=== PATIENT | female | born 1945 | race Caucasian/White ===

== ENCOUNTER 2022-09-16 15:57 | Inpatient (IN) ==
[2022-09-16] MEDS ORDERED: SODIUM CHLORIDE 0.9% 1000ML 1,000 ML IV SCH (16:30)
[2022-09-16 16:35] LABS: Basophils # (auto) 0.01 K/uL (0-0.2); Basophils % (auto) 0.1 %; Hematocrit (blood only) 37.8 % (37.0-47.0); Hemoglobin 12.6 g/dl (12.0-16.0); Immature Granulocytes # (auto) 0.04 K/uL (0.01-0.20); Immature Granulocytes % (auto) 0.4 %; Lymphocytes # (auto) 0.45 K/uL (1.2-3.4); Lymphocytes % (auto) 4.9 %; Mean Corpuscular Hemoglobin 30.1 pg (25.0-34.0); Mean Corpuscular Hgb Conc 33.3 g/dL (32.0-36.0); Mean Corpuscular Volume 90.4 fL (80.0-100.0); Mean Platelet Volume 11.1 fL (9.4-12.4); Monocytes # (auto) 0.45 K/uL (0.11-0.59); Monocytes % (auto) 4.9 %; Neutrophils # (auto) 8.17 K/uL (1.40-6.50); Neutrophils % (auto) 89.7 %; Platelet Count 241 K/uL (130-400); RDW Coefficient of Variation 13.1 % (11.5-14.5); RDW Standard Deviation 43.4 fL (36.4-46.3); Red Blood Count 4.18 M/uL (4.20-5.40); White Blood Count 9.12 K/ul (4.8-10.8)
[2022-09-16 16:50] LABS: Appearance Urine Clear (Clear); Bacteria Urine Automated Negative (Negative); Bilirubin Urine Negative (Negative); Blood Urine Negative (Negative); Color Urine Yellow; Epithelial Cell Urine Auto >30 /lpf (0-5); Glucose Urine UA Negative (Negative); Ketones Urine Negative (Negative); Leukocyte Esterase Urine 2+ (Negative); Nitrite Urine Negative (Negative); Protein Urine Negative (Negative); RBC Urine Automated 0-4 /hpf (0-4); Specific Gravity Urine 1.011 (1.000-1.030); Urobilinogen Urine Negative (Negative)
[2022-09-16 17:01] LABS: Troponin I High Sensitivity 306.2 pg/ml (0-14)
[2022-09-16 17:02] LABS: Albumin Level 3.9 gm/dl (3.4-5.0); Anion Gap 13 (3-11); Bilirubin,Total 0.7 mg/dl (0.2-1.0); Carbon Dioxide 22 mmol/L (21-32); Chloride 100 mmol/L (98-107); Magnesium 1.8 mg/dl (1.7-2.4); Potassium 3.9 mmol/L (3.5-5.1); Sodium 135 mmol/L (136-145)
[2022-09-16 17:08] LABS: Alanine Aminotransferase 20 U/L (7-52); Albumin Globulin Ratio 0.8 (0.9-2); Alkaline Phosphatase 56 U/L (34-104); Aspartate Aminotransferase 47 U/L (13-39); Blood Urea Nitrogen 18 mg/dl (6-23); C Reactive Protein < 0.50 mg/dl (0-0.5); Creatine Kinase 200 U/L (26-192); Creatinine Clr Calc Pharmacy 72.3 ml/min; Est GFR (African American) 101.2 ml/min; Est GFR (Non-African American) 87.3 ml/min; Globulin 4.6 gm/dl (2.5-4.0); Glucose 145 mg/dl (70-99(Fasting)); Total Protein 8.5 gm/dl (6.0-8.3)
[2022-09-16 17:15] LABS: Lyme Ab IgG w/WB Rflx Negative (Negative); Lyme Ab IgM w/WB Rflx Negative (Negative)
--- NOTE | 2022-09-16 17:28 | XRay Report ---
XR chest 1V portable HISTORY: 77 years-old Female weakness acute weakness COMPARISON: None TECHNIQUE: AP view of the chest FINDINGS: Cardiomediastinal and hilar silhouettes are within normal limits. No pneumothorax, pleural effusion, airspace consolidation or pulmonary edema. Chronic appearing right proximal humeral fracture. IMPRESSION: No acute process. ACT 112: Negative or not required by law. The above report was generated using voice recognition software. It may contain grammatical, syntax o r spelling errors. Electronically signed by: Steve Garcia M.D. 09/16/2022 5:25 PM
--- NOTE | 2022-09-16 17:34 | Emergency Department Note ---
Impression & Plan Generalized weakness, Dermatomyositis, Elevated troponin, Elevated creatine kinase ED Provider Note INFORMANT: Patient and family ED PROVIDER(S): Khanh Tejeda MD CHIEF COMPLAINT: Weakness PLAN: Disposition: Admitted Condition: Good Outpatient prescription management: none Referral: None MEDICAL DECISION MAKING: Patient presented because of progressive weakness. She has been undergoing work-up for dermatomyositis as an outpatient. A work-up was initiated here. She had nonfocal findings on examination. She had a tachycardia on ECG without ST elevation or depression. Patient had a negative CBC. Chemistry panel was unremarkable. ESR and total CK were mildly elevated. The patient had an elevated troponin. She has not had any chest pain. Difficult to say if this is related to the dermatomyositis. There is not a prior for comparison. Chest x- ray was unremarkable. Patient is allergic to aspirin. In light of the findings further management in the hospital will be necessary. Patient was hydrated. I discussed inpatient treatment with the patient and family and they were in agreement. Consultation was made with Dr. Jeremiah Dallas of the [facility] service. Patient was evaluated in the ER for further management. Discussed with manager shop After review of the information above and other included data, I feel the patient requires admission. Triage Nursing notes reviewed and agree them. Vital Signs: reviewed and remarkable for hypertension Prior /Outside records reviewed: none Differential diagnosis: Exacerbation of rheumatologic disease, infection, dehydration, metabolic abnormality, hypo/hyperglycemia, electrolyte disturbance, anemia, hypoxia, cardiac sources, intracerebral event, toxicologic, neurologic, as well as other pathologies. Diagnostics, as interpreted by me: ECG: Twelve-lead ECG reveals sinus tachycardia at 111 bpm. Left anterior fascicular block. Poor R wave progression. Low voltage QRS. Cardiac Monitoring: Cardiac monitoring ordered by me: The patient was placed on continuous cardiac monitoring and observed. It revealed a normal sinus rhythm at 91 beats per minute without ectopy or evidence of dysrhythmia. Medical decision rules: none Imaging studies: Chest x-ray. Findings: A chest x-ray was performed and revealed no pneumothorax, effusion, infiltrate, pulmonary edema, free air under the diaphragm, or wide mediastinum. Impression: No acute disease. HPI: The patient is a 77year old female who presents to the Emergency Room with complaints of weakness. This started over a year ago and is progressing to the point where the patient is having difficulty getting around. She was not able to get herself up yesterday. The patient also notes the following associated symptoms, generalized rash. The patient has been given fluids and steroids unsuccessfully for relieving factors. Current pain is rated as 7/10. Patient has proximal muscle pain and the thighs and upper arms. Patient's been followed by [facility] rheumatology and has been treated with steroids in the past. She was formally diagnosed with dermatomyositis. Family was concerned as she has reached a point where she is so weak that she cannot perform her daily activities and has not been eating well. She did have a brief choking episode but has had dysphagia issues progressing as well. Pt denies LOC, headache, fevers, chills, diaphoresis, visual changes, neck pain, chest pain, breathing difficulties, nausea, vomiting, abdominal pain, back pain, melena, hematochezia, urinary symptoms, numbness, weakness, lymphadenopathy, rash, or other complaints. PAST MEDICAL HISTORY:Dermatomyositis, hypertension, see below PAST SURGICAL HISTORY: See Below, SOCIAL HISTORY: See Below, retired HOME MEDICATIONS: See Below ALLERGIES: See Below VITALS: See Below PHYSICAL EXAMINATION: GENERAL: Awake, alert, tired-appearing, in no distress HENT: Normocephalic, atraumatic. Oropharynx unremarkable. EYES: Normal conjunctiva. Sclera non-icteric. NECK: Inspection normal. Non-tender. Supple. No nuchal rigidity. FROM. No masses. RESPIRATORY: Clear to auscultation. No wheezes. No rales. Normal respiratory effort. CARDIAC: Borderline tachycardic rate. Normal rhythm. No murmurs. No rubs. Extremities warm and well perfused. Pulses equal. No JVD. GI: Soft, non-distended. No tenderness to palpation. No rebound or guarding. No masses. RECTAL: Deferred. MUSCULOSKELETAL: Atraumatic. Chest examination reveals no tenderness. The back is symmetrical on inspection without obvious abnormality. There is no CVA tenderness to palpation. No joint edema. LOWER EXTREMITIES: Calves are equal size bilaterally and non-tender. No edema. No discoloration. NEURO: Normal sensorium. No sensory or motor deficits noted. SKIN: Patient has a diffuse erythematous dry appearing rash on the trunk and upper extremities. Also involves the face. No sloughing. No petechia, purpura, vesicles, or jaundice noted. Past Med/Surg History Medical History (Updated 09/16/22 @ 18:58 by Philipp Whyte PA-C) Chronic steroid use Dermatomyositis Hypertension Osteoporosis Surgical History History of bilateral cataract extraction History of colonoscopy History of dilatation and curettage History of tonsillectomy History of tooth extraction Family History Other No family history of adverse response to anesthesia Social History Smoking Status: Never smoker Second Hand Exposure: No; Do You Dip or Chew Tobacco: No; Hx Alcohol Use: No Hx Substance Use: No Preferred Language: Com[place] Communication Ability: Effective Water Plant Operator Required: No Beliefs That Will Affect Care: None Current Living Situation: Alone Feels Safe at Home: Yes Assistive Devices: Glasses Allergies Allergies Allergy/AdvReac Type Severity Reaction Status Date / Time shrimp Allergy Intermediate Hives Verified 09/16/22 16:25 aspirin Allergy Mild itching Verified 09/16/22 16:25 Home Meds Home Medications Medication Instructions Recorded Confirmed amlodipine 5 mg tablet 5 mg PO QAM 09/11/22 09/16/22 biotin 1,000 mcg chewable tablet 1,000 mcg PO QAM 09/11/22 09/16/22 cholecalciferol (vitamin D3) 25 25 mcg PO QAM 09/11/22 09/16/22 mcg (1,000 unit) tablet (Vitamin D3) folic acid 1 mg tablet 1 mg PO QAM 09/11/22 09/16/22 losartan 100 mg tablet 100 mg PO QAM 09/11/22 09/16/22 methotrexate sodium 25 mg/mL 20 mg IM WK 09/11/22 09/16/22 injection solution prednisone 5 mg tablet 5 mg PO QAM 09/11/22 09/16/22 zinc acetate 50 mg (zinc) capsule 50 mg PO QAM 09/11/22 09/16/22 Results & Data (ED) Vital Signs Vital Signs - 24 hr 09/16/22 16:00 09/16/22 16:12 09/16/22 16:09 Temperature 36.8 C Temperature Source Temporal Artery Scan Pulse Rate 109 H 108 H Pulse Rate [Left Apical] 105 H Respiratory Rate 20 18 Respiratory Effort / Characteristics Non-Labored Spontaneous Respiratory Depth Normal Blood Pressure 156/79 H Blood Pressure [Left Arm] 151/104 H Blood Pressure Mean 104 Blood Pressure Mean [Left Arm] 119 Pulse Oximetry 95 96 Oxygen Delivery Method Room Air Room Air Sepsis Recent Fever Within 48 Hours No Sepsis New/Unexplained Change in Mental Status No Sepsis Action Taken by Nursing No Action Required 09/16/22 17:00 09/16/22 17:30 09/16/22 18:00 Temperature Temperature Source Pulse Rate 96 H 89 95 H Pulse Rate [Left Apical] Respiratory Rate 14 12 14 Respiratory Effort / Characteristics Respiratory Depth Blood Pressure 138/85 156/105 H Blood Pressure [Left Arm] Blood Pressure Mean 102 122 Blood Pressure Mean [Left Arm] Pulse Oximetry 96 97 98 Oxygen Delivery Method Room Air Room Air Room Air Sepsis Recent Fever Within 48 Hours Sepsis New/Unexplained Change in Mental Status Sepsis Action Taken by Nursing Laboratory Data 09/16/22 16:09 09/16/22 16:09 Lab Results 09/16/22 09/16/22 09/16/22 Range/Units 16:09 16:09 16:09 WBC 9.12 (4.8-10.8) K/ul RBC 4.18 L (4.20-5.40) M/uL Hgb 12.6 (12.0-16.0) g/dl Hct 37.8 (37.0-47.0) % MCV 90.4 (80.0-100.0) fL MCH 30.1 (25.0-34.0) pg MCHC 33.3 (32.0-36.0) g/dL RDW Std Deviation 43.4 (36.4-46.3) fL RDW Coeff of [place] 13.1 (11.5-14.5) % Plt Count 241 (130-400) K/uL MPV 11.1 (9.4-12.4) fL Immature Gran % (Auto) 0.4 % Neut % (Auto) 89.7 % Lymph % (Auto) 4.9 % [place] % (Auto) 4.9 % Eos % (Auto) 0.0 % Baso % (Auto) 0.1 % Neut # (Auto) 8.17 H (1.40-6.50) K/uL Lymph # (Auto) 0.45 L (1.2-3.4) K/uL [place] # (Auto) 0.45 (0.11-0.59) K/uL Eos # (Auto) 0.00 (0-0.50) K/uL Baso # (Auto) 0.01 (0-0.2) K/uL Immature Gran # (Auto) 0.04 (0.01-0.20) K/uL ESR (0-30) mm/hr Sodium 135 L (136-145) mmol/L Potassium 3.9 (3.5-5.1) mmol/L Chloride 100 (98-107) mmol/L Carbon Dioxide 22 (21-32) mmol/L Anion Gap 13 H (3-11) BUN 18 (6-23) mg/dl Creatinine 0.60 (0.6-1.2) mg/dl Est Cr Clr Drug Dosing 72.3 ml/min Est GFR ( Amer) 101.2 ml/min Est GFR (Non-Af Amer) 87.3 ml/min BUN/Creatinine Ratio 30.0 H (10-20) Glucose 145 H (70-99(Fasting)) mg/dl Calcium 10.0 (8.6-10.3) mg/dl Magnesium 1.8 (1.7-2.4) mg/dl Total Bilirubin 0.7 (0.2-1.0) mg/dl AST 47 H (13-39) U/L ALT 20 (7-52) U/L Alkaline Phosphatase 56 (34-104) U/L Total Creatine Kinase 200 H (26-192) U/L Troponin I High Sens 306.2 H* (0-14) pg/ml C-Reactive Protein < 0.50 (0-0.5) mg/dl Total Protein 8.5 H (6.0-8.3) gm/dl Albumin 3.9 (3.4-5.0) gm/dl Globulin 4.6 H (2.5-4.0) gm/dl Albumin/Globulin Ratio 0.8 L (0.9-2) TSH 0.689 (0.300-4.500) uIu/ml Urine Color Urine Appearance (Clear) Urine pH (4.5-7.5) Ur Specific [place] (1.000-1.030) Urine Protein (Negative) Urine Glucose (UA) (Negative) Urine Ketones (Negative) Urine Blood (Negative) Urine Nitrite (Negative) Urine Bilirubin (Negative) Urine Urobilinogen (Negative) Ur Leukocyte Esterase (Negative) Urine WBC (Auto) (0-5) /hpf Urine RBC (Auto) (0-4) /hpf U Hyaline Cast (Auto) (0-5) /lpf U Epithel Cells (Auto) (0-5) /lpf Urine Bacteria (Auto) (Negative) Lyme Disease IgG Ab (Negative) Lyme Disease IgM Ab (Negative) SARS-CoV-2, RNA, NAAT (NEGATIVE) 09/16/22 09/16/22 09/16/22 Range/Units 16:09 16:09 16:25 WBC (4.8-10.8) K/ul RBC (4.20-5.40) M/uL Hgb (12.0-16.0) g/dl Hct (37.0-47.0) % MCV (80.0-100.0) fL MCH (25.0-34.0) pg MCHC (32.0-36.0) g/dL RDW Std Deviation (36.4-46.3) fL RDW Coeff of [place] (11.5-14.5) % Plt Count (130-400) K/uL MPV (9.4-12.4) fL Immature Gran % (Auto) % Neut % (Auto) % Lymph % (Auto) % [place] % (Auto) % Eos % (Auto) % Baso % (Auto) % Neut # (Auto) (1.40-6.50) K/uL Lymph # (Auto) (1.2-3.4) K/uL [place] # (Auto) (0.11-0.59) K/uL Eos # (Auto) (0-0.50) K/uL Baso # (Auto) (0-0.2) K/uL Immature Gran # (Auto) (0.01-0.20) K/uL ESR 79 H (0-30) mm/hr Sodium (136-145) mmol/L Potassium (3.5-5.1) mmol/L Chloride (98-107) mmol/L Carbon Dioxide (21-32) mmol/L Anion Gap (3-11) BUN (6-23) mg/dl Creatinine (0.6-1.2) mg/dl Est Cr Clr Drug Dosing ml/min Est GFR ( Amer) ml/min Est GFR (Non-Af Amer) ml/min BUN/Creatinine Ratio (10-20) Glucose (70-99(Fasting)) mg/dl Calcium (8.6-10.3) mg/dl Magnesium (1.7-2.4) mg/dl Total Bilirubin (0.2-1.0) mg/dl AST (13-39) U/L ALT (7-52) U/L Alkaline Phosphatase (34-104) U/L Total Creatine Kinase (26-192) U/L Troponin I High Sens (0-14) pg/ml C-Reactive Protein (0-0.5) mg/dl Total Protein (6.0-8.3) gm/dl Albumin (3.4-5.0) gm/dl Globulin (2.5-4.0) gm/dl Albumin/Globulin Ratio (0.9-2) TSH (0.300-4.500) uIu/ml Urine Color Urine Appearance (Clear) Urine pH (4.5-7.5) Ur Specific [place] (1.000-1.030) Urine Protein (Negative) Urine Glucose (UA) (Negative) Urine Ketones (Negative) Urine Blood (Negative) Urine Nitrite (Negative) Urine Bilirubin (Negative) Urine Urobilinogen (Negative) Ur Leukocyte Esterase (Negative) Urine WBC (Auto) (0-5) /hpf Urine RBC (Auto) (0-4) /hpf U Hyaline Cast (Auto) (0-5) /lpf U Epithel Cells (Auto) (0-5) /lpf Urine Bacteria (Auto) (Negative) Lyme Disease IgG Ab Negative (Negative) Lyme Disease IgM Ab Negative (Negative) SARS-CoV-2, RNA, NAAT NEGATIVE (NEGATIVE) 09/16/22 Range/Units 16:30 WBC (4.8-10.8) K/ul RBC (4.20-5.40) M/uL Hgb (12.0-16.0) g/dl Hct (37.0-47.0) % MCV (80.0-100.0) fL MCH (25.0-34.0) pg MCHC (32.0-36.0) g/dL RDW Std Deviation (36.4-46.3) fL RDW Coeff of [place] (11.5-14.5) % Plt Count (130-400) K/uL MPV (9.4-12.4) fL Immature Gran % (Auto) % Neut % (Auto) % Lymph % (Auto) % [place] % (Auto) % Eos % (Auto) % Baso % (Auto) % Neut # (Auto) (1.40-6.50) K/uL Lymph # (Auto) (1.2-3.4) K/uL [place] # (Auto) (0.11-0.59) K/uL Eos # (Auto) (0-0.50) K/uL Baso # (Auto) (0-0.2) K/uL Immature Gran # (Auto) (0.01-0.20) K/uL ESR (0-30) mm/hr Sodium (136-145) mmol/L Potassium (3.5-5.1) mmol/L Chloride (98-107) mmol/L Carbon Dioxide (21-32) mmol/L Anion Gap (3-11) BUN (6-23) mg/dl Creatinine (0.6-1.2) mg/dl Est Cr Clr Drug Dosing ml/min Est GFR ( Amer) ml/min Est GFR (Non-Af Amer) ml/min BUN/Creatinine Ratio (10-20) Glucose (70-99(Fasting)) mg/dl Calcium (8.6-10.3) mg/dl Magnesium (1.7-2.4) mg/dl Total Bilirubin (0.2-1.0) mg/dl AST (13-39) U/L ALT (7-52) U/L Alkaline Phosphatase (34-104) U/L Total Creatine Kinase (26-192) U/L Troponin I High Sens (0-14) pg/ml C-Reactive Protein (0-0.5) mg/dl Total Protein (6.0-8.3) gm/dl Albumin (3.4-5.0) gm/dl Globulin (2.5-4.0) gm/dl Albumin/Globulin Ratio (0.9-2) TSH (0.300-4.500) uIu/ml Urine Color Yellow Urine Appearance Clear (Clear) Urine pH 6.0 (4.5-7.5) Ur Specific [place] 1.011 (1.000-1.030) Urine Protein Negative (Negative) Urine Glucose (UA) Negative (Negative) Urine Ketones Negative (Negative) Urine Blood Negative (Negative) Urine Nitrite Negative (Negative) Urine Bilirubin Negative (Negative) Urine Urobilinogen Negative (Negative) Ur Leukocyte Esterase 2+ H (Negative) Urine WBC (Auto) 5-10 H (0-5) /hpf Urine RBC (Auto) 0-4 (0-4) /hpf U Hyaline Cast (Auto) 1-5 (0-5) /lpf U Epithel Cells (Auto) >30 H (0-5) /lpf Urine Bacteria (Auto) Negative (Negative) Lyme Disease IgG Ab (Negative) Lyme Disease IgM Ab (Negative) SARS-CoV-2, RNA, NAAT (NEGATIVE) Administered Medications Sodium Chloride (Nss 1000ml) 1,000 mls @ 125 mls/hr IV .Q8H NAMAN Stop: 09/17/22 00:29 Last Admin: 09/16/22 16:34 Dose: 125 mls/hr Documented By: MALLORY Discontinued Medications Famotidine (Famotidine 20mg/5ml Iv Push) 20 mg IV ONE STA Stop: 09/16/22 18:45 Last Admin: 09/16/22 18:50 Dose: 20 mg Documented By: MALLORY Methylprednisolone 1,000 mg/ (Dextrose) 266 mls @ 266 mls/hr IV NOW STA Stop: 09/16/22 20:30 Last Infusion: 09/16/22 22:16 Dose: 0 mls/hr Documented By: Admin: 09/16/22 20:03 Dose: 266 mls/hr Documented By: MALLORY Ioversol (Optiray 320 100ml) 81 ml IV ONCE ONE Stop: 09/16/22 21:50 Last Admin: 09/16/22 21:49 Dose: 81 ml Documented By: GUILLAUME Methylprednisolone (Methylprednisolone 125 Mg/2 Ml Vial) 60 mg IV NOW STA Stop: 09/16/22 19:23 Last Admin: 09/16/22 19:36 Dose: Not Given Documented By: ASHLY Imaging Data Radiologist's Impression: Chest X-Ray 09/16/22 16:21 XR chest 1V portable HISTORY: 77 years-old Female weakness acute weakness COMPARISON: None TECHNIQUE: AP view of the chest FINDINGS: Cardiomediastinal and hilar silhouettes are within normal limits. No pneumothorax, pleural effusion, airspace consolidation or pulmonary edema. Chronic appearing right proximal humeral fracture. IMPRESSION: No acute process. ACT 112: Negative or not required by law. The above report was generated using voice recognition software. It may contain grammatical, syntax or spelling errors. Electronically signed by: Steve Garcia M.D. 09/16/2022 5:25 PM Discharge Plan Visit Data Chief Complaint: Illness Stated Complaint: ISSUES WITH DISPHASIA,MOBILITY ISSUES ED Provider: Khanh Tejeda Discharge Problem: Generalized weakness, Dermatomyositis, Elevated troponin, Elevated creatine kinase Patient Disposition: Admitted As Inpatient Discharge Instructions Interventions: ED Discharge Assessment Last Done: 09/16/22 20:46
--- NOTE | 2022-09-16 17:59 | History & Physical Report ---
Date of Service September 16, 2022 Assessment & Plan (1) Generalized weakness: Plan: -Admit to med/tele on continuous pulse oximetry -Currently stable -Has had an acute exacerbation of generalized weakness with proximal extremity weakness and increased difficultly swallowing -Follows with Dr. Del Cid of [facility] who tried outpatient dexamethasone and prednisone without relief, recommended admission for further treatment and assessment -Rheumatology consult placed, will touch base with them on admission for steroid therapy moving forward -No sign of acute infection on workup, continue to monitor for fevers and/or hypoxia -She has had continued generalized weakness without response to increased steroid therapy, recently elevated CA 125 without adequate visualizatio of her ovaries on pelvic US last week. Will obtain CT of the abd/pelvis w/IV con for further evaluation of possible malignancy -BL SCD's and Sub-Q lovenox for DVT PPX at this time -AM CBC, CMP, Mag -Aspiration precautions, regular diet with pureed consistency until she is evaluated by speech (2) Elevated troponin: Plan: -Initial high sen trop elevated at 306 with 2 hour repeat of 399 -The patient is without chest discomfort or SOB and without acute ST segment or T-wave changes -Unsure if this could be related to her dermatomyositis, will speak with rheum -For now will continue to trend her trop q6h and monitor on tele -Will hold aspirin and heparin for now as she is allergic to aspirin and asymptomatic -TTE tomorrow for further evaluation (3) Dermatomyositis: Plan: -Rheumatology consult placed -Will touch base with them for steroid therapy moving forward (4) Elevated creatine kinase: Plan: -Initially at 200 -Likely related to her chronic inflammatory disease -Renal function is stable, S/P 1L NSS in the ED -Will continue with 1L LR overnight for further hydration (5) Hypertension: Plan: -Stable (6) Aspiration of food: Plan: -No sign of aspiration pneumonia of CXR today, currently stable on RA -Speech therapy consult placed -Aspiration precautions ordered -Pureed diet for now Plan The patient was discussed with Dr. Dallas at the time of the admission History of Present Illness Chief Complaint: Generalized weakness Primary Care Provider: Alfredo Mesa DO Skye is a 77 year old female with a PMH significant for Dermatomyositis (Currently on Methotrexate and daily prednisone) follows with Dr. Del Cid of [facility] and HTN who presented to the [facility] ED on 09/16/22 with a chief complaint of progressive generalized weakness over the past 48-72 hours. In the ED vitals were stable, labs were significant for an ESR of 79, AG of 13 with bicarb WNL, AST of 47, CK of 200 with initial high sen trop of 306, clean UA, lyme IgG, IgM, and Covid negative. Prior to admission the patient was given 1L NSS. At the time of the exam the patient was lying in bed in no acute distress with her daughter and son sitting bedside, history was obtained from all. They state that the patient has been having progressive issues with difficulty swallowing and poor oral intake since her diagnosis last year. Her daughter states that the patient has had an approximately 20 lb weight loss over the past year. Her last IVIG infusion was last Friday into Friday and was without complication. Over the past 48-72 hours the patient has had an acute exacerbation in generalized weakness, especially with proximal extremity weakness and increased difficulty swallowing. She has had a few episodes of chocking/possible aspiration over this time. They were working with Dr. Del Cid to try and treat her outpatient and avoid admission, she completed 8 mg IV dexamethasone yesterday AM and PM yesterday and 60 mg PO prednisone this am without improvement in her symptoms. Dr. Del Cid recommended admission for continued treatment to prevent progression to respiratory compromise. Her family state that she had initial scans of the neck, chest, and abdomen to monitor for malignancy on diagnosis last year. She is scheduled to see [facility] next week for colonoscopy and has an appointment with [facility] this for further evaluation for possible ENT malignancy. They mentioned that the patient recently had an elevated CA 125 level and wasn't sure if she could be seen by Dr. Lopez of [facility] while admitted. The patient denies recent fever, chills, chest pain, SOB, cough, abd pain, nausea, vomiting, dysuria, hematuria, melena, LE swelling and recent trauma. She lives at home, alone and has not required the use of a walker or can for ambulation up to this point. She is a full code and her daughter is her POA. Please refer to Dr. Dallas's attestation for any changes to the treatment plan Allergies Allergy/AdvReac Type Severity Reaction Status Date / Time shrimp Allergy Intermediate Hives Verified 09/16/22 16:25 aspirin Allergy Mild itching Verified 09/16/22 16:25 Home Medications Medication Instructions Recorded Confirmed Type amlodipine 5 mg tablet 5 mg PO QAM 09/11/22 09/16/22 History biotin 1,000 mcg chewable tablet 1,000 mcg PO QAM 09/11/22 09/16/22 History cholecalciferol (vitamin D3) 25 25 mcg PO QAM 09/11/22 09/16/22 History mcg (1,000 unit) tablet (Vitamin D3) folic acid 1 mg tablet 1 mg PO QAM 09/11/22 09/16/22 History losartan 100 mg tablet 100 mg PO QAM 09/11/22 09/16/22 History methotrexate sodium 25 mg/mL 20 mg IM WK 09/11/22 09/16/22 History injection solution prednisone 5 mg tablet 5 mg PO QAM 09/11/22 09/16/22 History zinc acetate 50 mg (zinc) capsule 50 mg PO QAM 09/11/22 09/16/22 History tacrolimus 0.1 % topical ointment See Rx Instructions .Route .COMPLEX 09/16/22 09/16/22 History triamcinolone acetonide See Rx Instructions .Route .COMPLEX 09/16/22 09/16/22 History Past Med/Surg History Medical History (Updated 09/16/22 @ 18:58 by Philipp Whyte PA-C) Chronic steroid use Dermatomyositis Hypertension Osteoporosis Surgical History History of bilateral cataract extraction History of colonoscopy History of dilatation and curettage History of tonsillectomy History of tooth extraction Family History Other No family history of adverse response to anesthesia Social History Smoking Status: Never smoker Second Hand Exposure: No; Do You Dip or Chew Tobacco: No; Hx Alcohol Use: No Hx Substance Use: No Preferred Language: Tajik Communication Ability: Effective Dry Mill Operator Required: Voice Beliefs That Will Affect Care: None Current Living Situation: Alone Other Information That Helps Us Care for You: No Feels Safe at Home: Yes Safety Concerns: Feels Safe At This Time Assistive Devices: Glasses Physical Exam Physical Exam: Physical Exam: General: In no acute distress, stated age, chronically ill-appearing but non- toxic HEENT: Normocephalic, atraumatic, no scleral icterus, pupils around round, symmetrical, and reactive to light, moist mucus membranes, trachea midline, no thyromegaly Chest/Pulm: No respiratory distress, symmetrical chest expansion, clear breath sounds throughout Cardiac: RRR, no murmurs noted Abdomen: Negative for ascites and bruising, normoactive bowel sounds, soft, non-tender to palpation throughout Musculoskeletal: Symmetrical and without signs of acute trauma, upper and lower extremities with symmetric but decreased ROM due to weakness, Extremities: Radial, dorsalis pedis, and posterior tibial pulses are intact and symmetrical, no edema noted in the BL LE's Skin: Chronic erythema of the face at baseline per family Neuro: Alert and oriented to person, place, month, year, and president, no focal defects, CN II-XII tested and intact, finger to nose test negative, no tremors noted Psych: No acute distress, calm and cooperative during the exam Results & Data Results & Data Vital Signs (Past 12 Hours) Vital Signs Temp Pulse Pulse Resp BP BP Pulse Ox 09/16/22 17:30 89 12 97 09/16/22 17:00 96 H 14 138/85 96 09/16/22 16:09 105 H 18 151/104 H 96 09/16/22 16:12 108 H 09/16/22 16:00 36.8 C 109 H 20 156/79 H 95 O2 Del Method 09/16/22 17:30 Room Air 09/16/22 17:00 Room Air 09/16/22 16:09 Room Air 09/16/22 16:12 09/16/22 16:00 Room Air Laboratory Results Abnormal lab results 09/16/22 09/16/22 09/16/22 Range/Units 16:09 16:09 16:09 RBC 4.18 L (4.20-5.40) M/uL Neut # (Auto) 8.17 H (1.40-6.50) K/uL Lymph # (Auto) 0.45 L (1.2-3.4) K/uL ESR 79 H (0-30) mm/hr Sodium 135 L (136-145) mmol/L Anion Gap 13 H (3-11) BUN/Creatinine Ratio 30.0 H (10-20) Glucose 145 H (70-99(Fasting)) mg/dl AST 47 H (13-39) U/L Total Creatine Kinase 200 H (26-192) U/L Troponin I High Sens 306.2 H* (0-14) pg/ml Total Protein 8.5 H (6.0-8.3) gm/dl Globulin 4.6 H (2.5-4.0) gm/dl Albumin/Globulin Ratio 0.8 L (0.9-2) Ur Leukocyte Esterase (Negative) Urine WBC (Auto) (0-5) /hpf U Epithel Cells (Auto) (0-5) /lpf 09/16/22 09/16/22 Range/Units 16:30 18:10 RBC (4.20-5.40) M/uL Neut # (Auto) (1.40-6.50) K/uL Lymph # (Auto) (1.2-3.4) K/uL ESR (0-30) mm/hr Sodium (136-145) mmol/L Anion Gap (3-11) BUN/Creatinine Ratio (10-20) Glucose (70-99(Fasting)) mg/dl AST (13-39) U/L Total Creatine Kinase (26-192) U/L Troponin I High Sens 399.0 H* D (0-14) pg/ml Total Protein (6.0-8.3) gm/dl Globulin (2.5-4.0) gm/dl Albumin/Globulin Ratio (0.9-2) Ur Leukocyte Esterase 2+ H (Negative) Urine WBC (Auto) 5-10 H (0-5) /hpf U Epithel Cells (Auto) >30 H (0-5) /lpf Diagnostic Findings Chest X-Ray 09/16/22 16:21 XR chest 1V portable HISTORY: 77 years-old Female weakness acute weakness COMPARISON: None TECHNIQUE: AP view of the chest FINDINGS: Cardiomediastinal and hilar silhouettes are within normal limits. No pneumothorax, pleural effusion, airspace consolidation or pulmonary edema. Chronic appearing right proximal humeral fracture. IMPRESSION: No acute process. ACT 112: Negative or not required by law. The above report was generated using voice recognition software. It may contain grammatical, syntax or spelling errors. Electronically signed by: Steve Garcia M.D. 09/16/2022 5:25 PM ECG Additional Comments: Sinus tachycardia Low voltage QRS Left anterior fascicular block Possible Anterolateral infarct , age undetermined Abnormal ECG No previous ECGs available Code Status & VTE Plan Code Status Full code VTE Prophylaxis Plan VTE Prophylaxis will be ordered: Yes Supervising Physician Co-Signing Physician Notes I personally saw and examined the patient. I verified all avila points and agree with Philipp Whyte PA-C with the following exceptions and/or additions: 77 year old female with dermatomyositis and concern for sudden progression in symptoms with worsening rash and bilateral proximal weakness. Some atypical features with her getting worse at the end of the day. Increasing dysphagia and dysphonia. No difficulty in breathing. O/E HS RRR, no murmurs, Chest CTAB, Abdo SNT, b/l proximal muscle weakness 4/5 b/l equal, A&Ox3, extensive erythematous rash on face and b/l arms A/P Dermatomyositis - discussed with rheumatology and recommended Solu-medrol 1g TID IV. CT C/A/P recommended by rheumatology to assess for malignancy again. Also recommended peripheral smear and myeloma workup. SLLT Bilateral proximal muscle weakness - due to normal CRP and symptoms worse at the end of the day myasthenia gravis panel sent (notably no ocular symptoms making this less likely though) Elevated troponin - she is not having symptoms of ACS - although she may not be noticing anything due to her other complaints. Unclear what is causing this currently as not thought to be associated with dermatomyositis per her surveillance operator. trend overnight and TTE in AM ?cardiomyopathy. PG Care Time/CCT Total # of Minutes Spent Total Time Spent with Patient: Total time spent is greater than 50% in coordination of care (as documented) at patient's floor/unit and/or counseling patient: Coding [place] [address] INT INP/OBS CARE 3/75MIN Patient Type Established Medical Decision Making High Complexity Diagnoses Generalized weakness R53.1 Elevated troponin R77.8 Dermatomyositis M33.90 Elevated creatine kinase R74.8 Hypertension I10 Aspiration of food T17.928A
[2022-09-16] MEDS ORDERED: FAMOTIDINE 20 MG in SYRINGE 3 ML IV STA (18:37)
[2022-09-16] MEDS ORDERED: FAMOTIDINE 20MG/5ML IV PUSH IV STA (18:44)
[2022-09-16] MEDS ORDERED: methylPREDNISolone 125 MG/2 ML VIAL IV STA (19:22)
[2022-09-16] MEDS ORDERED: methylPREDNISolone 1,000 MG in DEXTROSE 5% 250 ML IV STA (19:31)
[2022-09-16] MEDS ORDERED: OPTIRAY 320 100ml IV ONE (21:49)
[2022-09-16] MEDS ORDERED: LACTATED RINGER'S 1,000 ML IV SCH (22:07)
--- NOTE | 2022-09-16 22:15 | CT Scan Report ---
Exam(s): CT CHEST With Contrast IV Amt: 79ML OPTIRAY EXAM: CT Chest With Intravenous Contrast CLINICAL HISTORY: Reason for exam: weakness/weight loss, monitor for malignancy. TECHNIQUE: Axial computed tomography images of the chest with intravenous contrast. CTDI is 23.15 mGy and DLP is 1763.01 mGy-cm. Automated exposure control was utilized for the study. A dose lowering technique was utilized adhering to the principles of ALARA. CONTRAST: Patient received 79ML OPTIRAY of IV contrast COMPARISON: None FINDINGS: Lungs: Mild dependent atelectasis bilaterally. No focal consolidation. Pleural space: Unremarkable. No pneumothorax. No significant effusion. Heart: Unremarkable. No cardiomegaly. No significant pericardial effusion. No significant coronary artery calcifications. Mediastinum: Small hiatal hernia. 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 Degenerative changes of the spine. Chronic-appearing superior endplate depression of the T12 vertebral body. No acute fracture. No dislocation. Soft tissues: Nonspecific mild subcutaneous fat stranding in the partially visualized proximal left upper arm. Vasculature: Unremarkable. No thoracic aortic aneurysm. Lymph nodes: Unremarkable. No enlarged lymph nodes. IMPRESSION: Nonspecific mild subcutaneous fat stranding in the partially visualized proximal left upper arm. No other acute abnormality identified. Electronically signed by: Eduin Lugo M.D. 09/16/22 22:14 PM
--- NOTE | 2022-09-16 22:26 | CT Scan Report ---
Exam(s): CT ABDOMEN + PELVIS With Contrast IV Amt: 79 ML OPTIRAY 320 EXAM: CT Abdomen and Pelvis With Intravenous Contrast CLINICAL HISTORY: Reason for exam: gen weakness, weight loss, monitor for malignancy. TECHNIQUE: Axial computed tomography images of the abdomen and pelvis with intravenous contrast. CTDI is 23.15 mGy and DLP is 1763.15 mGy-cm. Automated exposure control was utilized for the study. A dose lowering technique was utilized adhering to the principles of ALARA. CONTRAST: Patient received 79 ML OPTIRAY 320 of IV contrast COMPARISON: No relevant prior studies available. FINDINGS: Lung bases: Unremarkable. No mass. No consolidation. ABDOMEN: Liver: Unremarkable. No mass. Gallbladder and bile ducts: Unremarkable. No calcified stones. No ductal dilation. Pancreas: Unremarkable. No mass. No ductal dilation. Spleen: Unremarkable. No splenomegaly. Adrenals: Unremarkable. No mass. Kidneys and ureters: Unremarkable. No solid mass. No hydronephrosis. Stomach and bowel: Unremarkable. No obstruction. No mucosal thickening. PELVIS: Appendix: No findings to suggest acute appendicitis. Bladder: Distended urinary bladder. Reproductive: Unremarkable as visualized. ABDOMEN and PELVIS: Intraperitoneal space: Unremarkable. No free air. No significant fluid collection. Bones/joints: T12 vertebral body compression fracture likely chronic in nature. No dislocation. Soft tissues: Unremarkable. Vasculature: Unremarkable. No abdominal aortic aneurysm. Lymph nodes: Unremarkable. No enlarged lymph nodes. IMPRESSION: No acute findings in the abdomen or pelvis. Electronically signed by: Jamar Antonio MD 09/16/22 22:24 PM
[2022-09-17] MEDS: methylPREDNISolone 1,000 MG in DEXTROSE 5% 250 ML IV SCH (08:28)
[2022-09-17] MEDS: TRIAMCINOLONE ACET 0.1% CR 15 GM TUBE EXT SCH ×2 (08:29→20:10)
[2022-09-17] MEDS: FAMOTIDINE 20 MG in SYRINGE 3 ML IV SCH (08:29)
[2022-09-17] MEDS: LOSARTAN POTASSIUM 50 MG TAB PO SCH (08:29)
[2022-09-17] MEDS: FOLIC ACID 1 MG TAB PO SCH (08:29)
[2022-09-17] MEDS: ENOXAPARIN INJ 40 MG/0.4 ML SYR SQ SCH (08:29)
[2022-09-17] MEDS: amLODIPine BESYLATE 5 MG TAB PO SCH (08:30)
[2022-09-17] MEDS: TACROLIMUS EXT SCH ×2 (08:30→20:09)
--- NOTE | 2022-09-17 08:43 | Electrocardiogram Report ---
Test Reason : Blood Pressure : / mmHG Vent. Rate : 111 BPM Atrial Rate : 111 BPM P-R Int : 142 ms QRS Dur : 078 ms QT Int : 330 ms P-R-T Axes : 057 -52 049 degrees QTc Int : 448 ms Sinus tachycardia Low voltage QRS Left anterior fascicular block Poor R wave progression, consider anterior PR vs. lead placement vs. LVH Abnormal ECG No previous ECGs available Confirmed by Freddy Cheema ([id number]) on 09/17/2022 8:42:49 AM Referred By: REFERRED SELF Confirmed By:Freddy Cheema
[2022-09-17 08:57] LABS: Albumin Globulin Ratio 0.8 (0.9-2); Albumin Level 3.5 gm/dl (3.4-5.0); BUN Creatinine Ratio 30.8 (10-20); Bilirubin,Total 0.8 mg/dl (0.2-1.0); Calcium 9.1 mg/dl (8.6-10.3); Est GFR (African American) 106.1 ml/min; Est GFR (Non-African American) 91.5 ml/min; Globulin 4.6 gm/dl (2.5-4.0); Hematocrit (blood only) 35.7 % (37.0-47.0); Hemoglobin 11.9 g/dl (12.0-16.0); Immature Granulocytes # (auto) 0.02 K/uL (0.01-0.20); Immature Granulocytes % (auto) 0.4 %; Lymphocytes # (auto) 0.33 K/uL (1.2-3.4); Lymphocytes % (auto) 6.1 %; Magnesium 1.8 mg/dl (1.7-2.4); Mean Corpuscular Hemoglobin 29.6 pg (25.0-34.0); Mean Corpuscular Hgb Conc 33.3 g/dL (32.0-36.0); Mean Corpuscular Volume 88.8 fL (80.0-100.0); Mean Platelet Volume 11.2 fL (9.4-12.4); Monocytes # (auto) 0.26 K/uL (0.11-0.59); Monocytes % (auto) 4.8 %; Neutrophils # (auto) 4.83 K/uL (1.40-6.50); Neutrophils % (auto) 88.7 %; Platelet Count 200 K/uL (130-400); Potassium 3.8 mmol/L (3.5-5.1); RDW Coefficient of Variation 13.2 % (11.5-14.5); RDW Standard Deviation 42.9 fL (36.4-46.3); Red Blood Count 4.02 M/uL (4.20-5.40); Total Protein 8.1 gm/dl (6.0-8.3); White Blood Count 5.44 K/ul (4.8-10.8)
[2022-09-17] MEDS ORDERED: methylPREDNISolone 1,000 MG in DEXTROSE 5% 250 ML IV SCH (09:00)
[2022-09-17] MEDS ORDERED: TRIAMCINOLONE ACET 0.1% CR 15 GM TUBE EXT SCH (09:00)
[2022-09-17] MEDS ORDERED: methylPREDNISolone 125 MG/2 ML VIAL IV SCH (09:00)
[2022-09-17] MEDS ORDERED: NON-FORMULARY MEDICATION (Biotin 1,000 mcg Tablet,Chewable) PO SCH (09:00)
--- NOTE | 2022-09-17 12:02 | XCELERA ---
[id number].pdf
--- NOTE | 2022-09-17 17:22 | Rheumatology Consultation ---
Rheumatology Consultation DOS September 17, [address] Dallas Attending Physician Dr Mas Reason for Consultation dermatomyositis Assessment & Plan (1) Dermatomyositis: she has worsening symptoms despite IVIG, MTX adn low dose prednisone. has significant proximal weakness on exam, ongoing rash of dermatomyositis. autoimmune labs pending and may take several weeks to return. always concerning when patients worsen on treatment and makes malignancy a concern but so far work up is normal. awaiting futher labs and testing. needs swallow eval and eval by ENT. may need to change to rituxan or xeljanz. myasthenia labs ordered for possible overlap which is uncommon but given her worsening muscle complaints in the evening makes sense. (2) Generalized weakness: same as above (3) Elevated creatine kinase: same as above (4) Elevated troponin: same as above Plan 1. finish 3 days of IV solumedrol 1 gram 2. start oral pred 60mg daily the day after last dose of solumedrol 3. continue MTX and IVIG for now but may need to change pending course 4. await further evaluations - needs swallow eval if not ordered 5. thank you for the consult and involving me in this patient's care 6. I will arrnage outpatient rheum appointment next week History of Present Illness Reason for Consultation: dermatomyositis Requesting Physician: Dr Dallas Attending Physician: Ryan Mas DO History of Present Illness Skye is well known to me with a diagnosis of dermatomyositis on MTX, IVIG and low dose prednisone. I was contacted by her son in law on Friday because of increasing muscle weakness, nasal voice and 1 episode of dysphagia friday night. she was eating a tuna fish salad and choked and when she tried drinking milk it came back out her nose. Skye reports that this has not occured since then. she was brought to [facility] yesterday evening with worsening symptoms. she had received IV dexamethasone from her son in law on friday and did not seem to help. we had discussed oral pred at 60mg but concerns of her dysphagia limited that. she reports that the nasal voice has been ongoing for many months now and was to see ENT shortly for an eval of that. she did have labs with her PCP recently and a CA 1215 was elevated but a transvaginal ultrasound looked fine. she reports that the last few weeks she is weaker and hard to get around but seems to be betetr in the morning than evenings. she states one time she fell back in bed and could not get up without the help of her son (who happened to be there.) she is not using a walker or cane. she is weak in the arms and legs. she feels like the rash has gotten better on the chest but now moved to the arms and hands more. she has lost around 10 lbs in the last few months as well. her son in law reported it is around 20 lbs to me on friday. she has been on IVIG since and actually just received a dose last week. she has not missed her MTX dosing as reported by her son in law. she denies any fevers, chills, nausea, inflammatory joint issues. sometimes has a cough but no SOB. no N,V,D. she had a CT chest abd/pelvis yesterday with no signs of cancer. overall looked good. 2d echo today looked good. labs showed esr of 75. multiple autoimmune labs are pending. her CK yesterday was mikldly elevated at 200, trop was elevated at 300 but no concerning cardiac issues. she reports she has eaten some today and no choking or dysphagia. she is getting IV solumedrol 1 gram x 3 days. Allergies Allergy/AdvReac Type Severity Reaction Status Date / Time shrimp Allergy Intermediate Hives Verified 09/16/22 16:25 aspirin Allergy Mild itching Verified 09/16/22 16:25 Home Medications Medication Instructions Recorded Confirmed Type amlodipine 5 mg tablet 5 mg PO [facility] 09/11/22 09/16/22 History biotin 1,000 mcg chewable tablet 1,000 mcg PO QA 09/11/22 09/16/22 History cholecalciferol (vitamin D3) 25 25 mcg PO QAM 09/11/22 09/16/22 History mcg (1,000 unit) tablet (Vitamin D3) folic acid 1 mg tablet 1 mg PO QA 09/11/22 09/16/22 History losartan 100 mg tablet 100 mg PO QA 09/11/22 09/16/22 History methotrexate sodium 25 mg/mL 20 mg IM WK 09/11/22 09/16/22 History injection solution prednisone 5 mg tablet 5 mg PO QA 09/11/22 09/16/22 History zinc acetate 50 mg (zinc) capsule 50 mg PO [facility] 09/11/22 09/16/22 History tacrolimus 0.1 % topical ointment See Rx Instructions .Route .COMPLEX 09/16/22 09/16/22 History triamcinolone acetonide See Rx Instructions .Route .COMPLEX 09/16/22 09/16/22 History Patient History Medical History (Updated 09/16/22 @ 18:58 by Philipp Whyte PA-C) Chronic steroid use Dermatomyositis Hypertension Osteoporosis Surgical History History of bilateral cataract extraction History of colonoscopy History of dilatation and curettage History of tonsillectomy History of tooth extraction Family History Other No family history of adverse response to anesthesia Social History Smoking Status: Never smoker Second Hand Exposure: No; Do You Dip or Chew Tobacco: No; Hx Alcohol Use: No Hx Substance Use: No Preferred Language: Samoan Communication Ability: Effective Clean Rice Grader And Reel Tender Required: Voice Beliefs That Will Affect Care: None Current Living Situation: Alone Other Information That Helps Us Care for You: No Feels Safe at Home: Yes Safety Concerns: Feels Safe At This Time Assistive Devices: None Review of Systems Constitutional: weight loss Eyes: normal Ear, Nose, Mouth, Throat: see hpi Respiratory: see hpi Cardiovascular: Additional Comments: see hpi Gastrointestinal: none Musculoskeletal: weakness Integumentary: rash Physical Exam Constitutional: seen in hopsital room, NAD, nasal voice noted Eyes: no erythema, PERRL, EOMI ENMT: moist mucosa, no ulcers Respiratory: CTA b/l Cardiovascular: reg, + S1 and S2, no murmurs Gastrointestinal (Abdomen): soft NT ND + BS Musculoskeletal: proximal muscle weakness - 4-/5 for biceps and deltoids, hip flxors 3+/5 no synovitis of the hands no knee effusions Skin: erythema noted to face, forearms and hands, shawl sign noted, erythema to scalp as well Results & Data Vital Signs (Past 12 Hours) Vital Signs Temp Pulse Pulse Resp BP Pulse Ox O2 Del Method 09/17/22 16:17 79 09/17/22 16:00 36.6 C 91 H 18 150/85 H 91 Room Air 09/17/22 10:35 36.5 C 83 20 132/78 97 Room Air 09/17/22 08:00 84 09/17/22 08:01 36.4 C L 84 18 163/97 H 96 Room Air Laboratory Results reviewed Diagnostic Findings reviewed
[2022-09-18 06:33] LABS: Hematocrit (blood only) 34.6 % (37.0-47.0); Hemoglobin 11.3 g/dl (12.0-16.0); Immature Granulocytes # (auto) 0.05 K/uL (0.01-0.20); Immature Granulocytes % (auto) 0.9 %; Lymphocytes # (auto) 0.25 K/uL (1.2-3.4); Lymphocytes % (auto) 4.6 %; Mean Corpuscular Hemoglobin 29.5 pg (25.0-34.0); Mean Corpuscular Hgb Conc 32.7 g/dL (32.0-36.0); Mean Corpuscular Volume 90.3 fL (80.0-100.0); Mean Platelet Volume 11.3 fL (9.4-12.4); Monocytes # (auto) 0.49 K/uL (0.11-0.59); Monocytes % (auto) 8.9 %; Neutrophils # (auto) 4.69 K/uL (1.40-6.50); Neutrophils % (auto) 85.6 %; Platelet Count 199 K/uL (130-400); RDW Coefficient of Variation 13.2 % (11.5-14.5); RDW Standard Deviation 43.2 fL (36.4-46.3); Red Blood Count 3.83 M/uL (4.20-5.40); White Blood Count 5.48 K/ul (4.8-10.8)
[2022-09-18 07:20] LABS: Albumin Level 3.3 gm/dl (3.4-5.0); Bilirubin,Total 0.7 mg/dl (0.2-1.0); Calcium 8.9 mg/dl (8.6-10.3); Magnesium 1.8 mg/dl (1.7-2.4); Potassium 3.6 mmol/L (3.5-5.1)
[2022-09-18 07:26] LABS: Albumin Globulin Ratio 0.8 (0.9-2); BUN Creatinine Ratio 34.5 (10-20); Creatinine Clr Calc Pharmacy 72.8 ml/min; Est GFR (African American) 104.1 ml/min; Est GFR (Non-African American) 89.8 ml/min; Globulin 4.2 gm/dl (2.5-4.0); Total Protein 7.5 gm/dl (6.0-8.3)
[2022-09-18] MEDS: TRIAMCINOLONE ACET 0.1% CR 15 GM TUBE EXT SCH ×2 (09:24→22:14)
[2022-09-18] MEDS: TACROLIMUS EXT SCH ×2 (09:24→22:12)
[2022-09-18] MEDS: FOLIC ACID 1 MG TAB PO SCH (09:25)
[2022-09-18] MEDS: amLODIPine BESYLATE 5 MG TAB PO SCH (09:25)
[2022-09-18] MEDS: LOSARTAN POTASSIUM 50 MG TAB PO SCH (09:25)
[2022-09-18] MEDS: ENOXAPARIN INJ 40 MG/0.4 ML SYR SQ SCH (09:25)
[2022-09-18] MEDS: FAMOTIDINE 20 MG in SYRINGE 3 ML IV SCH (09:31)
[2022-09-18] MEDS: methylPREDNISolone 1,000 MG in DEXTROSE 5% 250 ML IV SCH (09:31)
--- NOTE | 2022-09-18 10:46 | Hospitalist Progress Note ---
Date of Service September 17, 2022 Assessment & Plan (1) Generalized weakness: Plan: -Admit to med/tele on continuous pulse oximetry -Currently stable -Has had an acute exacerbation of generalized weakness with proximal extremity weakness and increased difficultly swallowing -Follows with Dr. Del Cid of [facility] who tried outpatient dexamethasone and prednisone without relief, recommended admission for further treatment and assessment -Rheumatology consult placed, will touch base with them on admission for steroid therapy moving forward -No sign of acute infection on workup, continue to monitor for fevers and/or hypoxia -She has had continued generalized weakness without response to increased steroid therapy, recently elevated CA 125 without adequate visualizatio of her ovaries on pelvic US last week. Will obtain CT of the abd/pelvis w/IV con for further evaluation of possible malignancy -BL SCD's and Sub-Q lovenox for DVT PPX at this time -AM CBC, CMP, Mag -Aspiration precautions, regular diet with pureed consistency until she is evaluated by speech (2) Elevated troponin: Plan: -Initial high sen trop elevated at 306 with 2 hour repeat of 399 -The patient is without chest discomfort or SOB and without acute ST segment or T-wave changes -Unsure if this could be related to her dermatomyositis, will speak with rheum -For now will continue to trend her trop q6h and monitor on tele -Will hold aspirin and heparin for now as she is allergic to aspirin and asymptomatic -TTE tomorrow for further evaluation (3) Dermatomyositis: Plan: -Rheumatology consult placed -Will touch base with them for steroid therapy moving forward (4) Elevated creatine kinase: Plan: -Initially at 200 -Likely related to her chronic inflammatory disease -Renal function is stable, S/P 1L NSS in the ED -Will continue with 1L LR overnight for further hydration (5) Hypertension: Plan: -Stable (6) Aspiration of food: Plan: -No sign of aspiration pneumonia of CXR today, currently stable on RA -Speech therapy consult placed -Aspiration precautions ordered -Pureed diet for now Plan The patient was discussed with Dr. Dallas at the time of the admission Admission and Anticipated Discharge Date Admission Date: September 16, 2022 Subjective Admits to feeling better minimally but is up and walking nicely without assistive device and only contact-guard Physical Exam Constitutional: well nourished and + well hydrated Results & Data Results & Data Vital Signs (Past 12 Hours) Vital Signs Temp Pulse Pulse Resp BP Pulse Ox O2 Del Method 09/18/22 08:00 36.6 C 91 H 18 166/88 H 96 Room Air 09/18/22 04:00 36.5 C 78 18 138/87 97 Room Air 09/17/22 23:00 36.6 C 80 18 143/84 H 97 Room Air 09/17/22 23:01 74 PG Care Time/CCT Total # of Minutes Spent Total Time Spent with Patient: Total time spent is greater than 50% in coordination of care (as documented) at patient's floor/unit and/or counseling patient: Coding Level of Care Code 89533 SUB INP/OBS CARE 2/35MIN Diagnoses Generalized weakness R53.1 Elevated troponin R77.8 Dermatomyositis M33.90 Elevated creatine kinase R74.8 Hypertension I10 Aspiration of food T17.928A Time Spent (min) 42
[2022-09-18] MEDS: D5W AND 1/2NSS + 20MEQ KCL 20 MEQ/1,000 ML BAG IV SCH (18:42)
[2022-09-18] MEDS: NYSTATIN SUSP 500,000 U/5 ML UDC PO SCH ×3 (18:42→22:56)
[2022-09-19] MEDS: D5W AND 1/2NSS + 20MEQ KCL 20 MEQ/1,000 ML BAG IV SCH ×2 (05:52→17:09)
--- NOTE | 2022-09-19 07:38 | Hospitalist Progress Note ---
Date of Service September 19, 2022 Assessment & Plan (1) Oropharyngeal dysphagia: (2) Dermatomyositis: (3) Elevated creatine kinase: (4) Hypertension: Plan Skye Montiel is a 77 year-old female with a past medical history of dermatomyositis who follows with [facility] (Dr. Eller). Her initial symptoms began in July 2021 and she has undergone standard treatment of methotrexate, steroids, as well as three rounds of IVIG without significant improvement of s ymptoms. Over the past several weeks she has had increasing fatigue and generalized muscle weakness. Most recently she has also developed issues with swallowing/choking on food. Since being admitted she has failed a FEES swallow study due to severe dysphagia and will require PEG placement. Dermatomyositis- Rapidly Progressing -Symptoms have worsened significantly over last few weeks including generalized weakness w/ proximal extremity weakness and difficultly swallowing -No sign of acute infection, afebrile and no hypoxia. Suspicion -Rheumatology consulted -Follows with [facility] and trialed outpatient dexamethasone + prednisone w/o relief so recommended admission -Spoke with Dr. Eller today via telephone, states he will discuss case further with rheumatology colleagues -Has completed 2 days of IV Solumedrol, will continue Solumedrol 40mg IV daily for now -General Surgery (Dr. Sparks) consulted for skin/muscle biopsy. Tentatively scheduled for 09/20 -She has had continued generalized weakness without response to increased steroid therapy, recently elevated CA 125. CT of the abd/pelvis w/IV con without acute abnormalities. -Still concern of possible malignancy, had outpatient ENT referral pending. -Repeat CA 125 ordered per rheum, results pending Severe Dysphagia -No sign of aspiration pneumonia on CXR, currently stable on RA -Speech therapy consulted -Patient failed FEES study yesterday -GI consulted, plan to proceed with PEG tube placement. Tentatively 09/[address] Carter -Aspiration precautions -NPO Hypertension -Holding PO meds (Losartan, Amlodipine) given severe dysphagia -BP increased to peak of 170s systolic this afternoon -Will tolerate elevated BPs while awaiting PEG placement as concern of aspiration risk is greater -1x dose of IV hydralazine ordered -If BP elevates significantly higher or patient becomes symptomatic, will reevaluate Elevated Troponin- resolved -Initial high sen trop elevated at 306 with 2 hour repeat of 399, trended down -The patient is without chest discomfort or SOB and without acute ST segment or T-wave changes -Continue telemetry monitoring Elevated Creatine Kinase -Initially at 200 -Likely related to her chronic inflammatory disease -Renal function is stable Oral Thrush -Nystatin started yesterday -Given NPO status, will hold for now Diet: NPO VTE Prophylaxis: BL SCDs, Sub-Q Lovenox Dispo: Med/Surg Tele Code Status: Full Code Admission and Anticipated Discharge Date Admission Date: September 18, 2022 Supervising Physician Co-Signing Physician Notes Resident Physician Supervision Note: I independently interviewed and examined the patient and verified the avila history and physical, reviewed labs and image studies and agree with resident findings and care plan. while NPO - add enalapril q6hrs since holding home antihypertensive due to severe dysphagia Dinah Montiel is a 77 year-old female with a past medical history of dermatomyositis who follows with [facility] (Dr. Eller). Her initial symptoms began in July 2021 and she has undergone standard treatment of methotrexate, steroids, as well as three rounds of IVIG without significant improvement of symptoms. Over the past several weeks she has had increasing fatigue and generalized muscle weakness. Most recently she has also developed issues with swallowing/choking on food. Since being admitted she has failed a FEES swallow study due to severe dysphagia and will require PEG placement. 09/19: Patient has seen and examined at bedside. She states that she is feeling okay today, no significant changes or overnight events. Denies chest pain, shortness of breath, abdominal pain, changes in bowel or bladder habits. Review of Systems Review of Systems: As per above Physical Exam Constitutional: average body habitus; no acute distress Eyes: Anicteric sclera ENMT: External ears and nose normal. Thrush on tongue. Neck: Fullness at anterior neck/throat. No tenderness or lymphadenopathy Respiratory: normal respiratory effort, lungs clear to auscultation Cardiovascular: Rate/Rhythm: regular rate and regular rhythm Extremities: no edema Gastrointestinal (Abdomen): Inspection/Auscultation: abdomen not distended Percussion/Palpation: abdomen soft; abdomen nontender Skin: Extensive erythematous rash of face and bilateral upper extremities. No bleeding or drainage. Neurologic: moves all extremities and awake Psychiatric: A+Ox3, euthymic affect Results & Data Results & Data Vital Signs (Past 12 Hours) Vital Signs Temp Pulse Pulse Resp BP Pulse Ox O2 Del Method 09/19/22 03:14 36.5 C 89 16 150/89 H 97 Room Air 09/18/22 23:46 36.4 C L 87 18 160/93 H 98 Room Air 09/18/22 23:36 75 09/18/22 19:48 36.4 C L 71 18 166/100 H 98 Room Air Resident Activity Tracking Resident Involvement: Resident Care Provided Care Provided: Adult Hospital Medicine
[2022-09-19] MEDS: ENOXAPARIN INJ 40 MG/0.4 ML SYR SQ SCH (08:38)
[2022-09-19] MEDS: FOLIC ACID 1 MG TAB PO SCH (08:38)
[2022-09-19] MEDS: amLODIPine BESYLATE 5 MG TAB PO SCH (08:38)
[2022-09-19] MEDS: LOSARTAN POTASSIUM 50 MG TAB PO SCH (08:38)
[2022-09-19] MEDS: TACROLIMUS EXT SCH ×2 (08:38→20:38)
[2022-09-19] MEDS: TRIAMCINOLONE ACET 0.1% CR 15 GM TUBE EXT SCH ×2 (08:39→20:38)
--- NOTE | 2022-09-19 08:57 | Gastrointestinal Consultation ---
Supervising physician's note I have discussed case with Valery Riley NP, reviewed records and met with patient. For full details see note from Valery Riley She is a pleasant 77 year old female with CTD who can no longer swallow enough to maintain nutrition. We are asked to place PEG tube. I have discussed procedure and risks for PEG placement with her and she agrees. Because it has b een so long since I have placed a PEG tube I have asked Dr. Carter to do this and he has agreed. Mrs. Montiel agrees as well. I have spent 15 minutes reviewing records, discussing with Valery Riley, meeting with patient and entering records into EMR. Date of Consultation September 19, 2022 Assessment & Plan (1) Oropharyngeal dysphagia: Severe oropharyngeal dysphagia with aspiration: Patient has past medical history to include dermatomyositis. She has had progressive dysphagia over the last year. Unfortunately now aspirating even with her own secretions. PEG tube for feeding has been recommended. Patient is agreeable. Procedure and risks explained to patient which include but not limited to medication reaction, bleeding, perforation, aspiration, and missed lesions. Verbalizes understanding and is agreeable to proceed. Case reviewed with Dr. Tamez. Please refer to supervising physician addendum for further recommendations. I have spent 30 minutes of discrete time performing the activities of this visit which include but are not limited to review of the medical record, obtaining a history, physical exam, and entering information in the electronic record. (2) Aspiration of food: History of Present Illness Attending Physician: Isabella Estevez MD History of Present Illness The patient is a 77-year-old female with past medical history to include Dermatomyositis (Currently on Methotrexate and daily prednisone) follows with Dr. Del Cid of [facility]ology and HTN who presented to the [facility] ER 09/16/2022 with complaint of progressive generalized weakness over the past 48 to 72 hours prior to admission. She was subsequently admitted due to generalized weakness, elevated troponin. The GI service was consulted for PEG placement due to aspiration of food, dysphagia, abnormal swallowing study demonstrating severe oropharyngeal dysphagia without functional swallowing ability. The patient is awake alert and oriented sitting at bedside reading. She reports that beginning approximately 1 year ago, she started noticing some minor difficulties with dysphagia but denies any specific choking episodes or coughing with eating. She notes at the beginning of this year, she noted more severe difficulty with swallowing. She did have 1 choking episode noted by her daughter and some voice changes. Denies any other GI complaints. She does verbalize understanding of the need for PEG tube placement for feeding. She reports she is a "foodie" and that all this this will be difficult for her, she knows this is the safest route. Denies any specific abdominal pain, bowel habit difficulty, melena or hematochezia. She is a lifetime non-smoker. Rare alcohol intake. Denies recreational drug use including marijuana. 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 She is with 2 adult children. Her daughter is an audience coordinator locally, Dr. Cyndie Montiel. Allergies Allergy/AdvReac Type Severity Reaction Status Date / Time shrimp Allergy Intermediate Hives Verified 09/16/22 16:25 aspirin Allergy Mild itching Verified 09/16/22 16:25 Home Medications Medication Instructions Recorded Confirmed Type amlodipine 5 mg tablet 5 mg PO QAM 09/11/22 09/16/22 History biotin 1,000 mcg chewable tablet 1,000 mcg PO QAM 09/11/22 09/16/22 History cholecalciferol (vitamin D3) 25 25 mcg PO QAM 09/11/22 09/16/22 History mcg (1,000 unit) tablet (Vitamin D3) folic acid 1 mg tablet 1 mg PO QAM 09/11/22 09/16/22 History losartan 100 mg tablet 100 mg PO QAM 09/11/22 09/16/22 History methotrexate sodium 25 mg/mL 20 mg IM WK 09/11/22 09/16/22 History injection solution prednisone 5 mg tablet 5 mg PO QAM 09/11/22 09/16/22 History zinc acetate 50 mg (zinc) capsule 50 mg PO QAM 09/11/22 09/16/22 History tacrolimus 0.1 % topical ointment See Rx Instructions .Route .COMPLEX 09/16/22 09/16/22 History triamcinolone acetonide See Rx Instructions .Route .COMPLEX 09/16/22 09/16/22 History Patient History Medical History (Updated 09/19/22 @ 09:16 by DILCIA Do) Chronic steroid use Dermatomyositis Hypertension Osteoporosis Surgical History History of bilateral cataract extraction History of colonoscopy History of dilatation and curettage History of tonsillectomy History of tooth extraction Family History Other No family history of adverse response to anesthesia Social History Smoking Status: Never smoker Second Hand Exposure: No; Do You Dip or Chew Tobacco: No; Hx Alcohol Use: No Hx Substance Use: No Preferred Language: Hong Konger Communication Ability: Effective Benefits Specialist Recruiter Required: Voice Beliefs That Will Affect Care: None Current Living Situation: Alone Other Information That Helps Us Care for You: No Feels Safe at Home: Yes Safety Concerns: Feels Safe At This Time Assistive Devices: None Review of Systems Review of Systems: All systems reviewed & are unremarkable except as noted in Subjective Physical Exam Respiratory: normal respiratory effort; no respiratory distress and no labored breathing Gastrointestinal (Abdomen): normal bowel sounds, soft, nontender, no hepatosplenomegaly Results & Data Vital Signs (Past 12 Hours) Vital Signs Temp Pulse Pulse Resp BP Pulse Ox O2 Del Method 09/19/22 07:55 36.3 C L 81 20 154/95 H 98 Room Air 09/19/22 03:14 36.5 C 89 16 150/89 H 97 Room Air 09/18/22 23:46 36.4 C L 87 18 160/93 H 98 Room Air 09/18/22 23:36 75 Laboratory Results Laboratory Results - last 24 hr 09/19/22 09/19/22 07:30 07:30 WBC 5.74 RBC 3.95 L Hgb 11.7 L Hct 35.0 L MCV 88.6 MCH 29.6 MCHC 33.4 RDW Std Deviation 42.9 RDW Coeff of [place] 13.2 Plt Count 188 MPV 11.2 Immature Gran % (Auto) 0.5 Neut % (Auto) 85.6 Lymph % (Auto) 5.9 [place] % (Auto) 8.0 Eos % (Auto) 0.0 Baso % (Auto) 0.0 Neut # (Auto) 4.91 Lymph # (Auto) 0.34 L [place] # (Auto) 0.46 Eos # (Auto) 0.00 Baso # (Auto) 0.00 Immature Gran # (Auto) 0.03 Sodium Pending Potassium Pending Chloride Pending Carbon Dioxide Pending Anion Gap Pending BUN Pending Creatinine Pending Est Cr Clr Drug Dosing Pending Est GFR ( Amer) Pending Est GFR (Non-Af Amer) Pending BUN/Creatinine Ratio Pending Glucose Pending Calcium Pending Magnesium Pending Total Bilirubin Pending AST Pending ALT Pending Alkaline Phosphatase Pending Total Protein Pending Albumin Pending Globulin Pending Albumin/Globulin Ratio Pending Diagnostic Findings 09/18/2022: Speech therapy evaluation notes are reviewed with findings of severe oropharyngeal dysphagia leading patient without functional swallowing ability. Patient is aspirating her own secretions so continuing frequent mouth care is important. Recommendation is PEG tube placement.
[2022-09-19 09:01] LABS: Hemoglobin 11.7 g/dl (12.0-16.0); Immature Granulocytes # (auto) 0.03 K/uL (0.01-0.20); Immature Granulocytes % (auto) 0.5 %; Lymphocytes # (auto) 0.34 K/uL (1.2-3.4); Lymphocytes % (auto) 5.9 %; Mean Corpuscular Hemoglobin 29.6 pg (25.0-34.0); Mean Corpuscular Hgb Conc 33.4 g/dL (32.0-36.0); Mean Corpuscular Volume 88.6 fL (80.0-100.0); Mean Platelet Volume 11.2 fL (9.4-12.4); Monocytes # (auto) 0.46 K/uL (0.11-0.59); Neutrophils # (auto) 4.91 K/uL (1.40-6.50); Neutrophils % (auto) 85.6 %; Platelet Count 188 K/uL (130-400); RDW Coefficient of Variation 13.2 % (11.5-14.5); RDW Standard Deviation 42.9 fL (36.4-46.3); Red Blood Count 3.95 M/uL (4.20-5.40); White Blood Count 5.74 K/ul (4.8-10.8)
[2022-09-19 09:26] LABS: Albumin Globulin Ratio 0.8 (0.9-2); Albumin Level 3.3 gm/dl (3.4-5.0); BUN Creatinine Ratio 34.1 (10-20); Bilirubin,Total 0.7 mg/dl (0.2-1.0); Calcium 8.8 mg/dl (8.6-10.3); Est GFR (African American) 112.1 ml/min; Est GFR (Non-African American) 96.7 ml/min; Globulin 4.1 gm/dl (2.5-4.0); Magnesium 1.9 mg/dl (1.7-2.4); Potassium 3.7 mmol/L (3.5-5.1); Total Protein 7.4 gm/dl (6.0-8.3)
[2022-09-19] MEDS: NYSTATIN SUSP 500,000 U/5 ML UDC PO SCH ×4 (10:32→20:39)
[2022-09-19] MEDS: FAMOTIDINE 20 MG in SYRINGE 3 ML IV SCH (10:32)
[2022-09-19] MEDS: methylPREDNISolone 40 MG in SYRINGE 0 ML IV SCH (10:32)
[2022-09-19] MEDS ORDERED: hydrALAZINE HCL 20 MG/ML VIAL IV STA (17:52)
--- NOTE | 2022-09-19 18:58 | Surgery Consultation ---
Date of Consultation September 19, 2022 Assessment & Plan (1) Dermatomyositis: 77-year-old woman with progressive dermatomyositis, muscle weakness of the proximal muscles. I discussion with Dr. Del Cid concerning the diagnosis. We will plan for left forearm skin biopsy/punch biopsy and left deltoid muscle biopsy in the operating room tomorrow. I discussed with Dr. Carter, who was planning for PEG tube tomorrow in the endoscopy suite. We will plan for joint procedure in the operating room. History of Present Illness Reason for Consultation: Muscle biopsy and skin biopsy for myositis Requesting Physician: Aroldo Del Cid MD Attending Physician: Isabella Estevez MD History of Present Illness 77-year-old woman with worsening dermatomyositis. Requires skin biopsy and muscle biopsy for further diagnostic purposes. Proximal muscle weakness, mostly shoulders and thighs. Allergies Allergy/AdvReac Type Severity Reaction Status Date / Time shrimp Allergy Intermediate Hives Verified 09/16/22 16:25 aspirin Allergy Mild itching Verified 09/16/22 16:25 Home Medications Medication Instructions Recorded Confirmed Type amlodipine 5 mg tablet 5 mg PO QAM 09/11/22 09/16/22 History biotin 1,000 mcg chewable tablet 1,000 mcg PO QAM 09/11/22 09/16/22 History cholecalciferol (vitamin D3) 25 25 mcg PO QAM 09/11/22 09/16/22 History mcg (1,000 unit) tablet (Vitamin D3) folic acid 1 mg tablet 1 mg PO QAM 09/11/22 09/16/22 History losartan 100 mg tablet 100 mg PO QAM 09/11/22 09/16/22 History methotrexate sodium 25 mg/mL 20 mg IM WK 09/11/22 09/16/22 History injection solution prednisone 5 mg tablet 5 mg PO QAM 09/11/22 09/16/22 History zinc acetate 50 mg (zinc) capsule 50 mg PO QAM 09/11/22 09/16/22 History tacrolimus 0.1 % topical ointment See Rx Instructions .Route .COMPLEX 09/16/22 09/16/22 History triamcinolone acetonide See Rx Instructions .Route .COMPLEX 09/16/22 09/16/22 History Patient History Medical History Chronic steroid use Dermatomyositis Hypertension Osteoporosis Surgical History History of bilateral cataract extraction History of colonoscopy History of dilatation and curettage History of tonsillectomy History of tooth extraction Family History Other No family history of adverse response to anesthesia Social History Smoking Status: Never smoker Second Hand Exposure: No; Do You Dip or Chew Tobacco: No; Hx Alcohol Use: No Hx Substance Use: No Preferred Language: Irish Communication Ability: Effective Composition Board Press Operator Required: Voice Beliefs That Will Affect Care: None Current Living Situation: Alone Other Information That Helps Us Care for You: No Feels Safe at Home: Yes Safety Concerns: Feels Safe At This Time Assistive Devices: None Review of Systems Review of Systems: All systems reviewed & are unremarkable except as noted in HPI & below Physical Exam Constitutional: WD/WN, vitals as above Eyes: PERRL, conjunctivae normal, anicteric sclerae Neck: trachea midline, no thyromegaly Respiratory: normal respiratory effort; no respiratory distress and no labored breathing Cardiovascular: Rate/Rhythm: regular rate and regular rhythm Skin: no rashes, warm and dry Psychiatric: A+Ox3, euthymic affect Results & Data Vital Signs (Past 12 Hours) Vital Signs Temp Pulse Pulse Resp BP Pulse Ox O2 Del Method 09/19/22 16:00 75 09/19/22 15:40 85 20 170/87 H 09/19/22 15:10 36.6 C 76 20 184/114 H 96 Room Air 09/19/22 08:00 72 09/19/22 11:14 36.7 C 69 20 150/92 H 97 Room Air 09/19/22 07:55 36.3 C L 81 20 154/95 H 98 Room Air
[2022-09-20] MEDS: ENALAPRILAT 0.625 MG in SYRINGE 9.5 ML IV SCH ×4 (00:24→21:32)
[2022-09-20] MEDS: D5W AND 1/2NSS + 20MEQ KCL 20 MEQ/1,000 ML BAG IV SCH ×2 (06:04→21:32)
--- NOTE | 2022-09-20 07:12 | Hospitalist Progress Note ---
Date of Service September 20, 2022 Assessment & Plan (1) Oropharyngeal dysphagia: (2) Dermatomyositis: (3) Elevated creatine kinase: (4) Hypertension: Plan Skye Montiel is a 77 year-old female with a past medical history of dermatomyositis who follows with [facility] (Dr. Eller). Her initial symptoms began in July 2021 and she has undergone standard treatment of methotrexate, steroids, as well as three rounds of IVIG without significant improvement of symptoms. Over the past several weeks she has had increasing fatigue and generalized muscle weakness. Most recently she has also developed issues with swallowing/choking on food. Willie family also reports that she has lost between 10-20 pounds recently and has been eating less. Since being admitted she has failed a FEES swallow study due to severe dysphagia and will require PEG placement. Dermatomyositis- Rapidly Progressing -Symptoms have worsened significantly over last few weeks including generalized weakness w/ proximal extremity weakness and difficultly swallowing -No sign of acute infection, afebrile and no hypoxia. Suspicion -Rheumatology consulted -Follows with [facility] and trialed outpatient dexamethasone + prednisone w/o relief so recommended admission -Spoke with Dr. Eller today via telephone, states he will discuss case further with rheumatology colleagues -Continue Solumedrol 40mg IV daily -General Surgery (Dr. Sparks) consulted for skin/muscle biopsy -Punch biopsy and (deltoid) muscle biopsy completed today 09/20/22, tissue sent to pathology -She has had continued generalized weakness without response to increased steroid therapy, recently elevated CA 125. CT of the abd/pelvis w/IV con without acute abnormalities. -Still concern of possible malignancy, had outpatient ENT referral pending. -Repeat CA 125 ordered per rheum, results pending Severe Dysphagia -No sign of aspiration pneumonia on CXR, currently stable on RA -Speech therapy consulted -Patient failed FEES study -GI consulted, plan to proceed with PEG tube placement -EGD with PEG placement completed today 09/20/22. -Discussed with molding fitter- planning to start feeds via PEG tomorrow -Will continue IV fluids for now -Aspiration precautions -NPO Hypertension -Holding PO meds (Losartan, Amlodipine) given severe dysphagia -IV Enalaprilat for now Elevated Troponin- resolved -Initial high sen trop elevated at 306 with 2 hour repeat of 399, trended down -The patient is without chest discomfort or SOB and without acute ST segment or T-wave changes -Continue telemetry monitoring Elevated Creatine Kinase -Initially at 200 -Likely related to her chronic inflammatory disease -Renal function is stable Oral Thrush -Nystatin started yesterday -Given NPO status, will hold for now Diet: NPO VTE Prophylaxis: BL SCDs, Sub-Q Lovenox Dispo: Med/Surg Tele Code Status: Full Code Admission and Anticipated Discharge Date Admission Date: September 18, 2022 Supervising Physician Co-Signing Physician Notes Resident Physician Supervision Note: I independently interviewed and examined the patient and verified the avila history and physical, reviewed labs and image studies and agree with resident findings and care plan. iDnah Montiel is a 77 year-old female with a past medical history of dermatomyositis who follows with [facility] (Dr. Eller). Her initial symptoms began in July 2021 and she has undergone standard treatment of methotrexate, steroids, as well as three rounds of IVIG without significant improvement of symptoms. Over the past several weeks she has had increasing fatigue and generalized muscle weakness. Most recently she has also developed issues with swallowing/choking on food. Willie family also reports that she has lost between 10-20 pounds recently and has been eating less. Since being admitted she has failed a FEES swallow study due to severe dysphagia and will require PEG placement. 09/20: Patient seen and examined at bedside. No overnight events. Patient states that she is feeling well, a bit anxious about her upcoming procedures today. She describes that she feels "better" when up and moving, but notes weakness at her thighs and upper arms which makes certain tasks very difficult (ex. putting plates on a shelf above her head). Denies shortness of breath, chest pain, or abdominal pain. Review of Systems Review of Systems: As per above Physical Exam Constitutional: average body habitus; no acute distress Eyes: Anicteric sclerae ENMT: External ears and nose normal. Moist mucous membranes, +thrush on tongue Neck: Fullness of anterior neck. No tenderness or lymphadenopathy Respiratory: normal respiratory effort, lungs clear to auscultation Cardiovascular: Rate/Rhythm: regular rate and regular rhythm Extremities: no edema Gastrointestinal (Abdomen): Inspection/Auscultation: abdomen not distended Percussion/Palpation: abdomen soft; abdomen nontender Musculoskeletal: Proximal upper and lower extremity slight weakness 4/5 strength, remaining strength of upper and lower extremities 5/5 Skin: Diffuse, erythematous, flat, rough rash of face and upper extremities Neurologic: moves all extremities and awake Psychiatric: A+Ox3, euthymic affect Results & Data Results & Data Vital Signs (Past 12 Hours) Vital Signs Temp Pulse Pulse Resp BP BP Pulse Ox 09/20/22 06:01 76 160/84 H 09/20/22 03:25 36.3 C L 72 16 133/77 97 09/19/22 22:44 36.3 C L 81 18 143/85 H 97 09/19/22 21:59 65 09/19/22 21:14 09/19/22 20:08 36.4 C L 76 16 168/96 H 96 O2 Del Method 09/20/22 06:01 09/20/22 03:25 Room Air 09/19/22 22:44 Room Air 09/19/22 21:59 09/19/22 21:14 Room Air 09/19/22 20:08 Room Air Resident Activity Tracking Resident Involvement: Resident Care Provided Care Provided: Adult Hospital Medicine
[2022-09-20] MEDS: methylPREDNISolone 40 MG in SYRINGE 0 ML IV SCH (08:07)
[2022-09-20] MEDS: FAMOTIDINE 20 MG in SYRINGE 3 ML IV SCH (08:08)
--- NOTE | 2022-09-20 09:11 | Gastroenterology Progress Note ---
Case discussed with Valery Riley NP and Dr. Carter. Patient to have PEG placed today by Dr. Carter. No intervention from my standpoint I just discussed case and did not see patient today Patsy Tamez Jr, MD, [facility] [place] Date of Service September 20, 2022 Assessment & Plan (1) Oropharyngeal dysphagia: Plan: Dysphagia: Plan for today is insertion of PEG feeding tube by Dr. Carter. All questions were answered. We will plan to follow-up with patient in the GI cl inic at discharge. Case reviewed with Dr. Tamez. Please refer to supervising physician addendum for further recommendations. I have spent 20 minutes of discrete time performing the activities of this visit which include but are not limited to review of the medical record, obtaining a history, physical exam, and entering information in the electronic record. (2) Aspiration of food: Admission and Anticipated Discharge Date Admission Date: September 18, 2022 Subjective The patient is awake alert and oriented this morning lying in position and comfort in her bed. She has no voiced GI complaints this morning. She does note that she feels quite hungry. She has some anxiety related to upcoming procedure which we discussed at length today. Review of Systems Review of Systems: All systems reviewed & are unremarkable except as noted in Subjective Physical Exam Gastrointestinal (Abdomen): normal bowel sounds, soft, nontender, no hepatosplenomegaly Results & Data Vital Signs (Past 12 Hours) Vital Signs Temp Pulse Pulse Resp BP BP Pulse Ox 09/20/22 08:22 36.7 C 73 20 131/86 96 09/20/22 07:37 66 09/20/22 06:01 76 160/84 H 09/20/22 03:25 36.3 C L 72 16 133/77 97 09/19/22 22:44 36.3 C L 81 18 143/85 H 97 09/19/22 21:59 65 09/19/22 21:14 O2 Del Method 09/20/22 08:22 Room Air 09/20/22 07:37 09/20/22 06:01 09/20/22 03:25 Room Air 09/19/22 22:44 Room Air 09/19/22 21:59 09/19/22 21:14 Room Air Laboratory Results Laboratory Results - last 24 hr 09/19/22 09/19/22 07:30 14:00 Sodium 137 Potassium 3.7 Chloride 105 Carbon Dioxide 24 Anion Gap 8 BUN 15 Creatinine 0.44 L Est Cr Clr Drug Dosing 91.0 Est GFR ( Amer) 112.1 Est GFR (Non-Af Amer) 96.7 BUN/Creatinine Ratio 34.1 H Glucose 153 H Calcium 8.8 Magnesium 1.9 Total Bilirubin 0.7 AST 58 H ALT 47 Alkaline Phosphatase 38 Total Protein 7.4 Albumin 3.3 L Globulin 4.1 H Albumin/Globulin Ratio 0.8 L CA 125 Antigen Pending
--- NOTE | 2022-09-20 09:17 | History & Physical Bridge Note ---
Date of Service September 20, 2022 History & Physical Bridge Note I have examined the patient, reviewed the History & Physical and in the interval since the performance of the History & Physical I have noted the following changes of clinical significance: no changes noted. Patient is a 77 year old woman with progressive dermatomyositis, muscle weakness of the proximal muscles requiring peg tube. I saw the patient this morning. All questions about the peg tube procedure answered. outside of issues swallowing, rest of GI ros unremarkable. no sob/ chest pain. will plan for EGD with peg placement today. Supervising Physician Co-Signing Physician Notes Agree with ROOSEVELT Wadsworth as above Abd: Soft, NT, ND, +BS Will proceed with PEG tube placement due to oropharyngeal dysphagia secondary to Dermatomyositis.
[2022-09-20 09:21] LABS: Basophils # (auto) 0.01 K/uL (0-0.2); Basophils % (auto) 0.1 %; Eosinophils # (auto) 0.02 K/uL (0-0.50); Eosinophils % (auto) 0.3 %; Hematocrit (blood only) 37.6 % (37.0-47.0); Hemoglobin 12.6 g/dl (12.0-16.0); Immature Granulocytes # (auto) 0.04 K/uL (0.01-0.20); Immature Granulocytes % (auto) 0.6 %; Lymphocytes # (auto) 0.85 K/uL (1.2-3.4); Mean Corpuscular Hgb Conc 33.5 g/dL (32.0-36.0); Mean Corpuscular Volume 89.5 fL (80.0-100.0); Monocytes # (auto) 0.53 K/uL (0.11-0.59); Monocytes % (auto) 7.5 %; Neutrophils # (auto) 5.66 K/uL (1.40-6.50); Neutrophils % (auto) 79.5 %; Platelet Count 185 K/uL (130-400); RDW Coefficient of Variation 13.3 % (11.5-14.5); RDW Standard Deviation 43.8 fL (36.4-46.3); White Blood Count 7.11 K/ul (4.8-10.8)
[2022-09-20] MEDS ORDERED: LIDOCAINE 2% 2 ML VIAL/AMP(20MG/ML) INFIL ONE (09:27)
[2022-09-20] MEDS ORDERED: fentaNYL citrate PF 100 MCG/2 ML VIAL ONE (09:27)
[2022-09-20] MEDS ORDERED: ONDANSETRON INJ 2 MG/ML 2 ML VIAL ONE (09:27)
[2022-09-20] MEDS ORDERED: PROPOFOL IV EMULSION 10 MG/ML 20 ML VIAL IV ONE (09:27)
[2022-09-20 09:41] LABS: BUN Creatinine Ratio 33.3 (10-20); Est GFR (African American) 111.2 ml/min; Potassium 3.8 mmol/L (3.5-5.1)
[2022-09-20] MEDS ORDERED: LIDOCAINE 1% LOCAL 20 ML VIAL ONE (10:02)
[2022-09-20] MEDS ORDERED: ceFAZolin 2000MG 2,000 MG/15 ML SYR IV ONE (10:27)
--- NOTE | 2022-09-20 10:29 | Anesthesiology Consultation ---
Date of Service September 20, 2022 Assessment & Plan Chart Review Chart Review: Acceptable Risk for Surgery and Patient NOT seen in Pre Admission Testing Consults Requested none ASA ASA4 Proposed Anesthesia Anesthesia Type: General Risk / Benefits Reviewed With: PT / POA / Parent / Guardian, Accepts Plan and Informed Consent Obtained History Surgery Operation Date: 09/20/22 08:15 Proposed Procedures p Muscle Skin Biopsy - Troy Sparks MD s Feed Tube Insertion - Dillon Juan JoseVtio Case, DO Height/Weight Height: 5 ft 4 in Weight: 60.3 kg Allergies Allergy/AdvReac Type Severity Reaction Status Date / Time shrimp Allergy Intermediate Hives Verified 09/16/22 16:25 aspirin Allergy Mild itching Verified 09/16/22 16:25 Medications Home Medications Medication Instructions Recorded Confirmed Last Taken amlodipine 5 mg tablet 5 mg PO QAM 09/11/22 09/16/22 Unknown biotin 1,000 mcg chewable tablet 1,000 mcg PO QAM 09/11/22 09/16/22 Unknown cholecalciferol (vitamin D3) 25 25 mcg PO QAM 09/11/22 09/16/22 Unknown mcg (1,000 unit) tablet (Vitamin D3) folic acid 1 mg tablet 1 mg PO QAM 09/11/22 09/16/22 Unknown losartan 100 mg tablet 100 mg PO QAM 09/11/22 09/16/22 Unknown methotrexate sodium 25 mg/mL 20 mg IM WK 09/11/22 09/16/22 Unknown injection solution prednisone 5 mg tablet 5 mg PO QAM 09/11/22 09/16/22 Unknown zinc acetate 50 mg (zinc) capsule 50 mg PO QAM 09/11/22 09/16/22 Unknown tacrolimus 0.1 % topical ointment See Rx Instructions .Route .COMPLEX 09/16/22 09/16/22 Unknown triamcinolone acetonide See Rx Instructions .Route .COMPLEX 09/16/22 09/16/22 Unknown Active Medications Generic Name Dose Route Start Last Admin Trade Name Freq PRN Reason Stop Dose Admin Amlodipine Besylate 5 mg 09/17/22 09:00 09/19/22 08:38 Amlodipine Besylate 5 Mg Tab PO 10/17/22 08:59 [facility] Enoxaparin Sodium 40 mg 09/17/22 09:00 09/19/22 08:38 Enoxaparin Inj 40 Mg/0.4 Ml Syr SQ 10/17/22 08:59 Not Given Q24H NAMAN Folic Acid 1 mg 09/17/22 09:00 09/19/22 08:38 Folic Acid 1 Mg Tab PO 10/17/22 08:59 Not Given QAM NAMAN Famotidine 20 mg/ Syringe 5 mls @ 2.5 mls/min 09/17/22 09:00 09/20/22 08:08 IV 10/17/22 08:59 2.5 mls/min DAILY NAMAN Administration Potassium Chloride/Dextrose/Sod Cl 20 meq in 1,000 mls @ 80 mls/hr 09/18/22 18:00 09/20/22 06:04 D5w And 1/2nss + 20meq Kcl IV 10/18/22 17:59 80 mls/hr .[id number] NAMAN Administration Protocol Methylprednisolone 40 mg/ 0.64 mls @ 1.5 mls/min 09/19/22 09:00 09/20/22 08:07 Syringe IV 10/19/22 08:59 1.5 mls/min DAILY NAMAN Administration Enalaprilat 0.625 mg/ Syringe 10 mls @ 2 mls/min 09/20/22 00:00 09/20/22 06:03 IV 10/20/22 00:00 2 mls/min Q6 NAMAN Administration Losartan Potassium 100 mg 09/17/22 09:00 09/19/22 08:38 Losartan Potassium 50 Mg Tab PO 10/17/22 08:59 Not Given QAM NAMAN Tacrolimus Oint~Non- 1 each 09/17/22 09:00 09/19/22 20:38 Formulary Patient's EXT 10/17/22 08:59 1 appln Own Med BID NAMAN Administration Nystatin 5 ml 09/18/22 17:00 09/19/22 20:39 Nystatin Susp 500,000 U/5 Ml Udc PO 09/28/22 16:59 5 ml QID NAMAN Administration Triamcinolone Acetonide 1 appln 09/17/22 09:00 09/19/22 20:38 Triamcinolone Acet 0.1% Cr 15 Gm Tube EXT 10/17/22 08:59 1 appln BID NAMAN Administration NPO Date Last Intake of Fluids: 09/19/22 Time Last Intake of Fluids: 19:00 Date Last Intake of Solids: 09/17/22 Time Last Intake of Solids: 12:00 Past Medical History Medical History Chronic steroid use Dermatomyositis Hypertension Osteoporosis dysphagia/aspiration muscle weakness Exercise / Class Metabolic Activity III < 4 Walking/Shop/Light housework Past Family History Family History Other No family history of adverse response to anesthesia Past Surgical History Surgical History History of bilateral cataract extraction History of colonoscopy History of dilatation and curettage History of tonsillectomy History of tooth extraction Past Anesthesia History No Hx of Anesthesia Complications and No Family Hx of Anesthesia Complications History of PONV No Hx of PONV and No Hx of Motion Sickness Social History Smoking Status: Never smoker Do You Dip or Chew Tobacco: No Hx Alcohol Use: No Hx Substance Use: No substance use type: does not use Physical Exam Vital Signs Last Vital Signs Temp 36.7 C 09/20/22 09:40 Pulse 94 H 09/20/22 09:40 Resp 20 09/20/22 09:40 BP 173/91 H 09/20/22 09:40 Pulse Ox 97 09/20/22 09:40 O2 Del Method Room Air 09/20/22 09:40 Constitutional no acute distress ENMT Mouth: + small oral opening Thyromental Distance: < 3.5 Finger Breadths Mallampati Class: III Neck trachea midline; + abnormal visual inspection (short , receding chin) and neck extension not limited Respiratory normal respiratory effort Auscultation: lungs clear to auscultation bilaterally Cardiovascular Rate/Rhythm: regular rate and regular rhythm Heart Sounds: no murmur Vessels: no carotid bruit Musculoskeletal Spine: normal cervical ROM and no pain with cervical ROM Extremities: full ROM of extremities Neurologic moves all extremities Motor/Sensory: no sensory deficit Psychiatric Orientation: alert and oriented x 3 Testing Laboratory Results 09/20/22 09:01 09/20/22 09:01 Urine Color Yellow 09/16/22 16:30 Urine Appearance Clear (Clear) 09/16/22 16:30 Urine pH 6.0 (4.5-7.5) 09/16/22 16:30 Ur Specific Interior 1.011 (1.000-1.030) 09/16/22 16:30 Urine Protein Negative (Negative) 09/16/22 16:30 Urine Glucose (UA) Negative (Negative) 09/16/22 16:30 Urine Ketones Negative (Negative) 09/16/22 16:30 Urine Nitrite Negative (Negative) 09/16/22 16:30 Ur Leukocyte Esterase 2+ (Negative) H 09/16/22 16:30 Urine WBC (Auto) 5-10 /hpf (0-5) H 09/16/22 16:30 Urine RBC (Auto) 0-4 /hpf (0-4) 09/16/22 16:30 U Hyaline Cast (Auto) 1-5 /lpf (0-5) 09/16/22 16:30 U Epithel Cells (Auto) >30 /lpf (0-5) H 09/16/22 16:30 Urine Bacteria (Auto) Negative (Negative) 09/16/22 16:30 Electrocardiogram Date: 09/16/22 Findings: + ST @ (@ 111;lowvoltage QRS;LAFB) Chest X-Ray Date: 09/16/22 Findings: + NAD Echocardiogram Date: 09/17/22 EF: 60% LV Function: normal RWMA: + none Other Findings: + diastolic dysfunction (Grade 1) Valvular Disease: + MR (mild MR) RV sys [id number] Torr
--- NOTE | 2022-09-20 10:32 | History & Physical Bridge Note ---
Date of Service September 20, 2022 History & Physical Bridge Note I have examined the patient, reviewed the History & Physical and in the interval since the performance of the History & Physical I have noted the following changes of clinical significance: no changes noted
--- NOTE | 2022-09-20 10:33 | Surgery Progress Note ---
Date of Service September 20, 2022 Assessment & Plan (1) Dermatomyositis: Plan I discussed the risks and benefits of left forearm skin biopsy and left deltoid muscle biopsy. All questions were answered. She is agreeable to proceed. Consent has been obtained. Admission and Anticipated Discharge Date Admission Date: September 18, 2022 Subjective No changes today. Physical Exam Constitutional: WD/WN, vitals as above Eyes: PERRL, conjunctivae normal, anicteric sclerae Neck: trachea midline, no thyromegaly Skin: no rashes, warm and dry Psychiatric: A+Ox3, euthymic affect Results & Data Vital Signs (Past 12 Hours) Vital Signs Temp Pulse Pulse Resp BP BP Pulse Ox 09/20/22 09:40 36.7 C 94 H 20 173/91 H 97 09/20/22 08:22 36.7 C 73 20 131/86 96 09/20/22 07:37 66 09/20/22 06:01 76 160/84 H 09/20/22 03:25 36.3 C L 72 16 133/77 97 09/19/22 22:44 36.3 C L 81 18 143/85 H 97 O2 Del Method 09/20/22 09:40 Room Air 09/20/22 08:22 Room Air 09/20/22 07:37 09/20/22 06:01 09/20/22 03:25 Room Air 09/19/22 22:44 Room Air
[2022-09-20] MEDS ORDERED: ROCURONIUM BROMIDE 10 MG/ML 5 ML VIAL IV ONE (11:23)
[2022-09-20] MEDS ORDERED: ePHEDrine sulfate 50 MG/ML SYR ONE (11:23)
[2022-09-20] MEDS ORDERED: DEXAMETHASONE SOD INJ 4 MG/ML VIAL ONE (11:27)
--- NOTE | 2022-09-20 11:44 | Post Operative Brief Note ---
Immediate Post Op Note v1 Date of Surgery September 20, 2022 Pre & Post Diagnosis Operation Date: 09/20/22 08:15 Pre-Op Diagnosis: Dermatomyositis Post-Op Diagnosis: Dermatomyositis I identified the patient and participated in the time-out.: Yes Procedure Operation Date: 09/20/22 08:15 Actual Procedures p Muscle and Skin Biopsy, Left Upper Arm.(Left) - Troy Sparks MD s Feed Tube Insertion - Dillon Carter, DO Surgeon Troy Sparks MD Field Service Representative None Estimated Blood Loss 2 Findings Consistent with Post-Op Diagnosis
[2022-09-20] MEDS ORDERED: PROMETHAZINE HCL 12.5 MG in SODIUM CHLORIDE 0.9% 50 ML IV PRN (11:47)
[2022-09-20] MEDS ORDERED: fentaNYL citrate PF 100 MCG/2 ML VIAL IV PRN (11:47)
[2022-09-20] MEDS ORDERED: ATROPINE SULFATE 0.1 MG/ML 10ML SYR IV PRN (11:47)
[2022-09-20] MEDS ORDERED: ONDANSETRON INJ 2 MG/ML 2 ML VIAL IV PRN (11:47)
[2022-09-20] MEDS ORDERED: FLUMAZENIL 0.1 MG/1 ML 10 ML VIAL IV PRN (11:47)
[2022-09-20] MEDS ORDERED: LABETALOL HCL IV 5 MG/ML 20ML IV PRN (11:47)
[2022-09-20] MEDS ORDERED: ePHEDrine sulfate 50 MG/ML AMP IV PRN (11:47)
[2022-09-20] MEDS ORDERED: NALOXONE HCL 0.4 MG/1 ML VIAL/CARP IV PRN (11:47)
--- NOTE | 2022-09-20 11:47 | Operative Report ---
Post Operative Report Pre & Post Diagnosis Operation Date: 09/20/22 08:15 Pre-Op Diagnosis: Dermatomyositis Post-Op Diagnosis: Dermatomyositis I identified the patient and participated in the time-out.: Yes Procedure Operation Date: 09/20/22 08:15 Actual Procedures p Muscle and Skin Biopsy, Left Upper Arm.(Left) - Troy Sparks MD s Feed Tube Insertion - Dillon Carter, Surgeon Troy Sparks MD Gatehouse Attendant None Estimated Blood Loss 2 Findings Consistent with Post-Op Diagnosis Specimens Skin biopsyleft shoulder Left deltoid muscle biopsy Drains None Anesthesia Type General Complications No immediate complications Description of Procedure Patient was taken to the operating room, placed supine on the operating table. A timeout was performed, SCD boots were placed. After adequate anesthesia and analgesia was obtained, the left upper arm was prepped and draped in the normal sterile fashion. An elliptical incision was made overlying the deltoid muscle. The ellipse of skin was excised and sent off field for the skin biopsy. The level of the deltoid fascia was obtained, and the fascia was opened. A generous piece of the deltoid muscle was excised and sent off field fresh for specimen. Hemostasis was excellent. The wound was closed in layers with 3-0 Vicryl and the skin was closed with 4-0 Monocryl. On completion of the closure, the lab called and stated they needed more tissue. The wound was reopened and an additional piece of the deltoid muscle was excised and sent off fresh for specimen. Again hemostasis was checked and was excellent. Again the wound was closed in layers with 3-0 Vicryl and the skin was closed with 4-0 Monocryl. Dermabond was applied. She tolerated the procedure without complication. The operation was then turned over to Dr. Day to place a PEG tube, the details of which are dictated in a separate operative note. I attest to the content of the Intraoperative Record and any orders documented therein. Any exceptions are noted below.
[2022-09-20] MEDS: ENOXAPARIN INJ 40 MG/0.4 ML SYR SQ SCH (11:51)
[2022-09-20] MEDS ORDERED: SUGAMMADEX SODIUM 200 MG/2 ML VIAL IV ONE (12:23)
--- NOTE | 2022-09-20 12:50 | GI REPORT ---
Patient Name: Skye Montiel Procedure Date: 09/20/2022 12:00 PM Date of : 1945 Admit Type: Inpatient Age: 77 Gender: Female Attending MD: Dillon Carter DO, Procedure: Upper GI endoscopy Providers: Dillon Carter DO Referring MD: Referred Self Indications: Oropharyngeal phase dysphagia, Dermatomyositis Medicines: General Anesthesia Complications: No immediate complications. Estimated Blood Loss: Estimated blood loss: none. Procedure: Pre-Anesthesia Assessment: - Prior to the procedure, a History and Physical was performed, and patient medications and allergies were reviewed. The patient's tolerance of previous anesthesia was also reviewed. The risks and benefits of the procedure and the sedation options and risks were discussed with the patient. All questions were answered, and informed consent was obtained. Prior Anticoagulants: The patient has taken no anticoagulant or antiplatelet agents. ASA Grade Assessment: IV - A patient with severe systemic disease that is a constant threat to life. After reviewing the risks and benefits, the patient was deemed in satisfactory condition to undergo the procedure. After obtaining informed consent, the endoscope was passed under direct vision. Throughout the procedure, the patient's blood pressure, pulse, and oxygen saturations were monitored continuously. The Endoscope was introduced through the mouth, and advanced to the second part of duodenum. The upper GI endoscopy was accomplished without difficulty. The patient tolerated the procedure well. Findings: The esophagus was normal. The entire examined stomach was normal. Placement of an externally removable PEG with no T-fasteners was successfully completed. The external bumper was at the 2.0 cm marking on the tube. The examined duodenum was normal. Impression: - Normal esophagus. - Normal stomach. - Normal examined duodenum. - An externally removable PEG placement was successfully completed. - No specimens collected. Recommendation: - Return patient to hospital [facility] for ongoing care. - Please follow the post-PEG recommendations including: Nutrition consult for formula and volume and start using PEG today. - Continue present medications. Dillon Carter DO 09/20/2022 12:50:36 PM This report has been signed electronically. Note Initiated On: 09/20/2022 12:00 PM Number of Addenda: 0 I attest to the content of the Intraoperative Record and orders documented therein, exceptions below {[id number]}
--- NOTE | 2022-09-20 13:04 | Anesthesiology Progress Note ---
Date of Service September 20, 2022 Anesthesia Post Procedure Vital Signs Vital Signs: Temp Pulse Pulse Pulse Resp BP BP 09/20/22 13:00 36.3 C L 87 16 151/96 H 09/20/22 12:50 85 18 158/95 H 09/20/22 12:41 36 C L 86 16 153/95 H 09/20/22 09:40 36.7 C 94 H 20 173/91 H 09/20/22 08:22 36.7 C 73 20 131/86 09/20/22 07:37 66 09/20/22 06:01 76 160/84 H 09/20/22 03:25 36.3 C L 72 16 133/77 09/19/22 22:44 36.3 C L 81 18 143/85 H 09/19/22 21:59 65 09/19/22 21:14 09/19/22 20:08 36.4 C L 76 16 168/96 H 09/19/22 16:00 75 09/19/22 15:40 85 20 170/87 H 09/19/22 15:10 36.6 C 76 20 184/114 H Pulse Ox O2 Del Method O2 Flow Rate 09/20/22 13:00 98 Room Air 09/20/22 12:50 98 Room Air 09/20/22 12:41 99 Oxymask 6 09/20/22 09:40 97 Room Air 09/20/22 08:22 96 Room Air 09/20/22 07:37 09/20/22 06:01 09/20/22 03:25 97 Room Air 09/19/22 22:44 97 Room Air 09/19/22 21:59 09/19/22 21:14 Room Air 09/19/22 20:08 96 Room Air 09/19/22 16:00 09/19/22 15:40 09/19/22 15:10 96 Room Air Transfer of Care Handoff Completed per policy Notes Mental Status: alert / awake / arousable Patient Amnestic to Procedure: Yes Nausea / Vomiting: adequately controlled Pain: adequately controlled Airway Patency, RR, SpO2: stable & adequate BP & HR: stable & adequate Hydration State: stable & adequate Anesthetic Complications: no major complications apparent
[2022-09-20] MEDS: NYSTATIN SUSP 500,000 U/5 ML UDC PO SCH ×4 (13:58→21:56)
[2022-09-20] MEDS: TACROLIMUS EXT SCH ×2 (13:58→21:31)
[2022-09-20] MEDS: TRIAMCINOLONE ACET 0.1% CR 15 GM TUBE EXT SCH ×2 (13:59→21:32)
[2022-09-20] MEDS: LOSARTAN POTASSIUM 50 MG TAB PO SCH (14:13)
[2022-09-20] MEDS: FOLIC ACID 1 MG TAB PO SCH (14:13)
[2022-09-20] MEDS: amLODIPine BESYLATE 5 MG TAB PO SCH (14:13)
[2022-09-20] MEDS ORDERED: oxyCODONE HCL IR 5 MG TAB (IMMEDIATE RELEASE) PO PRN (16:32)
[2022-09-20] MEDS ORDERED: ACETAMINOPHEN 500 MG TAB PO PRN (16:38)
[2022-09-20] MEDS: TUBE FEEDING WATER FLUSH PEG SCH ×2 (17:30→21:32)
[2022-09-21] MEDS: TUBE FEEDING WATER FLUSH PEG SCH ×6 (00:45→20:45)
[2022-09-21] MEDS: ENALAPRILAT 0.625 MG in SYRINGE 9.5 ML IV SCH ×4 (00:45→18:00)
[2022-09-21] MEDS: MoRPHine SULFATE 2 MG/ML CARP IV PRN ×2 (05:37→10:25)
--- NOTE | 2022-09-21 06:58 | Hospitalist Progress Note ---
Date of Service September 21, 2022 Assessment & Plan (1) Oropharyngeal dysphagia: (2) Dermatomyositis: (3) Elevated creatine kinase: (4) Hypertension: Plan Skye Montiel is a 77 year-old female with a past medical history of dermatomyositis who follows with [facility] (Dr. Eller). Her initial symptoms began in July 2021 and she has undergone standard treatment of methotrexate, steroids, as well as three rounds of IVIG without significant improvement of symptoms. Over the past several weeks she has had increasing fatigue and generalized muscle weakness. Most recently she has also developed issues with swallowing/choking on food. Willie family also reports that she has lost between 10-20 pounds recently and has been eating less. Dermatomyositis- Rapidly Progressing -Symptoms have worsened significantly over last few weeks including generalized weakness w/ proximal extremity weakness and difficultly swallowing -Follows with [facility] and trialed outpatient dexamethasone + prednisone w/o relief so recommended admission -Outpatient elevated CA 125 -No sign of acute infection, afebrile and no hypoxia. Suspicion -CT abd/pelvis with IV dye neg -Work up so far- -Punch biopsy and (deltoid) muscle biopsy done 09/20/22, tissue sent to pathology by surgery -MRI Brain neg. -TSH normal -Rheumatology following -Solumedrol 40mg IV daily -Due for methotrexate on friday. To discuss with rheumatology on friday about continuing/other med options -Had outpatient colonoscopy scheduled for next week, if patient stays admitted could consider coordinating inpatient study -Pending Results: -Skin, muscle biopsy -CA 125 -Myositis, Myasthenia gravis panels -Free [place] Lambda Light Chain -outpatient ENT referral pending. Severe Dysphagia -No sign of aspiration pneumonia on CXR, currently stable on RA -Speech therapy consulted -Patient failed FEES study -GI consulted, plan to proceed with PEG tube placement -PEG placed 09/20/22. -Started tube feeds today -Will continue IV fluids for now -Aspiration precautions -NPO Hypertension -Restarted home meds (Losartan, Amlodipine) via PEG given severe dysphagia Elevated Troponin- resolved -Initial high sen trop elevated at 306 with 2 hour repeat of 399, trended down -The patient is without chest discomfort or SOB and without acute ST segment or T-wave changes -Continue telemetry monitoring Elevated Creatine Kinase -Initially at 200. recheck normalized -Likely related to her chronic inflammatory disease -Renal function is stable Oral Thrush -Will do Nystatin swish and spit. Diet: NPO VTE Prophylaxis: BL SCDs, Sub-Q Lovenox Dispo: Med/Surg Tele Code Status: Full Code Admission and Anticipated Discharge Date Admission Date: September 18, 2022 Supervising Physician Co-Signing Physician Notes Resident Physician Supervision Note: I independently interviewed and examined the patient and verified the avila history and physical, reviewed labs and image studies and agree with resident findings and care plan. Dinah Montiel is a 77 year-old female with a past medical history of dermatomyositis who follows with [facility] (Dr. Eller). Her initial symptoms began in July 2021 and she has undergone standard treatment of methotrexate, steroids, as well as three rounds of IVIG without significant improvement of symptoms. Over the past several weeks she has had increasing fatigue and generalized muscle weakness. Most recently she has also developed issues with swallowing/choking on food. Willie family also reports that she has lost between 10-20 pounds recently and has been eating less. Since being admitted she has failed a FEES swallow study due to severe dysphagia and will require PEG placement. 09/21: Patient seen and examined at bedside. No acute events overnight, patient sleepy this morning from morphine. Notes more pain on her arm from the biopsy today, especially with movement. Denies chest pain or shortness of breath. Review of Systems Review of Systems: As per above Physical Exam Constitutional: average body habitus; no acute distress Eyes: Anicteric sclerae. ENMT: External ears and nose normal. Moist mucous membranes. Respiratory: normal respiratory effort, lungs clear to auscultation Cardiovascular: Rate/Rhythm: regular rate and regular rhythm Extremities: no edema Gastrointestinal (Abdomen): PEG tube in place. Abdomen soft, nondistended. Skin: Flat, erythematous rash of face and upper extremities. Neurologic: moves all extremities and awake Psychiatric: A+Ox3, euthymic affect Results & Data Results & Data Vital Signs (Past 12 Hours) Vital Signs Temp Pulse Pulse Resp BP Pulse Ox O2 Del Method 09/21/22 02:47 36.4 C L 81 16 143/82 H 97 Room Air 09/20/22 22:03 81 09/20/22 22:58 36.6 C 69 16 117/73 96 Room Air 09/20/22 23:11 Room Air 09/20/22 19:09 36.3 C L 76 16 145/81 H 97 Room Air Resident Activity Tracking Resident Involvement: Resident Care Provided Care Provided: Adult Hospital Medicine
[2022-09-21 08:23] LABS: Eosinophils # (auto) 0.04 K/uL (0-0.50); Eosinophils % (auto) 0.6 %; Hematocrit (blood only) 36.8 % (37.0-47.0); Hemoglobin 12.2 g/dl (12.0-16.0); Immature Granulocytes # (auto) 0.04 K/uL (0.01-0.20); Immature Granulocytes % (auto) 0.6 %; Lymphocytes # (auto) 0.76 K/uL (1.2-3.4); Lymphocytes % (auto) 11.4 %; Mean Corpuscular Hgb Conc 33.2 g/dL (32.0-36.0); Mean Corpuscular Volume 90.6 fL (80.0-100.0); Mean Platelet Volume 11.2 fL (9.4-12.4); Monocytes # (auto) 0.59 K/uL (0.11-0.59); Monocytes % (auto) 8.8 %; Neutrophils # (auto) 5.26 K/uL (1.40-6.50); Neutrophils % (auto) 78.6 %; Platelet Count 172 K/uL (130-400); RDW Coefficient of Variation 13.2 % (11.5-14.5); RDW Standard Deviation 43.6 fL (36.4-46.3); Red Blood Count 4.06 M/uL (4.20-5.40); White Blood Count 6.69 K/ul (4.8-10.8)
[2022-09-21 08:31] LABS: BUN Creatinine Ratio 27.9 (10-20); Calcium 8.7 mg/dl (8.6-10.3); Creatinine Clr Calc Pharmacy 93.1 ml/min; Est GFR (African American) 112.9 ml/min; Est GFR (Non-African American) 97.4 ml/min; Potassium 4.1 mmol/L (3.5-5.1)
[2022-09-21] MEDS ORDERED: FIBERSOURCE HN 1.2 CAL 1000 ML BAG GT SCH (09:00)
[2022-09-21] MEDS: TACROLIMUS EXT SCH ×2 (09:00→20:44)
[2022-09-21] MEDS: FOLIC ACID 1 MG TAB PO SCH (10:00)
--- NOTE | 2022-09-21 10:01 | Gastroenterology Progress Note ---
Date of Service September 21, 2022 Assessment & Plan (1) Oropharyngeal dysphagia: Plan: No problems post PEG. Nothing further to add for now. Will sign off. Please call if we can be of further assistance. Admission and Anticipated Discharge Date Admission Date: September 18, 2022 Subjective Feeling well post PEG except for pain in her arm. Was on schedule for outpatient colonoscopy on Friday but we cancelled it. Physical Exam Physical Exam: She looks well Results & Data Vital Signs (Past 12 Hours) Vital Signs Temp Pulse Pulse Resp BP Pulse Ox O2 Del Method 09/21/22 07:42 36.4 C L 73 18 129/79 97 Room Air 09/21/22 07:22 67 09/21/22 02:47 36.4 C L 81 16 143/82 H 97 Room Air 09/20/22 22:03 81 09/20/22 22:58 36.6 C 69 16 117/73 96 Room Air 09/20/22 23:11 Room Air
[2022-09-21] MEDS: FAMOTIDINE 20 MG in SYRINGE 3 ML IV SCH (10:13)
[2022-09-21] MEDS: methylPREDNISolone 40 MG in SYRINGE 0 ML IV SCH (10:13)
[2022-09-21] MEDS: ENOXAPARIN INJ 40 MG/0.4 ML SYR SQ SCH (10:14)
[2022-09-21] MEDS: TRIAMCINOLONE ACET 0.1% CR 15 GM TUBE EXT SCH ×2 (10:15→20:44)
[2022-09-21] MEDS: NYSTATIN SUSP 500,000 U/5 ML UDC PO SCH ×3 (10:15→17:55)
[2022-09-21] MEDS: MULTI VIT W/MINERALS LIQUID 15 ML UDP PEG SCH (10:15)
[2022-09-21] MEDS: D5W AND 1/2NSS + 20MEQ KCL 20 MEQ/1,000 ML BAG IV SCH (10:15)
[2022-09-21] MEDS ORDERED: GADOBUTROL 10ML VIAL IV ONE (11:09)
--- NOTE | 2022-09-21 11:50 | Magnetic Resonance Report ---
MR brain wo/w con HISTORY: 77 years-old Female severe muscle weakness acute weakness COMPARISON: None TECHNIQUE: Multiplanar multisequence MRI of the brain was obtained both with and without the use of I V contrast FINDINGS: Midline structures are unremarkable. Degenerative changes of the cervical spine. No restricted diffus ion to suggest acute or subacute infarct. No acute intracranial hemorrhage, midline shift, abnormal e xtra-axial collection, hydrocephalus or intracranial mass. Involutional changes. Mild scattered T2/FL AIR hyperintense foci throughout the white matter. Cerebral venous sinuses and major arterial flow voids appear patent. Skull, orbits and soft tissues a re unremarkable. Prior bilateral lens repair. Mastoid air cells and paranasal sinuses are clear. No a bnormal enhancement. IMPRESSION: 1. No acute intracranial abnormality. No acute or subacute infarct. 2. No abnormal enhancement. 3. Involutional changes with mild chronic microvascular ischemic disease. ACT 112: Negative or not required by law. The above report was generated using voice recognition software. It may contain grammatical, syntax o r spelling errors. Electronically signed by: Steve Garcia M.D. 09/21/2022 11:48 AM
[2022-09-21] MEDS: amLODIPine BESYLATE 5 MG TAB PO SCH (13:59)
[2022-09-21] MEDS: LOSARTAN POTASSIUM 50 MG TAB PO SCH (13:59)
[2022-09-21] MEDS: NYSTATIN SUSP 500,000 U/5 ML UDC BUCCAL SCH (20:45)
[2022-09-22] MEDS: D5W AND 1/2NSS + 20MEQ KCL 20 MEQ/1,000 ML BAG IV SCH ×2 (01:06→13:40)
[2022-09-22] MEDS: TUBE FEEDING WATER FLUSH PEG SCH ×6 (01:12→20:27)
[2022-09-22 07:07] LABS: Eosinophils # (auto) 0.09 K/uL (0-0.50); Eosinophils % (auto) 1.6 %; Hemoglobin 12.2 g/dl (12.0-16.0); Immature Granulocytes # (auto) 0.02 K/uL (0.01-0.20); Immature Granulocytes % (auto) 0.4 %; Lymphocytes # (auto) 0.74 K/uL (1.2-3.4); Lymphocytes % (auto) 13.1 %; Mean Corpuscular Hemoglobin 29.5 pg (25.0-34.0); Mean Corpuscular Volume 89.6 fL (80.0-100.0); Mean Platelet Volume 11.8 fL (9.4-12.4); Monocytes # (auto) 0.68 K/uL (0.11-0.59); Neutrophils # (auto) 4.14 K/uL (1.40-6.50); Neutrophils % (auto) 72.9 %; Platelet Count 152 K/uL (130-400); RDW Coefficient of Variation 13.1 % (11.5-14.5); RDW Standard Deviation 43.2 fL (36.4-46.3); Red Blood Count 4.13 M/uL (4.20-5.40); White Blood Count 5.67 K/ul (4.8-10.8)
--- NOTE | 2022-09-22 07:07 | Hospitalist Progress Note ---
Date of Service September 22, 2022 Assessment & Plan (1) Oropharyngeal dysphagia: (2) Dermatomyositis: (3) Elevated creatine kinase: (4) Hypertension: Plan Skye Montiel is a 77 year-old female with a past medical history of dermatomyositis who follows with [facility] (Dr. Eller). Her initial symptoms began in July 2021 and she has undergone standard treatment of methotrexate, steroids, as well as three rounds of IVIG without significant improvement of symptoms. Over the past several weeks she has had increasing fatigue and generalized muscle weakness. Most recently she has also developed issues with swallowing/choking on food. Willie family also reports that she has lost between 10-20 pounds recently and has been eating less. Dermatomyositis- Rapidly Progressing -Symptoms have worsened significantly over last few weeks including generalized weakness w/ proximal extremity weakness and difficultly swallowing -Follows with [facility] and trialed outpatient dexamethasone + prednisone w/o relief so recommended admission -Outpatient elevated CA 125 -No sign of acute infection, afebrile and no hypoxia. -CT abd/pelvis with IV contrast neg -Work up so far- -Punch biopsy and (deltoid) muscle biopsy done 09/20/22, tissue sent to pathology by surgery -MRI Brain neg. -TSH normal -Lyme neg -Rheumatology following -Solumedrol 40mg IV daily -Due for methotrexate on friday. To discuss with rheumatology on friday about continuing/other med options -Had outpatient colonoscopy scheduled for next week, if patient stays admitted could consider coordinating inpatient study -Pending Results: -Skin, muscle biopsy -CA 125 -Myositis, Myasthenia gravis panels -Free [place] Lambda Light Chain -Immunofixation -outpatient ENT referral pending. Severe Dysphagia -No sign of aspiration pneumonia on CXR, currently stable on RA -Speech therapy consulted -Patient failed FEES study -GI consulted, -PEG placed 09/20/22. -Started tube feeds 09/21 -Will continue IV fluids - to d/c on 09/23 -Aspiration precautions -NPO Hypertension -Restarted home meds (Losartan, Amlodipine) via PEG given severe dysphagia Elevated Troponin- resolved -Initial high sen trop elevated at 306 with 2 hour repeat of 399, trended down -The patient is without chest discomfort or SOB and without acute ST segment or T-wave changes -Elevation likely from systemic MSk process. -Continue telemetry monitoring Elevated Creatine Kinase -Initially at 200. recheck normalized -Likely related to her chronic inflammatory disease -Renal function is stable Oral Thrush -Will do Nystatin swish and spit. Diet: NPO VTE Prophylaxis: BL SCDs, Sub-Q Lovenox Dispo: Med/Surg Tele Code Status: Full Code Admission and Anticipated Discharge Date Admission Date: September 18, 2022 Supervising Physician Co-Signing Physician Notes Resident Physician Supervision Note: I independently interviewed and examined the patient and verified the avila history and physical, reviewed labs and image studies and agree with resident findings and care plan. Dinah Montiel is a 77 year-old female with a past medical history of dermatomyositis who follows with [facility] (Dr. Eller). Her initial symptoms began in July 2021 and she has undergone standard treatment of methotrexate, steroids, as well as three rounds of IVIG without significant improvement of symptoms. Over the past several weeks she has had increasing fatigue and generalized muscle weakness. Most recently she has also developed issues with swallowing/choking on food. Willie family also reports that she has lost between 10-20 pounds recently and has been eating less. Since being admitted she has failed a FEES swallow study due to severe dysphagia and required PEG placement. 09/22: Patient seen and examined at bedside. No acute events overnight. Has been tolerating increased PEG feeds. Notes continued pain at left arm. Denies shortness of breath or chest pain. Has been able to ambulate to the bathroom with assistance. Denies abdominal pain or bloating. Feels that her rash is looking better on her arms and face. Review of Systems Review of Systems: As per above Physical Exam Constitutional: average body habitus; no acute distress Eyes: Anicteric sclerae Respiratory: normal respiratory effort, lungs clear to auscultation Cardiovascular: Rate/Rhythm: regular rate and regular rhythm Extremities: no edema Gastrointestinal (Abdomen): Inspection/Auscultation: abdomen not distended Percussion/Palpation: abdomen soft; abdomen nontender Musculoskeletal: weakness 4/5 in the proximal muscles of upper and lower extremity Skin: Erythematous rash of upper extremities, chest, and face. Neurologic: moves all extremities and awake Psychiatric: A+Ox3, euthymic affect Results & Data Results & Data Vital Signs (Past 12 Hours) Vital Signs Temp Pulse Pulse Resp BP Pulse Ox O2 Del Method 09/22/22 03:45 36.5 C 72 18 150/90 H 98 Room Air 09/21/22 22:00 65 09/21/22 23:40 36.5 C 72 18 132/82 97 Room Air 09/21/22 22:24 Room Air 09/21/22 19:25 36.8 C 79 18 142/87 H 96 Room Air Resident Activity Tracking Resident Involvement: Resident Care Provided Care Provided: Adult Hospital Medicine
[2022-09-22 07:34] LABS: BUN Creatinine Ratio 30.8 (10-20); Calcium 8.7 mg/dl (8.6-10.3); Creatinine Clr Calc Pharmacy 102.7 ml/min; Est GFR (African American) 116.6 ml/min; Est GFR (Non-African American) 100.6 ml/min
[2022-09-22] MEDS: LOSARTAN POTASSIUM 50 MG TAB PEG SCH (08:59)
[2022-09-22] MEDS: FAMOTIDINE 20 MG in SYRINGE 3 ML IV SCH (08:59)
[2022-09-22] MEDS: methylPREDNISolone 40 MG in SYRINGE 0 ML IV SCH (08:59)
[2022-09-22] MEDS: ENOXAPARIN INJ 40 MG/0.4 ML SYR SQ SCH (09:00)
[2022-09-22] MEDS: FOLIC ACID 1 MG TAB PO SCH (09:00)
[2022-09-22] MEDS: amLODIPine BESYLATE 5 MG TAB PEG SCH (09:00)
[2022-09-22] MEDS: TACROLIMUS EXT SCH ×2 (09:02→20:26)
[2022-09-22] MEDS: MULTI VIT W/MINERALS LIQUID 15 ML UDP PEG SCH (09:02)
[2022-09-22] MEDS: NYSTATIN SUSP 500,000 U/5 ML UDC BUCCAL SCH ×4 (09:03→20:27)
[2022-09-22] MEDS: TRIAMCINOLONE ACET 0.1% CR 15 GM TUBE EXT SCH ×2 (09:03→20:26)
[2022-09-22 17:42] LABS: Cytosolic 5 Nucleotidas E 1A 18 Units; EJ Ab <11 SI (<11); HMGCR Ab <2 CU (<20); JO-1 Antibody <11 SI (<11); MDA5 Ab <11 SI (<11); MI-2 Alpha Ab <11 SI (<11); MI-2 Beta Ab <11 SI (<11); NXP-2 Ab (MJ Ab) <11 SI (<11); OJ Ab <11 SI (<11); PL-12 Ab <11 SI (<11); PL-7 Ab <11 SI (<11); SRP Ab <11 SI (<11); TIF1 Gamma Ab >100 SI (<11)
[2022-09-23] MEDS: TUBE FEEDING WATER FLUSH PEG SCH ×6 (01:04→21:00)
[2022-09-23] MEDS: D5W AND 1/2NSS + 20MEQ KCL 20 MEQ/1,000 ML BAG IV SCH ×3 (01:04→23:49)
[2022-09-23 05:56] LABS: Eosinophils # (auto) 0.15 K/uL (0-0.50); Eosinophils % (auto) 2.3 %; Hematocrit (blood only) 37.1 % (37.0-47.0); Hemoglobin 12.3 g/dl (12.0-16.0); Immature Granulocytes # (auto) 0.06 K/uL (0.01-0.20); Immature Granulocytes % (auto) 0.9 %; Lymphocytes # (auto) 0.75 K/uL (1.2-3.4); Lymphocytes % (auto) 11.7 %; Mean Corpuscular Hemoglobin 30.2 pg (25.0-34.0); Mean Corpuscular Hgb Conc 33.2 g/dL (32.0-36.0); Mean Corpuscular Volume 91.2 fL (80.0-100.0); Mean Platelet Volume 11.5 fL (9.4-12.4); Monocytes # (auto) 0.83 K/uL (0.11-0.59); Monocytes % (auto) 12.9 %; Neutrophils # (auto) 4.63 K/uL (1.40-6.50); Neutrophils % (auto) 72.2 %; Platelet Count 141 K/uL (130-400); RDW Coefficient of Variation 13.1 % (11.5-14.5); RDW Standard Deviation 43.6 fL (36.4-46.3); Red Blood Count 4.07 M/uL (4.20-5.40); White Blood Count 6.42 K/ul (4.8-10.8)
[2022-09-23 06:06] LABS: BUN Creatinine Ratio 33.3 (10-20); Calcium 8.8 mg/dl (8.6-10.3); Creatinine Clr Calc Pharmacy 102.7 ml/min; Est GFR (African American) 116.6 ml/min; Est GFR (Non-African American) 100.6 ml/min; Potassium 3.9 mmol/L (3.5-5.1)
--- NOTE | 2022-09-23 07:37 | Hospitalist Progress Note ---
Date of Service September 23, 2022 Assessment & Plan (1) Oropharyngeal dysphagia: Plan: Skye Montiel is a 77 year-old female with a past medical history of dermatomyositis who follows with [facility] (Dr. Eller). Her initial symptoms began in July 2021 and she has undergone standard treatment of methotrexate, steroids, as well as three rounds of IVIG without significant improvement of symptoms. Over the past several weeks she has had increasing fatigue and generalized muscle weakness. Most recently she has also developed issues with swallowing/choking on food. Willie family also reports that she has lost between 10-20 pounds recently and has been eating less. Dermatomyositis- Rapidly Progressing -Symptoms have worsened significantly over last few weeks including generalized weakness w/ proximal extremity weakness and difficultly swallowing -Follows with [facility] and trialed outpatient dexamethasone + prednisone w/o relief so recommended admission -Outpatient elevated CA 125 -No sign of acute infection, afebrile and no hypoxia. Suspicion -CT abd/pelvis with IV contrast neg -Work up so far- -Punch biopsy and (deltoid) muscle biopsy done 09/20/22, tissue sent to pathology by surgery -MRI Brain neg. -TSH normal -Rheumatology following -Solumedrol 40mg IV daily stopped, switch to prednisone PO 60mg daily -started PJP prophylaxis atovaquone 1500mg daily -Discussed with Dr. Eller will switch outpatient methotrexate to rituxan, no dose given 09/23 -Had outpatient colonoscopy scheduled for next week, if patient stays admitted could consider coordinating inpatient study -Pending Results: -Skin, muscle biopsy -CA 125 -Myositis, Myasthenia gravis panels -Free [place] Lambda Light Chain -outpatient ENT referral pending. Severe Dysphagia -No sign of aspiration pneumonia on CXR, currently stable on RA -Speech therapy consulted -Patient failed FEES study -GI consulted, plan to proceed with PEG tube placement -PEG placed 09/20/22. -Started tube feeds 09/21 -Will continue IV fluids for now -Aspiration precautions -NPO Hypertension -Restarted home meds (Losartan, Amlodipine) via PEG given severe dysphagia Elevated Troponin- resolved -Initial high sen trop elevated at 306 with 2 hour repeat of 399, trended down -The patient is without chest discomfort or SOB and without acute ST segment or T-wave changes -Continue telemetry monitoring Elevated Creatine Kinase -Initially at 200. recheck normalized -Likely related to her chronic inflammatory disease -Renal function is stable Oral Thrush -Will do Nystatin swish and spit. Diet: NPO VTE Prophylaxis: BL SCDs, Sub-Q Lovenox Dispo: Med/Surg Tele Code Status: Full Code (2) Dermatomyositis: (3) Elevated creatine kinase: (4) Hypertension: Admission and Anticipated Discharge Date Admission Date: September 18, 2022 Supervising Physician Co-Signing Physician Notes I personally examined the patient and verified all avila points of history and exam, discussed case, and agree with decision making with Dr Vaughan. No new complaints. Discussed with case managementwaiting for referral process for rehab to come through. Discussed backup plans with patient and case rehab is denied. Vitals noted, in general she is awake and alert pleasant no distress. HEENT normocephalic atraumatic mucous membranes moist. Asked her to get up from the chairshe needs both arms, gets up slowly has a wide-based shuffling gait looks mildly unsteady, although technically she is able to get up walk a few feet turn around and sit back down unassisted, she definitely does not look stable doing it. Dermatomyositisunfortunately has deteriorated to needing PEG tube. Fortunately doing well with said PEG tube. Weakness/deconditioningfor rehab, hopefully insurance will approve, at the bedside she really performs far worse than her PT/OT notes implied. Otherwise as above Subjective Patient seen at bedside, calm comfortable cooperative. Tolerating G tube well. Still has oral thrush, on nystatin swish and spit. Denies pain. Patient understands rheumatology is following, currently awaiting placement for rehab. Discussed case with Rheumatology Dr. Eller, switch methylprednisolone to PO prednisone, start PJP prophylaxis atovaquone, will switch outpatient methotrexate to rituxan. Physical Exam Constitutional: well developed, cooperative and comfortable Eyes: PERRL, conjunctivae normal, anicteric sclerae ENMT: thrush present Respiratory: normal respiratory effort, lungs clear to auscultation Cardiovascular: Rate/Rhythm: regular rate and regular rhythm Gastrointestinal (Abdomen): G tube present with some dried discharge around site Skin: no rashes, warm and dry Results & Data Results & Data Vital Signs (Past 12 Hours) Vital Signs Temp Pulse Pulse Resp BP Pulse Ox O2 Del Method 09/23/22 04:00 36.7 C 82 18 147/90 H 98 Room Air 09/22/22 23:00 36.9 C 74 18 147/91 H 97 Room Air 09/22/22 22:00 73 09/22/22 22:54 Room Air Resident Activity Tracking Resident Involvement: Resident Care Provided Care Provided: Adult Hospital Medicine
[2022-09-23] MEDS: amLODIPine BESYLATE 5 MG TAB PEG SCH (08:47)
[2022-09-23] MEDS: methylPREDNISolone 40 MG in SYRINGE 0 ML IV SCH (08:48)
[2022-09-23] MEDS: ENOXAPARIN INJ 40 MG/0.4 ML SYR SQ SCH (08:48)
[2022-09-23] MEDS: LOSARTAN POTASSIUM 50 MG TAB PEG SCH (08:48)
[2022-09-23] MEDS: MULTI VIT W/MINERALS LIQUID 15 ML UDP PEG SCH (08:49)
[2022-09-23] MEDS: FOLIC ACID 1 MG TAB PO SCH (08:50)
[2022-09-23] MEDS: NYSTATIN SUSP 500,000 U/5 ML UDC BUCCAL SCH ×4 (08:51→20:12)
[2022-09-23] MEDS: FAMOTIDINE 20 MG in SYRINGE 3 ML IV SCH (08:57)
[2022-09-23] MEDS: TRIAMCINOLONE ACET 0.1% CR 15 GM TUBE EXT SCH ×2 (08:57→20:13)
--- NOTE | 2022-09-23 09:09 | Gastroenterology Progress Note ---
Supervising physician's note Case and plan of care reviewed with Valery Riley NP. Doing well. No further recommendations. Will sign off. Please reconsult if needed Patsy Tamez Jr, MD, [facility] Date of Service September 23, 2022 Assessment & Plan (1) Oropharyngeal dysphagia: Plan: Dysphagia and food aspiration: Patient remains n.p.o. Tolerating PEG tube feedings well. No specific complaints related to the PEG tube. Discussed PEG tube care with nursing who confirms they will provide care today. Patient reports she will be going to [facility] at discharge. She will need outpatient follow-up with the GI department once discharged from [facility]. Case reviewed with Dr. Tamez. Please refer to supervising physician addendum for further recommendations. I have spent 15 minutes of discrete time performing the activities of this visit which include but are not limited to review of the medical record, obtaining a history, physical exam, and entering information in the electronic record. (2) Aspiration of food: Admission and Anticipated Discharge Date Admission Date: September 18, 2022 Subjective Patient awake alert and oriented this morning lying in position of comfort on her bed. Reports that she has had only minimal discomfort at her PEG tube insertion site. Otherwise denies any voiced GI complaints including nausea, vomiting, abdominal pain. She has not had a bowel movement yesterday or today so far. She reports that she will be up to goal related to her feeding tube infusion at 230 this afternoon. Review of Systems Review of Systems: All systems reviewed & are unremarkable except as noted in Subjective Physical Exam Gastrointestinal (Abdomen): normal bowel sounds, soft, nontender, no hepatosplenomegaly PEG tube insertion site with dried red drainage noted, no skin irritation or purulent drainage noted Results & Data Vital Signs (Past 12 Hours) Vital Signs Temp Pulse Pulse Resp BP BP Pulse Ox 09/23/22 08:40 36.3 C L 81 18 137/80 137/80 96 09/23/22 07:55 75 09/23/22 04:00 36.7 C 82 18 147/90 H 98 09/22/22 23:00 36.9 C 74 18 147/91 H 97 09/22/22 22:00 73 09/22/22 22:54 O2 Del Method 09/23/22 08:40 Room Air 09/23/22 07:55 09/23/22 04:00 Room Air 09/22/22 23:00 Room Air 06/04/23 22:00 09/22/22 22:54 Room Air Laboratory Results Laboratory Results - last 24 hr 09/16/22 09/19/22 09/23/22 20:35 14:00 05:29 WBC 6.42 RBC 4.07 L Hgb 12.3 Hct 37.1 MCV 91.2 MCH 30.2 MCHC 33.2 RDW Std Deviation 43.6 RDW Coeff of [place] 13.1 Plt Count 141 MPV 11.5 Immature Gran % (Auto) 0.9 Neut % (Auto) 72.2 Lymph % (Auto) 11.7 [place] % (Auto) 12.9 Eos % (Auto) 2.3 Baso % (Auto) 0.0 Neut # (Auto) 4.63 Lymph # (Auto) 0.75 L [place] # (Auto) 0.83 H Eos # (Auto) 0.15 Baso # (Auto) 0.00 Immature Gran # (Auto) 0.06 Sodium Potassium Chloride Carbon Dioxide Anion Gap BUN Creatinine Est Cr Clr Drug Dosing Est GFR ( Amer) Est GFR (Non-Af Amer) BUN/Creatinine Ratio Glucose Calcium 7-JN-3-Methylglutar CoA <2 CA 125 Antigen 77 H Anti-[place]-1 Ab (IB) <11 EJ Antibody <11 OJ Antibody <11 Mi-2-Alpha Ab <11 Mi-2-Beta Ab <11 NXP-2 Ab <11 PL-7 Antibody <11 PL-12 Antibody <11 SRP Ab <11 MDA5 Ab <11 Myositis TIF1-gamma Ab >100 H Anti-cN-1A Antibody 18 H 09/23/22 05:29 WBC RBC Hgb Hct MCV MCH MCHC RDW Std Deviation RDW Coeff of [place] Plt Count MPV Immature Gran % (Auto) Neut % (Auto) Lymph % (Auto) [place] % (Auto) Eos % (Auto) Baso % (Auto) Neut # (Auto) Lymph # (Auto) [place] # (Auto) Eos # (Auto) Baso # (Auto) Immature Gran # (Auto) Sodium 138 Potassium 3.9 Chloride 105 Carbon Dioxide 27 Anion Gap 6 BUN 13 Creatinine 0.39 L Est Cr Clr Drug Dosing 102.7 Est GFR ( Amer) 116.6 Est GFR (Non-Af Amer) 100.6 BUN/Creatinine Ratio 33.3 H Glucose 146 H Calcium 8.8 9-IV-8-Methylglutar CoA CA 125 Antigen Anti-[place]-1 Ab (IB) EJ Antibody OJ Antibody Mi-2-Alpha Ab Mi-2-Beta Ab NXP-[address]-12 Antibody SRP Ab MDA5 Ab Myositis TIF1-gamma Ab Anti-cN-1A Antibody
[2022-09-23] MEDS: TACROLIMUS EXT SCH ×2 (13:59→20:12)
--- NOTE | 2022-09-23 17:14 | Billing Data ---
Date of Service September 23, 2022 Coding Level of Care Code 74809 SUB INP/OBS CARE
[2022-09-24] MEDS: TUBE FEEDING WATER FLUSH PEG SCH ×6 (01:00→21:01)
--- NOTE | 2022-09-24 07:26 | Hospitalist Progress Note ---
Date of Service September 24, 2022 Assessment & Plan (1) Oropharyngeal dysphagia: Plan: Skye Montiel is a 77 year-old female with a past medical history of dermatomyositis who follows with [facility] (Dr. Eller). Her initial symptoms began in July 2021 and she has undergone standard treatment of methotrexate, steroids, as well as three rounds of IVIG without significant improvement of symptoms. Over the past several weeks she has had increasing fatigue and generalized muscle weakness. Most recently she has also developed issues with swallowing/choking on food. Willie family also reports that she has lost between 10-20 pounds recently and has been eating less. Dermatomyositis- Rapidly Progressing -Symptoms have worsened significantly over last few weeks including generalized weakness w/ proximal extremity weakness and difficultly swallowing -Follows with [facility] and trialed outpatient dexamethasone + prednisone w/o relief so recommended admission -Outpatient elevated CA 125 -No sign of acute infection, afebrile and no hypoxia -CT abd/pelvis with IV contrast neg -Work up so far- -Punch biopsy and (deltoid) muscle biopsy done 09/20/22, tissue sent to pathology by surgery -MRI Brain neg. -TSH normal -Rheumatology following -Solumedrol 40mg IV daily stopped, switch to prednisone PO 60mg daily -started PJP prophylaxis atovaquone 1500mg daily -Discussed with Dr. Eller will switch outpatient methotrexate to rituxan, no dose given 09/23 -Had outpatient colonoscopy scheduled for next week, if patient stays admitted could consider coordinating inpatient study -Pending Results: -Skin, muscle biopsy -CA 125 -Myositis, Myasthenia gravis panels -Free [place] [employer] -outpatient ENT referral pending. Severe Dysphagia -No sign of aspiration pneumonia on CXR, currently stable on RA -Speech therapy consulted -Patient failed FEES study -GI consulted, plan to proceed with PEG tube placement -PEG placed 09/20/22. -Started tube feeds 09/21 -Will continue IV fluids for now -Aspiration precautions -NPO Hypertension -Restarted home meds (Losartan, Amlodipine) via PEG given severe dysphagia Elevated Troponin- resolved -high sen trop max 399, trended down -The patient is without chest discomfort or SOB and without acute ST segment or T-wave changes -Continue telemetry monitoring Elevated Creatine Kinase -Initially at 200. recheck normalized -Likely related to her chronic inflammatory disease -Renal function is stable Oral Thrush -Will do Nystatin swish and spit. Diet: NPO VTE Prophylaxis: BL SCDs, Sub-Q Lovenox Dispo: Med/Surg Tele Code Status: Full Code Case Management: Given ongoing weakness, looking into inpt rehab at [facility], [facility], etc. (2) Dermatomyositis: (3) Elevated creatine kinase: (4) Hypertension: Admission and Anticipated Discharge Date Admission Date: September 18, 2022 Supervising Physician Co-Signing Physician Notes I personally examined the patient and verified all avila points of history and exam, discussed case, and agree with decision making with Dr Vaughan. No new complaints. Still waiting on insurance approval. Vitals noted, in general she is awake and alert pleasant no distress. HEENT normocephalic atraumatic mucous membranes moist. Breathing unlabored no accessory muscle use good effort. CBC, BMP noted. Dermatomyositisunfortunately has deteriorated to needing PEG tube. Fortunately doing well with tube feeds Weakness/deconditioningfor rehab, hopefully insurance will approve, at the bedside she really performs far worse than her PT/OT notes implied. Still awaiting decision Otherwise as above Subjective Patient seen at bedside, calm comfortable cooperative. She states she is feeling a little stir crazy, would appreciate a walk through the halls. She states prior to this hospitalization she was not in the hospital for 4 years. Understands case management is still working to help her find placement. Physical Exam Constitutional: well developed, cooperative and comfortable Eyes: PERRL, conjunctivae normal, anicteric sclerae ENMT: thrush present Respiratory: normal respiratory effort, lungs clear to auscultation Cardiovascular: Rate/Rhythm: regular rate and regular rhythm Gastrointestinal (Abdomen): G tube present Skin: no rashes, warm and dry Results & Data Results & Data Vital Signs (Past 12 Hours) Vital Signs Temp Pulse Pulse Resp BP Pulse Ox O2 Del Method 09/24/22 04:13 36.4 C L 74 20 137/85 97 Room Air 09/23/22 23:48 36.5 C 73 18 144/89 H 97 Room Air 09/23/22 22:01 76 09/23/22 19:42 36.7 C 81 20 146/80 H 98 Room Air Resident Activity Tracking Resident Involvement: Resident Care Provided Care Provided: Adult Hospital Medicine
[2022-09-24 07:33] LABS: Eosinophils # (auto) 0.16 K/uL (0-0.50); Eosinophils % (auto) 2.2 %; Hematocrit (blood only) 36.6 % (37.0-47.0); Hemoglobin 12.2 g/dl (12.0-16.0); Immature Granulocytes # (auto) 0.05 K/uL (0.01-0.20); Immature Granulocytes % (auto) 0.7 %; Lymphocytes # (auto) 0.91 K/uL (1.2-3.4); Lymphocytes % (auto) 12.3 %; Mean Corpuscular Hgb Conc 33.3 g/dL (32.0-36.0); Mean Corpuscular Volume 90.1 fL (80.0-100.0); Mean Platelet Volume 11.4 fL (9.4-12.4); Monocytes # (auto) 1.19 K/uL (0.11-0.59); Monocytes % (auto) 16.1 %; Neutrophils # (auto) 5.06 K/uL (1.40-6.50); Neutrophils % (auto) 68.7 %; Platelet Count 163 K/uL (130-400); RDW Coefficient of Variation 13.2 % (11.5-14.5); RDW Standard Deviation 43.1 fL (36.4-46.3); Red Blood Count 4.06 M/uL (4.20-5.40); White Blood Count 7.37 K/ul (4.8-10.8)
[2022-09-24 07:49] LABS: BUN Creatinine Ratio 35.9 (10-20); Calcium 8.8 mg/dl (8.6-10.3); Creatinine Clr Calc Pharmacy 102.7 ml/min; Est GFR (African American) 116.6 ml/min; Est GFR (Non-African American) 100.6 ml/min; Potassium 4.3 mmol/L (3.5-5.1)
[2022-09-24] MEDS: ATOVAQUONE 750 MG/5 ML UDC PO SCH (09:02)
[2022-09-24] MEDS: amLODIPine BESYLATE 5 MG TAB PEG SCH (09:02)
[2022-09-24] MEDS: MULTI VIT W/MINERALS LIQUID 15 ML UDP PEG SCH (09:02)
[2022-09-24] MEDS: LOSARTAN POTASSIUM 50 MG TAB PEG SCH (09:02)
[2022-09-24] MEDS: ENOXAPARIN INJ 40 MG/0.4 ML SYR SQ SCH (09:03)
[2022-09-24] MEDS: predniSONE 20 MG TAB PO SCH (09:03)
[2022-09-24] MEDS: NYSTATIN SUSP 500,000 U/5 ML UDC BUCCAL SCH ×4 (09:03→19:42)
[2022-09-24] MEDS: FOLIC ACID 1 MG TAB PO SCH (09:04)
[2022-09-24] MEDS: FAMOTIDINE 20 MG in SYRINGE 3 ML IV SCH (09:09)
[2022-09-24] MEDS: TACROLIMUS EXT SCH ×2 (09:11→19:42)
[2022-09-24] MEDS: TRIAMCINOLONE ACET 0.1% CR 15 GM TUBE EXT SCH ×2 (09:11→19:42)
[2022-09-24] MEDS: D5W AND 1/2NSS + 20MEQ KCL 20 MEQ/1,000 ML BAG IV SCH (12:17)
--- NOTE | 2022-09-24 18:49 | Billing Data ---
Date of Service September 24, 2022 Coding Level of Care Code 37823 SUB INP/OBS CARE
--- NOTE | 2022-09-24 19:53 | Billing Data ---
Date of Service September 24, 2022 Coding Level of Care Code 56716 SUB INP/OBS CARE
[2022-09-25] MEDS: D5W AND 1/2NSS + 20MEQ KCL 20 MEQ/1,000 ML BAG IV SCH (00:22)
[2022-09-25] MEDS: TUBE FEEDING WATER FLUSH PEG SCH ×6 (01:00→20:17)
[2022-09-25 07:33] LABS: BUN Creatinine Ratio 35.1 (10-20); Calcium 8.9 mg/dl (8.6-10.3); Creatinine Clr Calc Pharmacy 108.2 ml/min; Est GFR (African American) 118.6 ml/min; Est GFR (Non-African American) 102.4 ml/min
[2022-09-25] MEDS: ATOVAQUONE 750 MG/5 ML UDC PO SCH (07:56)
[2022-09-25] MEDS: NYSTATIN SUSP 500,000 U/5 ML UDC BUCCAL SCH ×4 (07:56→20:16)
[2022-09-25] MEDS: MULTI VIT W/MINERALS LIQUID 15 ML UDP PEG SCH (07:56)
[2022-09-25] MEDS: ENOXAPARIN INJ 40 MG/0.4 ML SYR SQ SCH (07:56)
[2022-09-25] MEDS: LOSARTAN POTASSIUM 50 MG TAB PEG SCH (07:56)
[2022-09-25] MEDS: FOLIC ACID 1 MG TAB PO SCH (07:57)
[2022-09-25] MEDS: predniSONE 20 MG TAB PO SCH (07:57)
[2022-09-25] MEDS: amLODIPine BESYLATE 5 MG TAB PEG SCH (07:57)
[2022-09-25] MEDS: TRIAMCINOLONE ACET 0.1% CR 15 GM TUBE EXT SCH ×2 (07:58→20:16)
[2022-09-25] MEDS: TACROLIMUS EXT SCH ×2 (07:59→20:16)
[2022-09-25] MEDS: FAMOTIDINE 20 MG in SYRINGE 3 ML IV SCH (08:07)
--- NOTE | 2022-09-25 09:27 | Hospitalist Progress Note ---
Date of Service September 25, 2022 Assessment & Plan (1) Oropharyngeal dysphagia: Plan: Skye Montiel is a 77 year-old female with a past medical history of dermatomyositis who follows with [facility] (Dr. Eller). Her initial symptoms began in July 2021 and she has undergone standard treatment of methotrexate, steroids, as well as three rounds of IVIG without significant improvement of symptoms. Over the past several weeks she has had increasing fatigue and generalized muscle weakness. Most recently she has also developed issues with swallowing/choking on food. Willie family also reports that she has lost between 10-20 pounds recently and has been eating less. Dermatomyositis- Rapidly Progressing -Symptoms have worsened significantly over last few weeks including generalized weakness w/ proximal extremity weakness and difficultly swallowing -Follows with [facility] and trialed outpatient dexamethasone + prednisone w/o relief so recommended admission -Outpatient elevated CA 125 -No sign of acute infection, afebrile and no hypoxia -CT abd/pelvis with IV contrast neg -Work up so far- -Punch biopsy and (deltoid) muscle biopsy done 09/20/22, tissue sent to pathology by surgery -MRI Brain neg. -TSH normal -Rheumatology following -Solumedrol 40mg IV daily stopped, switch to prednisone PO 60mg daily -started PJP prophylaxis atovaquone 1500mg daily -Discussed with Dr. Eller will switch outpatient methotrexate to rituxan, no dose given 09/23 -Had outpatient colonoscopy scheduled for next week, if patient stays admitted could consider coordinating inpatient study -Pending Results: -Skin, muscle biopsy -CA 125 -Myositis, Myasthenia gravis panels -Free [place] [employer]ambda [employer] -outpatient ENT referral pending. Severe Dysphagia -No sign of aspiration pneumonia on CXR, currently stable on RA -Speech therapy consulted -Patient failed FEES study -GI consulted, plan to proceed with PEG tube placement -PEG placed 09/20/22. -Started tube feeds 09/21 -stopped IVF, encourage patient to rely on G tube for food and hydration -Aspiration precautions -NPO -started bowel regime Hypertension -Restarted home meds (Losartan, Amlodipine) via PEG given severe dysphagia Elevated Troponin- resolved -high sen trop max 399, trended down -The patient is without chest discomfort or SOB and without acute ST segment or T-wave changes -Continue telemetry monitoring Elevated Creatine Kinase -Initially at 200. recheck normalized -Likely related to her chronic inflammatory disease -Renal function is stable Oral Thrush -Will do Nystatin swish and spit. Diet: NPO VTE Prophylaxis: BL SCDs, Sub-Q Lovenox Dispo: Med/Surg Tele Code Status: Full Code Case Management: Given ongoing weakness, looking into inpt rehab at [facility], [facility], etc. Awaiting insurance auth. (2) Dermatomyositis: (3) Elevated creatine kinase: (4) Hypertension: Admission and Anticipated Discharge Date Admission Date: September 18, 2022 Supervising Physician Co-Signing Physician Notes I personally examined the patient and verified all avila points of history and exam, discussed case, and agree with decision making with Dr Vaughan. No new complaints. again waiting on insurance approval. Vitals noted, in general she is awake and alert pleasant no distress. HEENT normocephalic atraumatic mucous membranes moist. Breathing unlabored no accessory muscle use good effort. CBC, BMP noted. Dermatomyositisunfortunately has deteriorated to needing PEG tube. Fortunately doing well with tube feeds - continue Weakness/deconditioningfor rehab, hopefully insurance will approve, at the bedside she really performs far worse than her PT/OT notes implied. Still awaiting decision hopefully today Otherwise as above Subjective Patient seen at bedside, calm comfortable cooperative. Did not sleep well last night due to blood draws. States she would like to have a walk through the hallways. Patient understands we are awaiting insurance auth. No concerns at this time. Physical Exam Constitutional: well developed, cooperative and comfortable Eyes: PERRL, conjunctivae normal, anicteric sclerae ENMT: thrush present Respiratory: normal respiratory effort, lungs clear to auscultation Cardiovascular: Rate/Rhythm: regular rate and regular rhythm Gastrointestinal (Abdomen): G tube present Skin: no rashes, warm and dry Results & Data Results & Data Vital Signs (Past 12 Hours) Vital Signs Temp Pulse Pulse Resp BP Pulse Ox O2 Del Method 09/25/22 07:28 36.5 C 68 16 134/81 96 Room Air 09/25/22 07:15 64 09/25/22 04:10 36.5 C 77 20 152/78 H 95 Room Air 09/25/22 00:05 36.6 C 70 18 131/79 97 Room Air 09/24/22 22:00 71 Resident Activity Tracking Resident Involvement: Resident Care Provided Care Provided: Adult Hospital Medicine
[2022-09-25] MEDS: DOCUSATE SODIUM/SENNA 50/8.6MG TAB PO SCH (12:49)
[2022-09-25] MEDS: POLYETHYLENE (MIRALAX) 17 GM PACK GT SCH (16:26)
--- NOTE | 2022-09-25 16:57 | Billing Data ---
Date of Service September 25, 2022 Coding Level of Care Code 01436 SUB INP/OBS CARE
[2022-09-26] MEDS: TUBE FEEDING WATER FLUSH PEG SCH ×7 (01:27→22:50)
--- NOTE | 2022-09-26 07:47 | Hospitalist Progress Note ---
Date of Service September 26, 2022 Assessment & Plan (1) Oropharyngeal dysphagia: Plan: Skye Montiel is a 77 year-old female with a past medical history of dermatomyositis who follows with [facility] (Dr. Eller). Her initial symptoms began in July 2021 and she has undergone standard treatment of methotrexate, steroids, as well as three rounds of IVIG without significant improvement of symptoms. Over the past several weeks she has had increasing fatigue and generalized muscle weakness. Most recently she has also developed issues with swallowing/choking on food. Willie family also reports that she has lost between 10-20 pounds recently and has been eating less. Dermatomyositis- Rapidly Progressing -Symptoms have worsened significantly over last few weeks including generalized weakness w/ proximal extremity weakness and difficultly swallowing -Follows with [facility] and trialed outpatient dexamethasone + prednisone w/o relief so recommended admission -Outpatient elevated CA 125 -No sign of acute infection, afebrile and no hypoxia -CT abd/pelvis with IV contrast neg -Work up so far- -Punch biopsy and (deltoid) muscle biopsy done 09/20/22, tissue sent to pathology by surgery -MRI Brain neg. -TSH normal -Rheumatology following -Solumedrol 40mg IV daily stopped, switch to prednisone PO 60mg daily -started PJP prophylaxis atovaquone 1500mg daily -Discussed with Dr. Eller will switch outpatient methotrexate to rituxan -Had outpatient colonoscopy scheduled for next week, if patient stays admitted could consider coordinating inpatient study -Family would like Dr. Horace Aguilar (dermatology at [facility]) involved in her care Babita Hernandez RN research assistant project manager [phone] -Pending Results: -Skin, muscle biopsy -Myasthenia gravis panels -Free [place] [employer] -outpatient ENT referral pending. Severe Dysphagia -No sign of aspiration pneumonia on CXR, currently stable on RA -Speech therapy consulted -Patient failed FEES study -GI consulted, plan to proceed with PEG tube placement -PEG placed 09/20/22. -Started tube feeds 09/21, started on bolus feeds -stopped IVF, encourage patient to rely on G tube for food and hydration -Aspiration precautions -NPO -started bowel regime Cancer Screening -patient at risk given dermatomyositis -CA 125 level 77 -Myositis TIF1-gamma antibody >100 -anti cN 1A antibody 18 -Dr. Greg Lopez Oncology [facility] aware, not consulted yet recommended CT head neck CA19-9 CEA to evaluate for possible malignancy Hypertension -Restarted home meds (Losartan, Amlodipine) via PEG given severe dysphagia Elevated Troponin- resolved -high sen trop max 399, trended down -The patient is without chest discomfort or SOB and without acute ST segment or T-wave changes -Continue telemetry monitoring Elevated Creatine Kinase -Initially at 200. recheck normalized -Likely related to her chronic inflammatory disease -Renal function is stable Oral Thrush -Will do Nystatin swish and spit. Diet: NPO VTE Prophylaxis: BL SCDs, Sub-Q Lovenox Dispo: Med/Surg Tele Code Status: Full Code Case Management: Given ongoing weakness, looking into inpt rehab at [facility], [facility], etc. Awaiting insurance auth. (2) Dermatomyositis: (3) Elevated creatine kinase: (4) Hypertension: Admission and Anticipated Discharge Date Admission Date: September 18, 2022 Supervising Physician Co-Signing Physician Notes I personally examined the patient and verified all avila points of history and exam, discussed case, and agree with decision making with Dr Vaughan. Continues to feel okay. Rehab deniedpeer to peer attemptedextensive discussions with peer to peer physician on my concerns about her requiring ongoing close physician supervision and ability to coordinate with her program director scouting given this fairly rapidly changing dermatomyositis picture, discussed on top of this the fact that she is new to having a PEG tube and definitely would benefit from ongoing assistance with management about this and education, and on top of that discussed her marginal functional status as well as my own personal evaluation of her walkingmy reticence of her being home in her current condition, but also the fact that I believe she has good rehab potential acutely. In spite of all of this, the only thing the insurance doctor would offer is that we could appeal her denial. She did say that they would approve skilled, but of course they cannot approve skilled in one fell swoop and make things streamlined for the patient, they will require us to submit a separate Auth for skilled, delaying further care for her by an needlessly thick bureaucratic process.. Vitals noted, in general she is awake and alert pleasant no distress. HEENT normocephalic atraumatic mucous membranes moist. Breathing unlabored no accessory muscle use good effort. Dermatomyositisunfortunately has deteriorated to needing PEG tube. Fortunately doing well with tube feeds - continue. Continue to coordinate with dermatology and rheumatology. Weakness/deconditioninginsurance clearly had an agenda denying rehab, and there was nothing I could do to insert rational thought or clinical judgment into their bureaucratic guidelines and stone walling. SNF will be approved, but of course due to the needless delays and bureaucracy, her care will be slowed down while we submit, and then they probably take 3 business days to get back to us for approvalwhich is excessively frustrating given her situation. The insurance essentially turning patient care into a game has delayed her care, probably led to a degree of deconditioning, and continues to expose her to more nosocomial risk than was necessary had they valued patient care over finances. Otherwise as above Subjective Patient seen at bedside, calm comfortable cooperative. She enjoyed walking through the hallway yesterday. States her son had a list of questions. She understands insurance is still pending. Otherwise no concerns at this time. Updated family, insurance auth and P2P was denied for rehab family wants to pursue appeal. Would like patient's cracker sprayer Dr. Horace Aguilar, from [facility], to be involved in her care. Physical Exam Constitutional: well developed, cooperative and comfortable Eyes: PERRL, conjunctivae normal, anicteric sclerae ENMT: thrush present Respiratory: normal respiratory effort, lungs clear to auscultation Cardiovascular: Rate/Rhythm: regular rate and regular rhythm Gastrointestinal (Abdomen): G tube present Skin: no rashes, warm and dry Results & Data Results & Data Vital Signs (Past 12 Hours) Vital Signs Temp Pulse Pulse Resp BP Pulse Ox O2 Del Method 09/26/22 07:17 70 09/26/22 04:07 36.6 C 69 18 116/70 97 Room Air 09/25/22 23:32 36.4 C L 69 18 120/78 97 Room Air 09/25/22 22:00 64 09/25/22 19:51 36.4 C L 83 20 128/76 96 Room Air Resident Activity Tracking Resident Involvement: Resident Care Provided Care Provided: Adult Hospital Medicine
[2022-09-26] MEDS: DOCUSATE SODIUM/SENNA 50/8.6MG TAB PO SCH (08:02)
[2022-09-26] MEDS: POLYETHYLENE (MIRALAX) 17 GM PACK GT SCH (08:02)
[2022-09-26] MEDS: FOLIC ACID 1 MG TAB PO SCH (08:02)
[2022-09-26] MEDS: LOSARTAN POTASSIUM 50 MG TAB PEG SCH (08:02)
[2022-09-26] MEDS: NYSTATIN SUSP 500,000 U/5 ML UDC BUCCAL SCH ×4 (08:02→20:06)
[2022-09-26] MEDS: predniSONE 20 MG TAB PO SCH (08:03)
[2022-09-26] MEDS: ENOXAPARIN INJ 40 MG/0.4 ML SYR SQ SCH (08:03)
[2022-09-26] MEDS: amLODIPine BESYLATE 5 MG TAB PEG SCH (08:03)
[2022-09-26] MEDS: MULTI VIT W/MINERALS LIQUID 15 ML UDP PEG SCH (08:03)
[2022-09-26] MEDS: FAMOTIDINE 20 MG in SYRINGE 3 ML IV SCH (08:10)
[2022-09-26] MEDS: TRIAMCINOLONE ACET 0.1% CR 15 GM TUBE EXT SCH ×2 (08:10→20:05)
[2022-09-26] MEDS: TACROLIMUS EXT SCH ×2 (08:10→20:04)
[2022-09-26] MEDS ORDERED: ATOVAQUONE 750 MG/5 ML UDC PO SCH ×2 (11:00→14:00)
[2022-09-26] MEDS ORDERED: IOVERSOL 50ml IV ONE (11:04)
--- NOTE | 2022-09-26 11:16 | CT Scan Report ---
CT SCAN OF THE BRAIN WITH IV CONTRAST CLINICAL HISTORY: Generalized weakness. Concern for neoplasm. COMPARISON STUDY: MRI of the brain dated 09/21/2022. TECHNIQUE: Axial CT scan of the brain is performed from the vertex to the skull base following the IV administration of 94 cc of Optiray 320. A dose lowering technique was utilized adhering to the princ iplArley. IV contrast was administered without complication. Note that examination is suboptima l without an unenhanced series. FINDINGS: Brain parenchyma: There is age-related involutional change noting mild subcortical and periventricula r microangiopathic disease. There is evidence of hemorrhage, mass effect, or acute territorial ischem ia on this contrast-enhanced examination. There is no evidence of enhancing lesion. Jane-white matter differentiation is preserved. No extra-axial fluid collection is seen. Ventricles, sulci, cisterns: Prominent secondary to involutional change. Intracranial vasculature: There is atherosclerotic calcification of the cavernous carotid and vertebr al arteries. Calvarium: The skeletal structures are osteopenic. No lytic or blastic lesion is seen. Sinuses and mastoids: The visualized paranasal sinuses are clear. The mastoid air cells are well pneu matized. Orbits: The bony orbits are grossly intact. There are bilateral ocular lens implants. IMPRESSION: No acute intracranial abnormality. No change from the 09/21/2022 MRI. ACT 112: Negative or not required by law. Electronically signed by: Guero Stock M.D. 09/26/2022 11:15 AM
--- NOTE | 2022-09-26 11:19 | CT Scan Report ---
CT soft tissue neck w con HISTORY: 77 years-old Female concern malignancy acute neck pain with reported history of muscle weak ness COMPARISON: Head CT of same day, brain MRI 09/21/2022 TECHNIQUE: Multiple axial CT images of the soft tissues of the neck were obtained following the intra venous administration of 94 mL Optiray 320. A dose lowering technique was used consistent with the pr incipals of ALARA. FINDINGS: The imaged intracranial structures demonstrate no acute abnormality. Involutional changes with chroni c microvascular ischemic disease. Prior bilateral lens repair. Patent airway. Mild prominence of the lingual tonsils. Unremarkable appearance of the glottis and subglottic airway. The parotid, submandib ular and thyroid glands are unremarkable. Lung apices are clear. No pneumothorax. No lymphadenopathy, acute inflammatory changes or suspicious mass lesions. Atherosclerosis of the carotid and vertebral arteries. Demineralized appearance of the bones. Degenerative changes of the cervical spine. No acute fracture or suspicious bone lesion. IMPRESSION: 1. Unremarkable exam. 2. No lymphadenopathy or acute inflammatory changes. ACT 112: Negative or not required by law. The above report was generated using voice recognition software. It may contain grammatical, syntax o r spelling errors. Electronically signed by: Steve Garcia M.D. 09/26/2022 11:18 AM
[2022-09-26] MEDS: NUTREN LIQD 2.0 1,000 ML BAG PEG SCH ×2 (12:56→17:28)
--- NOTE | 2022-09-26 17:18 | Billing Data ---
Date of Service September 26, 2022 Coding Level of Care Code 06116 SUB INP/OBS CARE MIN
[2022-09-27] MEDS: TUBE FEEDING WATER FLUSH PEG SCH ×7 (02:47→23:05)
[2022-09-27] MEDS: MULTI VIT W/MINERALS LIQUID 15 ML UDP PEG SCH (09:01)
[2022-09-27] MEDS: NYSTATIN SUSP 500,000 U/5 ML UDC BUCCAL SCH ×4 (09:02→20:09)
[2022-09-27] MEDS: amLODIPine BESYLATE 5 MG TAB PEG SCH (09:02)
[2022-09-27] MEDS: LOSARTAN POTASSIUM 50 MG TAB PEG SCH (09:02)
[2022-09-27] MEDS: FOLIC ACID 1 MG TAB PO SCH (09:02)
[2022-09-27] MEDS: predniSONE 20 MG TAB PO SCH (09:02)
[2022-09-27] MEDS: DOCUSATE SODIUM/SENNA 50/8.6MG TAB PO SCH (09:02)
[2022-09-27] MEDS: FAMOTIDINE SUSP 20 MG/2.5 ML UDP PO SCH (09:02)
[2022-09-27] MEDS: ATOVAQUONE 750 MG/5 ML UDC PO SCH (09:03)
[2022-09-27] MEDS: TRIAMCINOLONE ACET 0.1% CR 15 GM TUBE EXT SCH ×2 (09:05→20:10)
[2022-09-27] MEDS: TACROLIMUS EXT SCH ×2 (09:05→20:10)
[2022-09-27] MEDS: ENOXAPARIN INJ 40 MG/0.4 ML SYR SQ SCH (09:06)
[2022-09-27] MEDS: POLYETHYLENE (MIRALAX) 17 GM PACK GT SCH (09:06)
[2022-09-27] MEDS: NUTREN LIQD 2.0 1,000 ML BAG PEG SCH ×5 (10:51→21:38)
[2022-09-27 12:17] LABS: Anti-Striated Muscle NEGATIVE (NEGATIVE); Free Kappa 13.9 mg/L (3.3-19.4); Free Kappa/Lambda Ratio 1.43 (0.26-1.65); Free Lambda 9.7 mg/L (5.7-26.3); Receptor Binding Ab 0.55 nmol/L
--- NOTE | 2022-09-27 13:01 | Hospitalist Progress Note ---
Date of Service September 27, 2022 Assessment & Plan (1) Oropharyngeal dysphagia: Plan: Skye Montiel is a 77 year-old female with a past medical history of dermatomyositis who follows with [facility] (Dr. Eller). Her initial symptoms began in July 2021 and she has undergone standard treatment of methotrexate, steroids, as well as three rounds of IVIG without significant improvement of symptoms. Over the past several weeks she has had increasing fatigue and generalized muscle weakness. Most recently she has also developed issues with swallowing/choking on food. Willie family also reports that she has lost between 10-20 pounds recently and has been eating less. Dermatomyositis- Rapidly Progressing -Symptoms have worsened significantly over last few weeks including generalized weakness w/ proximal extremity weakness and difficultly swallowing -Follows with [facility] and trialed outpatient dexamethasone + prednisone w/o relief so recommended admission -Outpatient elevated CA 125 -No sign of acute infection, afebrile and no hypoxia -CT abd/pelvis with IV contrast neg -Work up so far- -Punch biopsy and (deltoid) muscle biopsy done 09/20/22, tissue sent to pathology by surgery -MRI Brain neg. -TSH normal -Rheumatology following -Solumedrol 40mg IV daily stopped, switch to prednisone PO 60mg daily -started PJP prophylaxis atovaquone 1500mg daily -Discussed with Dr. Eller will switch outpatient methotrexate to rituxan, checked with pharmacy unable in give in hospital -Had outpatient colonoscopy scheduled for next week, if patient stays admitted could consider coordinating inpatient study -Family would like Dr. Horace Aguilar (dermatology at [facility]) involved in her care Babita Hernandez RN research quality assistant [phone] -Pending Results: -Skin, muscle biopsy -Myasthenia gravis panels -Free Sch[employer] -outpatient ENT referral pending. Severe Dysphagia -No sign of aspiration pneumonia on CXR, currently stable on RA -Speech therapy consulted -Patient failed FEES study -GI consulted, plan to proceed with PEG tube placement -PEG placed 09/20/22. -Started tube feeds 09/21, started on bolus feeds -stopped IVF, encourage patient to rely on G tube for food and hydration -Aspiration precautions -NPO -started bowel regime Cancer Screening -patient at risk given dermatomyositis -CA 125 level 77 -Myositis TIF1-gamma antibody >100 -anti cN 1A antibody 18 -Dr. Greg Lopez Oncology [facility] aware, not consulted yet CT head neck wnl, CA19-9 wnl CEA 3.4 Hypertension -Restarted home meds (Losartan, Amlodipine) via PEG given severe dysphagia Elevated Troponin- resolved -high sen trop max 399, trended down -The patient is without chest discomfort or SOB and without acute ST segment or T-wave changes -Continue telemetry monitoring Elevated Creatine Kinase -Initially at 200. recheck normalized -Likely related to her chronic inflammatory disease -Renal function is stable Oral Thrush -Will do Nystatin swish and spit. Diet: NPO VTE Prophylaxis: BL SCDs, Sub-Q Lovenox Dispo: Med/Surg Tele Code Status: Full Code Case Management: Given ongoing weakness, looking into inpt rehab at [facility], [facility], etc. Awaiting insurance auth. (2) Dermatomyositis: (3) Elevated creatine kinase: (4) Hypertension: Admission and Anticipated Discharge Date Admission Date: September 18, 2022 Supervising Physician Co-Signing Physician Notes I personally examined the patient and verified all avila points of history and exam, discussed case, and agree with decision making with Dr Vaughan. Feels about the same. Family appealing rehab denial. Discussed that outside of tumor markers she has very extensive negative work-up for malignancy. Vitals noted, in general she is awake and alert pleasant no distress. HEENT normocephalic atraumatic mucous membranes moist. Breathing unlabored no accessory muscle use good effort. Dermatomyositisunfortunately has deteriorated to needing PEG tube. Fortunately doing well with tube feeds - continue. reached out to rheumatology for further guidance. Weakness/deconditioninginsurance clearly had an agenda denying rehab, and there was nothing I could do to insert rational thought or clinical judgment into their bureaucratic guidelines and stone walling. SNF will be approved, but of course due to the needless delays and bureaucracy, her care will be slowed down while we submit, and then they probably take 3 business days to get back to us for approvalwhich is excessively frustrating given her situation. Family appealing for rehab approval as well. The insurance essentially turning patient care into a game has delayed her care, probably led to a degree of deconditioning, and continues to expose her to more nosocomial risk than was necessary had they valued patient care over finances. Otherwise as above Subjective Patient seen at bedside, calm comfortable cooperative. She understands we are currently waiting on insurance appeals. Would like a shower today. Physical Exam Constitutional: well developed, cooperative and comfortable Eyes: PERRL, conjunctivae normal, anicteric sclerae ENMT: thrush present Respiratory: normal respiratory effort, lungs clear to auscultation Cardiovascular: Rate/Rhythm: regular rate and regular rhythm Gastrointestinal (Abdomen): G tube present Skin: pressure sores noted on back Results & Data Results & Data Vital Signs (Past 12 Hours) Vital Signs Temp Pulse Resp BP Pulse Ox O2 Del Method 09/27/22 11:55 36.5 C 71 18 117/82 95 Room Air 09/27/22 08:18 36.7 C 69 18 106/68 96 Room Air 09/27/22 03:16 36.7 C 67 18 115/75 96 Room Air Resident Activity Tracking Resident Involvement: Resident Care Provided Care Provided: Adult Hospital Medicine
--- NOTE | 2022-09-27 17:03 | Billing Data ---
Date of Service September 27, 2022 Coding Level of Care Code 61245 SUB INP/OBS CARE
[2022-09-28] MEDS: TUBE FEEDING WATER FLUSH PEG SCH ×7 (03:10→22:43)
[2022-09-28 05:51] LABS: Hemoglobin 11.7 g/dl (12.0-16.0); Mean Corpuscular Hgb Conc 33.4 g/dL (32.0-36.0); Mean Corpuscular Volume 89.7 fL (80.0-100.0); Mean Platelet Volume 11.5 fL (9.4-12.4); Platelet Count 198 K/uL (130-400); RDW Coefficient of Variation 13.3 % (11.5-14.5); RDW Standard Deviation 43.1 fL (36.4-46.3)
[2022-09-28 06:02] LABS: BUN Creatinine Ratio 53.8 (10-20); Calcium 9.1 mg/dl (8.6-10.3); Creatinine Clr Calc Pharmacy 102.7 ml/min; Est GFR (African American) 116.6 ml/min; Est GFR (Non-African American) 100.6 ml/min; Potassium 4.2 mmol/L (3.5-5.1)
--- NOTE | 2022-09-28 07:02 | Hospitalist Progress Note ---
Date of Service September 28, 2022 Assessment & Plan (1) Oropharyngeal dysphagia: Plan: Skye Montiel is a 77 year-old female with a past medical history of dermatomyositis who follows with [facility] (Dr. Eller). Her initial symptoms began in July 2021 and she has undergone standard treatment of methotrexate, steroids, as well as three rounds of IVIG without significant improvement of symptoms. Over the past several weeks she has had increasing fatigue and generalized muscle weakness. Most recently she has also developed issues with swallowing/choking on food. Willie family also reports that she has lost between 10-20 pounds recently and has been eating less. Rapidly progressing dermatomyositis -Symptoms have worsened significantly over last few weeks including generalized weakness w/ proximal extremity weakness and difficultly swallowing -Follows with [facility] and trialed outpatient dexamethasone + prednisone w/o relief so recommended admission -No sign of acute infection, afebrile and no hypoxia -CT abd/pelvis with IV contrast neg -Work up so far: -Punch biopsy and (deltoid) muscle biopsy done 09/20/22; pending pathology results -MRI brain neg -TSH normal -acetylcholine binding receptor slightly pos -free kappa lambda light chain WNL -Rheumatology following (Dr. Del Cid) -Solumedrol 40mg IV daily stopped; switched to prednisone PO 50mg daily -started PJP prophylaxis atovaquone 1500mg daily -will switch outpatient methotrexate to rituxan (unable to start inpatient) -Family would like Dr. Horace Aguilar (dermatology at [facility]) involved in her care Babita Hernandez RN research primary teaching assistant [phone] -outpatient ENT referral pending Severe dysphagia -No sign of aspiration pneumonia on CXR, continues to be stable on RA -Speech therapy consulted; patient failed FEES study -PEG placed 09/20/22; started bolus tube feeds 09/21 -continue NPO status -started bowel regimen w/ miralax daily Cancer screening -patient at risk given dermatomyositis -CA 125 level 77 -Myositis TIF1-gamma antibody >100 -anti cN 1A antibody 18 -CA19-9 WNL -CEA 3.4 - CT head neck WNL -Dr. Greg Lopez Oncology [facility] aware; not consulted yet -Upcoming outpatient colonoscopy scheduled; if patient stays admitted could consider coordinating inpatient study Hypertension -Restarted home meds (losartan, amlodipine) via PEG Elevated troponin- resolved -peaked at 399, trended down -The patient is without chest discomfort or SOB and without acute ST segment or T-wave changes -Continue telemetry monitoring Elevated creatine kinase- resolved -Initially at 200; recheck normalized -Likely related to her chronic inflammatory disease -Renal function is stable Oral thrush -Will do Nystatin swish and spit Diet: NPO, nutrition through PEG VTE Prophylaxis: BL SCDs, Sub-Q Lovenox Dispo: Med/Surg Tele Code Status: Full Code Case Management: Given ongoing weakness, looking into inpt rehab at [facility], [facility], etc. Pending insurance appeal. (2) Dermatomyositis: (3) Elevated creatine kinase: (4) Hypertension: Admission and Anticipated Discharge Date Admission Date: September 18, 2022 Supervising Physician Co-Signing Physician Notes I personally examined the patient and verified all avila points of history and exam, discussed case, and agree with decision making with Dr Castellanos feels about the same. family at bedside. updated to the best my ability and their satisfaction. Vitals noted, in general she is awake and alert pleasant no distress. HEENT normocephalic atraumatic mucous membranes moist. Breathing unlabored no accessory muscle use good effort. Dermatomyositisunfortunately has deteriorated to needing PEG tube. Fortunately doing well with tube feeds - continue. reached out to rheumatology for further guidancethey anticipate Rituxan in the near future as an outpatient, can reduce prednisone to 50. Weakness/deconditioninginsurance clearly had an agenda denying rehab, and there was nothing I could do to insert rational thought or clinical judgment into their bureaucratic guidelines and stone walling. SNF will be approved, but of course due to the needless delays and bureaucracy, her care will be slowed down while we submit, and then they probably take 3 business days to get back to us for approvalwhich is excessively frustrating given her situation. Stable pending placement. The insurance essentially turning patient care into a game has delayed her care, probably led to a degree of deconditioning, and continues to expose her to more nosocomial risk than was necessary had they valued patient care over finances. Fortunately she is walking at least 3 times daily, and family is taking her outside today. Otherwise as above Subjective Pt doing well with this morning. No new complaints. Review of Systems Review of Systems: As per HPI Physical Exam Physical Exam: Constitutional: well appearing, no acute distress HEENT: normocephalic, no conjunctival injection CV: RRR, no murmur, no LE edema Respiratory: CTA bilaterally. No rhonchi, wheezes, or crackles. No increased work of breathing MSK: no gross deformities noted Skin: warm, dry, no rashes Neuro: alert, oriented, no FND noted Psych: mood and affect congruent Results & Data Results & Data Vital Signs (Past 12 Hours) Vital Signs Temp Pulse Pulse Resp BP Pulse Ox O2 Del Method 09/28/22 02:40 36.5 C 74 16 108/67 97 Room Air 09/28/22 01:29 65 09/27/22 23:14 36.5 C 66 18 111/71 95 Room Air 09/27/22 19:30 36.7 C 75 16 108/70 96 Room Air Resident Activity Tracking Resident Involvement: Resident Care Provided Care Provided: Adult Hospital Medicine
[2022-09-28] MEDS: NYSTATIN SUSP 500,000 U/5 ML UDC BUCCAL SCH ×4 (09:48→20:31)
[2022-09-28] MEDS: amLODIPine BESYLATE 5 MG TAB PEG SCH (09:48)
[2022-09-28] MEDS: LOSARTAN POTASSIUM 50 MG TAB PEG SCH (09:48)
[2022-09-28] MEDS: DOCUSATE SODIUM/SENNA 50/8.6MG TAB PO SCH (09:48)
[2022-09-28] MEDS: ATOVAQUONE 750 MG/5 ML UDC PO SCH (09:48)
[2022-09-28] MEDS: FAMOTIDINE SUSP 20 MG/2.5 ML UDP PO SCH (09:48)
[2022-09-28] MEDS: ENOXAPARIN INJ 40 MG/0.4 ML SYR SQ SCH (09:49)
[2022-09-28] MEDS: FOLIC ACID 1 MG TAB PO SCH (09:49)
[2022-09-28] MEDS: MULTI VIT W/MINERALS LIQUID 15 ML UDP PEG SCH (09:49)
[2022-09-28] MEDS: POLYETHYLENE (MIRALAX) 17 GM PACK GT SCH (09:49)
[2022-09-28] MEDS: TACROLIMUS EXT SCH ×2 (09:49→20:31)
[2022-09-28] MEDS: predniSONE 50 MG TAB PO SCH (09:50)
[2022-09-28] MEDS: NUTREN LIQD 2.0 1,000 ML BAG PEG SCH ×5 (09:50→20:32)
[2022-09-28] MEDS: TRIAMCINOLONE ACET 0.1% CR 15 GM TUBE EXT SCH ×2 (09:51→20:31)
--- NOTE | 2022-09-28 17:52 | Billing Data ---
Date of Service September 28, 2022 Coding Level of Care Code 29458 SUB INP/OBS CARE
[2022-09-28] MEDS ORDERED: Nursing to Pharmacy Communication SCH (18:30)
[2022-09-29] MEDS: TUBE FEEDING WATER FLUSH PEG SCH ×6 (03:47→23:05)
[2022-09-29 06:12] LABS: Hematocrit (blood only) 35.5 % (37.0-47.0); Mean Corpuscular Hemoglobin 30.5 pg (25.0-34.0); Mean Corpuscular Hgb Conc 33.8 g/dL (32.0-36.0); Mean Corpuscular Volume 90.1 fL (80.0-100.0); Mean Platelet Volume 11.4 fL (9.4-12.4); Platelet Count 195 K/uL (130-400); RDW Coefficient of Variation 13.2 % (11.5-14.5); RDW Standard Deviation 43.1 fL (36.4-46.3); Red Blood Count 3.94 M/uL (4.20-5.40); White Blood Count 10.36 K/ul (4.8-10.8)
[2022-09-29 06:29] LABS: BUN Creatinine Ratio 43.2 (10-20); Est GFR (African American) 112.1 ml/min; Est GFR (Non-African American) 96.7 ml/min; Potassium 4.4 mmol/L (3.5-5.1)
--- NOTE | 2022-09-29 07:25 | Hospitalist Progress Note ---
Date of Service September 29, 2022 Assessment & Plan (1) Oropharyngeal dysphagia: Plan: Skye Montiel is a 77 year-old female with a past medical history of dermatomyositis who follows with [facility] Rheumatology (Dr. Eller). Her initial symptoms began in July 2021 and she has undergone standard treatment of methotrexate, steroids, as well as three rounds of IVIG without significant improvement of symptoms. Over the past several weeks she has had increasing fatigue and generalized muscle weakness. Most recently she has also developed issues with swallowing/choking on food. Per family also reports that she has lost between 10-20 pounds recently and has been eating less. Rapidly progressing dermatomyositis -Symptoms have worsened significantly over last few weeks including generalized weakness w/ proximal extremity weakness and difficultly swallowing -Follows with [facility] Rheumatology and trialed outpatient dexamethasone + prednisone w/o relief; CT abd/pelvis with IV contrast neg -Work up so far: -Punch biopsy and (deltoid) muscle biopsy done 09/20/22; pending pathology results -MRI brain neg -TSH normal -acetylcholine binding receptor slightly pos -free kappa lambda light chain WNL -Rheumatology following (Dr. Del Cid) -Solumedrol 40mg IV daily stopped; switched to prednisone PO 50mg daily -continue PJP prophylaxis atovaquone 1500mg daily -will switch outpatient methotrexate to rituxan upon discharge -Family would like Dr. Horace Aguilar (dermatology at [facility]) involved in her care Babita Hernandez RN research treasury assistant [phone] -outpatient ENT referral pending Severe dysphagia -No sign of aspiration pneumonia on CXR, stable on RA during hospitalization -Speech therapy consulted; patient failed FEES study -PEG placed 09/20/22; started bolus tube feeds 09/21, tolerating well after delay some evening feeds for a few hours -continue NPO status -continue bowel regimen w/ miralax daily Cancer screening -patient at risk given dermatomyositis -CA 125 level 77 -Myositis TIF1-gamma antibody >100 -anti cN 1A antibody 18 -CA19-9 WNL -CEA 3.4 -CT head neck WNL -Dr. Greg Lopez Oncology [facility] aware -Upcoming outpatient colonoscopy scheduled; if patient stays admitted could consider coordinating inpatient study Hypertension -Restarted home meds (losartan, amlodipine) via PEG Elevated troponin- resolved -peaked at 399, trended down -denies chest discomfort or SOB and without acute ST segment or T-wave changes -continue telemetry monitoring Elevated creatine kinase- resolved -Initially at 200; recheck normalized -Likely related to her chronic inflammatory disease -Renal function stable Oral thrush -Nystatin swish and spit Diet: NPO, nutrition through PEG VTE Prophylaxis: ambulation, lovenox Dispo: med/surg w/ tele; pt currently pending insurance appeal for inpatient rehab. Will most likely be denied again and will have to go the SNF route instead Code Status: Full (2) Dermatomyositis: (3) Elevated creatine kinase: (4) Hypertension: (5) Oral thrush: Admission and Anticipated Discharge Date Admission Date: September 18, 2022 Supervising Physician Co-Signing Physician Notes I personally examined the patient and verified all avila points of history and exam, discussed case, and agree with decision making with Dr Castellanos feels about the same. Just waiting on placement decision. Vitals noted, in general she is awake and alert pleasant no distress. HEENT normocephalic atraumatic mucous membranes moist. Breathing unlabored no accessory muscle use good effort. Dermatomyositisunfortunately has deteriorated to needing PEG tube. Fortunately doing well with tube feeds - continue. Previously reached out to rheumatology for further guidancethey anticipate Rituxan in the near future as an outpatient, can reduce prednisone to 50. Tomorrow would ask that the team discussed with rheumatology her mildly positive acetylcholine receptor binding antibody Weakness/deconditioninginsurance clearly had an agenda denying rehab, and there was nothing I could do to insert rational thought or clinical judgment into their bureaucratic guidelines and stone walling. SNF will be approved, but of course due to the needless delays and bureaucracy, her care will be slowed down while we submit, and then they probably take 3 business days to get back to us for approvalwhich is excessively frustrating given her situation. Stable pending placement. The insurance essentially turning patient care into a game has delayed her care, probably led to a degree of deconditioning, and continues to expose her to more nosocomial risk than was necessary had they valued patient care over finances. Fortunately she is walking at least 3 times daily, she was able to get outside yesterday, and anticipates family taking her outside again today. Otherwise as above Subjective Pt doing well this AM. She was glad to get outside yesterday. Walking around the halls well without issues. No new chest pain, SOB, or leg pains. Review of Systems Review of Systems: As per HPI Physical Exam Physical Exam: Constitutional: well appearing, no acute distress HEENT: normocephalic, no conjunctival injection CV: RRR, no murmur, no LE edema Respiratory: CTA bilaterally. No rhonchi, wheezes, or crackles. No increased work of breathing MSK: no gross deformities noted Skin: warm, dry, no rashes Neuro: alert, oriented, no FND noted Psych: mood and affect congruent Results & Data Results & Data Vital Signs (Past 12 Hours) Vital Signs Temp Pulse Pulse Resp BP Pulse Ox O2 Del Method 09/29/22 03:01 36.4 C L 63 16 110/69 97 Room Air 09/28/22 22:01 67 09/28/22 22:56 36.3 C L 68 16 113/70 98 Room Air Resident Activity Tracking Resident Involvement: Resident Care Provided Care Provided: Adult Hospital Medicine
[2022-09-29] MEDS: TRIAMCINOLONE ACET 0.1% CR 15 GM TUBE EXT SCH ×2 (09:16→21:01)
[2022-09-29] MEDS: TACROLIMUS EXT SCH ×2 (09:16→21:01)
[2022-09-29] MEDS: FAMOTIDINE SUSP 20 MG/2.5 ML UDP PO SCH (09:17)
[2022-09-29] MEDS: MULTI VIT W/MINERALS LIQUID 15 ML UDP PEG SCH (09:17)
[2022-09-29] MEDS: ENOXAPARIN INJ 40 MG/0.4 ML SYR SQ SCH (09:17)
[2022-09-29] MEDS: ATOVAQUONE 750 MG/5 ML UDC PO SCH (09:17)
[2022-09-29] MEDS: NYSTATIN SUSP 500,000 U/5 ML UDC BUCCAL SCH ×4 (09:17→21:01)
[2022-09-29] MEDS: POLYETHYLENE (MIRALAX) 17 GM PACK GT SCH (09:17)
[2022-09-29] MEDS: LOSARTAN POTASSIUM 50 MG TAB PEG SCH (09:18)
[2022-09-29] MEDS: amLODIPine BESYLATE 5 MG TAB PEG SCH (09:18)
[2022-09-29] MEDS: NUTREN LIQD 2.0 1,000 ML BAG PEG SCH ×3 (09:18→18:42)
[2022-09-29] MEDS: DOCUSATE SODIUM/SENNA 50/8.6MG TAB PO SCH (09:18)
[2022-09-29] MEDS: FOLIC ACID 1 MG TAB PO SCH (09:18)
[2022-09-29] MEDS: predniSONE 50 MG TAB PO SCH (09:26)
--- NOTE | 2022-09-29 17:39 | Billing Data ---
Date of Service September 29, 2022 Coding Level of Care Code 88608 SUB INP/OBS CARE
[2022-09-30] MEDS: TUBE FEEDING WATER FLUSH PEG SCH ×6 (03:00→23:30)
[2022-09-30 07:52] LABS: Hematocrit (blood only) 34.6 % (37.0-47.0); Hemoglobin 11.6 g/dl (12.0-16.0); Mean Corpuscular Hemoglobin 30.5 pg (25.0-34.0); Mean Corpuscular Hgb Conc 33.5 g/dL (32.0-36.0); Mean Corpuscular Volume 91.1 fL (80.0-100.0); Mean Platelet Volume 11.8 fL (9.4-12.4); Platelet Count 181 K/uL (130-400); RDW Coefficient of Variation 13.2 % (11.5-14.5); RDW Standard Deviation 43.2 fL (36.4-46.3); White Blood Count 8.47 K/ul (4.8-10.8)
--- NOTE | 2022-09-30 07:58 | Hospitalist Progress Note ---
Date of Service September 30, 2022 Assessment & Plan (1) Oropharyngeal dysphagia: (2) Dermatomyositis: (3) Elevated creatine kinase: (4) Hypertension: (5) Oral thrush: Plan Skye Montiel is a 77 year-old female with a past medical history of dermatomyositis who follows with [facility] Rhe[facility] (Dr. Eller). Her initial symptoms began in July 2021 and she has undergone standard treatment of methotrexate, steroids, as well as three rounds of IVIG without significant improvement of symptoms. Over the past several weeks she has had increasing fatigue and generalized muscle weakness. Most recently she has also developed issues with swallowing/choking on food. Per family also reports that she has lost between 10-20 pounds recently and has been eating less. Rapidly progressing dermatomyositis -Symptoms have worsened significantly over last few weeks prior to admission to the hospital including generalized weakness w/ proximal extremity weakness and difficultly swallowing. -Follows with [facility] and trialed outpatient dexamethasone + prednisone w/o relief; CT abd/pelvis with IV contrast neg -Work up so far: -Punch biopsy and (deltoid) muscle biopsy done 09/20/22; pathology results most consistent with dermatomyositis. -MRI brain neg -TSH normal -acetylcholine binding receptor slightly pos -free kappa lambda light chain WNL -Rheumatology following (Dr. Del Cid) -Solumedrol 40mg IV daily stopped; switched to prednisone PO 50mg daily -continue PJP prophylaxis atovaquone 1500mg daily -will switch outpatient methotrexate to rituxan upon discharge -Family would like Dr. Horace Aguilar (dermatology at [facility]) involved in her care Babita Hernandez RN research bilingual office assistant [phone] -outpatient ENT referral pending Severe dysphagia -No sign of aspiration pneumonia on CXR, stable on RA during hospitalization -Speech therapy consulted; patient failed FEES study -PEG placed 09/20/22; started bolus tube feeds 09/21, tolerating well after delay some evening feeds for a few hours -Continue n.p.o. status -continue bowel regimen w/ miralax daily Cancer screening -patient at risk given dermatomyositis -CA 125 level 77 -Myositis TIF1-gamma antibody >100 -anti cN 1A antibody 18 -CA19-9 WNL -CEA 3.4 -CT head neck WNL -Dr. Greg Lopez [facility]cology [facility] aware -Upcoming outpatient colonoscopy scheduled; if patient stays admitted could consider coordinating inpatient study Hypertension -Restarted home meds (losartan, amlodipine) via PEG Elevated troponin- resolved -peaked at 399, trended down -denies chest discomfort or SOB and without acute ST segment or T-wave changes -continue telemetry monitoring Elevated creatine kinase- resolved -Initially at 200; recheck normalized -Likely related to her chronic inflammatory disease -Renal function stable Oral thrush -Nystatin swish and spit Diet: NPO, nutrition through PEG VTE Prophylaxis: ambulation, lovenox Dispo: med/surg w/ tele; pt currently pending insurance appeal for inpatient rehab. Will most likely be denied again and will have to go the SNF route instead Code Status: Full Admission and Anticipated Discharge Date Admission Date: September 18, 2022 Supervising Physician Co-Signing Physician Notes Attending attestation Pt seen and examined in concert with Dr. Avila. In agreement with the documented findings as noted in the resident documentation with any exceptions or additions as noted here. Resting at bedside without acute complaint at present beyond ongoing admission. Daughter at bedside to corroborate and provide additional history. On examination, S1/S2 nl RRR no MCG. CTAB. Abd NT/ND BS+ve Dermatomyositis - rheum consult - pathology results c/w same - tolerating PO prednisone and will start Rituxan in the outpatient setting 2/2 insurance restrictions Severe dysphage - enthusiastic about CAFE AIDE Else see resident documentation as noted. Subjective Patient seen bedside this morning. No issues or concerns at this time. Review of Systems Review of Systems: All systems reviewed & are unremarkable except as noted in Subjective Physical Exam Physical Exam: Constitutional: well-appearing, no acute distress HEENT: NCAT, no conjunctival injection CV: regular rhythm, no murmur appreciated, extremities well-perfused, no LE edema Resp: CTABL, no wheezes/rales/rhonchi appreciated, no increased work of breathing GI: soft, nondistended, nontender, BS normoactive MSK: no gross deformities appreciated Skin: warm, dry, no rash appreciated Neuro: alert, oriented, no focal neurologic deficit appreciated Results & Data Results & Data Vital Signs (Past 12 Hours) Vital Signs Temp Pulse Pulse Resp BP Pulse Ox O2 Del Method 09/30/22 07:46 36.7 C 73 18 145/88 H 96 Room Air 09/30/22 02:57 36.6 C 63 16 131/79 96 Room Air 09/29/22 22:00 66 09/29/22 22:41 36.6 C 66 16 119/74 96 Room Air Laboratory Results 09/30/22 07:08 09/30/22 07:08 Resident Activity Tracking Resident Involvement: Resident Care Provided Care Provided: Adult Hospital Medicine
[2022-09-30] MEDS: MULTI VIT W/MINERALS LIQUID 15 ML UDP PEG SCH (08:05)
[2022-09-30] MEDS: FAMOTIDINE SUSP 20 MG/2.5 ML UDP PO SCH (08:05)
[2022-09-30] MEDS: ENOXAPARIN INJ 40 MG/0.4 ML SYR SQ SCH (08:05)
[2022-09-30] MEDS: POLYETHYLENE (MIRALAX) 17 GM PACK GT SCH (08:05)
[2022-09-30] MEDS: predniSONE 50 MG TAB PO SCH (08:05)
[2022-09-30] MEDS: LOSARTAN POTASSIUM 50 MG TAB PEG SCH (08:05)
[2022-09-30] MEDS: FOLIC ACID 1 MG TAB PO SCH (08:06)
[2022-09-30] MEDS: ATOVAQUONE 750 MG/5 ML UDC PO SCH (08:06)
[2022-09-30] MEDS: DOCUSATE SODIUM/SENNA 50/8.6MG TAB PO SCH (08:06)
[2022-09-30] MEDS: TACROLIMUS EXT SCH ×2 (08:06→20:01)
[2022-09-30] MEDS: amLODIPine BESYLATE 5 MG TAB PEG SCH (08:06)
[2022-09-30] MEDS: NYSTATIN SUSP 500,000 U/5 ML UDC BUCCAL SCH ×4 (08:06→20:01)
[2022-09-30] MEDS: TRIAMCINOLONE ACET 0.1% CR 15 GM TUBE EXT SCH ×2 (08:06→20:01)
[2022-09-30] MEDS: NUTREN LIQD 2.0 1,000 ML BAG PEG SCH ×3 (08:07→18:21)
[2022-09-30 08:15] LABS: BUN Creatinine Ratio 41.5 (10-20); Calcium 8.4 mg/dl (8.6-10.3); Creatinine Clr Calc Pharmacy 97.7 ml/min; Est GFR (African American) 114.7 ml/min; Potassium 3.8 mmol/L (3.5-5.1)
[2022-10-01] MEDS: TUBE FEEDING WATER FLUSH PEG SCH ×5 (03:30→22:16)
--- NOTE | 2022-10-01 07:11 | Hospitalist Progress Note ---
Date of Service October 01, 2022 Assessment & Plan (1) Oropharyngeal dysphagia: (2) Dermatomyositis: (3) Elevated creatine kinase: (4) Hypertension: (5) Oral thrush: Plan Skye Montiel is a 77 year-old female with a past medical history of dermatomyositis who follows with [facility] (Dr. Eller). Her initial symptoms began in July 2021 and she has undergone standard treatment of methotrexate, steroids, as well as three rounds of IVIG without significant improvement of symptoms. Over the past several weeks she has had increasing fatigue and generalized muscle weakness. Most recently she has also developed issues with swallowing/choking on food. Per family also reports that she has lost between 10-20 pounds recently and has been eating less. Rapidly progressing dermatomyositis -Symptoms have worsened significantly over last few weeks prior to admission to the hospital including generalized weakness w/ proximal extremity weakness and difficultly swallowing. -Follows with [facility] and trialed outpatient dexamethasone + prednisone w/o relief; CT abd/pelvis with IV contrast neg -Work up so far: -Punch biopsy and (deltoid) muscle biopsy done 09/20/22; pathology results most consistent with dermatomyositis. -MRI brain neg -TSH normal -acetylcholine binding receptor slightly pos -free kappa lambda light chain WNL -Rheumatology following (Dr. Del Cid) -Solumedrol 40mg IV daily stopped; switched to prednisone PO 50mg daily -continue PJP prophylaxis atovaquone 1500mg daily -will switch outpatient methotrexate to rituxan upon discharge -Family would like Dr. Horace Aguilar (dermatology at [facility]) involved in her care Babita Hernandez RN research customer support assistant [phone] -outpatient ENT referral will be made at time of discharge. Severe dysphagia -No sign of aspiration pneumonia on CXR, stable on RA during hospitalization -Speech therapy consulted; patient failed FEES study -PEG placed 09/20/22; started bolus tube feeds 09/21, tolerating well after delay some evening feeds for a few hours -Continue n.p.o. status -continue bowel regimen w/ miralax daily Cancer screening -patient at risk given dermatomyositis -CA 125 level 77 -Myositis TIF1-gamma antibody >100 -anti cN 1A antibody 18 -CA19-9 WNL -CEA 3.4 -CT head neck WNL -Dr. Greg Lopez Oncology [facility] aware -Upcoming outpatient colonoscopy scheduled; if patient stays admitted could consider coordinating inpatient study Hypertension -Restarted home meds (losartan, amlodipine) via PEG Elevated troponin- resolved -peaked at 399, trended down -denies chest discomfort or SOB and without acute ST segment or T-wave changes -continue telemetry monitoring Elevated creatine kinase- resolved -Initially at 200; recheck normalized -Likely related to her chronic inflammatory disease -Renal function stable Oral thrush -Nystatin swish and spit Diet: NPO, nutrition through PEG VTE Prophylaxis: ambulation, lovenox Dispo: med/surg w/ tele; pt currently pending insurance appeal for inpatient rehab. Will most likely be denied again and will have to go the SNF route instead Code Status: Full Admission and Anticipated Discharge Date Admission Date: September 18, 2022 Supervising Physician Co-Signing Physician Notes ATTESTATION I also saw the patient and confirmed avila portions of the history and exam. I agree with the impression and plan in the resident documentation, and as summarized below. Upon our early afternoon exam, the patient is semireclined in bed. Daughter and son-in-law and granddaughter are at bedside. I am familiar with the patient from our outpatient continuity clinic. Unfortunately, her inpatient rehabilitation was denied by insurance as well as a appeal by my colleague Dr. Goodman. Currently this is in a family appeal process. Being familiar with the patient as her primary care physician, I do feel she would benefit from inpatient rehabilitation -the patient was living independently prior to the start of her dermatomyositis, and she remains determined to work in therapy in effort to return home, which I think is possible. Other than being very frustrated by the process, she really has no new complaints today. EXAM 119/84, 71, 18, 36.2, 96% room air Pleasant alert. 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 Continue oral steroids; will discuss tapering with outpatient consultants. I also discussed the case with her outpatient drill press operator for metal today Additional per resident documentation Subjective Patient was seen bedside this morning. She continues to be waiting on placement issues. She has no concerns at this time. Family bedside states that the patient's speech has improved though still remains to become worse near the end of the day but has still significantly improved since admission. Review of Systems Review of Systems: All systems reviewed & are unremarkable except as noted in Subjective Physical Exam Physical Exam: Constitutional: well-appearing, no acute distress HEENT: NCAT, no conjunctival injection CV: regular rhythm, no murmur appreciated, extremities well-perfused, no LE edema Resp: CTABL, no wheezes/rales/rhonchi appreciated, no increased work of breathing GI: soft, nondistended, nontender, BS normoactive MSK: no gross deformities appreciated Skin: warm, dry, no rash appreciated Neuro: alert, oriented, no focal neurologic deficit appreciated Results & Data Results & Data Vital Signs (Past 12 Hours) Vital Signs Temp Pulse Pulse Resp BP Pulse Ox O2 Del Method 10/01/22 04:00 36.5 C 69 18 130/83 96 Room Air 09/30/22 23:30 36.7 C 71 18 146/86 H 96 Room Air 09/30/22 21:59 67 09/30/22 19:19 36.7 C 80 20 121/76 96 Room Air Resident Activity Tracking Resident Involvement: Resident Care Provided Care Provided: Adult Hospital Medicine
[2022-10-01] MEDS: NUTREN LIQD 2.0 1,000 ML BAG PEG SCH ×3 (07:32→18:13)
[2022-10-01 08:05] LABS: Hematocrit (blood only) 36.5 % (37.0-47.0); Hemoglobin 11.9 g/dl (12.0-16.0); Mean Corpuscular Hemoglobin 29.5 pg (25.0-34.0); Mean Corpuscular Hgb Conc 32.6 g/dL (32.0-36.0); Mean Corpuscular Volume 90.3 fL (80.0-100.0); Mean Platelet Volume 11.4 fL (9.4-12.4); Platelet Count 198 K/uL (130-400); RDW Coefficient of Variation 13.2 % (11.5-14.5); RDW Standard Deviation 43.6 fL (36.4-46.3); Red Blood Count 4.04 M/uL (4.20-5.40)
[2022-10-01 08:16] LABS: BUN Creatinine Ratio 38.1 (10-20); Calcium 8.7 mg/dl (8.6-10.3); Creatinine Clr Calc Pharmacy 95.3 ml/min; Est GFR (African American) 113.8 ml/min; Est GFR (Non-African American) 98.2 ml/min; Potassium 3.9 mmol/L (3.5-5.1)
[2022-10-01] MEDS: TACROLIMUS EXT SCH ×2 (08:49→20:18)
[2022-10-01] MEDS: ENOXAPARIN INJ 40 MG/0.4 ML SYR SQ SCH (08:50)
[2022-10-01] MEDS: NYSTATIN SUSP 500,000 U/5 ML UDC BUCCAL SCH ×3 (08:51→16:30)
[2022-10-01] MEDS: TRIAMCINOLONE ACET 0.1% CR 15 GM TUBE EXT SCH ×2 (08:51→20:19)
[2022-10-01] MEDS: MULTI VIT W/MINERALS LIQUID 15 ML UDP PEG SCH (08:52)
[2022-10-01] MEDS: predniSONE 50 MG TAB PO SCH (08:52)
[2022-10-01] MEDS: FAMOTIDINE SUSP 20 MG/2.5 ML UDP PO SCH (08:52)
[2022-10-01] MEDS: DOCUSATE SODIUM/SENNA 50/8.6MG TAB PO SCH (08:53)
[2022-10-01] MEDS: POLYETHYLENE (MIRALAX) 17 GM PACK GT SCH (08:53)
[2022-10-01] MEDS: amLODIPine BESYLATE 5 MG TAB PEG SCH (08:53)
[2022-10-01] MEDS: FOLIC ACID 1 MG TAB PO SCH (08:54)
[2022-10-01] MEDS: ATOVAQUONE 750 MG/5 ML UDC PO SCH (08:54)
[2022-10-01] MEDS: LOSARTAN POTASSIUM 50 MG TAB PEG SCH (08:54)
[2022-10-01] MEDS ORDERED: Nursing to Pharmacy Communication SCH (09:15)
[2022-10-02] MEDS: TUBE FEEDING WATER FLUSH PEG SCH ×6 (01:18→20:56)
--- NOTE | 2022-10-02 06:57 | Hospitalist Progress Note ---
Date of Service October 02, 2022 Assessment & Plan (1) Oropharyngeal dysphagia: (2) Dermatomyositis: (3) Elevated creatine kinase: (4) Hypertension: (5) Oral thrush: Plan Skye Montiel is a 77 year-old female with a past medical history of dermatomyositis who follows with [facility] (Dr. Eller). Her initial symptoms began in July 2021 and she has undergone standard treatment of methotrexate, steroids, as well as three rounds of IVIG without significant improvement of symptoms. Over the past several weeks she has had increasing fatigue and generalized muscle weakness. Most recently she has also developed issues with swallowing/choking on food. Per family also reports that she has lost between 10-20 pounds recently and has been eating less. Rapidly progressing dermatomyositis -Symptoms have worsened significantly over last few weeks prior to admission to the hospital including generalized weakness w/ proximal extremity weakness and difficultly swallowing. -Follows with [facility] and trialed outpatient dexamethasone + prednisone w/o relief; CT abd/pelvis with IV contrast neg -Work up so far: -Punch biopsy and (deltoid) muscle biopsy done 09/20/22; pathology results most consistent with dermatomyositis. -MRI brain neg -TSH normal -acetylcholine binding receptor slightly pos, may consider outpatient follow- up for myasthenia gravis -free kappa lambda light chain WNL -Rheumatology following (Dr. Del Cid) -Solumedrol 40mg IV daily stopped; switched to prednisone PO 50mg daily -continue PJP prophylaxis atovaquone 1500mg daily -will switch outpatient methotrexate to rituxan upon discharge -Family would like Dr. Horace Aguilar (dermatology at [facility]) involved in her care Baibta Hernandez RN research contact lens assistant [phone] -outpatient ENT referral will be made at time of discharge. -Patient progressing fairly well with physical therapy who now states home health on discharge. Patient still has other needs such as PEG tube and speech therapy that may only be beneficial at SNF. Patient also may need a hospital bed at time of discharge if going home. Severe dysphagia -No sign of aspiration pneumonia on CXR, stable on RA during hospitalization -Speech therapy consulted; patient failed FEES study -PEG placed 09/20/22; started bolus tube feeds 09/21, tolerating well after delay some evening feeds for a few hours -Continue n.p.o. status -continue bowel regimen w/ miralax daily Cancer screening -patient at risk given dermatomyositis -CA 125 level 77 -Myositis TIF1-gamma antibody >100 -anti cN 1A antibody 18 -CA19-9 WNL -CEA 3.4 -CT head neck WNL -Dr. Greg Lopez Oncology [facility] aware -Upcoming outpatient colonoscopy scheduled; if patient stays admitted could consider coordinating inpatient study Hypertension -Restarted home meds (losartan, amlodipine) via PEG Elevated troponin- resolved -peaked at 399, trended down -denies chest discomfort or SOB and without acute ST segment or T-wave changes -continue telemetry monitoring Elevated creatine kinase- resolved -Initially at 200; recheck normalized -Likely related to her chronic inflammatory disease -Renal function stable Oral thrush -Nystatin swish and spit Diet: NPO, nutrition through PEG VTE Prophylaxis: ambulation, lovenox Dispo: med/surg w/ tele; pt is progressing with physical therapy Code Status: Full Admission and Anticipated Discharge Date Admission Date: September 18, 2022 Supervising Physician Co-Signing Physician Notes ATTESTATION I also saw the patient and confirmed avila portions of the history and exam. I agree with the impression and plan in the resident documentation, and as summarized below. Upon our morning exam, the patient is semireclined in bed. Daughter and son-in-law are at bedside. Patient without new complaints today. She does ambulate in the hallway fairly well, her greatest difficulty is getting out of bed. It sounds as if she does need assistance getting out of bed, especially a flat bed -this would make sense given the proximal muscle weakness seen in dermatomyositis. Had discussions today with the family with regards to neck steps post discharge. They are reversing the family appeal for inpatient rehabilitation; I think the most appropriate placement for the patient would be short-term [facility] for continued speech and occupational therapy, physical therapy, especially with respect to proximal muscle weakness and ADLs (getting out of bed, rising from a seated position). Eventually, I do think a return to her home independent living is likely; post [facility], may consider a transition to living with family for interval as well. EXAM 108/66, 69, 18, 36.8, 95% on room air Pleasant alert. 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 Continue oral steroids; will discuss tapering with outpatient consultants. I again discussed the case with her outpatient drug clerk today Of note, patient had a very low positive titer for ACH antibodies, raising the possibility of myasthenia gravis. There have been case reports of concurrent dermatomyositis and myasthenia; could consider a trial of treatment for myasthenia gravis; if patient remains here in the hospital, could consider neurology involvement; else follow-up as outpatient Additional per resident documentation Subjective Patient was seen bedside this morning. No new issues or concerns at this time. She denies any chest pain shortness of breath, abdominal pain, nausea or vomiting. She continues to struggle with getting in and out of bed in the morning. Review of Systems Review of Systems: All systems reviewed & are unremarkable except as noted in Subjective Physical Exam Physical Exam: Constitutional: well-appearing, no acute distress HEENT: NCAT, no conjunctival injection CV: regular rhythm, no murmur appreciated, extremities well-perfused, no LE edema Resp: CTABL, no wheezes/rales/rhonchi appreciated, no increased work of breathing GI: soft, nondistended, nontender, BS normoactive MSK: no gross deformities appreciated Skin: warm, dry, no rash appreciated Neuro: alert, oriented, no focal neurologic deficit appreciated Results & Data Results & Data Vital Signs (Past 12 Hours) Vital Signs Temp Pulse Pulse Resp BP Pulse Ox O2 Del Method 10/02/22 02:22 36.4 C L 63 18 126/79 97 Room Air 10/02/22 00:21 67 10/01/22 23:23 36.7 C 69 18 116/76 96 Room Air 10/01/22 19:00 36.4 C L 78 18 128/75 96 Room Air Laboratory Results 10/02/22 07:05 10/02/22 07:05
[2022-10-02 07:58] LABS: Hematocrit (blood only) 35.3 % (37.0-47.0); Hemoglobin 11.9 g/dl (12.0-16.0); Mean Corpuscular Hemoglobin 30.1 pg (25.0-34.0); Mean Corpuscular Hgb Conc 33.7 g/dL (32.0-36.0); Mean Corpuscular Volume 89.4 fL (80.0-100.0); Mean Platelet Volume 11.5 fL (9.4-12.4); Platelet Count 216 K/uL (130-400); RDW Coefficient of Variation 13.3 % (11.5-14.5); RDW Standard Deviation 43.7 fL (36.4-46.3); Red Blood Count 3.95 M/uL (4.20-5.40); White Blood Count 7.31 K/ul (4.8-10.8)
[2022-10-02] MEDS: NUTREN LIQD 2.0 1,000 ML BAG PEG SCH ×3 (08:13→18:18)
[2022-10-02 08:18] LABS: BUN Creatinine Ratio 40.9 (10-20); Calcium 8.8 mg/dl (8.6-10.3); Est GFR (African American) 112.1 ml/min; Est GFR (Non-African American) 96.7 ml/min; Potassium 4.1 mmol/L (3.5-5.1)
[2022-10-02] MEDS: ENOXAPARIN INJ 40 MG/0.4 ML SYR SQ SCH (08:19)
[2022-10-02] MEDS: POLYETHYLENE (MIRALAX) 17 GM PACK GT SCH (08:20)
[2022-10-02] MEDS: MULTI VIT W/MINERALS LIQUID 15 ML UDP PEG SCH (08:20)
[2022-10-02] MEDS: ATOVAQUONE 750 MG/5 ML UDC PO SCH (08:20)
[2022-10-02] MEDS: LOSARTAN POTASSIUM 50 MG TAB PEG SCH (08:20)
[2022-10-02] MEDS: FOLIC ACID 1 MG TAB PO SCH (08:20)
[2022-10-02] MEDS: amLODIPine BESYLATE 5 MG TAB PEG SCH (08:20)
[2022-10-02] MEDS: TACROLIMUS EXT SCH ×2 (08:21→20:57)
[2022-10-02] MEDS: DOCUSATE SODIUM/SENNA 50/8.6MG TAB PO SCH (08:21)
[2022-10-02] MEDS: TRIAMCINOLONE ACET 0.1% CR 15 GM TUBE EXT SCH ×2 (08:22→20:57)
[2022-10-02] MEDS: predniSONE 50 MG TAB PO SCH (08:22)
[2022-10-02] MEDS: FAMOTIDINE SUSP 20 MG/2.5 ML UDP PO SCH (08:23)
[2022-10-02] MEDS ORDERED: POLYETHYLENE (MIRALAX) 17 GM PACK GT PRN (11:32)
[2022-10-03] MEDS: TUBE FEEDING WATER FLUSH PEG SCH ×3 (01:58→09:36)
--- NOTE | 2022-10-03 07:07 | Hospitalist Progress Note ---
Date of Service October 03, 2022 Assessment & Plan (1) Oropharyngeal dysphagia: (2) Dermatomyositis: (3) Elevated creatine kinase: (4) Hypertension: (5) Oral thrush: Plan Skye Montiel is a 77 year-old female with a past medical history of dermatomyositis who follows with [facility] (Dr. Eller). Her initial symptoms began in July 2021 and she has undergone standard treatment of methotrexate, steroids, as well as three rounds of IVIG without significant improvement of symptoms. Over the past several weeks she has had increasing fatigue and generalized muscle weakness. Most recently she has also developed issues with swallowing/choking on food. Per family also reports that she has lost between 10-20 pounds recently and has been eating less. Rapidly progressing dermatomyositis -Symptoms have worsened significantly over last few weeks prior to admission to the hospital including generalized weakness w/ proximal extremity weakness and difficultly swallowing. -Follows with [facility] and trialed outpatient dexamethasone + prednisone w/o relief; CT abd/pelvis with IV contrast neg -Work up so far: -Punch biopsy and (deltoid) muscle biopsy done 09/20/22; pathology results most consistent with dermatomyositis. -MRI brain neg -TSH normal -acetylcholine binding receptor slightly pos, may consider outpatient follow- up for myasthenia gravis -free kappa lambda light chain WNL -Rheumatology following (Dr. Del Cid) -Solumedrol 40mg IV daily stopped; switched to prednisone PO 50mg daily -continue PJP prophylaxis atovaquone 1500mg daily -will switch outpatient methotrexate to rituxan upon discharge -Family would like Dr. oHrace Aguilar (dermatology at [facility]) involved in her care Babita Hernandez RN research vector control assistant [phone] -outpatient ENT referral will be made at time of discharge. -Patient progressing fairly well with physical therapy who now states home health on discharge. Patient still has other needs such as PEG tube and speech therapy that may only be beneficial at SNF. Patient also may need a hospital bed at time of discharge if going home. Severe dysphagia -No sign of aspiration pneumonia on CXR, stable on RA during hospitalization -Speech therapy consulted; patient failed FEES study -PEG placed 09/20/22; started bolus tube feeds 09/21, tolerating well after delay some evening feeds for a few hours -Continue n.p.o. status -continue bowel regimen w/ miralax daily Cancer screening -patient at risk given dermatomyositis -CA 125 level 77 -Myositis TIF1-gamma antibody >100 -anti cN 1A antibody 18 -CA19-9 WNL -CEA 3.4 -CT head neck WNL -Dr. Greg Lopez Oncology [facility] aware -Upcoming outpatient colonoscopy scheduled; if patient stays admitted could consider coordinating inpatient study Hypertension -Restarted home meds (losartan, amlodipine) via PEG Elevated troponin- resolved -peaked at 399, trended down -denies chest discomfort or SOB and without acute ST segment or T-wave changes -continue telemetry monitoring Elevated creatine kinase- resolved -Initially at 200; recheck normalized -Likely related to her chronic inflammatory disease -Renal function stable Oral thrush -Nystatin swish and spit Diet: NPO, nutrition through PEG VTE Prophylaxis: ambulation, lovenox Dispo: med/surg w/ tele; pt is progressing with physical therapy Code Status: Full Admission and Anticipated Discharge Date Admission Date: September 18, 2022 Results & Data Results & Data Vital Signs (Past 12 Hours) Vital Signs Temp Pulse Pulse Resp BP Pulse Ox O2 Del Method 10/02/22 23:00 71 10/03/22 03:00 36.5 C 72 18 117/76 96 Room Air 10/02/22 22:00 36.4 C L 70 18 113/70 97 Room Air
[2022-10-03 09:02] LABS: Albumin Level 3.6 gm/dl (3.4-5.0); BUN Creatinine Ratio 32.7 (10-20); Calcium 8.9 mg/dl (8.6-10.3); Est GFR (African American) 106.1 ml/min; Est GFR (Non-African American) 91.5 ml/min; Globulin 3.5 gm/dl (2.5-4.0); Potassium 3.9 mmol/L (3.5-5.1); Total Protein 7.1 gm/dl (6.0-8.3)
[2022-10-03] MEDS: NUTREN LIQD 2.0 1,000 ML BAG PEG SCH (09:32)
[2022-10-03] MEDS: predniSONE 50 MG TAB PO SCH (09:33)
[2022-10-03] MEDS: DOCUSATE SODIUM/SENNA 50/8.6MG TAB PO SCH (09:33)
[2022-10-03] MEDS: amLODIPine BESYLATE 5 MG TAB PEG SCH (09:33)
[2022-10-03] MEDS: LOSARTAN POTASSIUM 50 MG TAB PEG SCH (09:34)
[2022-10-03] MEDS: FOLIC ACID 1 MG TAB PO SCH (09:34)
[2022-10-03] MEDS: ATOVAQUONE 750 MG/5 ML UDC PO SCH (09:34)
[2022-10-03] MEDS: FAMOTIDINE SUSP 20 MG/2.5 ML UDP PO SCH (09:35)
[2022-10-03] MEDS: ENOXAPARIN INJ 40 MG/0.4 ML SYR SQ SCH (09:35)
[2022-10-03] MEDS: TACROLIMUS EXT SCH (09:36)
[2022-10-03] MEDS: TRIAMCINOLONE ACET 0.1% CR 15 GM TUBE EXT SCH (09:36)
[2022-10-03] MEDS: MULTI VIT W/MINERALS LIQUID 15 ML UDP PEG SCH (09:37)
--- NOTE | 2022-10-03 15:05 | Discharge Summary ---
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 Del Cid of [facility] who presented to the [facility] ED on 09/16/22 with a chief complaint of progressive generalized weakness over the past 48-72 hours. In the ED vitals were stable, labs were significant for an ESR of 79, AG of 13 with bicarb WNL, AST of 47, CK of 200 with initial high sen trop of 306, clean UA, lyme IgG, IgM, and Covid negative. Prior to admission the patient was given 1L NSS. At the time of the exam the patient was lying in bed in no acute distress with her daughter and son sitting bedside, history was obtained from all. They state that the patient has been having progressive issues with difficulty swallowing and poor oral intake since her diagnosis last year. Her daughter states that the patient has had an approximately 20 lb weight loss over the past year. Her last IVIG infusion was last Friday into Friday and was without compl ication. Over the past 48-72 hours the patient has had an acute exacerbation in generalized weakness, especially with proximal extremity weakness and increased difficulty swallowing. She has had a few episodes of chocking/possible aspiration over this time. They were working with Dr. Del Cid to try and treat her outpatient and avoid admission, she completed 8 mg IV dexamethasone yesterday AM and PM yesterday and 60 mg PO prednisone this am without improvement in her symptoms. Dr. Del Cid recommended admission for continued treatment to prevent progression to respiratory compromise. Her family state that she had initial scans of the neck, chest, and abdomen to monitor for malignancy on diagnosis last year. She is scheduled to see [facility] next week for colonoscopy and has an appointment with [facility] this for further evaluation for possible ENT malignancy. They mentioned that the patient recently had an elevated CA 125 level and wasn't sure if she could be seen by Dr. Lopez of [facility] while admitted. The patient denies recent fever, chills, chest pain, SOB, cough, abd pain, nausea, vomiting, dysuria, hematuria, melena, LE swelling and recent trauma. She lives at home, alone and has not required the use of a walker or can for ambulation up to this point. She is a full code and her daughter is her POA. Admission Exam Per Admitting Provider General:In no acute distress, stated age, chronically ill-appearing but non- toxic HEENT:Normocephalic, atraumatic, no scleral icterus, pupils around round, symmetrical, and reactive to light, moist mucus membranes, trachea midline, no thyromegaly Chest/Pulm:No respiratory distress, symmetrical chest expansion, clear breath sounds throughout Cardiac:RRR, no murmurs noted Abdomen:Negative for ascites and bruising, normoactive bowel sounds, soft, non-tender to palpation throughout Musculoskeletal:Symmetrical and without signs of acute trauma, upper and lower extremities with symmetric but decreased ROM due to weakness, Extremities:Radial, dorsalis pedis, and posterior tibial pulses are intact and symmetrical, no edema noted in the BL LE's Skin:Chronic erythema of the face at baseline per family Neuro:Alert and oriented to person, place, month, year, and president, no focal defects, CN II-XII tested and intact, finger to nose test negative, no tremors noted Psych:No acute distress, calm and cooperative during the exam Principal Diagnosis Rapidly progressing dermatomyositis Discharge Exam Constitutional: well-appearing, no acute distress HEENT: NCAT, no conjunctival injection CV: regular rhythm, no murmur appreciated, extremities well-perfused, no LE edema Resp: CTABL, no wheezes/rales/rhonchi appreciated, no increased work of breathing GI: soft, nondistended, nontender, BS normoactive, PEG tube in place MSK: no gross deformities appreciated Skin: warm, dry, no rash appreciated Neuro: alert, oriented, no focal neurologic deficit appreciated Discharge Data Allergies Allergy/AdvReac Type Severity Reaction Status Date / Time shrimp Allergy Intermediate Hives Verified 09/16/22 16:25 aspirin Allergy Mild itching Verified 09/16/22 16:25 Consultations 09/16/22 18:03 ED Decision to Admit Stat 09/16/22 18:59 Consult Rheumatology Routine 09/19/22 08:33 Consult Gastroenterology Routine 09/19/22 08:44 Consult General Surgery Routine Procedures Performed Operation Date: 09/20/22 08:15 Actual Procedures p Muscle and Skin Biopsy, Left Upper Arm.(Left) - Troy Sparks MD s Feed Tube Insertion(Not Applicable) - Dillon G. Case, DO Ordered Studies 09/16/22 19:15 CT abd pelvis IV con only Urgent 09/16/22 19:44 CT chest diagnostic w con Urgent 09/20/22 16:34 MRI Brain [MR brain wo/w con] Routine 09/26/22 10:03 CT head/brain w con Routine CT soft tissue neck w con Routine Hospital Course (1) Oropharyngeal dysphagia: (2) Dermatomyositis: (3) Elevated creatine kinase: (4) Hypertension: (5) Oral thrush: Huan Montiel is a 77 year-old female with a past medical history of dermatomyositis who follows with [facility] (Dr. Eller). Her initial symptoms began in July 2021 and she has undergone standard treatment of methotrexate, steroids, as well as three rounds of IVIG without significant improvement of symptoms. Over the past several weeks she has had increasing fatigue and generalized muscle weakness. Most recently she has also developed issues with swallowing/choking on food. Per family also reports that she has lost between 10-20 pounds recently and has been eating less. Rapidly progressing dermatomyositis -Symptoms have worsened significantly over last few weeks prior to admission to the hospital including generalized weakness w/ proximal extremity weakness and difficultly swallowing. -Follows with [facility] and trialed outpatient dexamethasone + prednisone w/o relief; CT abd/pelvis with IV contrast neg -Work up so far: -Punch biopsy and (deltoid) muscle biopsy done 09/20/22; pathology results most consistent with dermatomyositis. -MRI brain neg -TSH normal -acetylcholine binding receptor slightly pos, may consider outpatient follow- up for myasthenia gravis -free kappa lambda light chain WNL -Rheumatology following (Dr. Del Cid) -Solumedrol 40mg IV daily stopped; switched to prednisone PO 50mg daily. Should consider de-escalating during rehab stay. -continue PJP prophylaxis atovaquone 1500mg daily -will switch outpatient methotrexate to rituxan upon discharge from SNF. -Family would like Dr. Horace Aguilar (dermatology at [facility]) involved in her care Babita Hernandez RN research physical therapy assistant [phone] -outpatient ENT referral will be made at time of discharge. Severe dysphagia -No sign of aspiration pneumonia on CXR, stable on RA during hospitalization -Speech therapy consulted; patient failed FEES study -PEG placed 09/20/22; started bolus tube feeds 09/21, tolerating well after delay some evening feeds for a few hours -Continue n.p.o. status -continue bowel regimen w/ miralax daily Cancer screening -patient at risk given dermatomyositis -CA 125 level 77 -Myositis TIF1-gamma antibody >100 -anti cN 1A antibody 18 -CA19-9 WNL -CEA 3.4 -CT head neck WNL -Dr. Greg Lopez Oncology [facility] aware -Upcoming outpatient colonoscopy scheduled Hypertension -Restarted home meds (losartan, amlodipine) via PEG Elevated troponin- resolved -peaked at 399, trended down -denies chest discomfort or SOB and without acute ST segment or T-wave changes Elevated creatine kinase- resolved -Initially at 200; recheck normalized -Likely related to her chronic inflammatory disease -Renal function stable Oral thrush -Nystatin swish and spit Total Time Total Time Spent Total Time Spent (In Minutes): I spent 40 minutes seeing the patient, talking with family, reviewing data, and discussing the case with the receiving physician at [facility]. Discharge Plan Discharge Items Patient Disposition: Transfer Correction Fac Reason For Visit: GENERALIZED WEAKNESS Discharge Diagnosis: Rapidly progressing dermatomyositis Activity: Per Instructions section Non-emergency contact: Primary Care Provider Call non-emergency contact if: you have any medication questions, your pain is unusual for you and your temperature is above 101.5 Follow-up/Referrals: Alfredo Mesa DO [Primary Care Provider] - (Please call to schedule this appointment at your earliest convenience.) Diet: Other - See Diet Comment Diet Comment: PEG tube in place Addtl Attending Provider Instructions: Skye Montiel is a 77 year-old female with a past medical history of dermatomyositis who follows with [facility] (Dr. Eller). Her initial symptoms began in July 2021 and she has undergone standard treatment of methotrexate, steroids, as well as three rounds of IVIG without significant improvement of symptoms. Over the past several weeks she has had increasing fatigue and generalized muscle weakness. Most recently she has also developed issues with swallowing/choking on food. Per family also reports that she has lost between 10-20 pounds recently and has been eating less. Rapidly progressing dermatomyositis -Symptoms have worsened significantly over last few weeks prior to admission to the hospital including generalized weakness w/ proximal extremity weakness and difficultly swallowing. -Follows with [facility] and trialed outpatient dexamethasone + prednisone w/o relief; CT abd/pelvis with IV contrast neg -Work up so far: -Punch biopsy and (deltoid) muscle biopsy done 09/20/22; pathology results most consistent with dermatomyositis. -MRI brain neg -TSH normal -acetylcholine binding receptor slightly pos, may consider outpatient follow- up for myasthenia gravis -free kappa lambda light chain WNL -Rheumatology following (Dr. Del Cid) -Solumedrol 40mg IV daily stopped; switched to prednisone PO 50mg daily -continue PJP prophylaxis atovaquone 1500mg daily -will switch outpatient methotrexate to rituxan upon discharge -Family would like Dr. Horace Aguilar (dermatology at [facility]) involved in her care Babita Hernandez RN research physical therapy assistant [phone] -outpatient ENT referral will be made at time of discharge. Severe dysphagia -No sign of aspiration pneumonia on CXR, stable on RA during hospitalization -Speech therapy consulted; patient failed FEES study -PEG placed 09/20/22; started bolus tube feeds 09/21, tolerating well after delay some evening feeds for a few hours -Continue n.p.o. status -continue bowel regimen w/ miralax daily Cancer screening -patient at risk given dermatomyositis -CA 125 level 77 -Myositis TIF1-gamma antibody >100 -anti cN 1A antibody 18 -CA19-9 WNL -CEA 3.4 -CT head neck WNL -Dr. Greg Lopez Oncology [facility] aware -Upcoming outpatient colonoscopy scheduled; if patient stays admitted could consider coordinating inpatient study Hypertension -Restarted home meds (losartan, amlodipine) via PEG Elevated troponin- resolved -peaked at 399, trended down -denies chest discomfort or SOB and without acute ST segment or T-wave changes Elevated creatine kinase- resolved -Initially at 200; recheck normalized -Likely related to her chronic inflammatory disease -Renal function stable Oral thrush -Nystatin swish and spit Pending Studies at Discharge: No Stand-Alone Forms: My [employer] Skilled Items Patient informed of condition?: Yes DNR: No Discharge Level of Care: Skilled Communicable Disease: No Discharge Prognosis: Improving Lines: None Urinary Catheter: No Medications and DC Order Prescriptions: New atovaquone [Mepron] 750 mg/5 mL Suspension 1,500 mg PO Q24H Qty: 90 0RF polyethylene glycol 3350 [Miralax] 17 gram Powder In Packet 17 g G-tube DAILY PRN (Reason: constipation) Qty: 14 0RF famotidine 40 mg/5 mL (8 mg/mL) Suspension 20 mg PO DAILY Qty: 50 0RF sennosides-docusate sodium [Senokot-S] 8.6-50 mg Tablet 1 tab PO QAM Qty: 30 0RF prednisone 50 mg Tablet 50 mg PO DAILY Qty: 30 0RF Continued zinc acetate 50 mg (zinc) Capsule 50 mg PO QAM amlodipine 5 mg Tablet 5 mg PO QAM methotrexate sodium 25 mg/mL Solution 20 mg IM WK Patient Comments: on mondays Rx Instructions: mondays folic acid 1 mg Tablet 1 mg PO QAM losartan 100 mg Tablet 100 mg PO QAM cholecalciferol (vitamin D3) [Vitamin D3] 25 mcg (1,000 unit) Tablet 25 mcg PO QAM biotin 1,000 mcg Tablet,Chewable 1,000 mcg PO QAM tacrolimus 0.1 % Ointment See Rx Instructions .ROUTE .COMPLEX Rx Instructions: Apply BID to affected area triamcinolone acetonide See Rx Instructions .ROUTE .COMPLEX Rx Instructions: Apply BID to affected area Discontinued prednisone 5 mg Tablet 5 mg PO QAM Discharge Orders: Discharge Order (Routine); Ordered 10/03/22 Ordered By: Guero Esposito/Other Patient Handouts: Understanding PEG Tube Feeding Admission Data Admit Date/Time: 09/18/22 16:28 Attending Provider: Alfredo Mesa Admit Provider: Ryan Mas Primary Care Provider: Alfredo Mesa Other Providers: Aroldo Eller ; Jeremiah Dallas ; Orlando Alanis ; Patsy Tamez Jr ; Troy Sparks ; [facility] Other Interventions: Discharge Summary Assessment (RN) Last Done: 10/03/22 13:16 Supervising Physician Co-Signing Physician Notes ATTESTATION I also saw the patient and confirmed avila portions of the history and exam. I agree with the impression and plan in the resident documentation, and as summarized below. Fortunately patient has received insurance authorization for retirement, and a bed is available at [facility] today. EXAM 136/75, 63, 17, 36.6, 90% room air Pleasant alert. No acute distress Heart regular Lungs clear with nonlabored respirations Extremities without edema DATA Labs Sodium 135, potassium 3.9, BUN 17, creatinine 0.52 IMPRESSION & PLAN Dermatomyositis Oropharyngeal dysphagia secondary to dermatomyositis, S/P PEG placement Discharge to retirement facility today Transition to Rituxan upon discharge Despite markers which would raise suspicion for underlying/culprit malignancy (refractory skin symptoms, elevated antibodies), search for such has fortunately been unrevealing. Continue oral steroids; prolonged taper per rheumatology Of note, patient had a very low positive titer for ACH antibodies, raising the possibility of myasthenia gravis. There have been case reports of concurrent dermatomyositis and myasthenia; could consider a trial of treatment for myasthenia gravis; if I personally discussed the case with Dr. Adan Portillo at [facility] in effort to coordinate patient's care Additional per resident documentation Resident Activity Tracking Resident Involvement: Resident Care Provided Care Provided: Adult Hospital Medicine
== END 2022-10-03 12:45 | DRG 501 ==
LOC: ED 15:57 → 2N 15:57 → SUATTDRO 18:08 → 2N 20:46 → SUATTDRO 09-18 16:28

== ENCOUNTER 2024-10-27 17:31 | Inpatient (IN) ==
[2024-10-27 18:10] LABS: Hematocrit (blood only) 39.5 % (37.0-47.0); Hemoglobin 13.5 g/dl (12.0-16.0); Immature Granulocytes # (auto) 0.16 K/uL (0.01-0.20); Immature Granulocytes % (auto) 1.3 %; Mean Corpuscular Hemoglobin 30.5 pg (25.0-34.0); Mean Corpuscular Volume 89.4 fL (80.0-100.0); Platelet Count 163 K/uL (130-400); RDW Standard Deviation 48.9 fL (36.4-46.3); Red Blood Count 4.42 M/uL (4.20-5.40); White Blood Count 12.57 K/ul (4.8-10.8)
[2024-10-27 18:28] LABS: Alanine Aminotransferase 13.0 U/L (7-52); Albumin Globulin Ratio 1.3 (0.9-2); Alkaline Phosphatase 55.0 U/L (34-104); Anion Gap 14.0 (3-11); Bilirubin,Total 1.5 mg/dl (0.2-1.0); Blood Urea Nitrogen 18.0 mg/dl (6-23); Calcium 8.9 mg/dl (8.6-10.3); Carbon Dioxide 22.0 mmol/L (21-32); Chloride 100.0 mmol/L (98-107); Creatine Kinase 30.0 U/L (26-192); Creatinine Clr Calc Pharmacy 48.3 ml/min; Globulin 2.9 gm/dl (2.5-4.0); Glucose 232.0 mg/dl (70-99(Fasting)); Magnesium 1.5 mg/dl (1.7-2.4); Potassium 4.2 mmol/L (3.5-5.1); Sodium 136.0 mmol/L (136-145); Total Protein 6.8 gm/dl (6.0-8.3)
--- NOTE | 2024-10-27 18:35 | Emergency Department Note ---
Impression & Plan Severe sepsis, Acute UTI (urinary tract infection), Leukocytosis, Elevated lactic acid level, Elevated procalcitonin, Acute confusion, Hypomagnesemia, Non- ST elevation NE (NSTEMI), Hydronephrosis of right kidney ED Provider Note HISTORY OF PRESENT ILLNESS: Patient is an 79-year-old female presenting with lethargy. Family provides history, given that patient is very lethargic and tired and will not speak. Family reports the patient was seen here a week ago for urinary tract symptoms but was found to have a negative workup. She reportedly was feeling well over the last week but today was very tired and not acting her normal self. Family states that she was very lethargic and difficult to arouse. They state that she has had a runny nose for the last few days. Denies any cough. Patient denies any chest pain or shortness of breath. Patient had subjective fevers at home, she felt very warm to the touch and was diaphoretic. On arrival to the ER, she is awake but does not interact with examiner. ROS: as above PHYSICAL EXAM: Constitutional: Patient appears in no acute distress. HENT: Head: Normocephalic and atraumatic. Eyes: EOMI, PERRL Mouth/Throat: Mucous membranes moist. Neck: Trachea midline. Neck supple. Cardiovascular: Tachycardic with regular rhythm. No murmurs, rubs or gallops. Intact distal pulses. Pulmonary/Chest: No respiratory distress. Breath sounds clear and equal bilaterally. No wheezes or rales. Abdominal: Abdomen soft, no tenderness, rebound or guarding. Musculoskeletal: No edema, tenderness or deformity noted. Skin: Warm and dry. No rash, erythema, pallor or cyanosis Neurological: Alert. CN II-XII grossly intact. 5/5 strength in the bilateral upper extremities. Patient is very weak in the bilateral lower extremities. MDM: - Vitals signs showed fever and tachycardia. - History obtained via patient's family, given patient's confusion and lethargy.. History as above. - Chronic conditions affecting care: GERD; hydronephrosis; HTN; ovarian cancer - Differential diagnoses include, but are not limited to: UTI; CVA; intracranial hemorrhage; ACS; electrolyte abnormality; pneumonia; viral syndrome - Order placed for continuous cardiac monitoring. At this time, monitor showed rate of 86 bpm with normal sinus rhythm, per my interpretation. - External medical records reviewed. Urology note dated 04/05/2024 was reviewed. Patient was seen in their clinic for hydronephrosis. It was believed her hydronephrosis was due to a ureteral stricture. - EKG image interpreted by myself showed normal sinus rhythm. Rate 103 bpm. QT 322. No acute ischemic changes. - Laboratory workup interpreted by myself showed leukocytosis (WBC 12.57) with neutrophil predominance; normal PT/INR elevated lactic acid; (3.4); stable electrolytes other than hypomagnesemia (Mg 1.5); elevated total bilirubin (1.5) with normal AST/ALT; elevated glucose (232) and elevated anion gap (14); elevated troponin (136.6); elevated procalcitonin (3.81); normal TSH - Negative Lyme, anaplasmosis and babesia - Blood cultures obtained - Given 2g IV rocephin empirically - CXR image reviewed by myself for pneumonia, per my interpretation. - CT head wo contrast obtained given patient's confusion. CT head without contrast negative for acute intracranial pathology - Given 1g IV tylenol for fever. - Patient given 2.5L NS. Patient's sepsis fluid volume calculation based on actual body weight is 1902.00 mL. - Repeat lactate elevated at 3.5. Repeat troponin uptrending to 285. - UA obtained straight cath shows acute UTI. - Given 1g IV magnesium for electrolyte replacement - Patient is not having any abdominal pain complaints. However, given her persistent lactic acid elevation despite fluid resuscitation, CT abdomen/pelvis obtained. - CT abdomen/pelvis with IV contrast showed severe hydronephrosis of right kidney. Ureter is dilated at level of pelvic inlet with urothelial thickening. No stone. Cholelithiasis without cholecystitis. - Discussion was had with case coordinator about patient's case and need for admission - Hospitalist, Dr. Herring, consulted for admission - [facility] and [facility]. I have personally spent 43 minutes of critical care time in the direct management of this patient. This includes bedside care, interpretation of diagnostic studies, and testing, discussion with consultants, patient, and family members, and other required patient management activities. This 43 minutes is in excess of all separately billable procedures. ASSESSMENT AND PLAN: Diagnosis: severe sepsis; acute UTI; leukocytosis; elevated lacytic acid level; elevated procalcitonin; acute confusion; hypomagnesemia; NSTEMI; hydronephrosis of right kidney Plan: admit Past Med/Surg History Problem List (Updated 10/27/24 @ 22:31 by Mary Valdes MD) Hydronephrosis of right kidney (Acute) Non-ST elevation NE (NSTEMI) (Acute) Hypomagnesemia (Acute) Acute confusion (Acute) Elevated procalcitonin (Acute) Elevated lactic acid level (Acute) Leukocytosis (Acute) Acute UTI (urinary tract infection) (Acute) Severe sepsis (Acute) Memory changes (Acute) Ovarian carcinoma Hydronephrosis Oral thrush Oropharyngeal dysphagia Aspiration of food Elevated creatine kinase (Acute) Elevated troponin (Acute) Dermatomyositis (Acute) Generalized weakness (Acute) Encounter for pre-operative examination Hypertension Medical History (Updated 10/27/24 @ 22:31 by Mary Valdes MD) History of sepsis 04/14/24 Anemia heme/onc monitoring; Olaparib was D/C 03/02/24 2/2 anemia Hydronephrosis of right kidney ureteral stricture per recent urology note Hx of ovarian cancer L ovary; dx 07/2023, s/p surgery and IV chemo History of hypertension History of dysphasia no current issues per pt. 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 Troy Sparks S/P percutaneous endoscopic gastrostomy (PEG) tube placement 09/20/22 @ [facility] by Dr. Carter>has since been removed History of dilatation and curettage History of colonoscopy History of tonsillectomy History of tooth extraction History of bilateral cataract extraction Family History Other No family history of adverse response to anesthesia Social History Smoking Status: Never smoker Second Hand Exposure: Yes (in the past); Do You Dip or Chew Tobacco: No; Hx Alcohol Use: No Preferred Language: Frisian Communication Ability: Effective Hvac Design Engineer Required: No Beliefs That Will Affect Care: None Current Living Situation: Alone Feels Safe at Home: Yes Assistive Devices: Cane and Glasses Allergies Allergies Allergy/AdvReac Type Severity Reaction Status Date / Time shrimp Allergy Intermediate Hives Verified 10/27/24 19:29 aspirin Allergy Mild itching Verified 10/27/24 19:29 Home Meds Home Medications Medication Instructions Recorded Confirmed cholecalciferol (vitamin D3) 25 25 mcg PO QAM 09/11/22 10/27/24 mcg (1,000 unit) tablet (Vitamin D3) rosuvastatin 10 mg tablet (Crestor) 10 mg PO HS 03/02/24 10/27/24 cyanocobalamin (vitamin B-12) 1,000 mcg PO DAILY 04/20/24 10/27/24 1,000 mcg tablet (Vitamin B-12) donepezil 5 mg tablet 5 mg PO HS 10/20/24 10/27/24 prednisone 5 mg tablet 5 mg PO UD 10/20/24 10/27/24 Results & Data (ED) Vital Signs Vital Signs - 24 hr 10/27/24 17:22 10/27/24 17:42 10/27/24 18:22 Temperature 38.6 C H Temperature Source Oral Pulse Rate 107 H 100 H 105 H Pulse Rate [Apical] Pulse Rhythm Regular Respiratory Rate 24 20 Blood Pressure 133/81 Blood Pressure [Right Arm] Blood Pressure Mean 98 Blood Pressure Mean [Right Arm] Blood Pressure Position Sitting Pulse Oximetry 92 92 Oxygen Delivery Method Room Air Room Air Sepsis Recent Fever Within 48 Hours Yes Sepsis New/Unexplained Change in Mental Status No Sepsis Action Taken by Nursing Physician Notified 10/27/24 19:50 10/27/24 20:30 10/27/24 21:15 Temperature 37.3 C Temperature Source Oral Pulse Rate Pulse Rate [Apical] 89 Pulse Rhythm Respiratory Rate 15 17 Blood Pressure Blood Pressure [Right Arm] 114/69 100/67 113/76 Blood Pressure Mean Blood Pressure Mean [Right Arm] 84 78 88 Blood Pressure Position Pulse Oximetry 95 95 Oxygen Delivery Method Sepsis Recent Fever Within 48 Hours Sepsis New/Unexplained Change in Mental Status Sepsis Action Taken by Nursing 10/27/24 22:02 Temperature Temperature Source Pulse Rate 79 Pulse Rate [Apical] Pulse Rhythm Respiratory Rate Blood Pressure Blood Pressure [Right Arm] Blood Pressure Mean Blood Pressure Mean [Right Arm] Blood Pressure Position Pulse Oximetry Oxygen Delivery Method Sepsis Recent Fever Within 48 Hours Sepsis New/Unexplained Change in Mental Status Sepsis Action Taken by Nursing Laboratory Data 10/27/24 17:50 10/27/24 17:50 Lab Results 10/27/24 10/27/24 10/27/24 Range/Units 17:50 18:09 19:50 WBC 12.57 H (4.8-10.8) K/ul RBC 4.42 (4.20-5.40) M/uL Hgb 13.5 (12.0-16.0) g/dl Hct 39.5 (37.0-47.0) % MCV 89.4 (80.0-100.0) fL MCH 30.5 (25.0-34.0) pg MCHC 34.2 (32.0-36.0) g/dL RDW Std Deviation 48.9 H (36.4-46.3) fL RDW Coeff of Forest 15.1 H (11.5-14.5) % Plt Count 163 (130-400) K/uL MPV 10.2 (9.4-12.4) fL Immature Gran % (Auto) 1.3 % Neut % (Auto) 87.8 % Lymph % (Auto) 0.9 % Hooker % (Auto) 9.8 % Eos % (Auto) 0.0 % Baso % (Auto) 0.2 % Neut # (Auto) 11.05 H (1.40-6.50) K/uL Lymph # (Auto) 0.11 L (1.20-3.40) K/uL Hooker # (Auto) 1.23 H (0.11-0.59) K/uL Eos # (Auto) 0.00 (0.00-0.50) K/uL Baso # (Auto) 0.02 (0.00-0.20) K/uL Immature Gran # (Auto) 0.16 (0.01-0.20) K/uL PT 10.5 (9.0-12.0) Seconds INR 1.0 (0.9-1.1) Sodium 136 (136-145) mmol/L Potassium 4.2 (3.5-5.1) mmol/L Chloride 100 (98-107) mmol/L Carbon Dioxide 22 (21-32) mmol/L Anion Gap 14 H (3-11) BUN 18 (6-23) mg/dl Creatinine 0.87 (0.6-1.2) mg/dl Est Cr Clr Drug Dosing 48.3 ml/min eGFR 67.31 BUN/Creatinine Ratio 20.7 H (10-20) Glucose 232 H (70-99(Fasting)) mg/dl Lactate 3.4 H* (0.4-2.0) mmol/L Calcium 8.9 (8.6-10.3) mg/dl Magnesium 1.5 L (1.7-2.4) mg/dl Total Bilirubin 1.5 H (0.2-1.0) mg/dl AST 17 (13-39) U/L ALT 13 (7-52) U/L Alkaline Phosphatase 55 (34-104) U/L Total Creatine Kinase 30 (26-192) U/L Troponin I High Sens 136.6 H* (0-14) pg/ml Total Protein 6.8 (6.0-8.3) gm/dl Albumin 3.9 (3.4-5.0) gm/dl Globulin 2.9 (2.5-4.0) gm/dl Albumin/Globulin Ratio 1.3 (0.9-2) Procalcitonin 3.81 H (0-0.5) ng/ml TSH 0.954 (0.300-4.500) uIu/ml Urine Color Dark Yellow Urine Appearance Turbid A (Clear) Urine pH 5.5 (4.5-7.5) Ur Specific [place] 1.029 (1.000-1.030) Urine Protein 3+ H (Negative) Urine Glucose (UA) 2+ H (Negative) Urine Ketones 1+ H (Negative) Urine Blood 3+ H (Negative) Urine Nitrite Positive A (Negative) Urine Bilirubin Negative (Negative) Urine Urobilinogen Negative (Negative) Ur Leukocyte Esterase 2+ H (Negative) Urine WBC (Auto) >50 H (0-5) /hpf Urine RBC (Auto) >20 H (0-2) /hpf U Hyaline Cast (Auto) 6-10 H (0-2) /lpf U Epithel Cells (Auto) 3-5 H (0-2) /hpf Urine Bacteria (Auto) 4+ H (None Seen) Urine Comment Adenovirus (PCR) Not Detected (NotDetected) Anaplasma Smear See Comment Babesia Smear See Comment B. pertussis DNA (PCR) Not Detected (NotDetected) B.parapertussis DNA PCR Not Detected (NotDetected) Lyme Disease Screen Negative (Negative) C. pneumoniae DNA (PCR) Not Detected (NotDetected) Coronavirus OC43 (PCR) Not Detected (NotDetected) Coronavirus HKU1 (PCR) Not Detected (NotDetected) Coronavirus 229E (PCR) Not Detected (NotDetected) SARS-CoV-2 (PCR) Not Detected (NotDetected) Coronavirus NL63 (PCR) Not Detected (NotDetected) Human Metapneumovir PCR Not Detected (NotDetected) Influenza Type A (PCR) Not Detected (NotDetected) Influenza Type B (PCR) Not Detected (NotDetected) M. pneumoniae (PCR) Not Detected (NotDetected) Parainfluenza 1 (PCR) Not Detected (NotDetected) Parainfluenza 2 (PCR) Not Detected (NotDetected) Parainfluenza 3 (PCR) Not Detected (NotDetected) Parainfluenza 4 (PCR) Not Detected (NotDetected) RSV (PCR) Not Detected (NotDetected) Entero/Rhino (PCR) Not Detected (NotDetected) 10/27/24 Range/Units 20:06 WBC (4.8-10.8) K/ul RBC (4.20-5.40) M/uL Hgb (12.0-16.0) g/dl Hct (37.0-47.0) % MCV (80.0-100.0) fL MCH (25.0-34.0) pg MCHC (32.0-36.0) g/dL RDW Std Deviation (36.4-46.3) fL RDW Coeff of Forest (11.5-14.5) % Plt Count (130-400) K/uL MPV (9.4-12.4) fL Immature Gran % (Auto) % Neut % (Auto) % Lymph % (Auto) % Hooker % (Auto) % Eos % (Auto) % Baso % (Auto) % Neut # (Auto) (1.40-6.50) K/uL Lymph # (Auto) (1.20-3.40) K/uL Hooker # (Auto) (0.11-0.59) K/uL Eos # (Auto) (0.00-0.50) K/uL Baso # (Auto) (0.00-0.20) K/uL Immature Gran # (Auto) (0.01-0.20) K/uL PT (9.0-12.0) Seconds INR (0.9-1.1) Sodium (136-145) mmol/L Potassium (3.5-5.1) mmol/L Chloride (98-107) mmol/L Carbon Dioxide (21-32) mmol/L Anion Gap (3-11) BUN (6-23) mg/dl Creatinine (0.6-1.2) mg/dl Est Cr Clr Drug Dosing ml/min eGFR BUN/Creatinine Ratio (10-20) Glucose (70-99(Fasting)) mg/dl Lactate 3.5 H* (0.4-2.0) mmol/L Calcium (8.6-10.3) mg/dl Magnesium (1.7-2.4) mg/dl Total Bilirubin (0.2-1.0) mg/dl AST (13-39) U/L ALT (7-52) U/L Alkaline Phosphatase (34-104) U/L Total Creatine Kinase (26-192) U/L Troponin I High Sens 285.0 H* D (0-14) pg/ml Total Protein (6.0-8.3) gm/dl Albumin (3.4-5.0) gm/dl Globulin (2.5-4.0) gm/dl Albumin/Globulin Ratio (0.9-2) Procalcitonin (0-0.5) ng/ml TSH (0.300-4.500) uIu/ml Urine Color Urine Appearance (Clear) Urine pH (4.5-7.5) Ur Specific [place] (1.000-1.030) Urine Protein (Negative) Urine Glucose (UA) (Negative) Urine Ketones (Negative) Urine Blood (Negative) Urine Nitrite (Negative) Urine Bilirubin (Negative) Urine Urobilinogen (Negative) Ur Leukocyte Esterase (Negative) Urine WBC (Auto) (0-5) /hpf Urine RBC (Auto) (0-2) /hpf U Hyaline Cast (Auto) (0-2) /lpf U Epithel Cells (Auto) (0-2) /hpf Urine Bacteria (Auto) (None Seen) Urine Comment Adenovirus (PCR) (NotDetected) Anaplasma Smear Babesia Smear B. pertussis DNA (PCR) (NotDetected) B.parapertussis DNA PCR (NotDetected) Lyme Disease Screen (Negative) C. pneumoniae DNA (PCR) (NotDetected) Coronavirus OC43 (PCR) (NotDetected) Coronavirus HKU1 (PCR) (NotDetected) Coronavirus 229E (PCR) (NotDetected) SARS-CoV-2 (PCR) (NotDetected) Coronavirus NL63 (PCR) (NotDetected) Human Metapneumovir PCR (NotDetected) Influenza Type A (PCR) (NotDetected) Influenza Type B (PCR) (NotDetected) M. pneumoniae (PCR) (NotDetected) Parainfluenza 1 (PCR) (NotDetected) Parainfluenza 2 (PCR) (NotDetected) Parainfluenza 3 (PCR) (NotDetected) Parainfluenza 4 (PCR) (NotDetected) RSV (PCR) (NotDetected) Entero/Rhino (PCR) (NotDetected) Administered Medications Discontinued Medications Sodium Chloride (Nss) 1,000 mls @ 999 mls/hr IV .Q1H1M ONE Stop: 10/27/24 19:21 Last Infusion: 10/27/24 20:47 Dose: Infused Documented By: Admin: 10/27/24 18:45 Dose: 999 mls/hr Documented By: NIDIA Acetaminophen (Ofirmev) 1,000 mg in 100 mls @ 400 mls/hr IV NOW STA Stop: 10/27/24 18:35 Last Infusion: 10/27/24 19:10 Dose: Infused Documented By: Admin: 10/27/24 18:46 Dose: 400 mls/hr Documented By: NIDIA Sodium Chloride (Nss) 1,000 mls @ 999 mls/hr IV .Q1H1M ONE Stop: 10/27/24 19:35 Last Admin: 10/27/24 20:12 Dose: 999 mls/hr Documented By: CAROLINA Ceftriaxone Sodium (Rocephin) 2,000 mg in 50 mls @ 100 mls/hr IV NOW STA Stop: 10/27/24 19:59 Last Infusion: 10/27/24 20:47 Dose: Infused Documented By: Admin: 10/27/24 20:12 Dose: 100 mls/hr Documented By: CAROLINA Magnesium Sulfate/Dextrose (Magnesium Sulfate / D5w) 1 gm in 100 mls @ 100 mls/hr IV NOW STA Stop: 10/27/24 21:46 Last Admin: 10/27/24 21:45 Dose: 100 mls/hr Documented By: CAROLINA Sodium Chloride (Nss) 500 mls @ 999 mls/hr IV .Q31M ONE Stop: 10/27/24 21:17 Last Admin: 10/27/24 21:08 Dose: 999 mls/hr Documented By: CAROLINA Ioversol (Optiray 320 100ml) 93 ml IV ONCE ONE Stop: 10/27/24 21:36 Last Admin: 10/27/24 21:35 Dose: 93 ml Documented By: [facility] Imaging Data Radiologist's Impression: Chest X-Ray 10/27/24 17:42 Chest radiograph, one view History: Weakness Comparison: 01/02/2024 Findings: Single AP view of the chest performed. No focal consolidation or pleural effusion. No pneumothorax. The cardiomediastinal silhouette is within normal limits. Normal pulmonary vascularity. No evidence for lymphadenopathy. No visualized bony or soft tissue abnormality. Impression: Normal chest radiograph Electronically signed by Fam Contreras 10-27-2024 6:[address] 10/27/24 18:21 CT head without contrast History: Confusion Comparison: October 20, 2024 Technique: Using multidetector thin collimation helical acquisition technique, axial, coronal and sagittal CT images from the skull base to the vertex were obtained without intravenous contrast. Dose reduction techniques were achieved by using automatic exposure control and/or adjustment of mA and/or kV according to patient size and/or use of iterative reconstruction technique. Findings: No intracranial hemorrhage, mass-effect, or midline shift. The ventricles are proportionate to the cerebral sulci. The catalan to white matter differentiation of the cerebral hemispheres is preserved. The basal cisterns are patent. There is moderate cerebral atrophy. Moderate, patchy low-attenuation changes in the white matter, most suggestive of sequelae of chronic small vessel ischemic disease. Nonspecific partially empty sella appearance. Mucoid thickening within the left sphenoid sinus. Mastoid air cells are clear. Impression: No acute intracranial pathology. Electronically signed by Fam Contreras 10-27-2024 7:14 PM Abdomen/Pelvis CT 10/27/24 20:47 Exam(s): CT ABDOMEN + PELVIS With Contrast IV Amt: 92 cc opti 320 EXAM: CT Abdomen and Pelvis With Intravenous Contrast CLINICAL HISTORY: Reason for exam: severe sepsis. TECHNIQUE: Axial computed tomography images of the abdomen and pelvis with intravenous contrast. CTDI is 10.98 mGy and DLP is 563.53 mGy-cm. Automated exposure control was utilized for the study. A dose lowering technique was utilized adhering to the principles of ALARA. CONTRAST: Patient received 92 cc opti 320 of IV contrast COMPARISON: 09/16/2022 CT abdomen pelvis. FINDINGS: ABDOMEN: Liver: Unremarkable. Gallbladder and bile ducts: Cholelithiasis without acute cholecystitis. Pancreas: Unremarkable. Spleen: Unremarkable. Adrenals: Unremarkable. Kidneys and ureters: Severe hydronephrosis in the right kidney. Ureter is dilated to the level of the pelvic inlet with urothelial thickening. No obstructing stone. A few parapelvic cysts in the left kidney. No hydronephrosis on the left. Stomach and bowel: Unremarkable. PELVIS: Appendix: No findings to suggest acute appendicitis. Bladder: Mucosal thickening in the bladder suggestive of cystitis. Reproductive: Hysterectomy. ABDOMEN and PELVIS: Intraperitoneal space: Unremarkable. No free air. No significant fluid collection. Bones/joints: No acute fracture. Soft tissues: Unremarkable. Vasculature: Unremarkable. Lymph nodes: Unremarkable. IMPRESSION: 1. Severe hydronephrosis in the right kidney. Ureter is dilated to the level of the pelvic inlet with urothelial thickening. No obstructing stone. 2. Mucosal thickening in the bladder suggestive of cystitis. 3. Cholelithiasis without acute cholecystitis. Electronically signed by: Jayme Vasquez MD 10/27/24 22:26 PM Discharge Plan Visit Data Chief Complaint: Lethargic Stated Complaint: WEAK,LATHARGIC ED Provider: Mary Valdes Discharge Problem: Severe sepsis, Acute UTI (urinary tract infection), Leukocytosis, Elevated lactic acid level, Elevated procalcitonin, Acute confusion, Hypomagnesemia, Non- ST elevation NE (NSTEMI), Hydronephrosis of right kidney Condition: Serious Forms Stand Alone Forms: My [facility] [id number] Prescriptions Prescriptions: No Action cholecalciferol (vitamin D3) [Vitamin D3] 25 mcg (1,000 unit) Tablet 25 mcg PO QAM prednisone 5 mg tablet 5 mg PO UD Rx Instructions: STARTED 10/20/24--TAKE 10 MG X 7 DAYS, THEN 7.5 MG X 14 DAYS, THEN 5 MG DAILY donepezil 5 mg tablet 5 mg PO HS Rx Instructions: PER PT'S DAUGHTER "NEVER STARTED THIS MED". rosuvastatin [Crestor] 10 mg Tablet 10 mg PO HS cyanocobalamin (vitamin B-12) [Vitamin B-12] 1,000 mcg Tablet 1,000 mcg PO DAILY Referrals Referrals: Alfredo Mesa DO [Primary Care Provider] -
[2024-10-27 18:37] LABS: INR 1.0 (0.9-1.1); Prothrombin Time 10.5 Seconds (9.0-12.0)
[2024-10-27 18:43] LABS: Thyroid Stimulating Hormone 0.954 uIu/ml (0.300-4.500)
[2024-10-27] MEDS: SODIUM CHLORIDE 0.9% 1,000 ML IV ONE ×2 (18:45→20:12)
[2024-10-27] MEDS: ACETAMINOPHEN 1,000 MG/100 ML VIAL IV STA (18:46)
--- NOTE | 2024-10-27 18:59 | XRay Report ---
Chest radiograph, one view History: Weakness Comparison: 01/02/2024 Findings: Single AP view of the chest performed. No focal consolidation or pleural effusion. No pneumothorax. The cardiomediastinal silhouette is within normal limits. Normal pulmonary vascularity. No evidence for lymphadenopathy. No visualized bony or soft tissue abnormality. Impression: Normal chest radiograph Electronically signed by Fam Contreras 10-27-2024 6:58 PM
[2024-10-27 19:01] LABS: Chlamydia pneumoniae PCR Not Detected (NotDetected); Coronavirus 229E PCR Not Detected (NotDetected); Coronavirus CoV-2 (COVID19)PCR Not Detected (NotDetected); Coronavirus HKU1 PCR Not Detected (NotDetected); Coronavirus NL63 PCR Not Detected (NotDetected); Coronavirus OC43PCR Not Detected (NotDetected); Human Metapneumovirus PCR Not Detected (NotDetected); Parainfluenza Virus 1 PCR Not Detected (NotDetected); Parainfluenza Virus 2 PCR Not Detected (NotDetected); Parainfluenza Virus 3 PCR Not Detected (NotDetected); Parainfluenza Virus 4 PCR Not Detected (NotDetected); Respiratory Syncytial VirusPCR Not Detected (NotDetected); Rhinovirus/Enterovirus PCR Not Detected (NotDetected)
--- NOTE | 2024-10-27 19:15 | CT Scan Report ---
CT head without contrast History: Confusion Comparison: October 20, 2024 Technique: Using multidetector thin collimation helical acquisition technique, axial, coronal and sagittal CT images from the skull base to the vertex were obtained without intravenous contrast. Dose reduction techniques were achieved by using automatic exposure control and/or adjustment of mA and/or kV according to patient size and/or use of iterative reconstruction technique. Findings: No intracranial hemorrhage, mass-effect, or midline shift. The ventricles are proportionate to the cerebral sulci. The catalan to white matter differentiation of the cerebral hemispheres is preserved. The basal cisterns are patent. There is moderate cerebral atrophy. Moderate, patchy low-attenuation changes in the white matter, most suggestive of sequelae of chronic small vessel ischemic disease. Nonspecific partially empty sella appearance. Mucoid thickening within the left sphenoid sinus. Mastoid air cells are clear. Impression: No acute intracranial pathology. Electronically signed by Fam Contreras 10-27-2024 7:14 PM
[2024-10-27 19:18] LABS: Procalcitonin 3.81 ng/ml (0-0.5)
[2024-10-27 19:44] LABS: Lyme Screen Rflx Confirmation Negative (Negative)
[2024-10-27] MEDS: cefTRIAXone SODIUM 2,000 MG/50 ML BAG IV STA (20:12)
[2024-10-27 20:31] LABS: Appearance Urine Turbid (Clear); Bacteria Urine Automated 4+ (None Seen); Glucose Urine UA 2+ (Negative); RBC Urine Automated >20 /hpf (0-2); WBC Urine Automated >50 /hpf (0-5)
[2024-10-27] MEDS: SODIUM CHLORIDE 0.9% 500 ML IV ONE (21:08)
[2024-10-27] MEDS: OPTIRAY 320 100ml IV ONE (21:35)
[2024-10-27] MEDS: MAGNESIUM SULFATE / D5W 1 GM/100 ML BAG IV STA (21:45)
--- NOTE | 2024-10-27 22:26 | CT Scan Report ---
Exam(s): CT ABDOMEN + PELVIS With Contrast IV Amt: 92 cc opti 320 EXAM: CT Abdomen and Pelvis With Intravenous Contrast CLINICAL HISTORY: Reason for exam: severe sepsis. TECHNIQUE: Axial computed tomography images of the abdomen and pelvis with intravenous contrast. CTDI is 10.98 mGy and DLP is 563.53 mGy-cm. Automated exposure control was utilized for the study. A dose lowering technique was utilized adhering to the principles of ALARA. CONTRAST: Patient received 92 cc opti 320 of IV contrast COMPARISON: 09/16/2022 CT abdomen pelvis. FINDINGS: ABDOMEN: Liver: Unremarkable. Gallbladder and bile ducts: Cholelithiasis without acute cholecystitis. Pancreas: Unremarkable. Spleen: Unremarkable. Adrenals: Unremarkable. Kidneys and ureters: Severe hydronephrosis in the right kidney. Ureter is dilated to the level of the pelvic inlet with urothelial thickening. No obstructing stone. A few parapelvic cysts in the left kidney. No hydronephrosis on the left. Stomach and bowel: Unremarkable. PELVIS: Appendix: No findings to suggest acute appendicitis. Bladder: Mucosal thickening in the bladder suggestive of cystitis. Reproductive: Hysterectomy. ABDOMEN and PELVIS: Intraperitoneal space: Unremarkable. No free air. No significant fluid collection. Bones/joints: No acute fracture. Soft tissues: Unremarkable. Vasculature: Unremarkable. Lymph nodes: Unremarkable. IMPRESSION: 1. Severe hydronephrosis in the right kidney. Ureter is dilated to the level of the pelvic inlet with urothelial thickening. No obstructing stone. 2. Mucosal thickening in the bladder suggestive of cystitis. 3. Cholelithiasis without acute cholecystitis. Electronically signed by: Jayme Vasquez MD 10/27/24 22:26 PM
--- NOTE | 2024-10-27 22:30 | History & Physical Report ---
Date of Service October 27, 2024 Assessment & Plan (1) Severe sepsis: (2) Acute UTI (urinary tract infection): (3) Hydronephrosis of right kidney: (4) Acute confusion: (5) Hypertension: Plan 79-year-old female presenting with severe sepsis, likely urinary etiology and acute metabolic encephalopathy. Patient with history of ovarian carcinoma, status post ureteral dilation with stent placement by urology in January 2024, stent removed March 2024. also with GERD, hypertension and dermatomyositis. Patient has had 4 days of progressive confusion and lethargy. Subjective fevers at home. #Sepsis with acute metabolic encephalopathy/confusion/lethargypresent on admission. Patient with elevated white blood cell count = 12.52, elevated procalcitonin = 3.87. Elevated lactate = 3.5. Likely urinary source. CT of the abdomen reveals significant ureteral dilatation on the right. Prior urine cultures with E. coli and Streptococcus anginosus. Admit to medical telemetry Follow urine culture and blood culture sent from the ER Continue IV fluidsLR at 125 mL/h Continue ceftriaxone Tylenol as needed for pain or fever Zofran as needed for nausea Repeat lactate in the morning Consider stress dose steroids if patient's blood pressure declines #Elevated troponinlikely type II NSTEMI in the setting of sepsis. Patient denies chest pain Continue to trend troponin every 6 hours #Acute UTI/ severe hydroureteronephrosis of the right kidney. Patient with similar in the past Urology consult appreciated #Hyperlipidemia Continue Crestor #Cognitive impairmentpatient has a prescription for Aricept 5 mg p.o. nightly however, per medication review patient has never started this medication Will not start this as of yet Encourage starting this medication upon discharge if appropriate History of Present Illness Chief Complaint: confusion, somnolence Primary Care Provider: DO Skye Gant Dinesh is an 79-year-old female with history of hypertension, GERD, dermatomyositis presenting with 4 days of progressive confusion and somnolence. Patient does not provide much history. States that over the last 4 days she has become more sleepy and lethargic. Patient denies additional complaints. Specifically denies fever, chills, chest pain, cough, shortness of breath, abdominal pain, nausea, vomiting, diarrhea, back or flank pain, dysuria. Family does report that she may have had subjective fevers at home and felt warm to the touch. Also with a runny nose ER course: Normal saline x 2500 mL Tylenol 1 g Ceftriaxone 2 g magnesium x 1 g Allergies Allergy/AdvReac Type Severity Reaction Status Date / Time shrimp Allergy Intermediate Hives Verified 10/27/24 19:29 aspirin Allergy Mild itching Verified 10/27/24 19:29 Home Medications Medication Instructions Recorded Confirmed Type cholecalciferol (vitamin D3) 25 25 mcg PO QAM 09/11/22 10/27/24 History mcg (1,000 unit) tablet (Vitamin D3) rosuvastatin 10 mg tablet (Crestor) 10 mg PO HS 03/02/24 10/27/24 History cyanocobalamin (vitamin B-12) 1,000 mcg PO DAILY 04/20/24 10/27/24 History 1,000 mcg tablet (Vitamin B-12) donepezil 5 mg tablet 5 mg PO HS 10/20/24 10/27/24 History prednisone 5 mg tablet 5 mg PO UD 10/20/24 10/27/24 History Past Med/Surg History Problem List Hydronephrosis of right kidney (Acute) Non-ST elevation RI (NSTEMI) (Acute) Hypomagnesemia (Acute) Acute confusion (Acute) Elevated procalcitonin (Acute) Elevated lactic acid level (Acute) Leukocytosis (Acute) Acute UTI (urinary tract infection) (Acute) Severe sepsis (Acute) Memory changes (Acute) Ovarian carcinoma Hydronephrosis Oral thrush Oropharyngeal dysphagia Aspiration of food Elevated creatine kinase (Acute) Elevated troponin (Acute) Dermatomyositis (Acute) Generalized weakness (Acute) Encounter for pre-operative examination Hypertension Medical History History of sepsis 04/14/24 Anemia heme/onc monitoring; Olaparib was D/C 03/02/24 2/2 anemia Hydronephrosis of right kidney ureteral stricture per recent urology note Hx of ovarian cancer L ovary; dx 07/2023, s/p surgery and IV chemo History of hypertension History of dysphasia no current issues per pt. (previously had progressive dermatomyositis and [place]a kn[place] and had a PEG tube) GERD (gastroesophageal reflux disease) Osteoporosis Surgical History History of cystoscopy (12/2023) cysto, R stent 01/13/24: [place]: LMA#4 without issue Hx of total hysterectomy with removal of both tubes and ovaries robotic assisted supracervical hysterectomy, bilateral salpingo-oophorectomy, bilateral peritoneal biopsies, and removal of tumor adjacent to colon on 08/06/2023 History of biopsy left upper arm 09/20/22 @ [facility] Dr. Troy Sparks S/P percutaneous endoscopic gastrostomy (PEG) tube placement 09/20/22 @ [facility] by Dr. 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 Beliefs That Will Affect Care: None Current Living Situation: Alone Other Information That Helps Us Care for You: No Feels Safe at Home: Yes Safety Concerns: Feels Safe At This Time Assistive Devices: Cane Review of Systems Review of Systems: All systems reviewed & are unremarkable except as noted in HPI & below Physical Exam Physical Exam: General: patient resting comfortably, NAD, non-toxic in appearance, AA&O x 4, somnolent but arousable, answers questions and falls back to sleep Skin: warm, dry, intact, no rashes or lesions HEENT: NC/AT, PERRL, EOMI, anicteric sclera, conjunctiva without injection, external ear normal to inspection and nontender, nares patent, moist mucus membranes, dentition intact, no oropharyngeal lesions, neck supple, trachea midline, no LAD, no thyromegaly, no JVD Heart: +S1/S2, regular, no m/r/g Lungs: equal air entry bilaterally, no rales/rhonchi/wheezes Abd: +BS, soft, NT/ND, no masses/organomegaly/ascites Ext: warm, 2+ pulses in UE/LE bilaterally, no clubbing/cyanosis or edema Neuro: nonfocal, patient AA&O x 4, speech intact, no facial droop, moving all extremities on command with equal strength 5/5 Results & Data Results & Data Vital Signs (Past 12 Hours) Vital Signs Temp Pulse Pulse Resp BP BP Pulse Ox 10/27/24 22:02 79 10/27/24 21:15 113/76 10/27/24 20:30 37.3 C 17 100/67 95 10/27/24 19:50 89 15 114/69 95 10/27/24 18:22 105 H 10/27/24 17:42 100 H 20 92 10/27/24 17:22 38.6 C H 107 H 24 133/81 92 O2 Del Method 10/27/24 22:02 10/27/24 21:15 10/27/24 20:30 10/27/24 19:50 10/27/24 18:22 10/27/24 17:42 Room Air 10/27/24 17:22 Room Air Laboratory Results Laboratory Results WBC 12.57 K/ul (4.8-10.8) H 10/27/24 17:50 RBC 4.42 M/uL (4.20-5.40) 10/27/24 17:50 Hgb 13.5 g/dl (12.0-16.0) 10/27/24 17:50 Hct 39.5 % (37.0-47.0) 10/27/24 17:50 MCV 89.4 fL (80.0-100.0) 10/27/24 17:50 MCH 30.5 pg (25.0-34.0) 10/27/24 17:50 MCHC 34.2 g/dL (32.0-36.0) 10/27/24 17:50 RDW Std Deviation 48.9 fL (36.4-46.3) H 10/27/24 17:50 RDW Coeff of [place] 15.1 % (11.5-14.5) H 10/27/24 17:50 Plt Count 163 K/uL (130-400) 10/27/24 17:50 MPV 10.2 fL (9.4-12.4) 10/27/24 17:50 Immature Gran % (Auto) 1.3 % 10/27/24 17:50 Neut % (Auto) 87.8 % 10/27/24 17:50 Lymph % (Auto) 0.9 % 10/27/24 17:50 Cowley % (Auto) 9.8 % 10/27/24 17:50 Eos % (Auto) 0.0 % 10/27/24 17:50 Baso % (Auto) 0.2 % 10/27/24 17:50 Neut # (Auto) 11.05 K/uL (1.40-6.50) H 10/27/24 17:50 Lymph # (Auto) 0.11 K/uL (1.20-3.40) L 10/27/24 17:50 Cowley # (Auto) 1.23 K/uL (0.11-0.59) H 10/27/24 17:50 Eos # (Auto) 0.00 K/uL (0.00-0.50) 10/27/24 17:50 Baso # (Auto) 0.02 K/uL (0.00-0.20) 10/27/24 17:50 Immature Gran # (Auto) 0.16 K/uL (0.01-0.20) 10/27/24 17:50 PT 10.5 Seconds (9.0-12.0) 10/27/24 17:50 INR 1.0 (0.9-1.1) 10/27/24 17:50 Sodium 136 mmol/L (136-145) 10/27/24 17:50 Potassium 4.2 mmol/L (3.5-5.1) 10/27/24 17:50 Chloride 100 mmol/L (98-107) 10/27/24 17:50 Carbon Dioxide 22 mmol/L (21-32) 10/27/24 17:50 Anion Gap 14 (3-11) H 10/27/24 17:50 BUN 18 mg/dl (6-23) 10/27/24 17:50 Creatinine 0.87 mg/dl (0.6-1.2) 10/27/24 17:50 Est Cr Clr Drug Dosing 48.3 ml/min 10/27/24 17:50 eGFR 67.31 10/27/24 17:50 BUN/Creatinine Ratio 20.7 (10-20) H 10/27/24 17:50 Glucose 232 mg/dl (70-99(Fasting)) H 10/27/24 17:50 Lactate 3.5 mmol/L (0.4-2.0) H* 10/27/24 20:06 Calcium 8.9 mg/dl (8.6-10.3) 10/27/24 17:50 Magnesium 1.5 mg/dl (1.7-2.4) L 10/27/24 17:50 Total Bilirubin 1.5 mg/dl (0.2-1.0) H 10/27/24 17:50 AST 17 U/L (13-39) 10/27/24 17:50 ALT 13 U/L (7-52) 10/27/24 17:50 Alkaline Phosphatase 55 U/L (34-104) 10/27/24 17:50 Total Creatine Kinase 30 U/L (26-192) 10/27/24 17:50 Troponin I High Sens 409.1 pg/ml (0-14) H* D 10/28/24 01:32 Total Protein 6.8 gm/dl (6.0-8.3) 10/27/24 17:50 Albumin 3.9 gm/dl (3.4-5.0) 10/27/24 17:50 Globulin 2.9 gm/dl (2.5-4.0) 10/27/24 17:50 Albumin/Globulin Ratio 1.3 (0.9-2) 10/27/24 17:50 Procalcitonin 3.81 ng/ml (0-0.5) H 10/27/24 17:50 TSH 0.954 uIu/ml (0.300-4.500) 10/27/24 17:50 Urine Color Dark Yellow 10/27/24 19:50 Urine Appearance Turbid (Clear) A 10/27/24 19:50 Urine pH 5.5 (4.5-7.5) 10/27/24 19:50 Ur Specific [place] 1.029 (1.000-1.030) 10/27/24 19:50 Urine Protein 3+ (Negative) H 10/27/24 19:50 Urine Glucose (UA) 2+ (Negative) H 10/27/24 19:50 Urine Ketones 1+ (Negative) H 10/27/24 19:50 Urine Blood 3+ (Negative) H 10/27/24 19:50 Urine Nitrite Positive (Negative) A 10/27/24 19:50 Urine Bilirubin Negative (Negative) 10/27/24 19:50 Urine Urobilinogen Negative (Negative) 10/27/24 19:50 Ur Leukocyte Esterase 2+ (Negative) H 10/27/24 19:50 Urine WBC (Auto) >50 /hpf (0-5) H 10/27/24 19:50 Urine RBC (Auto) >20 /hpf (0-2) H 10/27/24 19:50 U Hyaline Cast (Auto) 6-10 /lpf (0-2) H 10/27/24 19:50 U Epithel Cells (Auto) 3-5 /hpf (0-2) H 10/27/24 19:50 Urine Bacteria (Auto) 4+ (None Seen) H 10/27/24 19:50 Urine Comment 10/27/24 19:50 Adenovirus (PCR) Not Detected (NotDetected) 10/27/24 17:50 Anaplasma Smear See Comment 10/27/24 17:50 Babesia Smear See Comment 10/27/24 17:50 B. pertussis DNA (PCR) Not Detected (NotDetected) 10/27/24 17:50 B.parapertussis DNA PCR Not Detected (NotDetected) 10/27/24 17:50 Lyme Disease Screen Negative (Negative) 10/27/24 17:50 C. pneumoniae DNA (PCR) Not Detected (NotDetected) 10/27/24 17:50 Coronavirus OC43 (PCR) Not Detected (NotDetected) 10/27/24 17:50 Coronavirus HKU1 (PCR) Not Detected (NotDetected) 10/27/24 17:50 Coronavirus 229E (PCR) Not Detected (NotDetected) 10/27/24 17:50 SARS-CoV-2 (PCR) Not Detected (NotDetected) 10/27/24 17:50 Coronavirus NL63 (PCR) Not Detected (NotDetected) 10/27/24 17:50 Human Metapneumovir PCR Not Detected (NotDetected) 10/27/24 17:50 Influenza Type A (PCR) Not Detected (NotDetected) 10/27/24 17:50 Influenza Type B (PCR) Not Detected (NotDetected) 10/27/24 17:50 M. pneumoniae (PCR) Not Detected (NotDetected) 10/27/24 17:50 Parainfluenza 1 (PCR) Not Detected (NotDetected) 10/27/24 17:50 Parainfluenza 2 (PCR) Not Detected (NotDetected) 10/27/24 17:50 Parainfluenza 3 (PCR) Not Detected (NotDetected) 10/27/24 17:50 Parainfluenza 4 (PCR) Not Detected (NotDetected) 10/27/24 17:50 RSV (PCR) Not Detected (NotDetected) 10/27/24 17:50 Entero/Rhino (PCR) Not Detected (NotDetected) 10/27/24 17:50 Impressions Chest X-Ray 10/27/24 17:42 Chest radiograph, one view History: Weakness Comparison: 01/02/2024 Findings: Single AP view of the chest performed. No focal consolidation or pleural effusion. No pneumothorax. The cardiomediastinal silhouette is within normal limits. Normal pulmonary vascularity. No evidence for lymphadenopathy. No visualized bony or soft tissue abnormality. Impression: Normal chest radiograph Electronically signed by Fam Contreras 10-27-2024 6:[address] 10/27/24 18:21 CT head without contrast History: Confusion Comparison: October 20, 2024 Technique: Using multidetector thin collimation helical acquisition technique, axial, coronal and sagittal CT images from the skull base to the vertex were obtained without intravenous contrast. Dose reduction techniques were achieved by using automatic exposure control and/or adjustment of mA and/or kV according to patient size and/or use of iterative reconstruction technique. Findings: No intracranial hemorrhage, mass-effect, or midline shift. The ventricles are proportionate to the cerebral sulci. The catalan to white matter differentiation of the cerebral hemispheres is preserved. The basal cisterns are patent. There is moderate cerebral atrophy. Moderate, patchy low-attenuation changes in the white matter, most suggestive of sequelae of chronic small vessel ischemic disease. Nonspecific partially empty sella appearance. Mucoid thickening within the left sphenoid sinus. Mastoid air cells are clear. Impression: No acute intracranial pathology. Electronically signed by Fam Contreras 10-27-2024 7:14 PM Abdomen/Pelvis CT 10/27/24 20:47 Exam(s): CT ABDOMEN + PELVIS With Contrast IV Amt: 92 cc opti 320 EXAM: CT Abdomen and Pelvis With Intravenous Contrast CLINICAL HISTORY: Reason for exam: severe sepsis. TECHNIQUE: Axial computed tomography images of the abdomen and pelvis with intravenous contrast. CTDI is 10.98 mGy and DLP is 563.53 mGy-cm. Automated exposure control was utilized for the study. A dose lowering technique was utilized adhering to the principles of ALARA. CONTRAST: Patient received 92 cc opti 320 of IV contrast COMPARISON: 09/16/2022 CT abdomen pelvis. FINDINGS: ABDOMEN: Liver: Unremarkable. Gallbladder and bile ducts: Cholelithiasis without acute cholecystitis. Pancreas: Unremarkable. Spleen: Unremarkable. Adrenals: Unremarkable. Kidneys and ureters: Severe hydronephrosis in the right kidney. Ureter is dilated to the level of the pelvic inlet with urothelial thickening. No obstructing stone. A few parapelvic cysts in the left kidney. No hydronephrosis on the left. Stomach and bowel: Unremarkable. PELVIS: Appendix: No findings to suggest acute appendicitis. Bladder: Mucosal thickening in the bladder suggestive of cystitis. Reproductive: Hysterectomy. ABDOMEN and PELVIS: Intraperitoneal space: Unremarkable. No free air. No significant fluid collection. Bones/joints: No acute fracture. Soft tissues: Unremarkable. Vasculature: Unremarkable. Lymph nodes: Unremarkable. IMPRESSION: 1. Severe hydronephrosis in the right kidney. Ureter is dilated to the level of the pelvic inlet with urothelial thickening. No obstructing stone. 2. Mucosal thickening in the bladder suggestive of cystitis. 3. Cholelithiasis without acute cholecystitis. Electronically signed by: Jayme Vasquez MD 10/27/24 22:26 PM PG Care Time/CCT Total # of Minutes Spent Total Time Spent with Patient: Total time spent is greater than 50% in coordination of care (as documented) at patient's floor/unit and/or counseling patient: Coding Level of Care Code 95450 INT INP/OBS CARE 3/75MIN Diagnoses Severe sepsis A41.9; R65.20 Acute UTI (urinary tract infection) N39.0 Hydronephrosis of right kidney N13.30 Acute confusion R41.0 Hypertension I10
[2024-10-28] MEDS ORDERED: GLUCAGON FOR INJ 1 MG VIAL SQ PRN (01:16)
[2024-10-28] MEDS ORDERED: GLUCOSE 10 TAB/TUBE PO PRN (01:16)
[2024-10-28] MEDS ORDERED: GLUCOSE 40% GEL 15 GM TUBE PO PRN (01:16)
[2024-10-28] MEDS ORDERED: DEXTROSE 50% 50 ML SYRINGE IV PRN (01:16)
[2024-10-28] MEDS ORDERED: ONDANSETRON INJ 2 MG/ML 2 ML VIAL IV PRN (01:16)
[2024-10-28] MEDS ORDERED: CARBOHYDRATES FOR HYPOGLYCEMIA PO PRN (01:16)
[2024-10-28] MEDS ORDERED: ACETAMINOPHEN 325 MG TAB PO PRN (01:16)
[2024-10-28] MEDS: LACTATED RINGER'S 1,000 ML IV SCH ×2 (01:38→06:37)
[2024-10-28] MEDS: LACTATED RINGER'S 500 ML IV ONE (02:41)
[2024-10-28 08:22] LABS: Hematocrit (blood only) 29.7 % (37.0-47.0); Hemoglobin 9.8 g/dl (12.0-16.0); Mean Corpuscular Hemoglobin 30.1 pg (25.0-34.0); Mean Corpuscular Volume 91.1 fL (80.0-100.0); Platelet Count 116 K/uL (130-400); RDW Standard Deviation 52.2 fL (36.4-46.3); Red Blood Count 3.26 M/uL (4.20-5.40); White Blood Count 11.60 K/ul (4.8-10.8)
[2024-10-28 08:44] LABS: Anion Gap 7.0 (3-11); Blood Urea Nitrogen 14.0 mg/dl (6-23); Calcium 7.7 mg/dl (8.6-10.3); Carbon Dioxide 23.0 mmol/L (21-32); Chloride 108.0 mmol/L (98-107); Creatinine Clr Calc Pharmacy 54.5 ml/min; Glucose 158.0 mg/dl (70-99(Fasting)); Potassium 3.8 mmol/L (3.5-5.1); Sodium 138.0 mmol/L (136-145)
[2024-10-28] MEDS: INSULIN ASPART PER UNIT CHARGE SC SCH (09:26)
[2024-10-28 09:27] LABS: Hemoglobin A1C 7.0 % (4.5-5.6)
--- NOTE | 2024-10-28 09:29 | Urology Consultation ---
Date of Consultation October 28, 2024 Assessment & Plan (1) Hydronephrosis of right kidney: 79 year old patient admitted with metabolic encephalopathy, elevated troponin, and UTI/hydronephrosis. Continue ceftriaxone NPO today for surgery. Discussed with Dr Guerrier and imaging reviewed. Will plan for cystoscopy, possible right ureteroscopy and right ureteral dilation, retrograde pyelogram, and right ureteral stent placement. (2) Ureteral stricture: (3) Elevated lactic acid level: (4) Elevated procalcitonin: (5) Acute confusion: (6) Acute UTI (urinary tract infection): (7) Severe sepsis: (8) Hydronephrosis: Plan Attending note: Patient independently assessed, examined, interviewed, and evaluated. Discussed extensively with patient findings. Suspicion for significant obstruction of the mid ureter. Causing significant hydronephrosis. Appears to go down just past the pelvis below the iliac crossing. There is area of calcification seen on the CT imaging which was reviewed interpreted by myself. Patient found to have severe obstructive issues going all the way up to the kidney. Also has limited perfusion and additionally found to have significant perinephric stranding around the kidney on the right side. Patient having increasing ill feelings. Did develop fever during assessment. Had been treated with IV Tylenol. Additionally patient has had issues with delirium while hospitalized currently not having any significant issue and was alert and oriented x 3 on assessment. Agree with note as above. Patient's vitals and labs were all reviewed. Pertinent values in the HPI and plan section. White count 11.6. Creatinine 0.74. Hemoglobin was 9.8. Vitals include temperature going up to 38.1. Patient additionally had blood pressure 113/74 was hypotensive earlier in the day. Pulse is 82 respirations 20 oxygen saturation 95% on room air. Imaging was reviewed interpreted by myself. Agree with read. Vitals were reviewed. Discussed findings extensively with patient and family. Reviewed with nurse practitioner as well as consulting physicians/team. Patient's complicated medical and surgical history was reviewed and summarized above. Patient's surgical, medical, social, and family history were all reviewed with pertinent values as above. Discussed patient's current diagnosis as well as concerns and issues. Reviewed different options moving forward. Discussed potential risks and benefits as well as possible options and concerns. Reviewed potential surgical options and interventions. Discussed potential issues and concerns related to intervention. Risk and benefits were discussed extensively with patient and any available family. Discussed potential risks related to anesthesia. Discussed risks of bleeding infection and injury. Reviewed concern about obstruction. Did discuss possibility of stone though calcification does appear to be possibly outside of the ureter may be compression of the ureter in the similar section. Additionally discussed possible stricture or development of repeat issues as patient has previously had intervention with Dr. Khan. Did discuss options if stone is found with the patient's increasing issues and possible infection did discuss possible concern related to septic episode and pyelonephritis. Risks and benefits discussed at length for procedure. These include bleeding, infection, injury to surrounding tissues or organs, and risks associated with anesthesia. Patient states understanding and agrees to proceed. Will sign consent and schedule. Plan for cystoscopy with possible right ureteroscopy and dilation and possible stent placement. History of Present Illness Attending Physician: Purvi Herring DO History of Present Illness 79 year old patient admitted last night with progressive confusion/lethargy, elevated troponin, found to have a UTI and hydronephrosis. History obtained from patient and chart, as she doesn't recall yesterday. Denies any pain or urinary symptoms presently. She does have a history of ovarian cancer, cysto/ureteral dilation and stent in Dec 2023, subsequent stent removal in March of 2024. Allergies Allergy/AdvReac Type Severity Reaction Status Date / Time shrimp Allergy Intermediate Hives Verified 10/27/24 19:29 aspirin Allergy Mild itching Verified 10/27/24 19:29 Home Medications Medication Instructions Recorded Confirmed Type cholecalciferol (vitamin D3) 25 25 mcg PO QAM 09/11/22 10/27/24 History mcg (1,000 unit) tablet (Vitamin D3) rosuvastatin 10 mg tablet (Crestor) 10 mg PO HS 03/02/24 10/27/24 History cyanocobalamin (vitamin B-12) 1,000 mcg PO DAILY 04/20/24 10/27/24 History 1,000 mcg tablet (Vitamin B-12) donepezil 5 mg tablet 5 mg PO HS 10/20/24 10/27/24 History prednisone 5 mg tablet 5 mg PO UD 10/20/24 10/27/24 History Patient History Medical History History of sepsis 04/14/24 Anemia heme/onc monitoring; Olaparib was D/C 11/12/24 2/2 anemia Hydronephrosis of right kidney ureteral stricture per recent urology note Hx of ovarian cancer L ovary; dx 07/2023, s/p surgery and IV chemo History of hypertension History of dysphasia no current issues per pt. 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 Troy Sparks S/P percutaneous endoscopic gastrostomy (PEG) tube placement 09/20/22 @ [facility] by Case>has since been removed History of dilatation and curettage History of colonoscopy History of tonsillectomy History of tooth extraction History of bilateral cataract extraction Family History Other No family history of adverse response to anesthesia Social History Smoking Status: Never smoker Second Hand Exposure: Yes (in the past); Do You Dip or Chew Tobacco: No; Hx Alcohol Use: No Hx Substance Use: No Preferred Language: Namibian Communication Ability: Effective Refueling [place] Required: No Beliefs That Will Affect Care: None Current Living Situation: Alone Other Information That Helps Us Care for You: No Feels Safe at Home: Yes Safety Concerns: Feels Safe At This Time Assistive Devices: Cane Review of Systems Review of Systems: All systems reviewed & are unremarkable except as noted in HPI & below All systems were reviewed. Any pertinent positives and/or negatives are listed in the history of present illness section. Physical Exam Physical Exam: General: Acutely ill. Mild fever. HEENT: Normocephalic Atraumatic. Inspection normal. Cranial Nerves 2-12 Grossly intact. Nares are clear. Neck is supple. Normal inspection of face. Normal inspection of neck. Neurologic: No deficits on inspection. Baseline for motor function and sensory. Psychologic: Anxious, no significant delirium secondary to illness Respiratory: Mild labored. No use of accessory muscles. No severe dyspnea. Cardiovascular: tachycardia Skin: Stollings and Dry. No rashes or visible lesions. Febrile Extremities: Moving without issues. No motor deficits on inspection Lymphatics: Mild edema Abdomen: Mildly distended. No rebound or guarding. Mild suprapubic/flank tenderness Constitutional: no acute distress Respiratory: normal respiratory effort Genitourinary: no CVA tenderness Results & Data Vital Signs (Past 12 Hours) Vital Signs Temp Pulse Pulse Resp BP BP BP 10/28/24 07:03 36.4 C L 77 18 94/60 L 10/28/24 05:59 77 10/28/24 04:28 36.8 C 86 16 97/61 L 10/28/24 03:44 36.6 C 82 16 91/60 L 10/28/24 02:24 36.7 C 84 16 89/60 L 10/28/24 02:05 88 10/28/24 00:49 37.3 C 96 H 16 93/61 L 10/28/24 00:30 105 H 23 10/28/24 00:30 97/60 L 10/28/24 00:30 97/60 L 10/28/24 00:30 97/60 L 10/28/24 00:15 105 H 10/28/24 00:15 121/89 10/28/24 00:15 121/89 10/28/24 00:15 121/89 10/28/24 00:15 121/89 10/28/24 00:09 105 H 23 10/28/24 00:00 172/91 H 10/27/24 23:48 124 H 23 10/27/24 23:45 128 H 29 H 10/27/24 23:45 166/104 H 10/27/24 23:45 166/104 H 10/27/24 23:45 166/104 H 10/27/24 23:45 166/104 H 10/27/24 23:42 126 H 31 H 10/27/24 23:34 157/99 H 10/27/24 23:24 119 H 21 10/27/24 23:03 90 17 10/27/24 23:00 139/104 H 10/27/24 23:00 139/104 H 10/27/24 23:00 36.4 C L 122 H 33 H 157/99 H 10/27/24 22:45 105/61 10/27/24 22:42 78 19 10/27/24 22:36 78 20 10/27/24 22:30 100/64 10/27/24 22:30 100/64 10/27/24 22:21 77 19 10/27/24 22:18 77 21 10/27/24 22:15 117/72 10/27/24 22:15 117/72 10/27/24 22:02 79 10/27/24 22:00 110/59 L 10/27/24 21:57 79 16 10/27/24 21:45 112/76 10/27/24 21:42 109/84 Pulse Ox O2 Del Method 10/28/24 07:03 95 Room Air 10/28/24 05:59 10/28/24 04:28 95 Room Air 10/28/24 03:44 95 Room Air 10/28/24 02:24 93 Room Air 10/28/24 02:05 10/28/24 00:49 93 Room Air 10/28/24 00:30 93 10/28/24 00:30 10/28/24 00:30 10/28/24 00:30 10/28/24 00:15 96 10/28/24 00:15 10/28/24 00:15 10/28/24 00:15 10/28/24 00:15 10/28/24 00:09 96 10/28/24 00:00 10/27/24 23:48 98 10/27/24 23:45 94 10/27/24 23:45 10/27/24 23:45 10/27/24 23:45 10/27/24 23:45 10/27/24 23:42 98 10/27/24 23:34 10/27/24 23:24 81 L 10/27/24 23:03 96 10/27/24 23:00 10/27/24 23:00 10/27/24 23:00 100 Room Air 10/27/24 22:45 10/27/24 22:42 93 10/27/24 22:36 93 10/27/24 22:30 10/27/24 22:30 07/09/25 22:21 93 10/27/24 22:18 96 10/27/24 22:15 10/27/24 22:15 10/27/24 22:02 10/27/24 22:00 10/27/24 21:57 93 10/27/24 21:45 10/27/24 21:42 Laboratory Results wbc today 11.6, down from 12.57 last night hgb drop to 9.8 Cr 0.75 UA: Nitrite +, 2+ LE, >50wbc, 4+bacteria UC: E. Coli preliminary Diagnostic Findings ct scan of abdomen shows severe right hydronephrosis and ureteral dilation PG Care Time/CCT Total # of Minutes Spent Total Time Spent with Patient: Total time spent is greater than 50% in coordination of care (as documented) at patient's floor/unit and/or counseling patient: Coding Level of Care Code 29197 INT INP/OBS CARE 3/75MIN Diagnoses Hydronephrosis of right kidney N13.30 Ureteral stricture N13.5 Elevated lactic acid level R79.89 Elevated procalcitonin R79.89 Acute confusion R41.0 Acute UTI (urinary tract infection) N39.0 Severe sepsis A41.9; R65.20 Hydronephrosis N13.30
[2024-10-28] MEDS: PNEUMOCOCCAL VACCINE (PCV20) 20-VAL CONJ-DIP CRM/PF 0.5 ML SYR IM ONE (09:36)
[2024-10-28 09:43] LABS: Magnesium 1.7 mg/dl (1.7-2.4)
[2024-10-28 09:49] LABS: Creatine Kinase 39.0 U/L (26-192)
[2024-10-28] MEDS: ACETAMINOPHEN 1000 MG/100 ML IV IV STA (13:55)
--- NOTE | 2024-10-28 13:56 | Anesthesiology Consultation ---
Date of Service October 28, 2024 History Surgery Operation Date: 10/28/24 10:20 Proposed Procedures p Cystoscopy Right Ureteroscopy, Possible Right Ureteral Dilation, Retrograde Pyelogram and Stent Placement - Troy Guerrier, Height/Weight Height: 5 ft 6 in Weight: 56.9 kg Allergies Allergy/AdvReac Type Severity Reaction Status Date / Time shrimp Allergy Intermediate Hives Verified 10/27/24 19:29 aspirin Allergy Mild itching Verified 10/27/24 19:29 Medications Home Medications Medication Instructions Recorded Confirmed Last Taken cholecalciferol (vitamin D3) 25 25 mcg PO QAM 09/11/22 10/27/24 04/19/24 10:30 mcg (1,000 unit) tablet (Vitamin D3) rosuvastatin 10 mg tablet (Crestor) 10 mg PO HS 03/02/24 10/27/24 04/19/24 19:30 cyanocobalamin (vitamin B-12) 1,000 mcg PO DAILY 04/20/24 10/27/24 04/19/24 10:00 1,000 mcg tablet (Vitamin B-12) donepezil 5 mg tablet 5 mg PO HS 10/20/24 10/27/24 Unknown prednisone 5 mg tablet 5 mg PO UD 10/20/24 10/27/24 Unknown Active Medications Generic Name Dose Route Start Last Admin Trade Name Lara PRN Reason Stop Dose Admin Lactated Ringer's 1,000 mls @ 125 mls/hr 10/28/24 06:45 10/28/24 06:37 Lr IV 10/28/24 14:44 125 mls/hr .Q8H NAMAN Administration Insulin Aspart 0 units 10/28/24 07:30 10/28/24 12:25 Insulin Aspart Per Unit Charge SC 11/27/24 07:29 Not Given ACHS NAMAN Pantoprazole Sodium 40 mg 10/28/24 09:15 10/28/24 09:37 Pantoprazole 40 Mg Tab PO 11/27/24 09:14 40 mg QAM NAMAN Administration Prednisone 7.5 mg 10/28/24 09:00 10/28/24 09:38 Prednisone 2.5 Mg Tab PO 11/09/24 09:01 7.5 mg DAILY NAMAN Administration NPO Date Last Intake of Fluids: 10/27/24 Last Intake of Fluids Comment: before [place] Date Last Intake of Solids: 10/27/24 Last Intake of Solids Comment: before [place] Past Medical History Medical History History of sepsis 04/14/24 Anemia heme/onc monitoring; Olaparib was D/C 03/02/24 2/2 anemia Hydronephrosis of right kidney ureteral stricture per recent urology note Hx of ovarian cancer L ovary; dx 07/2023, s/p surgery and IV chemo History of hypertension History of dysphasia no current issues per pt. 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 Troy Sparks S/P percutaneous endoscopic gastrostomy (PEG) tube placement 09/20/22 @ [facility] by Case>has since been removed History of dilatation and curettage History of colonoscopy History of tonsillectomy History of tooth extraction History of bilateral cataract extraction Social History Smoking Status: Never smoker Do You Dip or Chew Tobacco: No Hx Alcohol Use: No Hx Substance Use: No substance use type: does not use Physical Exam Vital Signs Last Vital Signs Temp 38.1 C H 10/28/24 13:36 Pulse 82 10/28/24 13:36 Resp 20 10/28/24 13:36 BP 113/74 10/28/24 13:36 Pulse Ox 95 10/28/24 13:36 O2 Del Method Room Air 10/28/24 13:36 Testing Laboratory Results 10/28/24 07:39 10/28/24 07:39 PT 10.5 Seconds (9.0-12.0) 10/27/24 17:50 INR 1.0 (0.9-1.1) 10/27/24 17:50 Hemoglobin A1c 7.0 % (4.5-5.6) H 10/28/24 07:39 Urine Color Dark Yellow 10/27/24 19:50 Urine Appearance Turbid (Clear) A 10/27/24 19:50 Urine pH 5.5 (4.5-7.5) 10/27/24 19:50 Ur Specific [place] 1.029 (1.000-1.030) 10/27/24 19:50 Urine Protein 3+ (Negative) H 10/27/24 19:50 Urine Glucose (UA) 2+ (Negative) H 10/27/24 19:50 Urine Ketones 1+ (Negative) H 10/27/24 19:50 Urine Nitrite Positive (Negative) A 10/27/24 19:50 Ur Leukocyte Esterase 2+ (Negative) H 10/27/24 19:50 Urine WBC (Auto) >50 /hpf (0-5) H 10/27/24 19:50 Urine RBC (Auto) >20 /hpf (0-2) H 10/27/24 19:50 U Hyaline Cast (Auto) 6-10 /lpf (0-2) H 10/27/24 19:50 U Epithel Cells (Auto) 3-5 /hpf (0-2) H 10/27/24 19:50 Urine Bacteria (Auto) 4+ (None Seen) H 10/27/24 19:50 10/27/24 19:50 Urine Culture - Preliminary Urine,Straight Cath Escherichia coli 10/28/24 10/28/24 10/28/24 13:41 12:20 09:08 POC Glucose 129 H 124 H 137 H
[2024-10-28] MEDS ORDERED: DEXAMETHASONE SOD INJ 4 MG/ML VIAL ONE (13:59)
[2024-10-28] MEDS ORDERED: LIDOCAINE 2% 2 ML VIAL/AMP(20MG/ML) INFIL ONE (13:59)
[2024-10-28] MEDS ORDERED: PROPOFOL IV EMULSION 10 MG/ML 20 ML VIAL IV ONE (13:59)
[2024-10-28] MEDS ORDERED: ONDANSETRON INJ 2 MG/ML 2 ML VIAL ONE (13:59)
[2024-10-28] MEDS ORDERED: ATROPINE SULFATE 0.1 MG/ML 10ML SYR IV PRN (14:11)
[2024-10-28] MEDS ORDERED: PROMETHAZINE HCL 6.25 MG in SODIUM CHLORIDE 0.9% 50 ML IV PRN (14:11)
[2024-10-28] MEDS ORDERED: HYDROmorphone INJ 1 MG/ML SYRINGE IV PRN (14:11)
[2024-10-28] MEDS ORDERED: ceFAZolin 330 MG/ML 1 GM VIAL ONE (15:27)
[2024-10-28] MEDS ORDERED: PHENYLEPHRINE 100MCG/ML 5ML SYR ONE (15:29)
[2024-10-28] MEDS: DIATRIZOATE MEGLUMINE 30% 100ML VIAL INSTIL ONE (15:44)
--- NOTE | 2024-10-28 15:59 | Operative Report ---
PG Post Operative Report Pre & Post Diagnosis Operation Date: 10/28/24 10:20 Pre-Op Diagnosis: (1) Hydronephrosis of right kidney: (2) Sepsis Post-Op Diagnosis: (1) Hydronephrosis of right kidney: (2) Sepsis I identified the patient and participated in the time-out.: Yes Procedure Operation Date: 10/28/24 10:20 Actual Procedures Cystoscopy with evacuation of the bladder. Right Ureteroscopy, Right Ureteral Balloon Dilation, Right Urine aspiration, Right Retrograde Pyelogram, and Stent Placement(Right) - Troy Guerrier DO Surgeon Troy Guerrier, II, DO Drafting Technician None Estimated Blood Loss 0 Findings Consistent with Post-Op Diagnosis Significant approximately 1.2 cm stricture within the mid ureter on the right. Significant purulent appearing urine within the right renal pelvis with severe hydronephrosis and hydroureter. No stone discovered within the ureteral lumen. Possible stone seen on CT imaging possibly external to ureter Specimens Urine right kidney Drains 7 Nigerian by 24 double-J ureteral stent on the right. 16 Nigerian Starks catheter Anesthesia Type General Complications none Disposition Disposition: Recovery Room Indications Patient with bothersome stones. Risks and benefits discussed at length. Description of Procedure Patient was consented and brought back to the operating room. Patient was placed under anesthesia in the supine position and moved to the dorsal lithotomy position. Patient was prepped and draped in the regular sterile fashion. A time out was completed. A 30degree Cystoscope was placed into the bladder and the entire bladder was examined. The UO's were identified. Moderate debris was noted in the bladder. This was evacuated out. The UO was cannulized with a catheter and a retrograde pyelogram was completed. A severe narrowing was noted in the mid ureter. A wire was then placed. The wire was able to advance however a 10 Nigerian and 5 Nigerian ureteral catheter was unable to advance. Urine was appreciated draining. And the open-ended catheter was placed into the ureter and urine was aspirated draining from the right renal pelvis the urine was found to be purulent with debris. Urine was aspirated and sent for culture. Even with manipulation it was difficult to access any point past the severe strictured area in the mid ureter. It did not appear that a stent would be able to be passed across the area. The Rigid ureteroscope was taken into the ureter. The stricture was identified. With some manipulation the lumen was able to be entered and assessed. There was no stone noted within the ureter. The rigid scope was able to start to bypassed portions of the stricture. It did appear to be severely narrowed and was just largely open enough to allow the wire access. The wire did appear to be in appropriate position within the renal pelvis. A balloon dilation device was selected. Utilizing contrast the balloon dilation was completed under direct visualization and using fluoroscopy. The stricture did not dilate extremely well without major issue or difficulty. With the single dilation the channel opened up significantly. The strictured area significantly improved with the dilation. The balloon was then was removed. The rigid scope was then advanced and able to enter into the proximal ureter. There was severe redundancy/dilation noted of the proximal ureter from the obstruction. No stones masses lesions or other areas concern were discovered. No significant tear or injury to the strictured portion of the ureter was noted. A small amount of contrast was placed through the scope for a pyelogram to assist in stent placement. The entire ureter was examined as the scope was slowly removed. No further obstructions or other areas of concern were noted. With the wire in place, a 7 Fr Double J stent was placed. It was confirmed with fluoroscopy. With the stent in place, the bladder was emptied. A 16 Nigerian catheter was placed in order to assist with drainage and to monitor output. The scope was removed. The patient was cleaned, aroused from anesthesia, and transferred to the pacu in stable condition having tolerated the procedure well with no complications. I was present and participated in all aspects of the procedure. The patient will be monitored in the PACU until transferred. Plan to maintain stent for approximately 2 weeks. Can return to office after completion of antibiotic course to discuss possible options including further intervention on significant recurrent stricture I attest to the content of the Intraoperative Record and any orders documented therein. Any exceptions are noted below.
--- NOTE | 2024-10-28 16:31 | Anesthesiology Progress Note ---
Date of Service October 28, 2024 Anesthesia Post Procedure Vital Signs Vital Signs: Temp Pulse Pulse Resp BP BP BP 10/28/24 16:25 36.4 C L 70 12 102/52 L 10/28/24 16:15 71 12 110/61 10/28/24 16:05 72 12 116/64 10/28/24 15:55 36.5 C 73 14 140/76 10/28/24 13:36 38.1 C H 82 20 113/74 10/28/24 13:00 82 10/28/24 11:09 36.9 C 85 20 111/71 10/28/24 07:03 36.4 C L 77 18 94/60 L 10/28/24 05:59 77 10/28/24 04:28 36.8 C 86 16 97/61 L 10/28/24 03:44 36.6 C 82 16 91/60 L 10/28/24 02:24 36.7 C 84 16 89/60 L 10/28/24 02:05 88 10/28/24 00:49 37.3 C 96 H 16 93/61 L 10/28/24 00:30 105 H 23 10/28/24 00:30 97/60 L 10/28/24 00:30 97/60 L 10/28/24 00:30 97/60 L 10/28/24 00:15 105 H 10/28/24 00:15 121/89 10/28/24 00:15 121/89 10/28/24 00:15 121/89 10/28/24 00:15 121/89 10/28/24 00:09 105 H 23 10/28/24 00:00 172/91 H 10/27/24 23:48 124 H 23 10/27/24 23:45 128 H 29 H 10/27/24 23:45 166/104 H 10/27/24 23:45 166/104 H 10/27/24 23:45 166/104 H 10/27/24 23:45 166/104 H 10/27/24 23:42 126 H 31 H 10/27/24 23:34 157/99 H 10/27/24 23:24 119 H 21 10/27/24 23:03 90 17 10/27/24 23:00 139/104 H 10/27/24 23:00 139/104 H 10/27/24 23:00 36.4 C L 122 H 33 H 157/99 H 10/27/24 22:45 105/61 10/27/24 22:42 78 19 10/27/24 22:36 78 20 10/27/24 22:30 100/64 10/27/24 22:30 100/64 10/27/24 22:21 77 19 10/27/24 22:18 77 21 10/27/24 22:15 117/72 10/27/24 22:15 117/72 10/27/24 22:02 79 10/27/24 22:00 110/59 L 10/27/24 21:57 79 16 10/27/24 21:45 112/76 10/27/24 21:42 109/84 10/27/24 21:15 113/76 10/27/24 21:14 113/76 10/27/24 21:14 113/76 10/27/24 21:12 80 19 10/27/24 20:36 86 17 10/27/24 20:30 100/67 10/27/24 20:30 37.3 C 17 100/67 10/27/24 20:00 87 19 10/27/24 20:00 85/61 L 10/27/24 20:00 85/61 L 10/27/24 19:50 89 15 114/69 10/27/24 19:31 114/69 10/27/24 19:30 92 H 14 10/27/24 19:15 97 H 23 10/27/24 18:48 102 H 25 H 10/27/24 18:38 130/94 10/27/24 18:28 130/85 10/27/24 18:22 105 H 10/27/24 17:42 100 H 20 10/27/24 17:22 38.6 C H 107 H 24 133/81 Pulse Ox O2 Del Method O2 Flow Rate 10/28/24 16:25 95 Room Air 10/28/24 16:15 99 Oxymask 4 10/28/24 16:05 100 Oxymask 6 10/28/24 15:55 100 Oxymask 10 10/28/24 13:36 95 Room Air 10/28/24 13:00 10/28/24 11:09 96 Room Air 10/28/24 07:03 95 Room Air 10/28/24 05:59 10/28/24 04:28 95 Room Air 10/28/24 03:44 95 Room Air 10/28/24 02:24 93 Room Air 10/28/24 02:05 10/28/24 00:49 93 Room Air 10/28/24 00:30 93 10/28/24 00:30 10/28/24 00:30 10/28/24 00:30 10/28/24 00:15 96 10/28/24 00:15 10/28/24 00:15 10/28/24 00:15 10/28/24 00:15 10/28/24 00:09 96 10/28/24 00:00 10/27/24 23:48 98 10/27/24 23:45 94 10/27/24 23:45 10/27/24 23:45 10/27/24 23:45 10/27/24 23:45 10/27/24 23:42 98 10/27/24 23:34 10/27/24 23:24 81 L 10/27/24 23:03 96 10/27/24 23:00 10/27/24 23:00 10/27/24 23:00 100 Room Air 10/27/24 22:45 10/27/24 22:42 93 10/27/24 22:36 93 10/27/24 22:30 10/27/24 22:30 10/27/24 22:21 93 10/27/24 22:18 96 10/27/24 22:15 10/27/24 22:15 10/27/24 22:02 10/27/24 22:00 10/27/24 21:57 93 10/27/24 21:45 10/27/24 21:42 10/27/24 21:15 10/27/24 21:14 10/27/24 21:14 10/27/24 21:12 95 10/27/24 20:36 94 10/27/24 20:30 10/27/24 20:30 95 10/27/24 20:00 93 10/27/24 20:00 10/27/24 20:00 10/27/24 19:50 95 10/27/24 19:31 10/27/24 19:30 93 10/27/24 19:15 92 10/27/24 18:48 93 10/27/24 18:38 10/27/24 18:28 10/27/24 18:22 10/27/24 17:42 92 Room Air 10/27/24 17:22 92 Room Air Transfer of Care Handoff Completed per policy Notes Mental Status: alert / awake / arousable Patient Amnestic to Procedure: Yes Nausea / Vomiting: adequately controlled Pain: adequately controlled Airway Patency, RR, SpO2: stable & adequate BP & HR: stable & adequate Hydration State: stable & adequate Anesthetic Complications: no major complications apparent and Pt Satisfied with anesthetic care
[2024-10-28 17:06] VITALS: RESP 18
--- NOTE | 2024-10-28 18:35 | Electrocardiogram Report ---
Test Reason : Blood Pressure : */* mmHG Vent. Rate : 103 BPM Atrial Rate : 103 BPM P-R Int : 128 ms QRS Dur : 70 ms QT Int : 322 ms P-R-T Axes : 43 -49 28 degrees QTcB Int : 421 ms Poor data quality, interpretation may be adversely affected Sinus tachycardia Left anterior fascicular block Minimal voltage criteria for LVH, may be normal variant Poor R wave progression, consider anterior HI vs. lead placement vs. LVH Abnormal ECG When compared with ECG of 16-Sep-2022 16:06, No significant change was found Confirmed by Fam Sanchez ([id number]) on 10/28/2024 6:34:39 PM Referred By: REFERRED SELF Confirmed By: Fam Sanchez
[2024-10-28] MEDS: cefTRIAXone SODIUM 1,000 MG/50 ML BAG IV SCH (20:10)
[2024-10-28] MEDS ORDERED: ROSUVASTATIN CALCIUM 10 MG TAB PO SCH (21:00)
--- NOTE | 2024-10-28 21:59 | Hospitalist Progress Note ---
Date of Service October 28, 2024 Assessment & Plan (1) Severe sepsis: Plan: Due to acute E. coli UTI (as noted on 10/27/2024, 7:50pm urine culture). Continue ceftriaxone 2g IV daily (day #1/7 on 10/27/2024, 8:12pm). Check vitals, WBC w/dif, lactic acid, procalcitonin, urine culture (10/27/2024, 7:50pm), and blood culture (10/27/2024, 8:06pm) in the 10/29/2024 am. (2) Acute UTI (urinary tract infection): Plan: Continue ceftriaxone 2g IV daily (day #1/7 on 10/27/2024, 8:12pm). Check vitals, WBC w/dif, lactic acid, procalcitonin, urine culture (10/27/2024, 7:50pm), and blood culture (10/27/2024, 8:06pm) in the 10/29/2024 am. (3) Hydronephrosis of right kidney: Plan: cf., creatinine 0.87 mg/dL (10/27/2024, 5:50pm). cf., creatinine 0.74 mg/dL (10/28/2024, 7:39am). s/p Cystoscopy with evacuation of the bladder, Right Ureteroscopy, Right Ureteral Balloon Dilation, Right Urine aspiration, Right Retrograde Pyelogram, and Stent Placement(Right)(10/28/2024, 3:48pm, Urologist Dr. Troy Guerrier). Check vitals, genito-urinary exam, and creatinine level in the 10/29/2024 am. (4) Acute confusion: Plan: Due to severe sepsis, which in turn, was due to acute E. coli UTI (as noted on 10/27/2024, 7:50pm urine culture). RESOLVED s/p ceftriaxone 2g IV daily (day #1/7 on 10/27/2024, 8:12pm). (5) Hypertension: Plan: Well-controlled with BP 100/60 (10/28/2024, 8:00pm). Observe without need for pharmacologic intervention. Continue to check BP qshift while patient remains in [facility]. Plan 79-year-old female presenting with severe sepsis, likely urinary etiology and acute metabolic encephalopathy. Patient with history of ovarian carcinoma, status post ureteral dilation with stent placement by urology in January 2024, stent removed March 2024. also with GERD, hypertension and dermatomyositis. Patient has had 4 days of progressive confusion and lethargy. Subjective fevers at home. #Sepsis with acute metabolic encephalopathy/confusion/lethargypresent on admission. Patient with elevated white blood cell count = 12.52, elevated procalcitonin = 3.87. Elevated lactate = 3.5. Likely urinary source. CT of the abdomen reveals significant ureteral dilatation on the right. Prior urine cultures with E. coli and Streptococcus anginosus. Admit to medical telemetry Follow urine culture and blood culture sent from the ER Continue IV fluidsLR at 125 mL/h Continue ceftriaxone Tylenol as needed for pain or fever Zofran as needed for nausea Repeat lactate in the morning Consider stress dose steroids if patient's blood pressure declines #Elevated troponinlikely type II NSTEMI in the setting of sepsis. Patient denies chest pain Continue to trend troponin every 6 hours #Acute UTI/ severe hydroureteronephrosis of the right kidney. Patient with similar in the past Urology consult appreciated #Hyperlipidemia Continue Crestor #Cognitive impairmentpatient has a prescription for Aricept 5 mg p.o. nightly however, per medication review patient has never started this medication Will not start this as of yet Encourage starting this medication upon discharge if appropriate Admission and Anticipated Discharge Date Admission Date: October 27, 2024 Subjective "I am ok. I got the stent put in earlier today." Review of Systems Constitutional: Negative for antecedent/coincident fevers, chills, diaphoresis, cough, wheeze, sore throat, hemoptysis, chest pains, palpitations, pleurisy, nausea, vomiting, diarrhea, abdominal pain, pelvic pain, hematemesis, hematochezia, melena, hematuria, dysuria, frequency, urgency, headaches, dizziness, lightheadedness, visual changes, hearing changes, weakness, falls, syncope, trauma, travel history, sick contacts, or food/drug ingestions novel or new. All other review of systems are reported as negative by the patient on 10/28/2024. Physical Exam Constitutional: General: Comfortable, coherent, and cooperative. Not confused, obtunded, or lethargic. Patient speaks with regular key, and in complete, fluent, and articulate 7-9 word sentences without pause, interruption, cough, or wheeze with O2 sat 96% on room air (10/28/2024, 8:00pm). HEENT: Normocephalic, atraumatic. No nystagmus, gaze paresis, anisocoria, miosis, mydriasis, hyphema, scleral injection, conjunctivitis, or pterygium. No otorrhea or rhinorrhea. No pharyngeal erythema, edema, or discharge. Neck: Supple, no stridor, bruit, goiter, or hepato-jugular reflux. Jugular venous pressure is estimated to be 3 cm above the sternal angle of Kendrick, which in turn, is 5 cm above the level of the right atrium; with jugular venous pressure estimated to be 8 cm, then, there is no jugular venous distention on 10/28/2024. Lymphatics: No cervical (anterior/posterior), supraclavicular, infraclavicular, axillary, epitrochlear, or inguinal adenopathy. Chest: Symmetric rise and fall with respirations. Non-tender to palpation. Lungs: Clear to auscultation and percussion. Heart: Regular rate and rhythm. S1 and S2 noted. No S3 or S4 summation gallop. No tripartite friction rub. Grade II/ early systolic murmur @ LLSB without radiation to the carotids, axilla, or back, and which remains invariant in regards to the respiratory cycle. Abdomen: Soft, non-tender, non-distended. No rebound, guarding, Rivera's sign, or organomegaly. Bowel sounds auscultated in all 4 quadrants. Extremities: No clubbing, cyanosis, or edema. Skin: No decubitus ulcer or enanthem or exanthem. Neuro: Awake and oriented in regards to person, place, time, and situation. DTR+. 5/5 motor strength in all 4 extremities, both proximally and distally. No myoclonus or tics or tremors. Genito-urinary: No urethral discharge. No ramírez catheter. Results & Data Results & Data Vital Signs (Past 12 Hours) Vital Signs Temp Pulse Pulse Pulse Resp BP Pulse Ox 10/28/24 20:00 36.8 C 71 18 104/60 96 10/28/24 19:30 36.8 C 77 18 104/63 95 10/28/24 18:37 36.9 C 83 18 111/70 93 10/28/24 18:07 36.7 C 83 18 111/69 97 10/28/24 17:36 36.3 C L 74 18 107/70 94 10/28/24 17:24 36.4 C L 73 18 124/77 97 10/28/24 17:05 36.4 C L 73 18 125/73 98 10/28/24 16:47 36.5 C 74 12 117/76 98 10/28/24 16:25 36.4 C L 70 12 102/52 L 95 10/28/24 16:15 71 12 110/61 99 10/28/24 16:05 72 12 116/64 100 10/28/24 15:55 36.5 C 73 14 140/76 100 10/28/24 13:36 38.1 C H 82 20 113/74 95 10/28/24 13:00 82 10/28/24 11:09 36.9 C 85 20 111/71 96 O2 Del Method O2 Flow Rate 10/28/24 20:00 Room Air 10/28/24 19:30 Room Air 10/28/24 18:37 Room Air 10/28/24 18:07 Room Air 10/28/24 17:36 Room Air 10/28/24 17:24 Room Air 10/28/24 17:05 Room Air 10/28/24 16:47 Room Air 10/28/24 16:25 Room Air 10/28/24 16:15 Oxymask 4 10/28/24 16:05 Oxymask 6 10/28/24 15:55 Oxymask 10 10/28/24 13:36 Room Air 10/28/24 13:00 10/28/24 11:09 Room Air Laboratory Results Abnormal lab results 10/28/24 10/28/24 10/28/24 Range/Units 01:32 07:39 07:51 WBC 11.60 H (4.8-10.8) K/ul RBC 3.26 L (4.20-5.40) M/uL Hgb 9.8 L D (12.0-16.0) g/dl Hct 29.7 L (37.0-47.0) % RDW Std Deviation 52.2 H (36.4-46.3) fL RDW Coeff of Forest 15.7 H (11.5-14.5) % Plt Count 116 L (130-400) K/uL Chloride 108 H (98-107) mmol/L Glucose 158 H (70-99(Fasting)) mg/dl POC Glucose (70-99) mg/dl Hemoglobin A1c 7.0 H (4.5-5.6) % Lactate 2.6 H* (0.4-2.0) mmol/L Calcium 7.7 L (8.6-10.3) mg/dl Troponin I High Sens 409.1 H* D 337.0 H* (0-14) pg/ml Albumin 2.9 L (3.4-5.0) gm/dl Procalcitonin (0-0.5) ng/ml 10/28/24 10/28/24 10/28/24 Range/Units 09:08 12:12 12:20 WBC (4.8-10.8) K/ul RBC (4.20-5.40) M/uL Hgb (12.0-16.0) g/dl Hct (37.0-47.0) % RDW Std Deviation (36.4-46.3) fL RDW Coeff of Forest (11.5-14.5) % Plt Count (130-400) K/uL Chloride (98-107) mmol/L Glucose (70-99(Fasting)) mg/dl POC Glucose 137 H 124 H (70-99) mg/dl Hemoglobin A1c (4.5-5.6) % Lactate (0.4-2.0) mmol/L Calcium (8.6-10.3) mg/dl Troponin I High Sens (0-14) pg/ml Albumin (3.4-5.0) gm/dl Procalcitonin 18.50 H (0-0.5) ng/ml 10/28/24 10/28/24 10/28/24 Range/Units 13:41 16:53 18:39 WBC (4.8-10.8) K/ul RBC (4.20-5.40) M/uL Hgb (12.0-16.0) g/dl Hct (37.0-47.0) % RDW Std Deviation (36.4-46.3) fL RDW Coeff of Forest (11.5-14.5) % Plt Count (130-400) K/uL Chloride (98-107) mmol/L Glucose (70-99(Fasting)) mg/dl POC Glucose 129 H 130 H (70-99) mg/dl Hemoglobin A1c (4.5-5.6) % Lactate (0.4-2.0) mmol/L Calcium (8.6-10.3) mg/dl Troponin I High Sens 260.8 H* D (0-14) pg/ml Albumin (3.4-5.0) gm/dl Procalcitonin (0-0.5) ng/ml 10/28/24 Range/Units 20:01 WBC (4.8-10.8) K/ul RBC (4.20-5.40) M/uL Hgb (12.0-16.0) g/dl Hct (37.0-47.0) % RDW Std Deviation (36.4-46.3) fL RDW Coeff of Forest (11.5-14.5) % Plt Count (130-400) K/uL Chloride (98-107) mmol/L Glucose (70-99(Fasting)) mg/dl POC Glucose 149 H (70-99) mg/dl Hemoglobin A1c (4.5-5.6) % Lactate (0.4-2.0) mmol/L Calcium (8.6-10.3) mg/dl Troponin I High Sens (0-14) pg/ml Albumin (3.4-5.0) gm/dl Procalcitonin (0-0.5) ng/ml PG Care Time/CCT Total # of Minutes Spent Total Time Spent with Patient: Total time spent is greater than 50% in coordination of care (as documented) at patient's floor/unit and/or counseling patient: Coding Level of Care Code 84233 SUB INP/OBS CARE 2/35MIN Diagnoses Severe sepsis A41.9; R65.20 Acute UTI (urinary tract infection) N39.0 Hydronephrosis of right kidney N13.30 Acute confusion R41.0 Hypertension I10
[2024-10-29 06:57] LABS: Hematocrit (blood only) 28.6 % (37.0-47.0); Hemoglobin 9.3 g/dl (12.0-16.0); Mean Corpuscular Hemoglobin 30.3 pg (25.0-34.0); Mean Corpuscular Volume 93.2 fL (80.0-100.0); Platelet Count 116 K/uL (130-400); RDW Standard Deviation 54.6 fL (36.4-46.3); Red Blood Count 3.07 M/uL (4.20-5.40); White Blood Count 8.62 K/ul (4.8-10.8)
[2024-10-29 07:17] LABS: Anion Gap 7.0 (3-11); Blood Urea Nitrogen 17.0 mg/dl (6-23); Calcium 8.1 mg/dl (8.6-10.3); Carbon Dioxide 24.0 mmol/L (21-32); Chloride 105.0 mmol/L (98-107); Creatinine Clr Calc Pharmacy 51.2 ml/min; Dohle Bodies 1+; Glucose 140.0 mg/dl (70-99(Fasting)); Immature Granulocytes # (auto) 0.11 K/uL (0.01-0.20); Immature Granulocytes % (auto) 1.3 %; Polychromasia 1+; Potassium 4.0 mmol/L (3.5-5.1); Sodium 136.0 mmol/L (136-145); Tear Drop Cells 1+; Toxic Vacuolation 1+
--- NOTE | 2024-10-29 07:42 | Fluoroscopy Report ---
FL KUB CLINICAL HISTORY: CYSTO COMPARISON STUDY: CT of the abdomen and pelvis October 27, 2024. Fluoroscopy time: 23 seconds. Number of fluoroscopic images: 2 Ka,r: [phone] FINDINGS: Fluoroscopy was provided during right retrograde pyelogram, ureteral dilatation and right u reteral stent placement. The ureteral stent is well-positioned. Right hydronephrosis is likely decrea sed since CT of October 27, 2024. IMPRESSION: Fluoroscopy provided during right retrograde pyelogram, ureteral dilatation and right st ent placement. ACT 112: Negative or not required by law. Electronically signed by: Les Morocho M.D. 10/29/2024 7:40 AM
--- NOTE | 2024-10-29 08:53 | Urology Progress Note ---
Date of Service October 29, 2024 Assessment & Plan (1) Ureteral stricture: Plan: Patient is POD 1 from Right Ureteroscopy, Right Ureteral Balloon Dilation, Right Urine aspiration, Right Retrograde Pyelogram, and Stent Placement(Right). Not complaining of pain. Labs today: wbc 8.62, Cr 0.82, hgb 9.3 Vital signs, afebrile Urine culture from kidney pending Urine culture from 7.9 preliminary but shows E coli Blood cultures pending Continue abx: on ceftriaxone at this time Continue ramírez catheter Will continue to follow (2) Hydronephrosis of right kidney: (3) Acute UTI (urinary tract infection): Admission and Anticipated Discharge Date Admission Date: October 27, 2024 Subjective 79 year old patient POD 1 from Right Ureteroscopy, Right Ureteral Balloon Dilation, Right Urine aspiration, Right Retrograde Pyelogram, and Stent Placement(Right) with Dr Guerrier. She is doing fairly well this morning. Had trouble sleeping overnight. Denies pain. Physical Exam Constitutional: no acute distress and not ill appearing Respiratory: normal respiratory effort; no respiratory distress Gastrointestinal (Abdomen): Inspection/Auscultation: abdomen not distended Psychiatric: Orientation: alert Genitourinary: Ramírez catheter draining clear yellow urine. Results & Data Vital Signs (Past 12 Hours) Vital Signs Temp Pulse Pulse Resp BP Pulse Ox O2 Del Method 10/29/24 07:31 36.6 C 60 18 101/66 98 Room Air 10/29/24 07:30 96 H 10/29/24 03:42 37.1 C 91 H 18 135/74 98 Room Air 10/29/24 00:09 74 10/28/24 22:42 36.7 C 75 18 107/63 94 Room Air PG Care Time/CCT Total # of Minutes Spent Total Time Spent with Patient: Total time spent is greater than 50% in coordination of care (as documented) at patient's floor/unit and/or counseling patient: Coding Level of Care Code None Diagnoses Ureteral stricture N13.5 Hydronephrosis of right kidney N13.30 Acute UTI (urinary tract infection) N39.0
[2024-10-29 11:22] VITALS: BP 120/76; TEMP 98.6; O2SAT 96
--- NOTE | 2024-10-29 13:25 | Discharge Summary ---
Discharge Summary Date of Service October 29, 2024 Principal Dx & Hospital Course #1 = Principal Diagnosis (1) Severe sepsis: Due to acute duran-sensitive E. coli UTI (as noted on 10/27/2024, 7:50pm urine culture with > 100,000 cfu/mL duran-sensitive E. coli). Patient subsequently received ceftriaxone 2g IV daily (day #1/7 on 10/27/2024, 8:12pm), followed by ceftriaxone 1g IV daily (day #2/7 on 10/28/2024, 8:10pm; day #3/7 on 10/29/2024, 2:08pm). Patient underwent repeat urine culture (10/28/2024, time ?) with 20,000 cfu/mL duran-sensitive E. coli. Patient subsequently was discharged back to her home on 10/29/2024 with an electronic prescription transmitted to her [facility], [address] [place] [address], [place] [id number] for: a. cefuroxime 500mg PO bid, #10 tablets, no refills. Patient was advised to see her PCP Dr. Alfredo Mesa within 5-7 days of hospital discharge to discuss final results for blood culture #1 (10/27/2024, 6:09pm) and blood culture #2 (10/27/2024, 8:06pm). Patient reports that she will comply with this recommendation. (2) Acute UTI (urinary tract infection): See bullet #1 above for details on treatment of acute UTI. (3) Hydronephrosis of right kidney: Patient underwent ramírez catheter insertion on admission date 10/27/2024 to address acute urinary retention. Patient demonstrated no signs of acute renal failure, as affirmed by normal creatinine levels, as shown below: cf., creatinine 0.87 mg/dL (10/27/2024, 5:50pm). cf., creatinine 0.74 mg/dL (10/28/2024, 7:39am). cf., creatinine 0.82 mg/dL (10/29/2024, 6:33am). Patient also underwent CT abdomen/pelvis with IV contrast (10/27/2024, 8:47pm): 1. Severe hydronephrosis in the right kidney. Ureter is dilated to the level of the pelvic inlet with urothelial thickening. No obstructing stone. 2. Mucosal thickening in the bladder suggestive of cystitis. 3. Cholelithiasis without acute cholecystitis. Patient subsequently underwent: 1. Cystoscopy with evacuation of the bladder. 2. Right Ureteroscopy. 3. Right Ureteral Balloon Dilation. 4. Right Urine aspiration. 5. Right Retrograde Pyelogram. 6. Right Ureteral Stent Placement (10/28/2024, 3:48pm, Urologist Dr. Troy Guerrier). Patient subsequently underwent removal of ramírez catheter on discharge date 10/29/2024, with brisk spontaneous voiding noted after ramírez catheter was removed. Patient subsequently was discharged back to her home on discharge date 02/2025, after having undergone PT/OT Service evaluations on 10/29/2024, which affirmed patient's safety/ability to be discharged back to her home on 10/29/2024. Patient subsequently was advised to follow up with her Urologist Dr. Troy Guerrier within 5-7 days of hospital discharge. Patient subsequently reports that she will comply with this recommendation to follow up with her Urologist Dr. Troy Guerrier within 5-7 days of hospital discharge. (4) Acute confusion: Due to severe sepsis, which in turn, was due to acute duran-sensitive E. coli UTI (as noted on 10/27/2024, 7:50pm urine culture). RESOLVED s/p ceftriaxone 2g IV daily (day #1/7 on 10/27/2024, 8:12pm). (5) Hypertension: Well-controlled with BP 100/60 (10/28/2024, 8:00pm) and discharge BP 120/76 (10/29/2024, 11:21am). Observe without need for pharmacologic intervention. 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 Diagnosed dermatomyositis on left upper arm skin biopsy (09/20/2022, 8:15am, [facility] General Surgeon Dr. Troy Sparsk). Patient was subsequently treated with prednisone 5mg PO daily by [facility] Dr. Aroldo Eller. Patient continues to receive prednisone 5mg PO daily while in [facility] and will continue this medication on hospital discharge home on 10/29/2024. In addition, patient was started on protonix 40mg PO daily (10/28/2024, 9:37am; 10/29/2024, 9:08am) to prophylax against steroid-associated gastritis, ulcer formation, and/or GI bleeding. Patient will continue this hospital-started protonix 40mg PO daily on hospital discharge home on 10/29/2024. To this end, patient was discharged back to her home on 10/29/2024 with an electronic prescription transmitted to her [facility], [address] [place] [address], [place] [address] for: a. protonix 40mg PO daily, #30 tablets, no refills. 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 Suspected ovarian carcinoma with 2.7 x 2.0 cm left ovary hypermetabolic lesion with SUV 11, 1.9 cm mesenteric mass with SUV 9.5, retroperitoneal lymph nodes with largest one in left inferior aortocaval region measuring 2.6 cm x 1.9 cm. Few other pelvic lymph nodes noted. (06/03/2023 PET scan). Patient subsequently underwent: 1. Robotic-assisted supracervical hysterectomy, bilateral salpingo- oophorectomy, bilateral peritoneal biopsies, and removal of tumor adjacent to colon (08/06/2023, [facility] Gynecologic Oncologist Dr. Steve Andre); pelvic washings were positive for malignant cells. Patient subsequently received: 2. Paclitaxel and carboplatin chemotherapy x 6 (08/26/2023 - 12/11/2023). 3. IVIG 55g x 2 days qmonth. 4. Rituxan x 2 doses (10/14/2022, 10/28/2022). 5. Completed prednisone taper on 12/30/2023. 6. Plan to start olaparib 300mg PO bid x 2 years, starting on 01/09/2024 (as per [facility] Dr. Greg Lopez). (as per [facility] Dr. Greg Lopez in his office note dictated on 12/10/2023). Of temporal interest, what started out as a left upper arm skin rash (due to dermatomyositis, which was diagnosed on 09/20/2022, 8:15am left upper arm skin biopsy, [facility] General Surgeon Dr. Troy Sparks), led to stage IV ovarian carcinoma, followed by surgical resection (08/06/2023, [facility] Gynecologic Oncologist Dr. Steve Andre), followed by presumed complication of denervation of the right kidney, resulting in right-sided hydronephrosis (as noted on 01/13/2024 retrograde pyelogram), warranting cystoscopy, ureteronephroscopy, ureteral dilation, and insertion of right retrograde ureteral stent (01/13/2024, 11:19am, [facility] Urologist Dr. Fam Khan), followed by removal of right retrograde ureteral stent (04/20/2024, 2:29pm, [facility] Urologist Dr. Fam Khan). Patient subsequently returned to [facility] on 10/27/2024 for recurrent severe right-sided hydronephrosis (as noted on 10/27/2024, 8:47pm CT abd/pelvis with IV contrast). Patient subsequently underwent: 1. Cystoscopy with evacuation of the bladder. 2. Right Ureteroscopy. 3. Right Ureteral Balloon Dilation. 4. Right Urine aspiration. 5. Right Retrograde Pyelogram. 6. Right Ureteral Stent Placement (10/28/2024, 3:48pm, Urologist Dr. Troy Guerrier). Patient subsequently underwent removal of ramírez catheter on discharge date 10/29/2024, with brisk spontaneous voiding noted after ramírez catheter was remove d. Patient subsequently was discharged back to her home on discharge date 10/29/2024, after having undergone PT/OT Service evaluations on 10/29/2024, which affirmed patient's safety/ability to be discharged back to her home on 10/29/2024. Patient subsequently was advised to follow up with her Urologist Dr. Troy Guerrier within 5-7 days of hospital discharge. Patient subsequently reports that she will comply with this recommendation to follow up with her Urologist Dr. Troy Guerrier within 5-7 days of hospital discharge. (8) Demand ischemia: Acute type II NSTEMI. cf., admission troponin-I #1 136.6 pg/mL (10/27/2024, 5:50pm). cf., repeat troponin-I #2 285.0 pg/mL (10/27/2024, 8:06pm). cf., repeat troponin-I #3 409.1 pg/mL (10/28/2024, 1:32am). cf., repeat troponin-I #4 337.0 pg/mL (10/28/2024, 7:39am). cf., repeat troponin-I #5 260.8 pg/mL (10/28/2024, 6:39pm). cf., chronically elevated troponin-I levels ranging from 399.0 pg/mL (, 6:10pm) to 208.9 pg/mL (09/17/2022, 11:54am). cf., EKG (10/27/2024, 6:01pm): sinus tachycardia @ 103, WV 128, QTC 421, LAFB; TWI in III; no acute ST depressions/elevations (by my review). cf., EKG (07/10/2023, 9:34am): NSR @ 79, WV 150, QTC 433, no LAFB; TWI in III; no acute STS depressions/elevations (by my review). Of note, troponin-I elevations noted on current hospitalization were due to demand ischemia, which in turn, was due to septic shock, which in turn, was due to duran-sensitive E. coli UTI (as noted on 10/27/2024, 7:50pm urine culture), R/O acute E. coli bacteremia. Hence, I opted to observe this laboratory phenomenon without further evaluation/intervention while patient remained in [facility] from admission 10/27/2024 through discharge date 10/29/2024. (9) Lactic acid blood increased: cf., lactic acid #1 3.4 mmol/L (10/27/2024, 6:09pm). cf., lactic acid #2 3.5 mmol/L (10/27/2024, 8:06pm). cf., lactic acid #3 2.6 mmol/L (10/28/2024, 7:51am). cf., lactic acid #4 1.8 mmol/L (10/28/2024, 12:17pm). cf., lactic acid #5 1.3 mmol/L (10/29/2024, 6:39am). Etiology of acute lactic acid elevations was most probably due to acute dehydration due to septic shock, which in turn, was due to duran-sensitive E. coli UTI (as noted on 10/27/2024, 7:50pm urine culture), R/O acute E. coli bacteremia. Hence, patient received IV fluid rehydration therapy in the form of: 1. 1.0 liter of 0.9% NS @ 999 mL/hr (10/27/2024, 6:45pm). 2. 1.0 liter of 0.9% NS @ 999 mL/hr (10/27/2024, 8:12pm). 3. 0.5 liter of 0.9% NS @ 999 mL/hr (10/27/2024, 9:08pm). 4. 0.5 liter of lactated Ringers @ 999 mL/hr (10/28/2024, 2:41am). 5. 1.0 liter of lactted Ringers @ 125 mL/hr (10/28/2024, 1:38am). 6. 1.0 liter of lactted Ringers @ 125 mL/hr (10/28/2024, 6:37am). Subsequently, acute lactic acid elevation RESOLVED, as shown above. Subsequently, patient was discharged back to her home on 10/29/2024 without need for further IV fluid rehydration therapy. Instead, patient was advised to drink at least 8 ounces of water for each hour while awake, in order to remain hydrated at home. Patient reports that she will comply with this recommendation. (10) Hypomagnesemia: cf., admission Mg 1.5 mg/dL (10/27/2024, 5:50pm). cf., post-supplement Mg 1.7 mg/dL (10/28/2024, 7:39am). Etiology of acute hypomagnesemia was most probably due to acute dehydration due to septic shock, which in turn, was due to duran-sensitive E. coli UTI (as noted on 10/27/2024, 7:50pm urine culture), R/O acute E. coli bacteremia. Hence, patient received magnesium sulfate 1g IV x 1 dose (10/27/2024, 9:45pm). Subsequently, acute hypomagnesemia RESOLVED, as shown above. Subsequently, patient was discharged back to her home on 10/29/2024 without need for further IV magnesium sulfate supplementation therapy. Instead, patient was advised to eat foods rich in magnesium, including spinach and other cruciferous vegetables, black beans, bananas, and avocado, in order to maintain normal magnesium levels. Patient reports that she will comply with this recommendation. Plan 79 years old female with PMH of FULL CODE @ home, GERD, HTN, left upper arm skin rash (due to dermatomyositis, which was diagnosed on 09/20/2022, 8:15am left upper arm skin biopsy, [facility] General Surgeon Dr. Troy Sparks), followed by: Suspected ovarian carcinoma with CEA 125 level increasing from 77 U/mL (09/19/2022) to 274 U/mL (05/20/2023). Suspected ovarian carcinoma with 2.7 x 2.0 cm left ovary hypermetabolic lesion with SUV 11, 1.9 cm mesenteric mass with SUV 9.5, retroperitoneal lymph nodes with largest one in left inferior aortocaval region measuring 2.6 cm x 1.9 cm. Few other pelvic lymph nodes noted. (06/03/2023 PET scan). Patient subsequently underwent: 1. Robotic-assisted supracervical hysterectomy, bilateral salpingo-oophorecto my, bilateral peritoneal biopsies, and removal of tumor adjacent to colon (08/06/2023, [facility] Gynecologic Oncologist Dr. Steve Andre); pelvic washings were positive for malignant cells. Patient subsequently received: 2. Paclitaxel and carboplatin chemotherapy x 6 (08/26/2023 - 12/11/2023). 3. IVIG 55g x 2 days qmonth. 4. Rituxan x 2 doses (10/14/2022, 10/28/2022). 5. Completed prednisone taper on 12/30/2023. 6. Plan to start olaparib 300mg PO bid x 2 years, starting on 01/09/2024 (as per [facility] Dr. Greg Lopez). (as per [facility] Dr. Greg Lopez in his office note dictated on 12/10/2023). Of note, surgical resection (08/06/2023, [facility] Gynecologic Oncologist Dr. Steve Andre) noted above was followed by presumed complication of denervation of the right kidney, resulting in right-sided hydronephrosis (as noted on 01/13/2024 retrograde pyelogram), warranting cystoscopy, ureteronephroscopy, ureteral dilation, and insertion of right retrograde ureteral stent (01/13/2024, 11:19am, [facility] Urologist Dr. Fam Khan), followed by removal of right retrograde ureteral stent (04/20/2024, 2:29pm, [facility] Urologist Dr. Fam Khan), who presented to [facility] ER on 10/27/2024 with 4 days of progressive confusion, lethargy, and fevers at her home. Patient was subsequently admitted to the inpatient hospitalist service @ [facility] on 10/27/2024 with the following diagnoses: #Sepsis with acute metabolic encephalopathy/confusion/lethargypresent on admission. Patient with elevated white blood cell count = 12.52, elevated procalcitonin = 3.87. Elevated lactate = 3.5. Likely urinary source. CT of the abdomen reveals significant ureteral dilatation on the right. Prior urine cultures with E. coli and Streptococcus anginosus. Admit to medical telemetry Follow urine culture and blood culture sent from the ER Continue IV fluidsLR at 125 mL/h Continue ceftriaxone Tylenol as needed for pain or fever Zofran as needed for nausea Repeat lactate in the morning Consider stress dose steroids if patient's blood pressure declines #Elevated troponinlikely type II NSTEMI in the setting of sepsis. Patient denies chest pain Continue to trend troponin every 6 hours #Acute UTI/ severe hydroureteronephrosis of the right kidney. Patient with similar in the past Urology consult appreciated #Hyperlipidemia Continue Crestor #Cognitive impairmentpatient has a prescription for Aricept 5 mg p.o. nightly however, per medication review patient has never started this medication Will not start this as of yet Encourage starting this medication upon discharge if appropriate Admission HPI Per Admitting Provider Skye Montiel is an 79-year-old female with history of hypertension, GERD, dermatomyositis presenting with 4 days of progressive confusion and somnolence. Patient does not provide much history. States that over the last 4 days she has become more sleepy and lethargic. Patient denies additional complaints. Specifically denies fever, chills, chest pain, cough, shortness of breath, abdominal pain, nausea, vomiting, diarrhea, back or flank pain, dysuria. Family does report that she may have had subjective fevers at home and felt warm to the touch. Also with a runny nose ER course: Normal saline x 2500 mL Tylenol 1 g Ceftriaxone 2 g magnesium x 1 g Discharge Exam Constitutional General: Comfortable, coherent, and cooperative. Not confused, obtunded, or lethargic. Patient speaks with regular key, and in complete, fluent, and articulate 7-9 word sentences without pause, interruption, cough, or wheeze with O2 sat 96% on room air (10/28/2024, 8:00pm)(10/29/2024, 4:00pm). HEENT: Normocephalic, atraumatic. No nystagmus, gaze paresis, anisocoria, miosis, mydriasis, hyphema, scleral injection, conjunctivitis, or pterygium. No otorrhea or rhinorrhea. No pharyngeal erythema, edema, or discharge. Neck: Supple, no stridor, bruit, goiter, or hepato-jugular reflux. Jugular venous pressure is estimated to be 3 cm above the sternal angle of Kendrick, which in turn, is 5 cm above the level of the right atrium; with jugular venous pressure estimated to be 8 cm, then, there is no jugular venous distention on 10/29/2024. Lymphatics: No cervical (anterior/posterior), supraclavicular, infraclavicular, axillary, epitrochlear, or inguinal adenopathy. Chest: Symmetric rise and fall with respirations. Non-tender to palpation. Lungs: Clear to auscultation and percussion. Heart: Regular rate and rhythm. S1 and S2 noted. No S3 or S4 summation gallop. No tripartite friction rub. Grade II/ early systolic murmur @ LLSB without radiation to the carotids, axilla, or back, and which remains invariant in regards to the respiratory cycle. Abdomen: Soft, non-tender, non-distended. No rebound, guarding, Rivera's sign, or organomegaly. Bowel sounds auscultated in all 4 quadrants. Extremities: No clubbing, cyanosis, or edema. Skin: No decubitus ulcer or enanthem or exanthem. Neuro: Awake and oriented in regards to person, place, time, and situation. DTR+. 5/5 motor strength in all 4 extremities, both proximally and distally. No myoclonus or tics or tremors. Genito-urinary: No urethral discharge. Ramírez catheter inserted on admission date 10/27/2024 for acute urinary retention. Ramírez catheter removed on discharge date 10/29/2024 prior to D/C home on 10/29/2024 with brisk spontaneous voiding by patient prior to D/C home on 10/29/2024. Discharge Plan Discharge Items Patient Disposition: Home - Self-Care Reason For Visit: CONFUSION, UTI Discharge Diagnosis: 1. Septic shock, due to duran-sensitive E. coli UTI (as noted on 10/27/2024, 7:50pm urine culture), R/O acute E. coli bacteremia. 2. Acute lactic acid elevation with lactic acid #1 3.4 mmol/L (10/27/2024, 6:09pm). 3. Acute hypomagnesemia with admission Mg 1.5 mg/dL (10/27/2024, 5:50pm). 4. Acute type II NSTEMI with admission troponin-I #1 136.6 pg/mL (10/27/2024, 5:50pm), repeat troponin-I #2 285.0 pg/mL (10/27/2024, 8:06pm), repeat troponin- I #3 409.1 pg/mL (10/28/2024, 1:32am), repeat troponin-I #4 337.0 pg/mL (10/28/2024, 7:39am), repeat troponin-I #5 260.8 pg/mL (10/28/2024, 6:39pm), superimposed on chronically elevated troponin-I levels ranging from 399.0 pg/mL (09/16/2022, 6:10pm) to 208.9 pg/mL (09/17/2022, 11:54am), due to septic shock, due to duran-sensitive E. coli UTI (as noted on 10/27/2024, 7:50pm urine culture), R/O acute E. coli bacteremia. Condition on Discharge: Fair Activity: Resume your previous activity Lifting: Gradually increase as tolerated Bathing: No limitations Exercise/Sports: Gradually increase as tolerated Driving/Machine Use: No limitations Weightbearing: Full weightbearing Non-emergency contact: Primary Care Provider Call non-emergency contact if: you have any medication questions Follow-up/Referrals: Alfredo Mesa, [Primary Care Provider] - Diet: Heart Healthy Addtl Attending Provider Instructions: 1. See your PCP Dr. Alfredo Mesa within 5-7 days of hospital discharge to discuss final results for blood culture #1 (10/27/2024, 6:09pm) and blood culture #2 (10/27/2024, 8:06pm). 2. See your Urologist Dr. Troy Guerrier within 5-7 days of hospital discharge for routine follow up care. Pending Studies at Discharge: Yes Studies:: 1. See your PCP Dr. Alfredo Mesa within 5-7 days of hospital discharge to discuss final results for blood culture #1 (10/27/2024, 6:09pm) and blood culture #2 (10/27/2024, 8:06pm). Stand-Alone Forms: [facility] Slide[employer], Smoking Cessation Medications and DC Order Prescriptions: New cefuroxime axetil 500 mg tablet 500 mg PO BID 7 Days Qty: 10 0RF pantoprazole 40 mg Tablet,Delayed Release (Dr/Ec) 40 mg PO QAM Qty: 30 0RF Continued cholecalciferol (vitamin D3) [Vitamin D3] 25 mcg (1,000 unit) Tablet 25 mcg PO QAM prednisone 5 mg tablet 5 mg PO UD Rx Instructions: STARTED 10/20/24--TAKE 10 MG X 7 DAYS, THEN 7.5 MG X 14 DAYS, THEN 5 MG DAILY donepezil 5 mg tablet 5 mg PO HS Rx Instructions: PER PT'S DAUGHTER "NEVER STARTED THIS MED". cyanocobalamin (vitamin B-12) [Vitamin B-12] 1,000 mcg Tablet 1,000 mcg PO DAILY Held rosuvastatin [Crestor] 10 mg Tablet 10 mg PO HS Hold Instructions: Resume on 11/04/24. Hold OFF rosuvastatin 10mg PO daily from 10/30/2024 - 11/03/2024, as you will be taking cefuroxime 500mg PO bid during this time period, to minimize the risk of upset stomach. You can restart rosuvastatin 10mg PO daily on 11/04/2024, as you will not be taking cefuroxime on 11/04/2024. Discharge Orders: Discharge Order (Routine); Ordered 10/29/24 Ordered By: Jose Roberto Rojas Admission Data Admit Date/Time: 10/27/24 22:29 Attending Provider: Jose Roberto Rojas Admit Provider: Purvi Herring Primary Care Provider: Alfredo Mesa Other Providers: Purvi Herring; Jose Roberto Hendrix Hospital Stay Data Consultations 10/27/24 20:34 ED Decision to Admit Stat 10/28/24 04:00 Consult Urology Routine Procedures Performed Operation Date: 10/28/24 10:20 Actual Procedures p Cystoscopy Right Ureteroscopy, Right Ureteral Dilation, Retrograde Pyelogram and Stent Placement(Right) - Troy Guerrier, DO Diagnostic Imagining Performed 10/27/24 18:21 CT head/brain wo con Stat 10/27/24 20:47 CT Abd and Pelvis [CT abd pelvis IV con only] Stat 10/28/24 15:00 FL KUB Routine Discharge Instructions Given to Patient (Per Discharging Provider) 1. See your PCP Dr. Alfredo Mesa within 5-7 days of hospital discharge to discuss final results for blood culture #1 (10/27/2024, 6:09pm) and blood cul ture #2 (10/27/2024, 8:06pm). 2. See your Urologist Dr. Troy Guerrier within 5-7 days of hospital discharge for routine follow up care. Total Time Total Time Spent Total Time Spent (In Minutes): 35 minutes. Of this time period, 19 minutes were spent in coordinating patient's discharge. Coding Level of Care Code 90412 INP/OBS DISCH >30 MIN Diagnoses Severe sepsis A41.9; R65.20 Acute UTI (urinary tract infection) N39.0 Hydronephrosis of right kidney N13.30 Acute confusion R41.0 Hypertension I10 Dermatomyositis M33.90 Stage IV carcinoma of ovary C56.9 Demand ischemia I24.89 Lactic acid blood increased R79.89 Hypomagnesemia E83.42
[2024-10-29] MEDS: cefTRIAXone SODIUM 1,000 MG/50 ML BAG IV ONE (14:08)
[2024-10-29 16:06] VITALS: PULSE 87
== END 2024-10-29 16:56 | disposition home or self-care (01) | DRG 853 ==
LOC: SUATTDRO → ED 17:31 → 2N 22:29 → SUATTDRO 22:29 → 2N 10-28 01:00

== ENCOUNTER 2025-03-22 07:02 | Inpatient (IN) ==
--- NOTE | 2025-03-22 07:16 | Emergency Department Note ---
History of Present Illness General Chief complaint: Fall Stated complaint: FALLS, BACK PAIN Source: patient Mode of arrival: EMS Limitations: no limitations History of Present Illness Patient is an 79-year-old female with history of ovarian cancer in remission and generalized weakness who presents after 3 falls over the past 24 hours. Reports ground-level falls due to weakness in her legs. She did strike her head on one of the falls. No loss of conscious. Not on any anticoagulation at this time. She is supposed to be using a walker but uses it "sporadically". Does report some lower back pain. History of prior compression fractures in the past. Denies any chest pain, shortness of breath, abdominal pain; numbness, weakness, or paresthesias in her extremities. Home Medications Medication Instructions Recorded Confirmed Type cholecalciferol (vitamin D3) 25 25 mcg PO QAM 09/11/22 03/22/25 History mcg (1,000 unit) tablet (Vitamin D3) cyanocobalamin (vitamin B-12) 1,000 mcg PO DAILY 04/20/24 03/22/25 History 1,000 mcg tablet (Vitamin B-12) prednisone 5 mg tablet 5 mg PO UD 10/20/24 03/22/25 History methenamine hippurate 1 gram tablet 1 g PO BID #60 tabs 02/08/25 03/22/25 Rx trimethoprim 100 mg tablet 100 mg PO BID 03/22/25 03/22/25 History Allergies Allergy/AdvReac Type Severity Reaction Status Date / Time shrimp Allergy Intermediate Hives Verified 10/27/24 19:29 aspirin Allergy Mild itching Verified 10/27/24 19:29 Past Med/Surg History Problem List (Updated 03/22/25 @ 13:02 by Aroldo Bergman MD) Compression fx, thoracic spine (Acute) Leukocytosis (Acute) Dehydration (Acute) Falls frequently (Acute) Lactic acid blood increased Demand ischemia Stage IV carcinoma of ovary Ovarian carcinoma Oral thrush Oropharyngeal dysphagia Aspiration of food Elevated creatine kinase (Acute) Elevated troponin (Acute) Dermatomyositis (Acute) Generalized weakness (Acute) Encounter for pre-operative examination Medical History History of sepsis 04/14/24 Anemia heme/onc monitoring; Olaparib was D/C 03/02/24 2/2 anemia Hydronephrosis of right kidney ureteral stricture per recent urology note Hx of ovarian cancer L ovary; dx 07/2023, s/p surgery and IV chemo History of hypertension History of dysphasia no current issues per pt. 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 Troy Sparks S/P percutaneous endoscopic gastrostomy (PEG) tube placement 09/20/22 @ [facility] by Dr. Carter>has since been removed History of dilatation and curettage History of colonoscopy History of tonsillectomy History of tooth extraction History of bilateral cataract extraction Family History Other No family history of adverse response to anesthesia Social History Smoking Status: Never smoker Second Hand Exposure: Yes (in the past); Do You Dip or Chew Tobacco: No; Hx Alcohol Use: No Hx Substance Use: No Preferred Language: Mozambican Communication Ability: Effective Director Of Distance Learning Required: No Beliefs That Will Affect Care: None Current Living Situation: Alone Feels Safe at Home: Yes Assistive Devices: Cane and Walker Review of Systems Review of systems negative outside of positive findings mentioned in HPI. Physical Exam Vital Signs Vital Signs - 24 hr 03/22/25 07:04 03/22/25 07:04 03/22/25 07:16 Temperature 36.6 C Temperature Source Oral Pulse Rate 94 H 99 H Pulse Rate [Apical] 96 H Pulse Rhythm Regular Regular Respiratory Rate 21 21 21 Respiratory Effort / Characteristics Non-Labored Spontaneous Non-Labored Spontaneous Respiratory Depth Normal Normal Respiratory Pattern Regular Regular Blood Pressure 118/97 Blood Pressure [Right Arm] 118/97 Blood Pressure Mean 104 Blood Pressure Mean [Right Arm] 104 Blood Pressure Position Semi-fowlers Pulse Oximetry 97 97 97 Oxygen Delivery Method Room Air Room Air Room Air Sepsis Recent Fever Within 48 Hours No Sepsis New/Unexplained Change in Mental Status No Sepsis Action Taken by Nursing No Action Required 03/22/25 07:50 03/22/25 08:00 03/22/25 08:00 Temperature Temperature Source Pulse Rate 96 H 90 91 H Pulse Rate [Apical] Pulse Rhythm Respiratory Rate 12 12 12 Respiratory Effort / Characteristics Respiratory Depth Respiratory Pattern Blood Pressure 127/91 139/91 139/91 Blood Pressure [Right Arm] Blood Pressure Mean 106 106 106 Blood Pressure Mean [Right Arm] Blood Pressure Position Pulse Oximetry 97 96 97 Oxygen Delivery Method Room Air Room Air Room Air Sepsis Recent Fever Within 48 Hours Sepsis New/Unexplained Change in Mental Status Sepsis Action Taken by Nursing 03/22/25 08:30 03/22/25 08:36 03/22/25 09:00 Temperature Temperature Source Pulse Rate 97 H 88 84 Pulse Rate [Apical] Pulse Rhythm Respiratory Rate 19 16 Respiratory Effort / Characteristics Respiratory Depth Respiratory Pattern Blood Pressure 158/81 H 122/77 Blood Pressure [Right Arm] Blood Pressure Mean 117 101 Blood Pressure Mean [Right Arm] Blood Pressure Position Pulse Oximetry 98 95 Oxygen Delivery Method Room Air Room Air Sepsis Recent Fever Within 48 Hours Sepsis New/Unexplained Change in Mental Status Sepsis Action Taken by Nursing 03/22/25 09:30 03/22/25 10:00 03/22/25 10:30 Temperature Temperature Source Pulse Rate 86 86 93 H Pulse Rate [Apical] Pulse Rhythm Respiratory Rate 15 17 14 Respiratory Effort / Characteristics Respiratory Depth Respiratory Pattern Blood Pressure 113/71 116/71 112/70 Blood Pressure [Right Arm] Blood Pressure Mean 85 84 81 Blood Pressure Mean [Right Arm] Blood Pressure Position Pulse Oximetry 94 95 95 Oxygen Delivery Method Room Air Room Air Room Air Sepsis Recent Fever Within 48 Hours Sepsis New/Unexplained Change in Mental Status Sepsis Action Taken by Nursing 03/22/25 11:00 03/22/25 12:15 Temperature Temperature Source Pulse Rate 88 85 Pulse Rate [Apical] Pulse Rhythm Respiratory Rate 17 Respiratory Effort / Characteristics Respiratory Depth Respiratory Pattern Blood Pressure 122/75 Blood Pressure [Right Arm] Blood Pressure Mean 91 Blood Pressure Mean [Right Arm] Blood Pressure Position Pulse Oximetry 94 Oxygen Delivery Method Room Air Sepsis Recent Fever Within 48 Hours Sepsis New/Unexplained Change in Mental Status Sepsis Action Taken by Nursing Primary Survey Airway: Intact Breathing: Normal, breath sounds equal bilaterally Circulation: Skin warm, well perfused, capillary refill less than 2 seconds Disability Pupils: Equal and reactive to light, 3mm, brisk GCS: 15, E = 4 V=5 M= 6 Motor Function: Moves all extremities. Sensory: No deficits Secondary Survey GENERAL: NAD, non-toxic. HEAD: Hematoma to the left occiput EYE EXAM: Normal conjunctiva. PERRL, no anisocoria and EOM's grossly intact w/o pain. OROPHARYNX: Moist mucus membranes. Grossly normal dentition. NECK: Supple, trachea midline, no midline C spine TTP. Chest: No reproducible chest wall pain. LUNGS: Clear to auscultation. Normal chest wall mechanics. HEART: NSR, no MRG. ABDOMEN: Abdomen soft, non-tender, no obvious bruising, normo-active bowel sounds, no masses, no rebound or guarding. BACK: No CVA TTP. Midline thoracic and lumbar tenderness to palpation without step-offs SKIN: No rashes and no bruising. UPPER EXTREMITIES: Upper extremities are grossly normal. Well-perfused and compartments are soft throughout. LOWER EXTREMITIES: Grossly normal, no edema. Well-perfused and compartments are soft throughout. NEURO EXAM: A&O x3, cranial nerves II-XII grossly intact, normal speech, moves all 4 extremities. Course Administered Medications Discontinued Medications Sodium Chloride (Nss) 500 mls @ 999 mls/hr IV .Q31M NAMAN Stop: 03/22/25 07:45 Last Infusion: 03/22/25 08:29 Dose: Infused Documented By: Admin: 03/22/25 07:54 Dose: 999 mls/hr Documented By: DARÍO Ketorolac Tromethamine (Ketorolac Tromethamine 15 Mg/Ml Vial) 15 mg IV NOW ONE Stop: 03/22/25 08:41 Last Admin: 03/22/25 08:46 Dose: 15 mg Documented By: DARÍO Medical Decision Making Differential Diagnosis DDx includes but not limited to: Acute on chronic weakness, head contusion, SDH, SAH, cervical spine fracture, vertebral fracture, ligamentous injury, metabolic abnormality, infection Medical Records Attestation: I reviewed the patient's medical records. Home Medications Current Medication List: was personally reviewed by me Laboratory Data Attestation: I reviewed the patient's lab results. 03/22/25 07:16 03/22/25 07:16 Lab Results 03/22/25 03/22/25 03/22/25 Range/Units 07:16 07:53 11:44 WBC 14.37 H (4.8-10.8) K/ul RBC 3.49 L (4.20-5.40) M/uL Hgb 10.6 L (12.0-16.0) g/dL Hct 32.2 L (37.0-47.0) % MCV 92.3 (80.0-100.0) fL MCH 30.4 (25.0-34.0) pg MCHC 32.9 (32.0-36.0) g/dL RDW Std Deviation 48.2 H (36.4-46.3) fL RDW Coeff of [place] 14.3 (11.5-14.5) % Plt Count 245 (130-400) K/uL MPV 9.8 (9.4-12.4) fL Immature Gran % (Auto) 1.0 % Neut % (Auto) 80.4 % Lymph % (Auto) 8.4 % [place] % (Auto) 8.8 % Eos % (Auto) 1.1 % Baso % (Auto) 0.3 % Neut # (Auto) 11.57 H (1.40-6.50) K/uL Lymph # (Auto) 1.20 (1.20-3.40) K/uL [place] # (Auto) 1.26 H (0.11-0.59) K/uL Eos # (Auto) 0.16 (0.00-0.50) K/uL Baso # (Auto) 0.04 (0.00-0.20) K/uL Immature Gran # (Auto) 0.14 (0.01-0.20) K/uL Sodium 141 (136-145) mmol/L Potassium 4.4 (3.5-5.1) mmol/L Chloride 105 (98-107) mmol/L Carbon Dioxide 23 (21-32) mmol/L Anion Gap 13 H (3-11) BUN 39 H (6-23) mg/dl Creatinine 0.96 (0.6-1.2) mg/dl Est Cr Clr Drug Dosing 42.1 ml/min eGFR 59.81 BUN/Creatinine Ratio 40.6 H (10-20) Glucose 156 H (70-99(Fasting)) mg/dl Calcium 9.5 (8.6-10.3) mg/dl Magnesium 1.7 (1.7-2.4) mg/dl Total Bilirubin 0.8 (0.2-1.0) mg/dl AST 12 L (13-39) U/L ALT 13 (7-52) U/L Alkaline Phosphatase 67 (34-104) U/L Troponin I High Sens 9.0 (0-14) pg/ml Total Protein 6.6 (6.0-8.3) gm/dl Albumin 4.3 (3.4-5.0) gm/dl Globulin 2.3 L (2.5-4.0) gm/dl Albumin/Globulin Ratio 1.9 (0.9-2) TSH 0.972 (0.300-4.500) uIu/ml Urine Color Yellow Urine Appearance Clear (Clear) Urine pH 5.5 (4.5-7.5) Ur Specific [place] 1.023 (1.000-1.030) Urine Protein 1+ H (Negative) Urine Glucose (UA) Trace H (Negative) Urine Ketones Trace H (Negative) Urine Blood 2+ H (Negative) Urine Nitrite Negative (Negative) Urine Bilirubin Negative (Negative) Urine Urobilinogen Negative (Negative) Ur Leukocyte Esterase 1+ H (Negative) Urine WBC (Auto) 21-50 H (0-5) /hpf Urine RBC (Auto) 3-5 H (0-2) /hpf U Hyaline Cast (Auto) 0-2 (0-2) /lpf U Epithel Cells (Auto) 0-2 (0-2) /hpf Urine Bacteria (Auto) None Seen (None Seen) Urine Comment Adenovirus (PCR) Not Detected (NotDetected) B. pertussis DNA (PCR) Not Detected (NotDetected) B.parapertussis DNA PCR Not Detected (NotDetected) C. pneumoniae DNA (PCR) Not Detected (NotDetected) Coronavirus OC43 (PCR) Not Detected (NotDetected) Coronavirus HKU1 (PCR) Not Detected (NotDetected) Coronavirus 229E (PCR) Not Detected (NotDetected) SARS-CoV-2 (PCR) Not Detected (NotDetected) Coronavirus NL63 (PCR) Not Detected (NotDetected) Human Metapneumovir PCR Not Detected (NotDetected) Influenza Type A (PCR) Not Detected (NotDetected) Influenza Type B (PCR) Not Detected (NotDetected) M. pneumoniae (PCR) Not Detected (NotDetected) Parainfluenza 1 (PCR) Not Detected (NotDetected) Parainfluenza 2 (PCR) Not Detected (NotDetected) Parainfluenza 3 (PCR) Not Detected (NotDetected) Parainfluenza 4 (PCR) Not Detected (NotDetected) RSV (PCR) Not Detected (NotDetected) Entero/Rhino (PCR) Not Detected (NotDetected) Imaging Data My Impression: No acute cardiopulmonary process noted on chest x-ray. Radiologist's Impression: Cervical Spine CT 03/22/25 07:11 CT SCAN OF THE CERVICAL SPINE CLINICAL HISTORY: Fall. COMPARISON STUDY: CT of the neck September 26, 2022. TECHNIQUE: CT scan of the cervical spine is performed from the skull base to the upper thoracic spine. Images are reviewed in the axial, sagittal, and coronal planes. IV contrast was not administered for this examination. A dose lowering technique was utilized adhering to the principles of ALARA. CT DOSE: 2487.23 mGy.cm FINDINGS: Skeletal structures: There is no evidence of fracture or subluxation involving the cervical spine. Vertebral body height and alignment are maintained. The odontoid process and lateral masses are intact. The atlantoaxial articulation is preserved. The spinous processes appear intact. There is moderate multilevel facet arthrosis and disc space narrowing within the cervical spine. Soft tissues: The prevertebral and paraspinous soft tissues are within normal limits. Calvarium: The visualized calvarium at the skull base appears intact. Brain parenchyma: Partially visualized brain parenchyma at the skull base is within normal limits. Lung apices: Clear as visualized. IMPRESSION: No acute cervical spine fracture or subluxation. ACT 112: Negative or not required by law. Electronically signed by: Les Morocho M.D. 03/22/2025 8:16 AM Chest X-Ray 03/22/25 07:11 EXAM: XR chest 1V portable CLINICAL HISTORY: weakness TECHNIQUE: An X-ray image of the chest is obtained in AP projection. COMPARISON: CT dated 02/21/2025 FINDINGS: Pulmonary Parenchyma: No evidence of consolidation, collapse, or focal opacities. No pulmonary nodules are identified. No evidence of pleural effusion or pleural thickening. Heart and Mediastinum: Heart size and shape are normal. No mediastinal widening or masses. No hilar or mediastinal lymphadenopathy. Bony Thorax: Reduced mineralization of the imaged bony structures seen due to osteopenia, slight structural alteraton of right humerus seen, could be sequela of prior fracture pathology or may be positional artifact Soft Tissues: Soft tissues overlying the chest wall are unremarkable. IMPRESSION: 1. No acute cardiopulmonary abnormalities are identified. 2. No interval changes Electronically signed by Steven Christopher 03-22-2025 08:[address] 03/22/25 07:11 CT SCAN OF THE BRAIN WITHOUT IV CONTRAST CLINICAL HISTORY: Fall with head injury. COMPARISON STUDY: MRI of the brain March 05, 2024. Head CT October 27, 2024. TECHNIQUE: Unenhanced axial CT scan of the brain was performed from the vertex to the skull base. A dose lowering technique was utilized adhering to the principles of ALARA. FINDINGS: Brain parenchyma: No acute intracranial hemorrhage, midline shift or mass effect is present. Jane-white matter differentiation is preserved. There are no extra- axial fluid collections. There are no findings to suggest acute dural sinus thrombosis or acute territorial infarct. White matter hypodensities are unchanged and favor small vessel disease. Ventricles, sulci, cisterns: There is no hydrocephalus. The basal cisterns are patent. Calvarium: There is a left posterior scalp contusion. There is no calvarial fracture. Sinuses and mastoids: Mucous retention cyst within the left sphenoid sinus is incidentally noted. The mastoid air cells are well pneumatized. Orbits: The bony orbits are grossly intact. IMPRESSION: 1. No acute intracranial findings. 2. No calvarial fractures. ACT 112: Negative or not required by law. Electronically signed by: Les Morocho M.D. 03/22/2025 8:[address] 03/22/25 07:11 CT lumbar spine wo con HISTORY: 79 years-old Female fall back pain . Back pain status post fall COMPARISON: Thoracic spine CT same day, CT abdomen and pelvis 02/21/2025 TECHNIQUE: Multiple axial CT images of the lumbar spine were obtained without IV contrast. A dose lowering technique was used consistent with the principals of ALARA. FINDINGS: Chronic T12, L2 and L3 compression deformities. No acute fracture or subluxation. Demineralized appearance of the bones. Mild to moderate multilevel spondylotic spurring with moderate facet arthrosis. No high-grade central canal or neural foraminal narrowing identified by CT. Multilevel posterior annular disc bulging. Coarse calcifications of the left hepatic lobe. Asymmetrically atrophic right kidney. Atherosclerosis of the aorta. IMPRESSION: 1. No acute fracture or subluxation. 2. Chronic T12, L2 and L3 compression fractures. ACT 112: Negative or not required by law. The above report was generated using voice recognition software. It may contain grammatical, syntax or spelling errors. Electronically signed by: Steve Garcia M.D. 03/22/2025 8:[address] 03/22/25 07:11 CT OF THE THORACIC SPINE CLINICAL HISTORY: fall back pain COMPARISON STUDY: 02/21/2025 TECHNIQUE: Helical axial images of the thoracic spine were obtained. Sagittal and coronal reconstructions were viewed. Automated exposure control was utilized for the study. A dose lowering technique was utilized adhering to the principles of ALARA. FINDINGS: There is an old sternal fracture, similar in appearance to the prior 11 T5 study. There is progressive loss in height of the T9 vertebral body with sclerotic vertebral body changes. The vertebral body currently measures 9 mm in height compared to 15 mm in height on the prior study. Currently there is a 60% loss in height. There is mild paravertebral edema at this level. The posterior elements appear intact. There is no significant retropulsion. An old superior endplate T12 compression deformity remains unchanged in appearance. No acute rib fractures are visualized. There are no pleural effusions. There is no pneumothorax. There are dependent atelectatic changes. There are a few scattered sub-2 mm pulmonary nodules of doubtful clinical significance. There is mild ectasia of the ascending thoracic aorta which measures 37 mm the level the main pulmonary artery. IMPRESSION: 1. Progressive loss in height in the previously described T9 compression fracture. The vertebral body currently measures 9 mm in height compared with 15 on the prior study dated 02/21/2025. There is mild paravertebral edema. 2. Old sternal fracture, and old superior endplate T12 compression fracture. ACT 112: Negative or not required by law. Electronically signed by: Bharat Andino M.D. 03/22/2025 8:24 AM ECG Data Attestation: I personally reviewed and interpreted this ECG as follows: Indication: + tachycardia Rate (beats per minute): 102 Rhythm: + sinus tachycardia ECG Intervals/blocks: + Normal QRS, + Normal QT and + Normal [place] ECG [place]: + Left axis deviation ECG ST segments: + Normal ST segments Comparison ECG Date: from (02/21/2025) Change: no significant change MDM Narrative Patient is an 79-year-old female who presents after multiple falls within the last 24 hours. Not on any anticoagulation. GCS of 15. Primary exam is nonconcerning. Secondary exam notable for findings above. CT imaging ordered and reviewed. No acute traumatic injury noted to the CT of the head or cervical spine. C-collar was cleared after normal imaging and reexamination. CT of the thoracic spine does show interval progression of chronic T9 compression fracture. No increased back pain or neurofindings requiring immediate neurosurgical intervention. CT of the lumbar spine nonconcerning. Lab work shows a mild leukocytosis. No other SIRS criteria met. No obvious source of infection or fever. UA nonspecific and without any symptoms I am hesitant to treat until culture results return. Mild elevation in BUN to creatinine ratio. IV fluids were given. No other concerning metabolic abnormality noted. Daughter at bedside. She is concerned about the increased frequency of falls and is asking about higher level of care then she currently has at home. Will admit for PT/OT eval and possible acute rehab stay. Patient stable for admission to hospitalist service. Impression & Plan Falls frequently, Dehydration, Leukocytosis, Compression fx, thoracic spine Discharge Plan Visit Data Chief Complaint: Fall Stated Complaint: FALLS, BACK PAIN ED Provider: Aroldo Bergman Discharge Problem: Falls frequently, Dehydration, Leukocytosis, Compression fx, thoracic spine Patient Disposition: Admitted As Inpatient Condition: Good Forms Stand Alone Forms: My [employer] Prescriptions Prescriptions: No Action methenamine hippurate 1 gram tablet 1 g PO BID Qty: 60 11RF cholecalciferol (vitamin D3) [Vitamin D3] 25 mcg (1,000 unit) Tablet 25 mcg PO QAM prednisone 5 mg tablet 5 mg PO UD Rx Instructions: STARTED 10/20/24--TAKE 10 MG X 7 DAYS, THEN 7.5 MG X 14 DAYS, THEN 5 MG DAILY cyanocobalamin (vitamin B-12) [Vitamin B-12] 1,000 mcg Tablet 1,000 mcg PO DAILY trimethoprim 100 mg tablet 100 mg PO BID Referrals Referrals: Alfredo Mesa DO [Primary Care Provider] -
[2025-03-22 07:30] LABS: Hematocrit (blood only) 32.2 % (37.0-47.0); Hemoglobin 10.6 g/dL (12.0-16.0); Immature Granulocytes # (auto) 0.14 K/uL (0.01-0.20); Immature Granulocytes % (auto) 1.0 %; Mean Corpuscular Hemoglobin 30.4 pg (25.0-34.0); Mean Corpuscular Volume 92.3 fL (80.0-100.0); Platelet Count 245 K/uL (130-400); RDW Standard Deviation 48.2 fL (36.4-46.3); Red Blood Count 3.49 M/uL (4.20-5.40); White Blood Count 14.37 K/ul (4.8-10.8)
[2025-03-22 07:51] LABS: Alanine Aminotransferase 13.0 U/L (7-52); Albumin Globulin Ratio 1.9 (0.9-2); Albumin Level 4.3 gm/dl (3.4-5.0); Alkaline Phosphatase 67.0 U/L (34-104); Anion Gap 13.0 (3-11); Bilirubin,Total 0.8 mg/dl (0.2-1.0); Blood Urea Nitrogen 39.0 mg/dl (6-23); Calcium 9.5 mg/dl (8.6-10.3); Carbon Dioxide 23.0 mmol/L (21-32); Chloride 105.0 mmol/L (98-107); Creatinine Clr Calc Pharmacy 42.1 ml/min; Globulin 2.3 gm/dl (2.5-4.0); Glucose 156.0 mg/dl (70-99(Fasting)); Magnesium 1.7 mg/dl (1.7-2.4); Potassium 4.4 mmol/L (3.5-5.1); Sodium 141.0 mmol/L (136-145); Total Protein 6.6 gm/dl (6.0-8.3)
[2025-03-22] MEDS: SODIUM CHLORIDE 0.9% 500 ML IV SCH (07:54)
[2025-03-22 08:06] LABS: Thyroid Stimulating Hormone 0.972 uIu/ml (0.300-4.500)
--- NOTE | 2025-03-22 08:15 | CT Scan Report ---
CT SCAN OF THE BRAIN WITHOUT IV CONTRAST CLINICAL HISTORY: Fall with head injury. COMPARISON STUDY: MRI of the brain March 05, 2024. Head CT October 27, 2024. TECHNIQUE: Unenhanced axial CT scan of the brain was performed from the vertex to the skull base. A dose lowering technique was utilized adhering to the principles of ALARA. FINDINGS: Brain parenchyma: No acute intracranial hemorrhage, midline shift or mass effect is present. Jane-whi te matter differentiation is preserved. There are no extra-axial fluid collections. There are no find ings to suggest acute dural sinus thrombosis or acute territorial infarct. White matter hypodensities are unchanged and favor small vessel disease. Ventricles, sulci, cisterns: There is no hydrocephalus. The basal cisterns are patent. Calvarium: There is a left posterior scalp contusion. There is no calvarial fracture. Sinuses and mastoids: Mucous retention cyst within the left sphenoid sinus is incidentally noted. The mastoid air cells are well pneumatized. Orbits: The bony orbits are grossly intact. IMPRESSION: 1. No acute intracranial findings. 2. No calvarial fractures. ACT 112: Negative or not required by law. Electronically signed by: Les Morocho M.D. 03/22/2025 8:14 AM
--- NOTE | 2025-03-22 08:18 | CT Scan Report ---
CT SCAN OF THE CERVICAL SPINE CLINICAL HISTORY: Fall. COMPARISON STUDY: CT of the neck September 26, 2022. TECHNIQUE: CT scan of the cervical spine is performed from the skull base to the upper thoracic spine . Images are reviewed in the axial, sagittal, and coronal planes. IV contrast was not administered fo r this examination. A dose lowering technique was utilized adhering to the principles of ALARA. CT DOSE: 2487.23 mGy.cm FINDINGS: Skeletal structures: There is no evidence of fracture or subluxation involving the cervical spine. Ve rtebral body height and alignment are maintained. The odontoid process and lateral masses are intact . The atlantoaxial articulation is preserved. The spinous processes appear intact. There is moderate multilevel facet arthrosis and disc space narrowing within the cervical spine. Soft tissues: The prevertebral and paraspinous soft tissues are within normal limits. Calvarium: The visualized calvarium at the skull base appears intact. Brain parenchyma: Partially visualized brain parenchyma at the skull base is within normal limits. Lung apices: Clear as visualized. IMPRESSION: No acute cervical spine fracture or subluxation. ACT 112: Negative or not required by law. Electronically signed by: Les Morocho M.D. 03/22/2025 8:16 AM
--- NOTE | 2025-03-22 08:21 | XRay Report ---
EXAM: XR chest 1V portable CLINICAL HISTORY: weakness TECHNIQUE: An X-ray image of the chest is obtained in AP projection. COMPARISON: CT dated 02/21/2025 FINDINGS: Pulmonary Parenchyma: No evidence of consolidation, collapse, or focal opacities. No pulmonary nodules are identified. No evidence of pleural effusion or pleural thickening. Heart and Mediastinum: Heart size and shape are normal. No mediastinal widening or masses. No hilar or mediastinal lymphadenopathy. Bony Thorax: Reduced mineralization of the imaged bony structures seen due to osteopenia, slight structural alteraton of right humerus seen, could be sequela of prior fracture pathology or may be positional artifact Soft Tissues: Soft tissues overlying the chest wall are unremarkable. IMPRESSION: 1. No acute cardiopulmonary abnormalities are identified. 2. No interval changes Electronically signed by Steven Christopher 03-22-2025 08:21 AM
--- NOTE | 2025-03-22 08:26 | CT Scan Report ---
CT lumbar spine wo con HISTORY: 79 years-old Female fall back pain . Back pain status post fall COMPARISON: Thoracic spine CT same day, CT abdomen and pelvis 02/21/2025 TECHNIQUE: Multiple axial CT images of the lumbar spine were obtained without IV contrast. A dose low ering technique was used consistent with the principals of ALARA. FINDINGS: Chronic T12, L2 and L3 compression deformities. No acute fracture or subluxation. Demineralized appea marquez of the bones. Mild to moderate multilevel spondylotic spurring with moderate facet arthrosis. N o high-grade central canal or neural foraminal narrowing identified by CT. Multilevel posterior annul ar disc bulging. Coarse calcifications of the left hepatic lobe. Asymmetrically atrophic right kidney. Atherosclerosis of the aorta. IMPRESSION: 1. No acute fracture or subluxation. 2. Chronic T12, L2 and L3 compression fractures. ACT 112: Negative or not required by law. The above report was generated using voice recognition software. It may contain grammatical, syntax o r spelling errors. Electronically signed by: Steve Garcia M.D. 03/22/2025 8:25 AM
--- NOTE | 2025-03-22 08:26 | CT Scan Report ---
CT OF THE THORACIC SPINE CLINICAL HISTORY: fall back pain COMPARISON STUDY: 02/21/2025 TECHNIQUE: Helical axial images of the thoracic spine were obtained. Sagittal and coronal reconstru ctions were viewed. Automated exposure control was utilized for the study. A dose lowering techniqu e was utilized adhering to the principles of ALARA. FINDINGS: There is an old sternal fracture, similar in appearance to the prior 11 T5 study. There is progressive loss in height of the T9 vertebral body with sclerotic vertebral body changes. T he vertebral body currently measures 9 mm in height compared to 15 mm in height on the prior study. C urrently there is a 60% loss in height. There is mild paravertebral edema at this level. The posterio r elements appear intact. There is no significant retropulsion. An old superior endplate T12 compression deformity remains unchanged in appearance. No acute rib fractures are visualized. There are no pleural effusions. There is no pneumothorax. There are dependent atelectatic changes. There are a few scattered sub-2 mm pulmonary nodules of doubtful clinical significance. There is mild ectasia of the ascending thoracic aorta which measures 37 mm the level the main pulmona ry artery. IMPRESSION: 1. Progressive loss in height in the previously described T9 compression fracture. The vertebral body currently measures 9 mm in height compared with 15 on the prior study dated 02/21/2025. There is mild paravertebral edema. 2. Old sternal fracture, and old superior endplate T12 compression fracture. ACT 112: Negative or not required by law. Electronically signed by: Bharat Andino M.D. 03/22/2025 8:24 AM
[2025-03-22] MEDS: KETOROLAC TROMETHAMINE 15 MG/ML VIAL IV ONE (08:46)
[2025-03-22 09:26] LABS: Coronavirus 229E PCR Not Detected (NotDetected); Coronavirus HKU1 PCR Not Detected (NotDetected); Coronavirus NL63 PCR Not Detected (NotDetected); Coronavirus OC43PCR Not Detected (NotDetected)
[2025-03-22 09:27] LABS: Chlamydia pneumoniae PCR Not Detected (NotDetected); Coronavirus CoV-2 (COVID19)PCR Not Detected (NotDetected); Human Metapneumovirus PCR Not Detected (NotDetected); Parainfluenza Virus 1 PCR Not Detected (NotDetected); Parainfluenza Virus 2 PCR Not Detected (NotDetected); Parainfluenza Virus 3 PCR Not Detected (NotDetected); Parainfluenza Virus 4 PCR Not Detected (NotDetected); Respiratory Syncytial VirusPCR Not Detected (NotDetected); Rhinovirus/Enterovirus PCR Not Detected (NotDetected)
--- NOTE | 2025-03-22 10:36 | Electrocardiogram Report ---
Test Reason : Blood Pressure : */* mmHG Vent. Rate : 102 BPM Atrial Rate : 102 BPM P-R Int : 134 ms QRS Dur : 68 ms QT Int : 322 ms P-R-T Axes : 57 -36 80 degrees QTcB Int : 419 ms Sinus tachycardia Left axis deviation Anterolateral infarct (cited on or before 16-Sep-2022) Abnormal ECG When compared with ECG of 21-Feb-2025 16:55, Nonspecific T wave abnormality now evident in Lateral leads Confirmed by Ramos Winslow ([id number]) on 03/22/2025 10:36:33 AM Referred By: REFERRED SELF Confirmed By: Ramos Winslow
[2025-03-22 12:21] LABS: Appearance Urine Clear (Clear); Bacteria Urine Automated None Seen (None Seen); Cast Urine Automated 0-2 /lpf (0-2); Epithelial Cell Urine Auto 0-2 /hpf (0-2); Glucose Urine UA Trace (Negative); WBC Urine Automated 21-50 /hpf (0-5)
--- NOTE | 2025-03-22 13:34 | History & Physical Report ---
Date of Service March 22, 2025 Assessment & Plan (1) Compression fx, thoracic spine: (2) Dehydration: (3) Falls frequently: (4) Stage IV carcinoma of ovary: (5) Dermatomyositis: (6) Generalized weakness: Plan #Osteoporotic thoracic compression fractureno neurologic compromise. Fall and pain new yesterdayso I suspect this is when the fracture worsened. Pain controllidocaine patch/Miacalcin nasal spray, scheduled Tylenol, scheduled Toradol, as needed morphine. #Weakness/deconditioningPT/OT eval and treat. Daughter working on 24/7 care at home, case management might be able to assist with this some, also discussed that we may need to look at SNF for the time being #hospice patient/palliative goals of careseems to relate to her dermatomyositis and ovarian cancerultimate goal is to be back home on hospice, but needs more help for this to be safe #dehydrationlabs suggested degree of dehydrationthis could be acutely making her weakness worsegentle IV fluids, follow p.o. intake #DVT prophylaxisLovenox History of Present Illness Chief Complaint: Weakness, back pain Primary Care Provider: Alfredo Mesa DO patient is a very pleasant 79-year-old female accompanied by her daughter. It sounds like she has had worsening weakness for quite a while, but the last few days has been very bad. In the last 24 hours she has had roughly 4 falls. 1 she was home alone between caregivers (the daughter is working on 24/7 care) and the caregiver found the patient down on the floor. She was coherent, did not appear to have any loss of consciousness, but did have worse back pain. Since then she continues to fall more and more. Patient and daughter endorse a gradual decline and overall weakness largely leading to the falls. Back pain definitely new/worse since the 1 fall yesterday. She is at home on hospice, daughter knows that the patient needs 24/7 care and has been working on it, but has not been able to make all arrangements yet. Ultimate goal would be to be at home on hospice with 24/7 care, but need more help at this time. Allergies Allergy/AdvReac Type Severity Reaction Status Date / Time shrimp Allergy Intermediate Hives Verified 10/27/24 19:29 aspirin Allergy Mild itching Verified 10/27/24 19:29 Home Medications Medication Instructions Recorded Confirmed Type cholecalciferol (vitamin D3) 25 25 mcg PO QAM 09/11/22 03/22/25 History mcg (1,000 unit) tablet (Vitamin D3) cyanocobalamin (vitamin B-12) 1,000 mcg PO DAILY 04/20/24 03/22/25 History 1,000 mcg tablet (Vitamin B-12) prednisone 5 mg tablet 5 mg PO UD 10/20/24 03/22/25 History methenamine hippurate 1 gram tablet 1 g PO BID #60 tabs 02/08/25 03/22/25 Rx trimethoprim 100 mg tablet 100 mg PO BID 03/22/25 03/22/25 History Past Med/Surg History Problem List Compression fx, thoracic spine (Acute) Leukocytosis (Acute) Dehydration (Acute) Falls frequently (Acute) Lactic acid blood increased Demand ischemia Stage IV carcinoma of ovary Ovarian carcinoma Oral thrush Oropharyngeal dysphagia Aspiration of food Elevated creatine kinase (Acute) Elevated troponin (Acute) Dermatomyositis (Acute) Generalized weakness (Acute) Encounter for pre-operative examination Medical History Ureteral stricture Hydronephrosis of right kidney Non-ST elevation MD (NSTEMI) Hypomagnesemia Acute confusion Elevated procalcitonin Elevated lactic acid level Leukocytosis Acute UTI (urinary tract infection) Severe sepsis Hydronephrosis Hypertension History of sepsis 04/14/24 Anemia heme/onc monitoring; Olaparib was D/C 03/02/24 2/2 anemia Hydronephrosis of right kidney ureteral stricture per recent urology note Hx of ovarian cancer L ovary; dx 07/2023, s/p surgery and IV chemo History of hypertension History of dysphasia no current issues per pt. (previously had progressive dermatomyositis and weakness and had a PEG tube) GERD (gastroesophageal reflux disease) Osteoporosis Surgical History History of cystoscopy (12/2023) cysto, R stent 01/13/24: [place]: LMA#4 without issue Hx of total hysterectomy with removal of both tubes and ovaries robotic assisted supracervical hysterectomy, bilateral salpingo-oophorectomy, bilateral peritoneal biopsies, and removal of tumor adjacent to colon on 08/06/2023 History of biopsy left upper arm 09/20/22 @ [facility] Dr. Troy Sparks S/P percutaneous endoscopic gastrostomy (PEG) tube placement 09/20/22 @ [facility] by Case>has since been removed History of dilatation and curettage History of colonoscopy History of tonsillectomy History of tooth extraction History of bilateral cataract extraction Family History Other No family history of adverse response to anesthesia Social History Smoking Status: Never smoker Second Hand Exposure: Yes (in the past); Do You Dip or Chew Tobacco: No; Hx Alcohol Use: No Hx Substance Use: No Preferred Language: Setswana Communication Ability: Effective Wage [employer] Investigator Required: No Beliefs That Will Affect Care: None Current Living Situation: Alone Feels Safe at Home: Yes Assistive Devices: Cane and Walker Review of Systems Review of Systems: All systems reviewed & are unremarkable except as noted in HPI & below Physical Exam Physical Exam: In general she is awake alert oriented pleasant no distress. HEENT normocephalic atraumatic mucous membranes moist. Breathing unlabored no accessory muscle use good effort lungs are clear no notable adventitious sounds. Cardio is regular somewhat distant no rubs murmurs or gallops. Musculoskeletal shows bony palpation at the spinous process right around T9. No skin lesions/open wounds/erythema. Extremities show no cyanosis or clubbing, maybe trace bilateral lower extremity edema no erythema no calf tenderness. Neuro shows cranial nerves II through XII be grossly intact gross motor and sensory intact. Skin shows no rashes no pallor or icterus. Labs and diagnostics noted. Results & Data Results & Data Vital Signs (Past 12 Hours) Vital Signs Temp Pulse Pulse Resp BP BP Pulse Ox 03/22/25 13:00 81 15 116/72 94 03/22/25 12:30 82 15 111/68 93 03/22/25 12:15 85 03/22/25 12:00 82 16 123/76 95 03/22/25 11:30 96 H 17 124/83 95 03/22/25 11:00 88 17 122/75 94 03/22/25 10:30 93 H 14 112/70 95 03/22/25 10:00 86 17 116/71 95 03/22/25 09:30 86 15 113/71 94 03/22/25 09:00 84 16 122/77 95 03/22/25 08:36 88 03/22/25 08:30 97 H 19 158/81 H 98 03/22/25 08:00 91 H 12 139/91 97 03/22/25 08:00 90 12 139/91 96 03/22/25 07:50 96 H 12 127/91 97 03/22/25 07:16 97.9 F 99 H 21 118/97 97 03/22/25 07:04 94 H 21 97 03/22/25 07:04 96 H 21 118/97 97 O2 Del Method 03/22/25 13:00 Room Air 03/22/25 12:30 Room Air 03/22/25 12:15 03/22/25 12:00 03/22/25 11:30 Room Air 03/22/25 11:00 Room Air 03/22/25 10:30 Room Air 03/22/25 10:00 Room Air 03/22/25 09:30 Room Air 03/22/25 09:00 Room Air 03/22/25 08:36 03/22/25 08:30 Room Air 03/22/25 08:00 Room Air 03/22/25 08:00 Room Air 03/22/25 07:50 Room Air 03/22/25 07:16 Room Air 03/22/25 07:04 Room Air 03/22/25 07:04 Room Air Code Status & VTE Plan VTE Prophylaxis Plan VTE Prophylaxis will be ordered: Yes PG Care Time/CCT Total # of Minutes Spent Total Time Spent with Patient: Total time spent is greater than 50% in coordination of care (as documented) at patient's floor/unit and/or counseling patient: Coding Level of Care Code 22284 INT INP/OBS CARE 3/75MIN Diagnoses Compression fx, thoracic spine S22.000A Dehydration E86.0 Falls frequently R29.6 Stage IV carcinoma of ovary C56.9 Dermatomyositis M33.90 Generalized weakness R53.1
[2025-03-22] MEDS ORDERED: MAGNESIUM HYDROXIDE SUSP 30 ML UDC PO PRN (14:35)
[2025-03-22] MEDS ORDERED: MELATONIN 3 MG TAB PO PRN (14:35)
[2025-03-22] MEDS ORDERED: ONDANSETRON INJ 2 MG/ML 2 ML VIAL IV PRN (14:35)
[2025-03-22] MEDS ORDERED: MoRPHine SULFATE 2 MG/ML CARP IV PRN (14:35)
[2025-03-22] MEDS: ACETAMINOPHEN 325 MG TAB PO SCH (14:49)
[2025-03-22] MEDS: LIDOCAINE 5% 1 PATCH TD SCH (14:50)
[2025-03-22] MEDS: ENOXAPARIN INJ 40 MG/0.4 ML SYR SQ SCH (14:50)
[2025-03-22] MEDS: KETOROLAC TROMETHAMINE 15 MG/ML VIAL IV PRN (14:50)
[2025-03-22] MEDS: LACTATED RINGER'S 1,000 ML IV SCH (14:51)
[2025-03-22] MEDS: KETOROLAC TROMETHAMINE 15 MG/ML VIAL IV SCH (14:52)
[2025-03-22] MEDS: CALCITONIN SALMON NA 200 IU/AC 3.7 ML BTL SCH (16:41)
[2025-03-22] MEDS: METHENAMINE HIPPURATE 1 GM TAB PO SCH (20:51)
[2025-03-22] MEDS: REMOVE LIDODERM PATCH SCH (20:52)
--- NOTE | 2025-03-23 07:40 | Hospitalist Progress Note ---
Date of Service March 23, 2025 Assessment & Plan (1) Compression fx, thoracic spine: (2) Dehydration: (3) Falls frequently: (4) Stage IV carcinoma of ovary: (5) Dermatomyositis: (6) Generalized weakness: Plan Skye is an 79yo with history of osteoporosis, stage IV ovarian cancer, and dermatomyositis admitted for new T9 vertebral compression fracture due to fall. Requires continued admission for pain control and PT/OT while pending placement to SNF. #Osteoporotic thoracic compression fracture, T9 progressed from prior Likely fall on 03/21 has worsened prior known T9 compression fracture continue multimodal pain control: lidocaine patch, Miacalcin nasal spray, scheduled Tylenol, scheduled Toradol, and as needed morphine #Weakness/deconditioning PT/OT eval and treat. Daughter working on 11/11 care at home - case mgmt looking into SNF for the time being, patient has become amenable to this idea #anemia, normocytic Hgb 10.6 -> 7.4 in AM, with hematocrit decreasing as well. Pt did notably receive 1.5L of IV fluids on 03/22 and with no overt signs or symptoms of bleeding that would reflect a drop in hemoglobin of 3 point, especially considering how well the patient appears and feels, we can almost definitely attribute this drop to dilution - did mention she had a small amount of red in her BM day prior, but she has known hemorrhoids - H&H obtained at 1600: 7.3. Drop of 0.1 over half a day is not concerning for an acute bleed, and with patient still appearing and feeling well, will obtain CBC in AM #dermatomyositis and ovarian cancer ultimate goal is to be back home on hospice, but will continue working on nutrition and strength while here #dehydration IV fluids discontinued, continue working on PO intake - CBC, BMP in AM DVT prophylaxisLovenox Admission and Anticipated Discharge Date Admission Date: March 22, 2025 Supervising Physician Co-Signing Physician Notes I personally examined the patient and verified all avila points of history and exam, discussed case, and agree with decision making with Dr Olivares feeling much better overall. Walked with therapy and did better than she retrieved she would have. No lightheadedness or weakness. No abdominal pain nausea or vomiting. Ate reasonably well. Did have a little bit of streaking of blood with her most recent bowel movement, no bleeding prior. Vitals noted, in general she is awake and alert pleasant no distress looks much brighter than yesterday. Breathing unlabored no accessory muscle use good effort. Skin without rashes pallor or icterus. Neuro without focal deficits. Osteoporotic compression fracture of thoracic vertebrapain control. Doing well. Weakness/deconditioningPT/OT eval and treatactually showing more potential rehab benefit than initially suspected. Anticipate rehab once bed is available. Anemiano signs or symptoms of blood loss, hemodynamically stable. A little bit of streaking of blood in her stool sounds more consistent with hemorrhoidal bleeding than anything serious, no evidence of hemorrhage. Follow hemoglobin, I suspect a lot of the "drop" was probably dilutional and lab variation dehydrationimproved hospice patient/palliative goals of careseems to relate to her dermatomyositis and ovarian cancerultimate goal is to get her back home on hospice, but she actually shows rather significant rehab potential at this point and I do believe it is quite reasonable to try to maximize her rehab potential to improve her quality and quantity of life. DVT proph - lovenox Subjective Skye endorses feeling well this AM with improvement of her back pain. Has been eating and drinking well, notes she did have one slightly red BM day prior, known hx of hemorrhoids. States she was able to walk a couple of laps on the floor, which she was proud of. No lightheadedness, SOB, dizziness. Physical Exam Physical Exam: Gen: appearing well, no acute distress CV: RRR, no m/r/g Resp: clear to auscultation b/l, no w/r/R MSK/neuro: no focal weakness, no gross deformities Results & Data Results & Data Vital Signs (Past 12 Hours) Vital Signs Temp Pulse Resp BP Pulse Ox O2 Del Method 03/22/25 22:27 36.9 C 78 16 121/71 93 Room Air 03/22/25 20:55 Room Air Resident Activity Tracking Resident Involvement: Resident Care Provided Care Provided: Adult Hospital Medicine
[2025-03-23] MEDS: CYANOCOBALAMIN (B-12) 500 MCG TABLET PO SCH (08:59)
[2025-03-23] MEDS: CHOLECALCIFEROL 25 MCG (1000 UNITS) TAB PO SCH (08:59)
[2025-03-23 09:03] LABS: Hematocrit (blood only) 22.5 % (37.0-47.0); Hemoglobin 7.4 g/dL (12.0-16.0); Mean Corpuscular Hemoglobin 30.8 pg (25.0-34.0); Mean Corpuscular Volume 93.8 fL (80.0-100.0); Platelet Count 167 K/uL (130-400); RDW Standard Deviation 49.7 fL (36.4-46.3); Red Blood Count 2.40 M/uL (4.20-5.40); White Blood Count 8.60 K/ul (4.8-10.8)
[2025-03-23 09:14] LABS: Anion Gap 6.0 (3-11); Blood Urea Nitrogen 45.0 mg/dl (6-23); Calcium 8.3 mg/dl (8.6-10.3); Carbon Dioxide 24.0 mmol/L (21-32); Chloride 110.0 mmol/L (98-107); Creatinine Clr Calc Pharmacy 40.0 ml/min; Glucose 158.0 mg/dl (70-99(Fasting)); Potassium 4.1 mmol/L (3.5-5.1); Sodium 140.0 mmol/L (136-145)
[2025-03-23 09:26] LABS: Immature Granulocytes # (auto) 0.06 K/uL (0.01-0.20); Immature Granulocytes % (auto) 0.7 %; Polychromasia 1+
--- NOTE | 2025-03-23 12:58 | Billing Data ---
Date of Service March 23, 2025 Coding Level of Care Code 60153 SUB INP/OBS CARE
[2025-03-23 16:22] LABS: Hematocrit (blood only) 22.4 % (37.0-47.0); Hemoglobin 7.3 g/dL (12.0-16.0)
[2025-03-24 07:16] LABS: Hematocrit (blood only) 21.8 % (37.0-47.0); Hemoglobin 7.2 g/dL (12.0-16.0); Mean Corpuscular Hemoglobin 30.8 pg (25.0-34.0); Mean Corpuscular Volume 93.2 fL (80.0-100.0); Platelet Count 183 K/uL (130-400); RDW Standard Deviation 49.1 fL (36.4-46.3); Red Blood Count 2.34 M/uL (4.20-5.40); White Blood Count 9.41 K/ul (4.8-10.8)
[2025-03-24 07:45] LABS: Anion Gap 7.0 (3-11); Blood Urea Nitrogen 29.0 mg/dl (6-23); Calcium 8.4 mg/dl (8.6-10.3); Carbon Dioxide 22.0 mmol/L (21-32); Chloride 109.0 mmol/L (98-107); Creatinine Clr Calc Pharmacy 49.2 ml/min; Glucose 127.0 mg/dl (70-99(Fasting)); Potassium 4.1 mmol/L (3.5-5.1); Sodium 138.0 mmol/L (136-145)
--- NOTE | 2025-03-24 09:22 | Hospitalist Progress Note ---
Date of Service March 24, 2025 Assessment & Plan (1) Compression fx, thoracic spine: (2) Dehydration: (3) Stage IV carcinoma of ovary: (4) Dermatomyositis: (5) Generalized weakness: (6) Hypoproliferative anemia: Plan Skye is an 79yo with history of osteoporosis, stage IV ovarian cancer, and dermatomyositis admitted for new T9 vertebral compression fracture due to fall. New finding of hypoproliferative anemia, engaging with hematology for further intervention. Requires continued admission for pain control, vital sign monitoring, daily labs, and PT/OT while pending placement to SNF. #Osteoporotic thoracic compression fracture, T9 progressed from prior Likely fall on 03/21 has worsened prior known T9 compression fracture continue multimodal pain control: lidocaine patch, Miacalcin nasal spray, scheduled Tylenol, scheduled Toradol, and as needed morphine PT/OT as tolerated #anemia, hypoproliferative Hgb 10.6 -> 7.4 -> 7.2 in AM. Initially suspected dilution but as her hemoglobin has not improved, but looking further into her blood cell production, with her reticulocytes being slightly elevated yet still not enough to make up for her hemoglobin levels, calculated her Reticulocyte Production Index is low at 0.9 (normal is 2) Did reach out to hematology but have yet to put in a formal consult Added peripheral smear to her labs: no overt changes of a myelodysplastic syndrome or hemolytic anemia; reviewed findings consistent with non-specific normochromic, normocytic anemia - did mention she had a small amount of red in her BM 2 days prior, but she has known hemorrhoids and has not had any obvious bleeding since - CBC in AM #Weakness/deconditioning PT/OT eval and treat. Daughter working on 11/11 care at home - case mgmt looking into SNF for the time being, patient has become amenable to this idea #dermatomyositis and ovarian cancer ultimate goal is to be back home on hospice, but will continue working on nutrition and strength while here #dehydration IV fluids discontinued, continue working on PO intake - CBC, BMP in AM DVT prophylaxisLovenox Admission and Anticipated Discharge Date Admission Date: March 22, 2025 Supervising Physician Co-Signing Physician Notes I personally examined the patient and verified all avila points of history and exam, discussed case, and agree with decision making with Dr Olivares Feels good. No new problems or complaints. Vitals noted, in general she is awake and alert pleasant no distress looks much brighter than yesterday. Breathing unlabored no accessory muscle use good effort. Skin without rashes pallor or icterus. Neuro without focal deficits. Osteoporotic compression fracture of thoracic vertebrapain control. Doing well. For rehab. Weakness/deconditioningPT/OT eval and treatactually showing more potential rehab benefit than initially suspected. Anticipate rehab once bed is available. Anemiano signs or symptoms of blood loss, hemodynamically stable. Low retake indexI suspect this is all hypoproliferativepossibly just of her overall chronic disease burden. Iron and B12 studies do not suggest deficiency. I wonder if she could benefit from EPOwill want to discuss with hematology, at least informally, if not formal consult. dehydrationimproved hospice patient/palliative goals of careseems to relate to her dermatomyositis and ovarian cancerultimate goal is to get her back home on hospice, but she actually shows rather significant rehab potential at this point and I do believe it is quite reasonable to try to maximize her rehab potential to improve her quality and quantity of life. DVT proph - lovenox Subjective Skye endorses she didn't sleep well at all last night, feeling tired this AM. Notes about 4/10 back pain, continues to eat and drink well. No new fever, body aches, chills, abd pain, or urinary symptoms. Physical Exam Physical Exam: Gen: appearing well, no acute distress CV: RRR, no m/r/g Resp: clear to auscultation b/l, no w/r/R MSK/neuro: no focal weakness, no gross deformities Results & Data Results & Data Vital Signs (Past 12 Hours) Vital Signs Temp Pulse Resp BP Pulse Ox O2 Del Method 03/24/25 08:00 36.8 C 95 H 16 112/79 98 Room Air 03/24/25 03:20 87 152/88 H 03/23/25 22:22 36.9 C 87 16 163/76 H 95 Room Air Resident Activity Tracking Resident Involvement: Resident Care Provided Care Provided: Adult Hospital Medicine
[2025-03-24 09:38] LABS: Reticulocytes # 0.080 10^6/uL (0.020-0.100)
[2025-03-24] MEDS: INFLUENZA VACC TS2025-26(65y+)/PF (IIV3) 0.5mL Syr IM ONE (09:39)
[2025-03-24 09:43] LABS: Iron 55.0 mcg/dl (35-150); Total Iron Binding Cap Calc 283.0 mcg/dl (250-450); Transferrin 202.0 mg/dl (200-360); Transferrin (FE) Percent Satur 19.0 % (15-50)
[2025-03-24 10:03] LABS: Ferritin 460.7 ng/ml (8-388)
[2025-03-24 13:31] LABS: Immature Granulocytes # (auto) 0.07 K/uL (0.01-0.20); Immature Granulocytes % (auto) 0.7 %
[2025-03-24 13:52] LABS: Polychromasia 1+
[2025-03-24 13:53] LABS: Toxic Vacuolation Occasional
--- NOTE | 2025-03-24 18:00 | Billing Data ---
Date of Service March 24, 2025 Coding Level of Care Code 14305 SUB INP/OBS CARE
[2025-03-25 06:09] LABS: Hematocrit (blood only) 21.9 % (37.0-47.0); Hemoglobin 7.3 g/dL (12.0-16.0); Mean Corpuscular Hemoglobin 31.1 pg (25.0-34.0); Mean Corpuscular Volume 93.2 fL (80.0-100.0); Platelet Count 206 K/uL (130-400); RDW Standard Deviation 50.0 fL (36.4-46.3); Red Blood Count 2.35 M/uL (4.20-5.40); White Blood Count 8.39 K/ul (4.8-10.8)
[2025-03-25 06:25] LABS: Anion Gap 9.0 (3-11); Blood Urea Nitrogen 19.0 mg/dl (6-23); Calcium 8.4 mg/dl (8.6-10.3); Carbon Dioxide 22.0 mmol/L (21-32); Chloride 107.0 mmol/L (98-107); Creatinine Clr Calc Pharmacy 56.9 ml/min; Glucose 127.0 mg/dl (70-99(Fasting)); Potassium 3.9 mmol/L (3.5-5.1); Sodium 138.0 mmol/L (136-145)
--- NOTE | 2025-03-25 15:30 | Hospitalist Progress Note ---
Date of Service March 25, 2025 Assessment & Plan (1) Compression fx, thoracic spine: (2) Dehydration: (3) Generalized weakness: (4) Stage IV carcinoma of ovary: (5) Dermatomyositis: (6) Hypoproliferative anemia: Plan Skye is an 79yo with history of osteoporosis, stage IV ovarian cancer, and dermatomyositis admitted for new T9 vertebral compression fracture due to fall. New finding of hypoproliferative anemia, engaging with hematology for further intervention. Requires continued admission for pain control, vital sign monitoring, daily labs, and PT/OT while pending placement to SNF. #Osteoporotic thoracic compression fracture, T9 progressed from prior Likely fall on 03/21 has worsened prior known T9 compression fracture continue multimodal pain control: lidocaine patch, Miacalcin nasal spray, scheduled Tylenol; now prn Toradol, prn morphine PT/OT as tolerated #anemia, hypoproliferative Hgb 10.6 -> 7.2 -> 7.3 this AM /, revealing this may be around her new baseline. Initially suspected dilution but as her hemoglobin has not improved, but looking further into her blood cell production, with her reticulocytes being slightly elevated yet still not enough to make up for her hemoglobin levels, calculated her Reticulocyte Production Index is low at 0.9 (normal is 2) Did reach out to hematology, they do not recommend EPO for these cases. Peripheral smear showing no overt changes of a myelodysplastic syndrome or hemolytic anemia; reviewed findings consistent with non-specific normochromic, normocytic anemia - CBC in AM #Weakness/deconditioning PT/OT eval and treat. Daughter working on 11/11 care at home - case mgmt looking into SNF for the time being, patient has become amenable to this idea #dermatomyositis and ovarian cancer ultimate goal is to be back home on hospice, but will continue working on nutrition and strength while here #dehydration IV fluids discontinued, continue working on PO intake - CBC, BMP in AM DVT prophylaxisLovenox Admission and Anticipated Discharge Date Admission Date: March 22, 2025 Supervising Physician Co-Signing Physician Notes I personally examined the patient and verified all avila points of history and exam, discussed case, and agree with decision making with Dr Marshall gaines, no new issues identified, awaiting placement. allowed pt to rest. vitals noted nad heent nc at mmm breathing unlabored no accessory muscles good effort skin no rashes no pallor or icterus neuro no focal deficits Osteoporotic compression fracture of thoracic vertebrapain control. Doing well. For rehab. Weakness/deconditioningPT/OT eval and treatactually showing more potential rehab benefit than initially suspected. Anticipate rehab once bed is available. Anemiano signs or symptoms of blood loss, hemodynamically stable. Low retic indexI suspect this is all hypoproliferativepossibly just of her overall chronic disease burden. Iron and B12 studies do not suggest deficiency. d/w heme/onc informally - but no role for EPO in situations like this - follow and transfuse prn dehydrationimproved hospice patient/palliative goals of careseems to relate to her dermatomyositis and ovarian cancerultimate goal is to get her back home on hospice, but she actually shows rather significant rehab potential at this point and I do believe it is quite reasonable to try to maximize her rehab potential to improve her quality and quantity of life. DVT proph - lovenox for SNF or [facility] Subjective Skye endorses she slept much better last night, feeling well this AM. Notes continued improvement of back pain, continues to eat and drink well. No new fever, body aches, chills, abd pain, or urinary symptoms. Physical Exam Physical Exam: Gen: appearing well, no acute distress CV: RRR, no m/r/g Resp: clear to auscultation b/l, no w/r/R MSK/neuro: no focal weakness, no gross deformities Results & Data Results & Data Vital Signs (Past 12 Hours) Vital Signs Temp Pulse Pulse Resp BP Pulse Ox O2 Del Method 03/25/25 11:52 36.6 C 77 12 118/72 97 Room Air 03/25/25 08:07 Room Air 03/25/25 07:45 37.2 C 79 13 134/72 93 Room Air 03/25/25 07:12 36.6 C 86 16 119/81 96 Room Air 03/25/25 05:45 156/93 H Resident Activity Tracking Resident Involvement: Resident Care Provided Care Provided: Adult Hospital Medicine
--- NOTE | 2025-03-25 18:37 | Billing Data ---
Date of Service March 25, 2025 Coding Level of Care Code 41447 SUB INP/OBS CARE
[2025-03-26 07:23] LABS: Hematocrit (blood only) 23.0 % (37.0-47.0); Hemoglobin 7.5 g/dL (12.0-16.0); Mean Corpuscular Hemoglobin 30.7 pg (25.0-34.0); Mean Corpuscular Volume 94.3 fL (80.0-100.0); Platelet Count 213 K/uL (130-400); RDW Standard Deviation 50.7 fL (36.4-46.3); Red Blood Count 2.44 M/uL (4.20-5.40); White Blood Count 6.05 K/ul (4.8-10.8)
[2025-03-26 07:47] LABS: Anion Gap 7.0 (3-11); Blood Urea Nitrogen 16.0 mg/dl (6-23); Calcium 8.6 mg/dl (8.6-10.3); Carbon Dioxide 23.0 mmol/L (21-32); Chloride 106.0 mmol/L (98-107); Creatinine Clr Calc Pharmacy 56.9 ml/min; Glucose 105.0 mg/dl (70-99(Fasting)); Potassium 3.9 mmol/L (3.5-5.1); Sodium 136.0 mmol/L (136-145)
--- NOTE | 2025-03-26 08:54 | Hospitalist Progress Note ---
Date of Service March 26, 2025 Assessment & Plan (1) Compression fx, thoracic spine: (2) Dehydration: (3) Generalized weakness: (4) Stage IV carcinoma of ovary: (5) Dermatomyositis: (6) Hypoproliferative anemia: Plan Skye is an 79yo with history of osteoporosis, stage IV ovarian cancer, and dermatomyositis admitted for new T9 vertebral compression fracture due to fall. New finding of hypoproliferative anemia, engaging with hematology for further intervention. Requires continued admission for pain control, vital sign monitoring, daily labs, and PT/OT while pending placement to SNF. #Osteoporotic thoracic compression fracture, T9 progressed from prior Likely fall on 03/21 has worsened prior known T9 compression fracture continue multimodal pain control: lidocaine patch, Miacalcin nasal spray, scheduled Tylenol; now prn Toradol, prn morphine PT/OT as tolerated #anemia, hypoproliferative Hgb 10.6 -> 7.2 -> 7.3 -> 7.5 this AM /, revealing this may be around her new baseline. Initially suspected dilution but as her hemoglobin has not improved, but looking further into her blood cell production, with her reticulocytes being slightly elevated yet still not enough to make up for her hemoglobin levels, calculated her Reticulocyte Production Index is low at 0.9 (normal is 2) Did reach out to hematology, they do not recommend EPO for these cases. Peripheral smear showing no overt changes of a myelodysplastic syndrome or hemolytic anemia; reviewed findings consistent with non-specific normochromic, normocytic anemia - CBC in AM #Weakness/deconditioning PT/OT eval and treat. Daughter working on 11/11 care at home - case mgmt looking into SNF for the time being, patient has become amenable to this idea #dermatomyositis and ovarian cancer ultimate goal is to be back home on hospice, but will continue working on nutrition and strength while here #dehydration IV fluids discontinued, continue working on PO intake - CBC, BMP in AM DVT prophylaxisLovenox Admission and Anticipated Discharge Date Admission Date: March 22, 2025 Supervising Physician Co-Signing Physician Notes I personally examined the patient and verified all avila points of history and exam, discussed case, and agree with decision making with Dr Alonso continues to feel well. Family present. No new questions. Awaiting placement options. vitals noted nad heent nc at mmm breathing unlabored no accessory muscles good effort skin no rashes no pallor or icterus neuro no focal deficits Osteoporotic compression fracture of thoracic vertebrapain control. Doing well. For rehab. Continue current care. Weakness/deconditioningPT/OT eval and treatactually showing more potential rehab benefit than initially suspected. For SNF versus [facility] Anemiano signs or symptoms of blood loss, hemodynamically stable. Low retic indexI suspect this is all hypoproliferativepossibly just of her overall chronic disease burden. Iron and B12 studies do not suggest deficiency. d/w heme/onc informally - but no role for EPO in situations like this - follow and transfuse prn. Discussed this with patient and family dehydrationimproved hospice patient/palliative goals of careseems to relate to her dermatomyositis and ovarian cancerultimate goal is to get her back home on hospice, but she actually shows rather significant rehab potential at this point and I do believe it is quite reasonable to try to maximize her rehab potential to improve her quality and quantity of life. DVT proph - lovenox for SNF or [facility] Subjective Patient is sleeping soundly this AM. Review of Systems Review of Systems: as per HPI Physical Exam Physical Exam: was sleeping soundly Results & Data Results & Data Vital Signs (Past 12 Hours) Vital Signs Temp Pulse Resp BP Pulse Ox O2 Del Method 03/26/25 07:38 36.6 C 79 16 115/77 95 Room Air 03/25/25 23:15 36.7 C 94 H 16 148/63 H 94 Room Air Laboratory Results 03/26/25 Range/Units 07:13 WBC 6.05 (4.8-10.8) K/ul RBC 2.44 L (4.20-5.40) M/uL Hgb 7.5 L (12.0-16.0) g/dL Hct 23.0 L (37.0-47.0) % MCV 94.3 (80.0-100.0) fL MCH 30.7 (25.0-34.0) pg MCHC 32.6 (32.0-36.0) g/dL RDW Std Deviation 50.7 H (36.4-46.3) fL RDW Coeff of [place] 15.5 H (11.5-14.5) % Plt Count 213 (130-400) K/uL MPV 9.5 (9.4-12.4) fL Sodium 136 (136-145) mmol/L Potassium 3.9 (3.5-5.1) mmol/L Chloride 106 (98-107) mmol/L Carbon Dioxide 23 (21-32) mmol/L Anion Gap 7 (3-11) BUN 16 (6-23) mg/dl Creatinine 0.71 (0.6-1.2) mg/dl Est Cr Clr Drug Dosing 56.9 ml/min eGFR 85.90 BUN/Creatinine Ratio 22.5 H (10-20) Glucose 105 H (70-99(Fasting)) mg/dl Calcium 8.6 (8.6-10.3) mg/dl Resident Activity Tracking Resident Involvement: Resident Care Provided Care Provided: Adult Hospital Medicine
[2025-03-26] MEDS: NON-FORMULARY PATIENT'S OWN MED PO SCH (12:33)
--- NOTE | 2025-03-26 17:40 | Billing Data ---
Date of Service March 26, 2025 Coding Level of Care Code 33084 SUB INP/OBS CARE
[2025-03-27 06:10] LABS: Hematocrit (blood only) 22.6 % (37.0-47.0); Hemoglobin 7.2 g/dL (12.0-16.0); Mean Corpuscular Hemoglobin 30.6 pg (25.0-34.0); Mean Corpuscular Volume 96.2 fL (80.0-100.0); Platelet Count 235 K/uL (130-400); RDW Standard Deviation 52.5 fL (36.4-46.3); Red Blood Count 2.35 M/uL (4.20-5.40); White Blood Count 5.91 K/ul (4.8-10.8)
[2025-03-27 06:26] LABS: Anion Gap 9.0 (3-11); Blood Urea Nitrogen 16.0 mg/dl (6-23); Calcium 8.6 mg/dl (8.6-10.3); Carbon Dioxide 22.0 mmol/L (21-32); Chloride 107.0 mmol/L (98-107); Creatinine Clr Calc Pharmacy 58.5 ml/min; Glucose 103.0 mg/dl (70-99(Fasting)); Potassium 3.8 mmol/L (3.5-5.1); Sodium 138.0 mmol/L (136-145)
--- NOTE | 2025-03-27 07:37 | Hospitalist Progress Note ---
Date of Service March 27, 2025 Assessment & Plan (1) Compression fx, thoracic spine: (2) Dehydration: (3) Generalized weakness: (4) Stage IV carcinoma of ovary: (5) Dermatomyositis: (6) Hypoproliferative anemia: Plan Skye is an 79yo with history of osteoporosis, stage IV ovarian cancer, and dermatomyositis admitted for new T9 vertebral compression fracture due to fall. New finding of hypoproliferative anemia, engaging with hematology for further intervention. Requires continued admission for pain control, vital sign monitoring, daily labs, and PT/OT while pending placement to SNF. #Osteoporotic thoracic compression fracture, T9 progressed from prior Likely fall on 03/21 has worsened prior known T9 compression fracture -continue multimodal pain control: lidocaine patch, Miacalcin nasal spray, scheduled Tylenol; now prn Toradol, prn morphine -PT/OT as tolerated #anemia, hypoproliferative Hgb 10.6 -> 7.2 -> 7.3 -> 7.5-> 7.2 this AM, revealing this may be around her new baseline. Initially suspected dilution but as her hemoglobin has not improved, but looking further into her blood cell production, with her reticulocytes being slightly elevated yet still not enough to make up for her hemoglobin levels, calculated her Reticulocyte Production Index is low at 0.9 (normal is 2) Peripheral smear showing no overt changes of a myelodysplastic syndrome or hemolytic anemia; reviewed findings consistent with non-specific normochromic, normocytic anemia #Weakness/deconditioning PT/OT eval and treat. Daughter working on 11/11 care at home - case mgmt looking into SNF for the time being, patient has become amenable to this idea - out of bed, sitting upright as tolerated #dermatomyositis and ovarian cancer ultimate goal is to be back home on hospice, but will continue working on nutrition and strength while here #dehydration IV fluids discontinued, continue working on PO intake DVT prophylaxisLovenox Admission and Anticipated Discharge Date Admission Date: March 22, 2025 Supervising Physician Co-Signing Physician Notes I personally examined the patient and verified all avila points of history and exam, discussed case, and agree with decision making with Dr De La Cruz continues to feel well. no new problems. Awaiting placement options. vitals noted nad heent nc at mmm breathing unlabored no accessory muscles good effort skin no rashes no pallor or icterus neuro no focal deficits Osteoporotic compression fracture of thoracic vertebrapain control. no acute complaints, pain seems under adequate control. For rehab. Continue current care. Weakness/deconditioningPT/OT eval and treatactually showing more potential rehab benefit than initially suspected. For SNF versus [facility] - familiy and case management working on arrangements Anemiano signs or symptoms of blood loss, hemodynamically stable. Low retic indexI suspect this is all hypoproliferativepossibly just of her overall chronic disease burden. Iron and B12 studies do not suggest deficiency. d/w heme/onc informally - but no role for EPO in situations like this - follow and transfuse prn. Discussed this with patient and family dehydrationimproved hospice patient/palliative goals of careseems to relate to her dermatomyositis and ovarian cancerultimate goal is to get her back home on hospice, but she actually shows rather significant rehab potential at this point and I do believe it is quite reasonable to try to maximize her rehab potential to improve her quality and quantity of life. DVT proph - lovenox for SNF or [facility] Subjective No overnight events. Pt seen and examined this AM at beside. Today she feels "no pain." She is pleased with the care she has received by everyone. Pain is well controlled with current regimen. Denies fever, chills, CP, SOB, abdominal pain. Review of Systems Review of Systems: as per HPI Physical Exam Physical Exam: GA: well groomed, well nourished in no apparent distress sitting upright in bed. AAOx3 HEENT: head normocephalic, atraumatic. EOMI RESP: vesicular breath sounds b/l. No wheezes, rhonchi, or rales CARDIOVASCULAR: S1 and S2 heard. No murmurs, rubs, or gallops. Radial pulses 2+ b/l RRR GI: Normoactive bowel sounds, no tenderness or masses felt to palpation MSK: no gross abnormalities or focal deficits SKIN: warm, dry, no edema PSYCH: appropriate mood and affect NEURO: no focal deficits. speech fluent Results & Data Results & Data Vital Signs (Past 12 Hours) Vital Signs Temp Pulse Resp BP Pulse Ox O2 Del Method 03/27/25 00:10 36.7 C 75 18 121/76 97 Room Air Resident Activity Tracking Resident Involvement: Resident Care Provided Care Provided: Adult [facility] Medicine
[2025-03-27 07:45] VITALS: RESP 16
--- NOTE | 2025-03-27 19:21 | Billing Data ---
Date of Service March 27, 2025 Coding Level of Care Code [id number] SUB INP/OBS CARE
[2025-03-27] MEDS: ALUMINUM/MAGNESIUM SUSP 30 ML UDC PO PRN (19:40)
[2025-03-28] MEDS: POLYETHYLENE (MIRALAX) 17 GM PACK PO PRN (08:26)
--- NOTE | 2025-03-28 09:07 | Hospitalist Progress Note ---
Date of Service March 28, 2025 Assessment & Plan (1) Compression fx, thoracic spine: (2) Dehydration: (3) Generalized weakness: (4) Stage IV carcinoma of ovary: (5) Dermatomyositis: (6) Hypoproliferative anemia: Plan Skye is an 79yo with history of osteoporosis, stage IV ovarian cancer, and dermatomyositis admitted for new T9 vertebral compression fracture due to fall. New finding of hypoproliferative anemia, engaging with hematology for further intervention. Requires continued admission for pain control, vital sign monitoring, daily labs, and PT/OT while pending placement to SNF. #Osteoporotic thoracic compression fracture, T9 progressed from prior Likely fall on 03/21 has worsened prior known T9 compression fracture -continue multimodal pain control: lidocaine patch, Miacalcin nasal spray, scheduled Tylenol; prn Toradol, prn morphine -PT/OT as tolerated #anemia, hypoproliferative Hgb 10.6 -> 7.2 -> 7.3 -> 7.5-> 7.2 this AM, revealing this may be around her new baseline. Initially suspected dilution but as her hemoglobin has not improved, but looking further into her blood cell production, with her reticulocytes being slightly elevated yet still not enough to make up for her hemoglobin levels, calculated her Reticulocyte Production Index is low at 0.9 (normal is 2) Peripheral smear showing no overt changes of a myelodysplastic syndrome or hemolytic anemia; reviewed findings consistent with non-specific normochromic, normocytic anemia #Weakness/deconditioning PT/OT eval and treat. Daughter working on 11/11 care at home - case mgmt looking into SNF for the time being, patient has become amenable to this idea - out of bed, sitting upright as tolerated #dermatomyositis and ovarian cancer ultimate goal is to be back home on hospice, but will continue working on nutrition and strength while here #dehydration continue working on PO intake DVT prophylaxisLovenox Admission and Anticipated Discharge Date Admission Date: March 22, 2025 Supervising Physician Co-Signing Physician Notes I personally examined the patient and verified avila points of history and exam, discussed case, and agree with decision making and plan documented by Dr. De La Cruz. Anticipate discharge to [facility] tomorrow. Patient hopeful for rehabilitation with ultimate return home with family. Subjective No overnight events. Pt seen and examined this AM at beside. No new or worsening complaints. She is pleased with the care she has received by everyone. Pain is well controlled with current regimen. As per nursing, she is able to get out of bed and walk around the hallway. Denies fever, chills, CP, SOB, abdominal pain. Review of Systems Review of Systems: as per HPI Physical Exam Physical Exam: GA: well groomed, well nourished in no apparent distress sitting upright in bed. AAOx3 HEENT: head normocephalic, atraumatic. EOMI RESP: vesicular breath sounds b/l. No wheezes, rhonchi, or rales CARDIOVASCULAR: S1 and S2 heard. No murmurs, rubs, or gallops. Radial pulses 2+ b/l RRR GI: Normoactive bowel sounds, no tenderness or masses felt to palpation MSK: no gross abnormalities or focal deficits SKIN: warm, dry, no edema PSYCH: appropriate mood and affect NEURO: no focal deficits. speech fluent Results & Data Results & Data Vital Signs (Past 12 Hours) Vital Signs Temp Pulse Resp BP Pulse Ox O2 Del Method 03/28/25 07:20 36.8 C 93 H 16 135/74 96 Room Air 03/27/25 23:16 37.1 C 89 16 119/76 94 Room Air Resident Activity Tracking Resident Involvement: Resident Care Provided Care Provided: Adult Hospital Medicine
[2025-03-29 08:37] VITALS: BP 95/60; PULSE 89; TEMP 98.8; O2SAT 98
--- NOTE | 2025-03-29 12:13 | Hospitalist Progress Note ---
Date of Service March 29, 2025 Assessment & Plan (1) Compression fx, thoracic spine: (2) Dehydration: (3) Generalized weakness: (4) Stage IV carcinoma of ovary: (5) Dermatomyositis: (6) Hypoproliferative anemia: Plan Skye is an 79yo with history of osteoporosis, stage IV ovarian cancer, and dermatomyositis admitted for new T9 vertebral compression fracture due to fall. New finding of hypoproliferative anemia, engaging with hematology for further intervention. Requires continued admission for pain control, vital sign monitoring, daily labs, and PT/OT while pending placement to SNF. #Osteoporotic thoracic compression fracture, T9 progressed from prior Likely fall on 03/21 has worsened prior known T9 compression fracture -continue multimodal pain control: lidocaine patch, Miacalcin nasal spray (discontinue 04/06 as two week course complete), scheduled Tylenol; prn Toradol, prn morphine -PT/OT as tolerated #anemia, hypoproliferative Hgb 10.6 -> 7.2 -> 7.3 -> 7.5-> 7.2, revealing this may be around her new baseline. Initially suspected dilution but as her hemoglobin has not improved, but looking further into her blood cell production, with her reticulocytes being slightly elevated yet still not enough to make up for her hemoglobin levels, calculated her Reticulocyte Production Index is low at 0.9 (normal is 2) Peripheral smear showing no overt changes of a myelodysplastic syndrome or hemolytic anemia; reviewed findings consistent with non-specific normochromic, normocytic anemia #Weakness/deconditioning PT/OT eval and treat. - awaiting auth for [facility] - out of bed, sitting upright as tolerated #dermatomyositis and ovarian cancer ultimate goal is to be back home on hospice, but will continue working on nutrition and strength while here #dehydration continue working on PO intake DVT prophylaxisLovenox Admission and Anticipated Discharge Date Admission Date: March 22, 2025 Subjective No overnight events. Pt seen and examined this AM at beside. No new or worsening complaints. Pain is well controlled with current regimen. Pleased she had a BM. Denies fever, chills, CP, SOB, abdominal pain. Review of Systems Review of Systems: as per HPI Physical Exam Physical Exam: GA: well groomed, well nourished in no apparent distress sitting upright in bed. AAOx3 HEENT: head normocephalic, atraumatic. EOMI RESP: vesicular breath sounds b/l. No wheezes, rhonchi, or rales CARDIOVASCULAR: S1 and S2 heard. No murmurs, rubs, or gallops. Radial pulses 2+ b/l RRR MSK: no gross abnormalities or focal deficits SKIN: warm, dry, no edema PSYCH: appropriate mood and affect NEURO: no focal deficits. speech fluent Results & Data Results & Data Vital Signs (Past 12 Hours) Vital Signs Temp Pulse Resp BP Pulse Ox O2 Del Method 03/29/25 08:06 37.1 C 89 16 95/60 L 98 Room Air Resident Activity Tracking Resident Involvement: Resident Care Provided Care Provided: Adult Hospital Medicine
--- NOTE | 2025-03-29 12:50 | Discharge Summary ---
Date of Service March 29, 2025 Admission HPI Per Admitting Provider patient is a very pleasant 79-year-old female accompanied by her daughter. It sounds like she has had worsening weakness for quite a while, but the last few days has been very bad. In the last 24 hours she has had roughly 4 falls. 1 she was home alone between caregivers (the daughter is working on 24/7 care) and the caregiver found the patient down on the floor. She was coherent, did not appear to have any loss of consciousness, but did have worse back pain. Since then she continues to fall more and more. Patient and daughter endorse a gradual decline and overall weakness largely leading to the falls. Back pain definitely new/worse since the 1 fall yesterday. She is at home on hospice, daughter knows that the patient needs 24/7 care and has been working on it, but has not been able to make all arrangements yet. Ultimate goal would be to be at home on hospice with 24/7 care, but need more help at this time. Principal Diagnosis Osteoporotic thoracic compression fracture Discharge Exam GA: well groomed, well nourished in no apparent distress sitting upright in bed. AAOx3 HEENT: head normocephalic, atraumatic. EOMI RESP: vesicular breath sounds b/l. No wheezes, rhonchi, or rales CARDIOVASCULAR: S1 and S2 heard. No murmurs, rubs, or gallops. Radial pulses 2+ b/l RRR MSK: no gross abnormalities or focal deficits SKIN: warm, dry, no edema PSYCH: appropriate mood and affect NEURO: no focal deficits. speech fluent Discharge Data Allergies Allergy/AdvReac Type Severity Reaction Status Date / Time shrimp Allergy Intermediate Hives Verified 10/27/24 19:29 aspirin Allergy Mild itching Verified 10/27/24 19:29 Consultations 03/22/25 12:57 ED Decision to Admit Stat Ordered Studies 03/22/25 07:11 CT cervical spine wo con Stat CT head/brain wo con Stat CT lumbar spine wo con Stat CT thoracic spine wo con Stat Hospital Course (1) Compression fx, thoracic spine: (2) Dehydration: (3) Generalized weakness: (4) Stage IV carcinoma of ovary: (5) Dermatomyositis: (6) Hypoproliferative anemia: Huan Cheung is an 79yo with history of osteoporosis, stage IV ovarian cancer, and dermatomyositis admitted for new T9 vertebral compression fracture due to fall. New finding of hypoproliferative anemia, engaging with hematology for further intervention. Requires continued admission for pain control, vital sign monitoring, daily labs, and PT/OT while pending placement to SNF. #Osteoporotic thoracic compression fracture, T9 progressed from prior Likely fall on 03/21 has worsened prior known T9 compression fracture -continue multimodal pain control: lidocaine patch, Miacalcin nasal spray (discontinue 04/06 as two week course complete), scheduled Tylenol; prn Toradol, prn morphine -PT/OT as tolerated #anemia, hypoproliferative Hgb 10.6 -> 7.2 -> 7.3 -> 7.5-> 7.2, revealing this may be around her new baseline. Initially suspected dilution but as her hemoglobin has not improved, but looking further into her blood cell production, with her reticulocytes being slightly elevated yet still not enough to make up for her hemoglobin levels, calculated her Reticulocyte Production Index is low at 0.9 (normal is 2) Peripheral smear showing no overt changes of a myelodysplastic syndrome or hemolytic anemia; reviewed findings consistent with non-specific normochromic, normocytic anemia #Weakness/deconditioning PT/OT eval and treat. - awaiting auth for [facility] - out of bed, sitting upright as tolerated #dermatomyositis and ovarian cancer ultimate goal is to be back home on hospice, but will continue working on nutrition and strength while here #dehydration continue working on PO intake plan for discharge Total Time Total Time Spent Total Time Spent (In Minutes): please see attending attestation Discharge Plan Discharge Items Patient Disposition: Transfer Group Home Fac Reason For Visit: WEAKNESS Discharge Diagnosis: T9 osteoporotic compression fracture, weakness, falls Condition on Discharge: Good Activity: Per Instructions section Non-emergency contact: Primary Care Provider Call non-emergency contact if: your symptoms worsen and your pain is not controlled Follow-up/Referrals: Alfredo Mesa DO [Primary Care Provider] - Khanh Olivares DO [Resident] - Diet: Regular Addtl Attending Provider Instructions: Skye is an 79yo with history of osteoporosis, stage IV ovarian cancer, and dermatomyositis admitted for new T9 vertebral compression fracture due to fall. New finding of hypoproliferative anemia, engaging with hematology for further intervention. Requires continued admission for pain control, vital sign monitoring, daily labs, and PT/OT while pending placement to SNF. #Osteoporotic thoracic compression fracture, T9 progressed from prior Likely fall on 03/21 has worsened prior known T9 compression fracture -continue multimodal pain control: lidocaine patch, Miacalcin nasal spray, scheduled Tylenol; prn Toradol, prn morphine -PT/OT as tolerated -should discontinue the calcitonin nasal spray on 04/06/25 as two week course is generally recommended. #anemia, hypoproliferative Hgb 10.6 -> 7.2 -> 7.3 -> 7.5-> 7.2 this AM, revealing this may be around her new baseline. Initially suspected dilution but as her hemoglobin has not improved, but looking further into her blood cell production, with her reticulocytes being slightly elevated yet still not enough to make up for her hemoglobin levels, calculated her Reticulocyte Production Index is low at 0.9 (normal is 2) Peripheral smear showing no overt changes of a myelodysplastic syndrome or hemolytic anemia; reviewed findings consistent with non-specific normochromic, normocytic anemia #Weakness/deconditioning PT/OT eval and treat. - out of bed, sitting upright as tolerated #dermatomyositis and ovarian cancer ultimate goal is to be back home on hospice, but will continue working on nutrition and strength while here Pending Studies at Discharge: No Stand-Alone Forms: [facility] Skilled Items Patient informed of condition?: Yes DNR: Yes Discharge Level of Care: Skilled Communicable Disease: No Discharge Prognosis: Improving Lines: None Urinary Catheter: No Medications and DC Order Prescriptions: New calcitonin (salmon) 200 unit/actuation [place],Non-Aerosol 1 spray NA DAILY Qty: 3.7 0RF Continued methenamine hippurate 1 gram tablet 1 g PO BID Qty: 60 11RF cholecalciferol (vitamin D3) [Vitamin D3] 25 mcg (1,000 unit) Tablet 25 mcg PO QAM prednisone 5 mg tablet 5 mg PO UD Rx Instructions: STARTED 10/20/24--TAKE 10 MG X 7 DAYS, THEN 7.5 MG X 14 DAYS, THEN 5 MG DAILY cyanocobalamin (vitamin B-12) [Vitamin B-12] 1,000 mcg Tablet 1,000 mcg PO DAILY trimethoprim 100 mg tablet 100 mg PO BID Discharge Orders: Discharge Order (Routine); Ordered 03/29/25 Ordered By: Fam De La Cruz Admission Data Admit Date/Time: 03/22/25 13:29 Attending Provider: Jackie Baca Admit Provider: Jamar Goodman Primary Care Provider: Alfredo Mesa Other Providers: Jamar Goodman; [facility]; [facility] Other Interventions: Discharge Summary Assessment (RN) Last Done: 03/29/25 13:02 Supervising Physician Co-Signing Physician Notes I personally examined the patient and verified avila points of history and exam, discussed case, and agree with decision making and plan documented by Dr. De La Cruz. Patient is an 79-year-old female with past medical history pertinent for ovarian cancer, hypertension, hyperlipidemia, dermatomyositis, and cognitive impairment presenting with generalized weakness and falls at home on admission for thoracic compression fracture and deconditioning. Multimodal pain control initiated, patient tolerating PT/OT, discharged to SNF for rehab. Patient plans to return home for hospice in future. She will followup outpatient with her PCP. Total attending time 28 minutes Resident Activity Tracking Resident Involvement: Resident Care Provided Care Provided: Adult Hospital Medicine
== END 2025-03-29 15:56 | DRG 543 ==
LOC: ED 07:02 → SUATTDRO 13:29 → EDINP 13:29 → 3N 15:23